=== PATIENT | male | born 1940 | race Caucasian/White ===

== ENCOUNTER → 2018-06-06 07:25 | Outpatient (CLI) | payer MEDICARE, SELFPAY ==
--- NOTE | 2018-06-06 10:00 | PFT_ITS ---
PULMONARY FUNCTION TEST RESULTS SPIROMETRY: Moderate Obstructive Ventilatory Component. No significant measurable clinical response to Beta Agonist. LUNG VOLUMES: Air trapping Hyperinflation DIFFUSION: Severe gas transfer abnormality.
== END ==
PROVIDERS: Family Provider Family Medicine; PCP Family Medicine; Visit Provider Family Medicine
DX: J44.9 Chronic obstructive pulmonary disease, unspecified (principal)
CPT/HCPCS: 94060; 94726; 94729

== ENCOUNTER → 2018-06-10 08:22 | Outpatient (CLI) | payer MEDICARE, SELFPAY ==
[2018-06-10 09:21] VITALS: PULSE 100; PULSE 106; PULSE 112; PULSE 113; PULSE 70; PULSE 71; PULSE 93; PULSE 95; O2SAT 94; O2SAT 95; O2SAT 96; O2SAT 97; O2SAT 98
--- NOTE | 2018-06-10 15:53 | WT_ITS ---
PSN 6 Minute Walk Test - 6 Minute Walk Test 6 Minute Walk Test: 6 Minute Walk Test PSN:6-Minute Walk Test Start: 06/10/18 09: 21 Freq: Status: Active Protocol: [id number].6MINW Document 06/10/18 09:21 SHILO (Rec: 06/10/18 09:24 SHILO [id number]) 6 Minute Walk Test Date Performed 06/10/18 Time Performed 09:00 Height 5 ft 7 in Weight: 111.584 kg Weight in Pounds 246.[address]: Silvino Jaime Assistive device used: Cane Pre-test Oxygen Delivery Method Room Air Pulse Ox (%) 97 Pulse Rate (60-100 beats/min) 71 Dyspnea Tyrell Scale (0-10) 0 Exertion Tyrell Scale (6-20) 6 1st minute Oxygen Delivery Method Room Air Pulse Ox (%) 98 Pulse Rate (60-100 beats/min) 95 2nd minute Oxygen Delivery Method Room Air Pulse Ox (%) 97 Pulse Rate (60-100 beats/min) 100 Reported Symptoms Increased Work of Breathing 3rd minute Oxygen Delivery Method Room Air Pulse Ox (%) 96 Pulse Rate (60-100 beats/min) 93 Number of Rests Taken 1 4th minute Oxygen Delivery Method Room Air Pulse Ox (%) 94 Pulse Rate (60-100 beats/min) 112 H 5th minute Oxygen Delivery Method Room Air Pulse Ox (%) 95 Pulse Rate (60-100 beats/min) 113 H 6th minute Oxygen Delivery Method Room Air Pulse Ox (%) 94 Pulse Rate (60-100 beats/min) 106 H Dyspnea Tyrell Scale (0-10) 4 Exertion Tyrell Scale (6-20) 13 Post-test Oxygen Delivery Method Room Air Pulse Ox (%) 97 Pulse Rate (60-100 beats/min) 70 Full Laps Walked 11 Partial Lap, Number of Tiles Walked 15 Total Distance Walked (ft) 664 - Interpretation Interpretation: The patient was able to ambulate 664 feet over the course of 6 minutes on room air with the assistance of a cane and one break. The patient did not experience significant desaturation, but did have tachycardia as high as 113 bpm. These findings are consistent with a musculoskeletal and cardiovascular limitation exercise tolerance. - Recommendations Recommendations: No supplemental oxygen is indicated at this time.
== END ==
PROVIDERS: Family Provider Family Medicine; PCP Family Medicine; Visit Provider Family Medicine
DX: J44.9 Chronic obstructive pulmonary disease, unspecified (principal)
CPT/HCPCS: 94618

== ENCOUNTER → 2018-09-07 10:12 | Outpatient (CLI) | payer MEDICARE, SELFPAY ==
[2018-09-07 12:23] LABS: Hematocrit 24.1 % (40-54); Hemoglobin 7.2 g/dl (13.0-16.5); Immature Platelet Fraction 3.5 % (1.0-7.9); Mean Corp Hgb Conc 29.9 g/gl (32-36); Mean Corpuscular Hgb 29.3 pg (27.0-32.0); Mean Platelet Vol. 9.5 fl (6.2-12.0); Platelet Count 203 K/mm3 (150-450); RBC Distribution Width CV 18.9 % (11.6-14.6); RBC Distribution Width SD 65.7 fl (35.1-43.9); RET-HE 28.1 pg (30-35); Red Blood Count 2.46 M/mm3 (4.6-6.2); Reticulocyte Count 7.44 % (0.5-1.5); White Blood Count 9.1 K/mm3 (4.4-11.0)
[2018-09-07 12:24] LABS: Scan Indicated on CBC? Y/N YES- FLAGS NOTED
[2018-09-07 12:36] LABS: Differential Comment SCANNED
[2018-09-07 12:51] LABS: Vitamin B12 382 pg/mL (211-911)
[2018-09-07 12:56] LABS: Ferritin 13 ng/mL (26-388)
== END ==
PROVIDERS: Family Provider Family Medicine; PCP Family Medicine; Referring Provider Family Medicine; Visit Provider Family Medicine
DX: D64.9 Anemia, unspecified (principal); K62.5 Hemorrhage of anus and rectum
CPT/HCPCS: 36415; 82607; 82728; 82746; 85027; 85045

== ENCOUNTER → 2018-09-13 11:21 | Outpatient (CLI) | payer MEDICARE, SELFPAY ==
[2018-09-13 12:28] LABS: Absolute Lymphocyte Count 0.56 X10^3/ul (0.83-4.51); Absolute Neutrophil Count 8.6 X10^3/uL (2.0-7.7); Hematocrit 26.2 % (40-54); Hemoglobin 7.8 g/dl (13.0-16.5); Immature Platelet Fraction 4.5 % (1.0-7.9); Lymphocyte # 0.56 X10^3/ul (4.0); Mean Corp Hgb Conc 29.8 g/gl (32-36); Mean Corpuscular Hgb 28.4 pg (27.0-32.0); Mean Corpuscular Volume 95.3 fL (80-94); Mean Platelet Vol. 10.1 fl (6.2-12.0); Monocyte# 0.13 X10^3/uL; Monocyte% 1.4 % (0-10); Neutrophil % 92.5 % (47-70); Platelet Count 201 K/mm3 (150-450); RBC Distribution Width CV 17.8 % (11.6-14.6); RBC Distribution Width SD 61.4 fl (35.1-43.9); RET-HE 17.3 pg (30-35); Red Blood Count 2.75 M/mm3 (4.6-6.2); Reticulocyte Count 3.72 % (0.5-1.5); White Blood Count 9.3 K/mm3 (4.4-11.0)
[2018-09-13 12:32] LABS: Differential Indicated SCAN CRITERIA MET; POSITIVE COUNT NO; POSITIVE DIFFERENTIAL YES; POSITIVE MORPHOLOGY YES
[2018-09-13 12:57] LABS: Polychromasia RARE
[2018-09-13 13:14] LABS: ALB/GLOB Ratio 0.9 RATIO (0.9-2.4); AST(SGOT) 22 U/L (15-37); Alanine Aminotransfer ALT/SGPT 38 U/L (16-61); Alkaline Phosphatase 65 U/L (45-117); Anion Gap 8 (5-15); BUN 24 mg/dL (7-18); BUN/Creat Ratio 14.9 RATIO (10-20); Calcium,Total 8.4 mg/dL (8.5-10.1); Chloride 108 mmol/L (98-107); Creatinine, Serum 1.61 mg/dL (0.70-1.30); EST Glomerular Filtration Rate 44 mL/min (>60); Est Glom Filt Rate - Afr Amer 54 mL/min (>60); Ferritin 16 ng/mL (26-388); Globulin 3.5 g/dL (2.2-4.2); Glucose 210 mg/dL (74-106); Iron 14 ug/dL (65-175); Iron Binding Capacity,Total 342 ug/dL (250-450); Protein, Total 6.5 g/dL (6.4-8.2); Sodium Level 138 mmol/L (136-145)
== END ==
PROVIDERS: Family Provider Family Medicine; PCP Family Medicine; Visit Provider Family Medicine
DX: K92.2 Gastrointestinal hemorrhage, unspecified (principal)
CPT/HCPCS: 36415; 80053; 82728; 83540; 83550; 85025; 85045

== ENCOUNTER → 2019-08-27 10:25 | Outpatient (CLI) | payer MEDICARE, SELFPAY ==
[2019-08-27 10:55] LABS: Hematocrit 47.3 % (40-54); Hemoglobin 15.7 g/dL (13.0-16.5); Mean Corp Hgb Conc 33.2 g/dL (32-36); Mean Corpuscular Hgb 33.1 pg (27.0-32.0); Mean Corpuscular Volume 99.8 fL (80-94); Mean Platelet Vol. 9.5 fl (6.2-12.0); Platelet Count 191 K/mm3 (150-450); RBC Distribution Width CV 13.7 % (11.6-14.6); RBC Distribution Width SD 50.6 fl (35.1-43.9); Red Blood Count 4.74 M/mm3 (4.6-6.2); White Blood Count 7.3 K/mm3 (4.4-11.0)
[2019-08-27 11:21] LABS: ALB/GLOB Ratio 0.9 RATIO (0.9-2.4); AST(SGOT) 29 U/L (15-37); Alanine Aminotransfer ALT/SGPT 40 U/L (16-61); Albumin, Serum 3.5 g/dL (3.2-5.0); Alkaline Phosphatase 77 U/L (45-117); Anion Gap 6 (5-15); BUN 24 mg/dL (7-18); BUN/Creat Ratio 15.2 RATIO (10-20); Calcium,Total 9.2 mg/dL (8.5-10.1); Chloride 107 mmol/L (98-107); Creatinine, Serum 1.58 mg/dL (0.70-1.30); EST Glomerular Filtration Rate 45 mL/min (>60); Est Glom Filt Rate - Afr Amer 55 mL/min (>60); Globulin 3.8 g/dL (2.2-4.2); Glucose 184 mg/dL (74-106); Potassium 4.4 mmol/L (3.5-5.1); Protein, Total 7.3 g/dL (6.4-8.2); Sodium Level 137 mmol/L (136-145)
[2019-08-27 11:53] LABS: Hemoglobin A1c 6.4 % (4.2-6.3)
== END ==
PROVIDERS: Family Provider Family Medicine; PCP Family Medicine; Referring Provider Family Medicine; Visit Provider Family Medicine
DX: E88.81 Metabolic syndrome and other insulin resistance (principal); J44.9 Chronic obstructive pulmonary disease, unspecified
CPT/HCPCS: 36415; 80053; 83036; 85027

== ENCOUNTER → 2020-01-05 05:42 | Outpatient (CLI) | payer MEDICARE, SELFPAY ==
[2020-01-05 06:59] LABS: Protein, Urine (Random) 24.2 mg/dL (<11.9); Protein:Creat Ratio 159 mg/g CRE (0-200)
[2020-01-05 07:02] LABS: Color, Urine Yellow (Yellow); Glucose, Dipstick Normal (Normal); Ketone-Dipstick Negative (Negative); Leukocyte Esterase-Dipstick Negative /ul (Negative); Nitrite-Dipstick Negative (Negative); Occult Blood-Urine 150 /ul (Negative); Protein-Dipstick 15 mg/dl (Negative); Urine Bilirubin Dipstick Negative (Negative); Urine Clarity Sl. Cloudy (Clear); Urine Urobilinogen Normal (Normal)
[2020-01-05 07:32] LABS: Anion Gap 8 (5-15); BUN 32 mg/dL (7-18); BUN/Creat Ratio 20.1 RATIO (10-20); Calcium,Total 9.1 mg/dL (8.5-10.1); Chloride 108 mmol/L (98-107); Creatinine, Serum 1.59 mg/dL (0.70-1.30); EST Glomerular Filtration Rate 45 mL/min (>60); Est Glom Filt Rate - Afr Amer 54 mL/min (>60); Ferritin 137 ng/mL (26-388); Glucose 183 mg/dL (74-106); Phosphorus 2.6 mg/dL (2.5-4.9); Potassium 4.4 mmol/L (3.5-5.1); Sodium Level 139 mmol/L (136-145)
[2020-01-05 08:52] LABS: PTHIN 68.9 pg/mL (18.4-80.1)
[2020-01-05 08:58] LABS: Vitamin D,25 Hydroxy 70.8 ng/mL
== END ==
PROVIDERS: Internal Medicine; PCP Family Medicine; Referring Provider Internal Medicine Pulmonary Disease; Visit Provider Internal Medicine Pulmonary Disease
DX: D64.9 Anemia, unspecified (principal); N18.3 Chronic kidney disease, stage 3 (moderate); E55.9 Vitamin D deficiency, unspecified
CPT/HCPCS: 36415; 80048; 81002; 82306; 82570; 82728; 83970; 84100; 84156

== ENCOUNTER → 2020-04-05 06:48 | Outpatient (CLI) | payer MEDICARE, SELFPAY ==
[2020-04-05 07:18] LABS: Color, Urine Yellow (Yellow); Glucose, Dipstick Normal (Normal); Ketone-Dipstick Negative (Negative); Leukocyte Esterase-Dipstick Negative /ul (Negative); Nitrite-Dipstick Negative (Negative); Occult Blood-Urine 50 /ul (Negative); Protein-Dipstick 30 mg/dl (Negative); Urine Bilirubin Dipstick Negative (Negative); Urine Clarity Sl. Cloudy (Clear); Urine Urobilinogen Normal (Normal)
[2020-04-05 07:45] LABS: Anion Gap 5 (5-15); BUN 22 mg/dL (7-18); BUN/Creat Ratio 15.2 RATIO (10-20); Calcium,Total 9.1 mg/dL (8.5-10.1); Chloride 103 mmol/L (98-107); Creatinine, Serum 1.45 mg/dL (0.70-1.30); EST Glomerular Filtration Rate 50 mL/min (>60); Est Glom Filt Rate - Afr Amer 60 mL/min (>60); Glucose 132 mg/dL (74-106); Phosphorus 2.8 mg/dL (2.5-4.9); Potassium 3.9 mmol/L (3.5-5.1); Sodium Level 137 mmol/L (136-145)
[2020-04-05 07:46] LABS: Protein, Urine (Random) 28.9 mg/dL (<11.9); Protein:Creat Ratio 249 mg/g CRE (0-200)
[2020-04-05 11:08] LABS: PTHIN 77.5 pg/mL (18.4-80.1)
[2020-04-05 11:14] LABS: Vitamin D,25 Hydroxy 61.5 ng/mL
== END ==
PROVIDERS: PCP Family Medicine; Referring Provider Internal Medicine; Visit Provider Internal Medicine
DX: N18.3 Chronic kidney disease, stage 3 (moderate) (principal); E55.9 Vitamin D deficiency, unspecified
CPT/HCPCS: 36415; 80048; 81002; 82306; 82570; 83970; 84100; 84156

== ENCOUNTER → 2020-06-15 05:52 | Outpatient (CLI) | payer MEDICARE, SELFPAY ==
[2020-06-15 07:51] LABS: ALB/GLOB Ratio 0.9 RATIO (0.9-2.4); AST(SGOT) 15 U/L (15-37); Alanine Aminotransfer ALT/SGPT 27 U/L (16-61); Albumin, Serum 3.5 g/dL (3.2-5.0); Alkaline Phosphatase 75 U/L (45-117); Anion Gap 6 (5-15); BUN 21 mg/dL (7-18); BUN/Creat Ratio 14.3 RATIO (10-20); Calcium,Total 8.9 mg/dL (8.5-10.1); Chloride 108 mmol/L (98-107); Cholesterol 102 mg/dL (200); Creatinine, Serum 1.47 mg/dL (0.70-1.30); EST Glomerular Filtration Rate 49 mL/min (>60); Est Glom Filt Rate - Afr Amer 59 mL/min (>60); Ferritin 75 ng/mL (26-388); Globulin 3.8 g/dL (2.2-4.2); Glucose 115 mg/dL (74-106); High Density Lipoprotein 34 mg/dL; Potassium 4.4 mmol/L (3.5-5.1); Protein, Total 7.3 g/dL (6.4-8.2); Sodium Level 138 mmol/L (136-145); Triglycerides 163 mg/dL; Very Low Density Lipoprotein 33 mg/dL (5-40)
[2020-06-15 07:52] LABS: Hemoglobin A1c 6.5 % (3.8-5.6)
== END ==
PROVIDERS: PCP Family Medicine; Referring Provider Family Medicine; Visit Provider Family Medicine
DX: N18.3 Chronic kidney disease, stage 3 (moderate) (principal); G47.62 Sleep related leg cramps
CPT/HCPCS: 36415; 80053; 80061; 82728; 83036

== ENCOUNTER → 2020-09-13 10:46 | Outpatient (CLI) | payer MEDICARE, SELFPAY | PROVIDERS: PCP Family Medicine; Referring Provider Family Medicine; Visit Provider Family Medicine | DX: N18.30 Chronic kidney disease, stage 3 unspecified (principal); E11.29 Type 2 diabetes mellitus with other diabetic kidney complication; C85.80 Other specified types of non-Hodgkin lymphoma, unspecified site | CPT/HCPCS: 36415 ==

== ENCOUNTER → 2020-12-31 07:11 | Outpatient (CLI) | payer MEDICARE, SELFPAY ==
[2020-12-31 07:23] LABS: Bacteria 0 SEEN /hpf (None Seen); Mucous, Urine 0 SEEN /hpf (<or=2+); Red Blood Cells-Urine 0 SEEN /hpf (0-5); Squamous Epithelial Cells - UA 0 SEEN /hpf (0-5); White Blood Cells 0 SEEN /hpf (0-5)
[2020-12-31 10:11] LABS: Color, Urine Yellow (Yellow); Glucose, Dipstick Normal (Normal); Ketone-Dipstick Negative (Negative); Leukocyte Esterase-Dipstick Negative /ul (Negative); Nitrite-Dipstick Negative (Negative); Occult Blood-Urine 25 /ul (Negative); Protein-Dipstick 30 mg/dl (Negative); Specific Gravity, Urine 1.025 (1.002-1.030); Urine Bilirubin Dipstick Negative (Negative); Urine Clarity Clear (Clear); Urine Urobilinogen Normal (Normal)
[2020-12-31 10:21] LABS: Anion Gap 8 (5-15); BUN 27 mg/dL (7-18); BUN/Creat Ratio 18.8 RATIO (10-20); Calcium,Total 9.1 mg/dL (8.5-10.1); Chloride 107 mmol/L (98-107); Creatinine, Serum 1.44 mg/dL (0.70-1.30); EST Glomerular Filtration Rate 50 mL/min (>60); Est Glom Filt Rate - Afr Amer 61 mL/min (>60); Glucose 151 mg/dL (74-106); Phosphorus 3.3 mg/dL (2.5-4.9); Potassium 4.1 mmol/L (3.5-5.1); Sodium Level 138 mmol/L (136-145)
[2020-12-31 10:42] LABS: Vitamin D,25 Hydroxy 81.6 ng/mL
[2020-12-31 11:15] LABS: Creat.Clear Total Volume 1350 mL
[2020-12-31 11:16] LABS: Creatinine Clearance 77 ml/min (100-200); Creatinine Serum Creat 1.4 mg/dL (0.8-1.3); EST Glomerular Filtration Rate 52 mL/min (>60); Est Glom Filt Rate - Afr Amer 52 mL/min (>60)
[2020-12-31 11:26] LABS: 24 Hour Urine Protein 221.4 mg/24HR (<150 MG/24HR); 24HR. UA Prot. Total Volume 1350 mL; Urine Protein (24 Hour) 16.4 mg/dL (<11.9)
[2020-12-31 11:27] LABS: Protein:Creat Ratio 186 mg/g CRE (0-200)
== END ==
LOC: LAB.FUTURE 12-30 07:09 → MTLAB 07:12
PROVIDERS: PCP Family Medicine; Referring Provider Internal Medicine; Visit Provider Internal Medicine
DX: N18.30 Chronic kidney disease, stage 3 unspecified (principal); E55.9 Vitamin D deficiency, unspecified
CPT/HCPCS: 36415; 80048; 81001; 82306; 82570; 82575; 84100; 84156

== ENCOUNTER 2021-01-18 08:05 | Emergency (ER) | payer MEDICARE, SELFPAY ==
[2021-01-18 08:07] VITALS: BP 136/82; PULSE 76; RESP 14; TEMP 36.3; O2SAT 97; BMI 38.5
--- NOTE | 2021-01-18 08:14 | ED.DCSUM_ITS ---
History of Present Illness Chief Complaint: Back Informant: Patient Onset: Weeks Context: Sudden Onset Injury: - Timing: Continuous - She denies injury., Waxes and wanes Quality: Dull, Aching Location: Lumbar - Left side Current Severity: Moderate Maximum Severity: Severe Worsened by: improves with: Movement, Ambulation, Bending, Lifting Relieved by: Nothing Associated Symptoms: - - Denies bowel bladder dysfunction. He denies saddle paresthesia or anesthesia. He denies foot drop. He has buckling of his knees going up or down steps. Movement exacerbates his pain. He denies dysuria, frequency, urgency or hematuria. He denies fever or chills. He has had no recent operative Narrative: Patient is an 80-year-old male with mild medical problems who presents with 1 week history of left lower back pain. Movement exacerbates it. States he gets some improvement with heat. Patient denies abdominal pain. He denies nausea, vomiting diarrhea. He denies hematemesis, melena hematochezia. He denies history of abdominal aortic aneurysm. He does have history of stage III renal disease, hypertension and borderline diabetes. He also has neuropathy. He has not taken anything more than Tylenol for the discomfort. He states the Tylenol has had little effect. Prior similar symptoms: No Recent Illness/Hospitalization: No - Past Medical History (1) Stage 3 chronic kidney disease Status: Chronic (2) Metabolic syndrome Status: Acute (3) Afib Status: Chronic (4) COPD (chronic obstructive pulmonary disease) Status: Chronic (5) H/O heart valve replacement with porcine valve Status: Chronic (6) HTN (hypertension) Status: Chronic (7) TUSHAR (obstructive sleep apnea) Status: Chronic Past Medical History - Allergies and Home Meds Allergies/Adverse Reactions: Allergies acetaminophen [From Percocet] Allergy (Verified 01/18/21 08:07) Other iodine Allergy (Verified 01/18/21 08:07) Anaphylaxis oxycodone HCl [From Percocet] Allergy (Verified 01/18/21 08:07) Other morphine Adverse Reaction (Verified 01/18/21 08:07) Other Primary Care Physician: Silvino Jaime MD [Primary Care Provider] - Prior records reviewed: Yes Surgical History: appendectomy, - - hernia operation Lives: Alone Smoking Status: Former smoker Alcohol: None Drugs: None - Family History Maternal Family History: Reports: Heart Disease Paternal Family History: Reports: Hypertension Sibling Family History: Reports: - - brother with aneurysms,one with alcoholism Review of Systems General: Denies: Chills, Fever, Malaise, Subjective, Sweats Eyes: Denies: Visual changes - bilaterally, Blurred Vision - bilaterally ENT: Denies: Bilateral ear pain, Rhinorrhea, Sore throat Cardiovascular: Denies: Chest pain, Palpitations Respiratory: Denies: Dyspnea, Cough, Sputum, Dyspnea on exertion Gastrointestinal: Denies: Abdominal pain, Nausea, Vomiting, Diarrhea, Melena, Hematochezia Genitourinary: Denies: Dysuria, Hematuria, Frequency Musculoskeletal: Reports: Back pain. Denies: Myalgias, Arthralgias, Neck pain, Swelling, Extremity Pain Skin: Denies: Rash, Wounds Neurological: Reports: Parasthesia. Denies: Headache, Weakness Psych: Denies: Depression Endocrine: Denies: Polyuria, Polydipsia Hematologic: Denies: Easy bruising, Easy bleeding Physical Exam Vital Signs/Narrative: Vital Signs Temp Pulse Resp BP Pulse Ox 01/18/21 08:07 97.4 F L 76 14 136/82 H 97 Inital Vital Signs reviewed: Yes General: Well nourished, Well developed, Obese Head: Normocephalic, Atraumatic. Negative for: Trauma, Tenderness Eyes: Perrl, EOMI. Negative for: Pale conjunctiva, Scleral icterus ENT: Moist mucous membranes, No rhinorrhea Neck: Supple, Nontender, No lymphadenopathy, No JVD Cardiovascular: Regular rhythm, No murmurs, Normal S1, Normal S2, Irregular Respiratory: No distress, CTA bilaterally, Chest nontender Abdomen: Soft, Nontender, Nondistended, Normal bowel sounds, No masses. Negative for: Pulsatile mass Rectal: Deferred Back: Normal Inspection, Paraspinal Tenderness - Left lower back., Negative SLR - Right, Negative SLR - Left. Negative for: Nontender, Surgical Scar, Well- Healed, Spinal tenderness, CVA tenderness Extremeties: Tenderness - Due to diabetic neuropathy., Edema - Minimal pitting, Strong Pulses, Symmetric. Negative for: Nontender, No edema Skin: Normal color, No Trauma, Rash - Anus stasis changes lower extremity. Negative for: Cyanosis, Diaphoresis, Jaundice Neuro: Alert, Oriented, Normal Strength, Normal Sensation, Normal DTR - 1-2+ patella and ankle and symmetric., Normal Reflexes, Normal Cerebellar. Negative for: Normal Gait - Walks with a cane. Left foot is rotated laterally. He does walk with a slight limp. Reflexes: - - There is no clonus or Babinski sign noted. Psychological: - - Disc flat. Diagnostic/Tx/Re-eval - Medical Decision Making Patient appears uncomfortable. He was medicated with IV morphine. Patient's history and exam is consistent with muscular back pain. There is no historical or physical findings to suggest cause due to herniated disc, or infectious process i.e. discitis, osteomyelitis or epidural abscess. There is no dermatologic lesions to suggest herpes varicella-zoster. Graph patient refused the morphine because it makes him mean. Patient was treated with [place]. He was informed this is muscular back pain. Since he does have history of diabetes, end-stage renal disease hypertension other multiple medical problems he was discharged with prescription for opiate analgesia. ED Disposition - Plan for ED Patient: Disposition: Home or Assisted Living Diagnosis: Acute exacerbation of chronic low back pain Instructions: ED Back Pain (Acute or Chronic) Prescriptions: Hydrocodone Bitart/Apap 5-325 [[place] 5MG-325MG] 1 tab PO Q6H PRN PRN 3 Days #10 tab PRN Reason: Pain Prescription Printed Referrals: Silvino Jaime MD [Primary Care Provider] - 3-5 Days Additional Instructions: 1. Apply ice 20 to 30 minutes per application 6-8 times a day for the next 3 to 5 days 2. Take medication as prescribed 3. As discussed contact Dr. Silvino Jaime for follow-up.
[2021-01-18 08:42] VITALS: BP 130/75; PULSE 70; RESP 18; TEMP 36.3; O2SAT 96
== END 2021-01-18 09:50 | disposition home or self-care (01) ==
PROVIDERS: Emergency Provider Emergency Medicine; PCP Family Medicine
DX: M54.5 Low back pain (principal); G89.29 Other chronic pain; G47.33 Obstructive sleep apnea (adult) (pediatric); I12.9 Hypertensive chronic kidney disease with stage 1 through stage 4 chronic kidney disease, or unspecified chronic kidney disease; I48.91 Unspecified atrial fibrillation; J44.9 Chronic obstructive pulmonary disease, unspecified; N18.30 Chronic kidney disease, stage 3 unspecified; Z82.49 Family history of ischemic heart disease and other diseases of the circulatory system; Z87.891 Personal history of nicotine dependence; Z88.5 Allergy status to narcotic agent; Z95.2 Presence of prosthetic heart valve
CPT/HCPCS: 96374; 96375; 99282; J2405

== ENCOUNTER → 2021-02-01 14:00 | Outpatient (CLI) | payer MEDICARE, SELFPAY ==
[2021-01-18 08:07] VITALS: BMI 38.5
--- NOTE | 2021-02-01 14:03 | CT_ITS ---
STUDY: CT ABDOMEN AND PELVIS WITHOUT CONTRAST REASON FOR EXAM: Male, 80 years old. R low back pain radiating to R groin. Possible kidney stone. History of prior non-Hodgkin''s lymphoma. RADIATION DOSAGE (If Supplied By Facility): CTDIvol = ( 19.66 ) mGy, DLP = ( 1044.67 ) mGycm TECHNIQUE: Transaxial images were obtained from the dome of the diaphragm to the symphysis pubis without oral contrast, and without intravenous contrast. Sagittal and coronal images were reconstructed. Individualized dose optimization techniques were used for this CT. COMPARISON: None. FINDINGS: Mild degree of increased interstitial markings at the right lung base suggestive of scarring. Coronary artery calcification. Calcification of the mitral valve annulus. Normal liver. Normal gallbladder and extrahepatic biliary system. Normal spleen. Normal pancreas. Normal bilateral adrenal glands. Normal right kidney. Normal left kidney. Normal visualized stomach. Normal small intestine. Normal colon. The patient is status post appendectomy. There is diffuse atherosclerotic calcification of the abdominal aorta and its major visceral branches, without a demonstrated aneurysm. Normal inferior vena cava. Normal retroperitoneum. Normal urinary bladder. The prostate measures 4.7 cm x 5.2 cm. This causes indentation at the bladder base. There is a small umbilical hernia containing fat. There are diffuse degenerative changes of the visualized lumbar spine. CT/Abdomen/Pelvis without Cont IMPRESSION: Prostatic enlargement. Electronically Signed: Bill Stockton MD at 15:13 EDT , Service support ,
== END ==
PROVIDERS: PCP Family Medicine; Referring Provider Family Medicine; Visit Provider Family Medicine
DX: R10.31 Right lower quadrant pain (principal)
CPT/HCPCS: 74176

== ENCOUNTER 2021-03-11 07:00 | Outpatient (RCR) | payer MEDICARE, SELFPAY ==
--- NOTE | 2021-02-10 11:49 | HP.PTEVAL ---
Patient's Visit Information CHARLES DODSON is a 80 year old M referred to Physical Therapy by Dr. Silvino Jaime MD with a diagnosis of CHRONIC LOW BACK PAIN. Date of Evaluation: 02/10/21 Physical Therapist: Ferny Joy, PT, Cert MDT, OCS - Visit Plan Frequency: 2x /Week Duration: 4 Weeks Plan: PT INTERVENTION LUMBAR FLEXION EX'S,DLS ,POSTURAL EX'S,MODALTIES FOR PAIN - Subjective This 80 y/o male presents to physical therapy with LBP right worse than left . Patient has had LBP for about 1 month. Patient LBP was incidous onset . Patient also has left neck and shoulder pain . DR perez a CATSCAN pelvis showed hernia.Aggraveting factors bending,lifting,walking and standing affects ADL's. Alleviating factors rest. Bowel/bladder -NO abdnormal night pain. Coughing/sneezing -. Sleeping okay. 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 Patient has no h/o trauma. Patient symptoms affects QOL and housework tasks. Patient symptoms affects walking. SOCAIL: - Pain Bilateral Back Pain Intensity (Out of 10): 5 Pain Intensity Range: 10 Left Shoulder Pain Intensity (Out of 10): 10 Pain Intensity Range: 10 - Objective POSTURE: mild foward posture. GAIT: recipocal pattern 2 point gait slow aliyah mild foward posture. NEURO: denies parathesia/tingling,reflexes L3-4,L4-5,L5-S1 1/3. PALAPTION: L-S ,PARASPINALS,multifidas. SYMMTRIES: align. LUMBAR ROM: flexion mod loss ,extension severe loss pain,side glides mod loss,. CERVICAL ROM: severe loss extension,lateral flexion pain right UT SHOULDER. MMT: quads/hams 4-/5,hip flexion 4-/5,ankle 4/5. right shoulder 3+/5,rtc 4-/5 pain. MMT - Special Tests L/S Slump test left side: Negative L/S Slump test right side: Negative L/S Left Straight Leg Raise: Negative L/S Right Straight Leg Raise: Negative - Goals Goal 1:: Patient to be I with HEP Goal Time Frame: 4-6 Weeks Goal 2:: Patient to decrease pain back by 40 % or > to improve function and gait Goal Time Frame: 4-6 Weeks Goal 3:: Patient to improve lumbar ROM for function of recovery Goal Time Frame: 4-6 Weeks Goal 4:: Patient to improve back owestry score by 5 points or > to improve QOL. Goal Time Frame: 4-6 Weeks Goal 5:: Patient be able to stand and walk > than 15 mins with less pain to improve housework taskls Goal Time Frame: 4-6 Weeks - Rehabilitation Potential Physical Therapy Diagnosis: This patient has LBP with possibel stenosis with severe loss of lumbar motion ,decrease strength impairs walking and standing affects function and ADL'S thus benifit from skilled PT Rehabilitation Potential: Good - Anticipated Interventions Patient/Client Instruction: Educate patient on: Condition, Plan of Care For the Purpose of:: To decrease pain, To increase ROM, To improve muscle performance and motor function, To improve ability to perform ADL's, To increase tolerance to activity/condition/position, To improve ability of physical actions for home/community/work/leisure, To improve health of tissue, To decrease soft tissue restriction, To increase flexibility/ROM Therapeutic Exercise to Include: Strength training, Body mechanics, Postural training, Flexibilty training, Active ROM Comment: BLE For the Purpose of:: To decrease pain, To increase ROM, To improve muscle performance and motor function, To increase tolerance to activity/condition/position, To improve ability of physical actions for home/community/work/leisure, To improve health of tissue, To decrease soft tissue restriction, To increase flexibility/ROM, To improve ability to perform tasks related to life management TENS: Yes IF ES: Yes Cryotherapy (ice pack, ice massage): Yes Thermo therapy (hot pack): Yes Ultrasound (thermal/non thermal): Yes For the Purpose of:: To decrease pain, To increase ROM, To improve nutrient delivery to tissue, To increase oxygenation perfusion, To improve health of tissue, To decrease soft tissue restriction Thank you for the opportunity to evaluate your patient. For Medicare and Medicare HMO plans, please review the plan of care and approve it. It will need to be FAXED BACK to us at [phone] for Medicare purposes. For Medicare only, by signing this I certify the plan of care. Please let me know if there are questions or concerns regarding this plan of care. Physician Signature: Date:
--- NOTE | 2021-06-29 14:20 | HP.PT.NRP ---
CHARLES DODSON was seen in my office for initial evaluation on 02/10/21. The following Plan of Care was established for this patient: Initial Frequency: 2x /Week Initial Duration: 4 Weeks Patient/Client Instruction: Educate patient on: Condition, Plan of Care For the Purpose of:: To decrease pain, To increase ROM, To improve muscle performance and motor function, To improve ability to perform ADL's, To increase tolerance to activity/condition/position, To improve ability of physical actions for home/community/work/leisure, To improve health of tissue, To decrease soft tissue restriction, To increase flexibility/ROM Therapeutic Exercise to Include: Strength training, Body mechanics, Postural training, Flexibilty training, Active ROM For the Purpose of:: To decrease pain, To increase ROM, To improve muscle performance and motor function, To increase tolerance to activity/condition/position, To improve ability of physical actions for home/community/work/leisure, To improve health of tissue, To decrease soft tissue restriction, To increase flexibility/ROM, To improve ability to perform tasks related to life management TENS: Yes IF ES: Yes Cryotherapy (ice pack, ice massage): Yes Thermo therapy (hot pack): Yes Ultrasound (thermal/non thermal): Yes For the Purpose of:: To decrease pain, To increase ROM, To improve nutrient delivery to tissue, To increase oxygenation perfusion, To improve health of tissue, To decrease soft tissue restriction This patient was last seen in our office . Pertinent comments regarding their Physical therapy will appear below: Patient seen for PT for back pain focusing on postural ex's, DLS and modalities doing well thus d/c At this point I will be discontinuing this patient from physical therapy. I would be happy to see this patient again in the future if found appropriate by the physician. Thank you! Ferny Joy, PT, Cert MDT, OCS Balance/Gait/Functional tests - Balance/Special Test Scores Oswestry Low Back Score: 3
== END 2021-03-11 19:00 | disposition home or self-care (01) ==
LOC: PT 07:00
PROVIDERS: PCP Family Medicine; Referring Provider Family Medicine; Visit Provider Family Medicine
DX: M54.5 Low back pain (principal); G89.29 Other chronic pain
CPT/HCPCS: 97110; 97162

== ENCOUNTER 2021-03-14 18:43 | Inpatient (IN) | payer MEDICARE, SELFPAY ==
[2021-03-14] VITALS (10 sets, daily range): BP systolic 100–134; BP diastolic 52–88; PULSE 82–102; RESP 18–21; TEMP 36.4–36.6; O2SAT 95–97; BMI 38.3; BMI 36.8
--- NOTE | 2021-03-14 18:54 | EKG12_ITS ---
Test Reason : SOB Blood Pressure : / mmHG Vent. Rate : 093 BPM Atrial Rate : 098 BPM P-R Int : 000 ms QRS Dur : 104 ms QT Int : 350 ms P-R-T Axes : 000 -11 110 degrees QTc Int : 435 ms Atrial fibrillation with premature ventricular or aberrantly conducted complexes T wave abnormality, consider lateral ischemia Abnormal ECG Confirmed by STEFANY GODFREY, TY ([id number]), senior technical editor REID CABRERA ([id number]) on 03/16/2021 9:09:12 AM Referred By: WHIT Confirmed By:TY MCCALL MD
--- NOTE | 2021-03-14 18:56 | ED.VIS.DYS ---
HPI History of Present Illness Chief Complaint: Shortness of Breath Informant: patient Onset/Context/Timing Onset: Days Context: gradual Timing: Intermittent Quality: Positive for Dyspnea on exertion and Wheezing Current Severity: Moderate Maximum Severity: Moderate Worsened by: Exertion Relieved by: Nothing Associated Symptoms cough Chest Pain: Positive for Intermittent Narrative Narrative: The patient is an 80-year-old male with medical history significant for hypertension, COPD on home oxygen, prior heart valve replacement on anticoagulants, who presents to the emergency department shortness of breath. Patient states that for the past 2 days, he has had some gradually worsening shortness of breath. He states he feels like he cannot catch his breath when he is exerting himself. He had a scant cough without sputum. He states he will also feel lightheaded if he exerts himself. He denies fever or chills. He does admit to some constipation but denies any other change in bowel habits. He has been compliant with all his medications. He denies any recent antibiotic use. [facility] Medical History (Updated 03/14/21 @ 19:01 by Jade Steele) COPD (chronic obstructive pulmonary disease) Home Medications Cetirizine Hcl [Zyrtec] 10 mg PO DAILY 01/19/16 [History Last Taken Unknown] Rivaroxaban [Xarelto] 20 mg PO DAILY 01/19/16 [History Last Taken Unknown] albuterol sulfate [ProAir HFA] 1 puff INHALATION DAILY PRN PRN 01/19/16 [History Last Taken 06/29/16 04:00] amlodipine 5 mg PO DAILY 01/19/16 [History Last Taken 06/29/16 04:00] aspirin 81 mg PO DAILY@0800 01/19/16 [History Last Taken Unknown] coenzyme Q10 200 mg PO DAILY 01/19/16 [History Last Taken Unknown] formoterol fumarate [Perforomist] 1 puff INHALATION BID 01/19/16 [History Last Taken 06/29/16 04:00] fosinopril 40 mg PO DAILY 01/19/16 [History Last Taken 06/29/16 04:00] magnesium oxide 400 mg PO QHS 01/19/16 [History Last Taken Unknown] metoprolol succinate 25 mg PO BID 01/19/16 [History Last Taken 06/29/16 04:00] nitroglycerin 0.4 mg SUBLINGUAL Q5M PRN 03/16/16 [History Last Taken Unknown] tiotropium bromide [Spiriva with HandiHaler] 1 cap INHALATION DAILY 01/19/16 [History Last Taken 06/29/16 04:00] B-complex with vitamin C 1 ea PO DAILY 06/22/16 [History Last Taken Unknown] pravastatin 40 mg PO QHS 06/22/16 [History Last Taken Unknown] ropinirole [Requip] 0.5 mg PO QHS 06/22/16 [History Last Taken Unknown] Allergy/AdvReac Type Severity Reaction Status Date / Time acetaminophen [From Percocet] Allergy Other Verified 03/14/21 18:43 iodine Allergy Anaphylaxis Verified 03/14/21 18:43 oxycodone HCl [From Percocet] Allergy Other Verified 03/14/21 18:43 morphine AdvReac Other Verified 03/14/21 18:43 Social History Smoking Status: Former smoker ROS ROS ED Constitutional Constitutional ED: Denies chills or fever(s) Eyes Eyes: Denies blurry vision or change in vision ENT ENT ED: Denies ear pain or sore throat Cardiovascular Cardiovascular: Reports chest pain; Denies palpitations Respiratory/Chest Respiratory/Chest: Reports cough, dyspnea and dyspnea on exertion Gastrointestinal Gastrointestinal: Denies abdominal pain, nausea or vomiting Genitourinary Genitourinary ED: Denies dysuria or urinary frequency Musculoskeletal Musculoskeletal: Denies arthralgias or myalgias Integumentary Denies rash Neurologic Neurologic: Denies headache(s) or paresthesias Psychiatric Psychiatric: Denies anxiety or depression Endocrine Endocrinology: Denies polydipsia or polyuria Allergic/Immunologic Allergic/Immunologic ED: Denies urticaria EXAM Physical Exam Const Vital Signs: 03/14/21 18:44 03/14/21 18:47 03/14/21 19:11 Temperature 97.5 F L 97.5 F L Temperature Source Temporal Temporal Pulse Rate 97 97 82 Respiratory Rate 18 18 20 H Respiratory Pattern Tachypnea Blood Pressure 117/52 L 117/52 L Blood Pressure Mean 73 73 Pulse Ox 97 97 Oxygen Delivery Method Room Air Room Air Positive well nourished and well developed General Appearance ED: well developed HEENT Reports normocephalic, head/scalp atraumatic and moist mucous membranes Eyes PERRL and EOMs intact bilaterally Neck no lymphadenopathy and supple General: Negative for tenderness Chest Wall inspection of chest normal Resp normal respiratory effort Auscultation: wheezes Cardio regular rate, regular rhythm and no murmurs GI normal to inspection, nondistended, normoactive bowel sounds Palpation: Negative for tender, guarding or rebound tenderness present Back/Spine no CVA tenderness Cervical Spine: Negative for cervical spine tenderness Thoracic Spine / Upper Back: Negative for thoracic spinal tenderness Extremity normal to inspection General Extremety ED: Negative for tenderness Neuro oriented x3 and CN's II-XII intact bilaterally Neuro Narrative: No focal deficits appreciated. Sensorium / Orientation: alert Psych mental status grossly normal Skin no rashes or lesions noted, no wounds and skin turgor normal MDM MDM MDM Narrative Medical decision making narrative: Patient presents to the emergency department generalized weakness and exertional dyspnea. IV was established. Patient was given a DuoNeb treatment with some improvement of his aeration. He was also given Solu-Medrol. He has had scant cough. He had no fever. I did hold on antibiotics at this time. Chest x-ray reviewed by both myself and the radiologist shows chronic changes consistent with COPD. There is no focal infiltrative process. Cardiac enzymes are normal. BNP was normal. On evaluation, he states that he is feeling improved. We did attempt to ambulate the patient. With ambulation, he became tachycardic and had oxygen saturations of 83%. Given his exertional hypoxia and constellation of symptoms, I do feel that he would benefit from admission. The patient was discussed with the hospitalist. Impression 1. COPD exacerbation 2. Hypoxia Lab Data Attestation: I reviewed the patient's lab results. Labs: Laboratory Results - last 24 hr 03/14/21 03/14/21 03/14/21 19:00 19:00 19:00 WBC 10.1 RBC 2.46 L Hgb 7.9 L Hct 25.3 L MCV 102.8 H MCH 32.1 H MCHC 31.2 L RDW Std Deviation 61.2 H RDW Coeff of Danial 17.1 H Plt Count 224 MPV 9.4 Immature Gran % (Auto) 0.900 Neut % (Auto) 77.9 H Lymph % (Auto) 12.8 L Bullock % (Auto) 7.4 Eos % (Auto) 0.7 Baso % (Auto) 0.3 Absolute Neuts (auto) 7.8 H Absolute Lymphs (auto) 1.29 Nucleated RBC % 0.5 Sodium 138 Potassium 4.4 Chloride 108 H Carbon Dioxide 23.0 Anion Gap 7 BUN 46 H Creatinine 1.52 H Estim Creat Clear Calc 36.24 Est GFR (MDRD) Af Amer 57 L Est GFR (MDRD) Non-Af 47 L BUN/Creatinine Ratio 30.3 H Glucose 119 H Calcium 8.7 Troponin I < 0.015 B-Natriuretic Peptide 96.9 Radiography Chest X-Ray - ED: 1 View, Read by ED Physician, Heart, Bony Structures, No Acute Disease, Chronic Changes and Cardiomegaly Diagnostic Testing: Radiology Impression Chest X-Ray 03/14/21 18:59 IMPRESSION: COPD without definite acute findings. Electronically Signed: Jaime Ascencio MD at 19:54 EDT Tel , Service support , Discharge Plan Triage Chief Complaint: Shortness of Breath ED Provider: Jose David Nance Dx/Rx/DC Orders Prescriptions: No Action metoprolol succinate 200 MG tablet extended release 24 hr 25 mg PO BID RF: 0 amlodipine 5 MG tablet 5 mg PO DAILY RF: 0 magnesium oxide 400 MG tablet 400 mg PO QHS RF: 0 fosinopril 40 MG tablet 40 mg PO DAILY RF: 0 tiotropium bromide [Spiriva with HandiHaler] 18 MCG Cap.W.Dev 1 cap inhalation DAILY RF: 0 coenzyme Q10 200 MG capsule 200 mg PO DAILY RF: 0 formoterol fumarate [Perforomist] 20 MCG/2 ML Ml 1 puff inhalation BID RF: 0 Rivaroxaban [Xarelto] 20 MG tablet 20 mg PO DAILY RF: 0 nitroglycerin 0.4 MG tablet 0.4 mg sublingual Q5M PRN (Reason: Chest Pain) RF: 0 aspirin 81 MG tablet,chewable 81 mg PO DAILY@0800 RF: 0 albuterol sulfate [ProAir HFA] 1 PUFF inhaler 1 puff inhalation DAILY PRN PRN (Reason: Congestion) RF: 0 Cetirizine Hcl [Zyrtec] 10 MG tablet 10 mg PO DAILY RF: 0 pravastatin 40 MG tablet 40 mg PO QHS RF: 0 ropinirole [Requip] 0.5 MG tablet 0.5 mg PO QHS RF: 0 B-complex with vitamin C 1 EACH tablet 1 ea PO DAILY RF: 0 Primary Care Provider: Silvino Jaime
--- NOTE | 2021-03-14 18:59 | RAD_ITS ---
INDICATION: sob EXAMINATION/TECHNIQUE: X-RAY - XR Chest 1 View COMPARISON: 09/06/2017. FINDINGS: Median sternotomy wires present. Chronic lung changes. Flattening of the hemidiaphragms. Tortuous and calcified thoracic aorta. The heart is not enlarged. No pleural effusion or pneumothorax. Biapical pleural scarring. No acute osseous abnormalities. RAD/Chest 1 View (Portable) IMPRESSION: COPD without definite acute findings. Electronically Signed: Jaime Ascencio MD at 19:54 EDT Tel , Service support ,
[2021-03-14] MEDS: Ipratropium/Albuterol Sulfate 3 ML AMPUL.NEB INHALATION (19:08)
[2021-03-14] MEDS: MethylPREDNISolone 125 MG/2 ML Vial IV (19:08)
[2021-03-14 19:10] LABS: Absolute Lymphocyte Count 1.29 X10^3/uL (0.83-4.51); Absolute Neutrophil Count 7.8 X10^3/uL (2.0-7.7); Basophil# 0.03 X10^3/uL; Basophil% 0.3 % (0-1); Eosinophil# 0.07 X10^3/uL; Eosinophils% 0.7 % (0-5); Hematocrit 25.3 % (40-54); Hemoglobin 7.9 g/dL (13.0-16.5); Lymphocyte # 1.29 X10^3/ul (0.83-4.51); Lymphocyte % 12.8 % (19-41); Mean Corp Hgb Conc 31.2 g/dL (32-36); Mean Corpuscular Hgb 32.1 pg (27.0-32.0); Mean Corpuscular Volume 102.8 fL (80-94); Mean Platelet Vol. 9.4 fl (6.2-12.0); Monocyte# 0.74 X10^3/uL; Monocyte% 7.4 % (0-10); NRBC Flagged by Analyzer 0.5 % (0-5); Neutrophil # 7.84 X10^3/uL (2.7-7.7); Neutrophil % 77.9 % (47-70); Platelet Count 224 K/mm3 (150-450); RBC Distribution Width CV 17.1 % (11.6-14.6); RBC Distribution Width SD 61.2 fl (35.1-43.9); Red Blood Count 2.46 M/mm3 (4.6-6.2); White Blood Count 10.1 K/mm3 (4.4-11.0)
[2021-03-14 19:24] LABS: BNP,B-Type NATRIURETIC PEPTIDE 96.9 pg/mL (0-100)
[2021-03-14 19:30] LABS: Anion Gap 7 (5-15); BUN 46 mg/dL (7-18); BUN/Creat Ratio 30.3 RATIO (10-20); Calcium,Total 8.7 mg/dL (8.5-10.1); Chloride 108 mmol/L (98-107); Creatinine, Serum 1.52 mg/dL (0.70-1.30); EST Glomerular Filtration Rate 47 mL/min (>60); Est Glom Filt Rate - Afr Amer 57 mL/min (>60); Estimated Creatinine Clearance 36.24 ml/min; Glucose 119 mg/dL (74-106); Potassium 4.4 mmol/L (3.5-5.1); Sodium Level 138 mmol/L (136-145)
--- NOTE | 2021-03-14 19:45 | CPS ---
Duoneb given to patient. Albuterol not given at the moment. Patient breathing better after duoneb treatment and Dr. Borjas agreed that albuterol could be withheld unless further needed.
--- NOTE | 2021-03-14 21:42 | HP.PCM_ITS ---
HPI - General HPI Narrative CHARLES DODSON, is a 80 M who presents with increasing shortness of breath over the past 2 to 3 days. Patient states he is short of breath mostly with exertion. Patient is currently sitting in bed does not appear to be in distress and not wearing oxygen. Patient denies cough, chest pain. Patient reports that he has also been tired more than usual. when asked about blood in stool or urine patient states that he has not had a bowel movement in the past couple days but has not noted blood in the stool. Patient reports that he has a history of GI bleed while on Xarelto and is currently taking Xarelto for his A. fib. [facility] Medical History (Updated 03/14/21 @ 21:57 by Hope Ignacio NP-Jaspal) COPD (chronic obstructive pulmonary disease) SBO (small bowel obstruction) Home Medications Cetirizine Hcl [Zyrtec] 10 mg PO DAILY 01/19/16 [History Last Taken Unknown] Rivaroxaban [Xarelto] 20 mg PO DAILY 01/19/16 [History Last Taken Unknown] albuterol sulfate [ProAir HFA] 1 puff INHALATION DAILY PRN PRN 01/19/16 [History Last Taken 06/29/16 04:00] amlodipine 5 mg PO DAILY 01/19/16 [History Last Taken 06/29/16 04:00] aspirin 81 mg PO DAILY@0800 01/19/16 [History Last Taken Unknown] coenzyme Q10 200 mg PO DAILY 01/19/16 [History Last Taken Unknown] formoterol fumarate [Perforomist] 1 puff INHALATION BID 01/19/16 [History Last Taken 06/29/16 04:00] fosinopril 40 mg PO DAILY 01/19/16 [History Last Taken 06/29/16 04:00] magnesium oxide 400 mg PO QHS 01/19/16 [History Last Taken Unknown] metoprolol succinate 25 mg PO BID 01/19/16 [History Last Taken 06/29/16 04:00] nitroglycerin 0.4 mg SUBLINGUAL Q5M PRN 01/19/16 [History Last Taken Unknown] tiotropium bromide [Spiriva with HandiHaler] 1 cap INHALATION DAILY 01/19/16 [History Last Taken 06/29/16 04:00] B-complex with vitamin C 1 ea PO DAILY 06/22/16 [History Last Taken Unknown] pravastatin 40 mg PO QHS 06/22/16 [History Last Taken Unknown] ropinirole [Requip] 0.5 mg PO QHS 06/22/16 [History Last Taken Unknown] Allergy/AdvReac Type Severity Reaction Status Date / Time acetaminophen [From Percocet] Allergy Other Verified 03/14/21 18:43 iodine Allergy Anaphylaxis Verified 03/14/21 18:43 oxycodone HCl [From Percocet] Allergy Other Verified 03/14/21 18:43 morphine AdvReac Other Verified 03/14/21 18:43 Social History Smoking Status: Former smoker ROS Constitutional Constitutional: Reports fatigue; Denies anorexia or fever(s) Cardiovascular Cardiovascular: Denies chest pain, edema, palpitations or syncope Respiratory/Chest Respiratory/Chest: Reports shortness of breath with exertion; Denies cough or hemoptysis Gastrointestinal Gastrointestinal: Reports constipation; Denies abdominal pain, diarrhea, nausea or vomiting Genitourinary Genitourinary: Denies dysuria Musculoskeletal Musculoskeletal: Denies back pain, extremity pain or joint pain Integumentary Integumentary: Denies dry skin, jaundice, rash or wounds Neurologic Neurologic: Denies abnormal gait, abnormal speech, confusion or dizziness Psychiatric Psychiatric: Denies anxiety or depression Endocrine Endocrinology: Denies change in body appearance, cold intolerance or heat intolerance Hematologic/Lymphatic Hematologic/Lymphatic: Reports anemia, easy bleeding and easy bruising Vital Signs Vital Signs Vital Signs: 03/14/21 18:44 03/14/21 18:47 03/14/21 19:11 Temperature 97.5 F L 97.5 F L Temperature Source Temporal Temporal Pulse Rate 97 97 82 Respiratory Rate 18 18 20 H Respiratory Pattern Tachypnea Blood Pressure 117/52 L 117/52 L Blood Pressure Mean 73 73 Pulse Ox 97 97 Oxygen Delivery Method Room Air Room Air 03/14/21 20:54 03/14/21 20:57 03/14/21 21:38 Temperature 97.5 F L 97.5 F L 97.9 F Temperature Source Temporal Temporal Temporal Pulse Rate 102 H 102 H 99 Respiratory Rate 20 H 20 H 18 Respiratory Pattern Blood Pressure 100/88 H 100/88 H 105/60 Blood Pressure Mean 92 92 75 Pulse Ox 95 95 96 Oxygen Delivery Method Room Air Room Air Room Air 03/14/21 21:40 Temperature 97.9 F Temperature Source Temporal Pulse Rate 99 Respiratory Rate 18 Respiratory Pattern Blood Pressure 105/60 Blood Pressure Mean 75 Pulse Ox 96 Oxygen Delivery Method Room Air Physical Exam Const alert, oriented x3 and no apparent distress General Appearance: cooperative HEENT normocephalic and head/scalp atraumatic Eyes PERRL Neck supple, no JVD and thyroid normal General: trachea midline Lymph Lymphatic: no lymphadenopathy noted Resp Effort and Inspection: tachypneic Auscultation: diminished lung sounds diffuse Cardio Rate: tachycardic Rhythm: abnormal rhythm irregularly irregular Peripheral Pulses: pulses 2+ throughout GI normal to inspection, nondistended, normoactive bowel sounds, soft to palpation and non-tender Extremity normal capillary refill and no clubbing, cyanosis or edema General Extremity: no tenderness to palpation of joints or extremities Skin General Skin Exam: no breakdown and turgor normal Lesions: no lesions Rashes: no rashes Neuro CN's II-XII intact bilaterally Psych thought process normal, cooperative and affect normal Appearance: appropriate Lab / Micro Data Result Diagrams: 03/14/21 19:00 03/14/21 19:00 Labs: Laboratory Results - last 24 hr 03/14/21 03/14/21 03/14/21 19:00 19:00 19:00 WBC 10.1 RBC 2.46 L Hgb 7.9 L Hct 25.3 L MCV 102.8 H MCH 32.1 H MCHC 31.2 L RDW Std Deviation 61.2 H RDW Coeff of Danial 17.1 H Plt Count 224 MPV 9.4 Immature Gran % (Auto) 0.900 Neut % (Auto) 77.9 H Lymph % (Auto) 12.[address] [place] % (Auto) 7.4 Eos % (Auto) 0.7 Baso % (Auto) 0.3 Absolute Neuts (auto) 7.8 H Absolute Lymphs (auto) 1.29 Nucleated RBC % 0.5 Sodium 138 Potassium 4.4 Chloride 108 H Carbon Dioxide 23.0 Anion Gap 7 BUN 46 H Creatinine 1.52 H Estim Creat Clear Calc 36.24 Est GFR (MDRD) Af Amer 57 L Est GFR (MDRD) Non-Af 47 L BUN/Creatinine Ratio 30.3 H Glucose 119 H Calcium 8.7 Troponin I < 0.015 B-Natriuretic Peptide 96.9 Micro: Microbiology 03/14/21 19:10 SARS-CoV-2 Antigen (Rapid) - Final Interface Orders Radiology Impression Chest X-Ray 03/14/21 18:59 IMPRESSION: COPD without definite acute findings. Electronically Signed: Jaime Ascencio MD at 19:54 EDT Tel , Service support , Assessment & Plan Assessment/Plan (1) Anemia: QUALIFIERS: Anemia type: unspecified type Qualified Code(s): D64.9 - Anemia, unspecified (2) Afib: QUALIFIERS: Atrial fibrillation type: longstanding persistent Qualified Code(s): I48.11 - Longstanding persistent atrial fibrillation (3) Stage 3 chronic kidney disease: QUALIFIERS: Chronic kidney disease stage 3 subtype: stage 3a (GFR 45-59) Qualified Code(s): N18.31 - Chronic kidney disease, stage 3a (4) HTN (hypertension): QUALIFIERS: Hypertension type: essential hypertension Qualified Code(s): I10 - Essential (primary) hypertension (5) TUSHAR (obstructive sleep apnea): (6) COPD (chronic obstructive pulmonary disease): QUALIFIERS: COPD type: unspecified COPD Qualified Code(s): J44.9 - Chronic obstructive pulmonary disease, unspecified (7) H/O heart valve replacement with porcine valve: PLAN: 1. Anemia -Admit to PCU, likely source of patient shortness of breath due to negative anth[address] st x-ray and no white blood cell count. -Continuous cardiac monitoring -CBC in a.m., trend daily -Iron studies ordered -Type and screen for possible need for transfusion -Cardiac diet -PT and OT to eval and treat -Will hold Xarelto at this time 2. A. fib -Echocardiogram in a.m. -Continuous cardiac monitoring 3. Chronic kidney disease stage IIIa -CMP daily, trend BUN and creatinine 4. Hypertension -Vital signs per protocol, trend BP -Continue home medication regimen including amlodipine, metoprolol, fosinopril. 5. Obstructive sleep apnea -O2 per protocol 6. COPD -Continue home regimen of Spiriva, formoterol, and albuterol. -Encourage incentive spirometer 7. Constipation -MiraLAX twice daily 8. History of heart valve replacement with porcine valve DVT prophylaxis-SCDs due to anemia This patient was seen by ALVARADO York under the supervision of Dr. Florentino. (8) Constipation:
[2021-03-14 22:33] LABS: Ferritin 19 ng/mL (26-388); Iron 34 ug/dL (65-175); Iron Binding Capacity,Total 329 ug/dL (250-450); PERCENT IRON SATURATION 10.3 % (15.0-55.0)
--- NOTE | 2021-03-14 22:40 | ECHOD_ITS ---
Reason For Study: SOB Procedure This was a 2D Doppler, Color Flow transthoracic echocardiogram. The study was technically difficult. Exam performed portable in ICU/CCU. Left Ventricle Normal LV size. Moderate concentric left ventricular hypertrophy. Left ventricular systolic function is normal. The estimated ejection fraction is 65 %. Unable to assess diastolic dysfunction. No regional wall motion abnormalities noted. Right Ventricle Normal RV size. Normal systolic function. Atria The left atrium is severely enlarged. The right atrium is severely enlarged. No doppler evidence for ASD. Mitral Valve There is moderate mitral annular calcification. Extension of the mitral annular calcification onto the base of the posterior mitral valve leaflet. Mild focal mitral valve calcification of the anterior leaflet. Mild (1+) mitral valve insufficiency. Tricuspid Valve Normal tricuspid valve. Moderate (2+) tricuspid valve insufficiency. Right ventricular systolic pressure estimated to be 41 mmHg. Aortic Valve Moderate aortic stenosis. Stable appearing bioprosthetic aortic valve apparatus. Trivial transvalvular insufficiency of the aortic valve. Pulmonic Valve The pulmonic valve is not well visualized. Great Vessels Normal sized aortic root. Pericardium/Pleural No pericardial effusion. MMode/2D Measurements & Calculations LVIDd: 5.2 cm IVSd: 1.6 cm LVOT diam: 2.0 cm LVIDs: 3.5 cm LVPWd: 1.4 cm LVOT area: 3.2 cm2 RVDd: 3.9 cm FS: 32.3 % Ao root diam: 3.8 cm LAV(MOD-bp): 104.2 ml LA A4 area: 28.8 cm2 LAV(MOD-bp) Indexed: 48.1 ml/m2 LAV(MOD-sp2): 110.1 ml LAV(MOD-sp4): 98.2 ml LA dimension(2D): 5.2 cm RA A4 area: 30.6 cm2 Doppler Measurements & Calculations MV E max kiel: 143.2 cm/sec Ao V2 max: 329.9 cm/sec LV V1 max: 116.7 cm/sec Ao max P.7 mmHg LV V1 max P.5 mmHg Ao V2 mean: 231.3 cm/sec LV V1 mean P.0 mmHg Ao mean P.3 mmHg LV V1 mean: 80.7 cm/sec Ao V2 VTI: 64.5 cm LV V1 VTI: 25.1 cm JULIO CESAR(I,D): 1.2 cm2 JULIO CESAR(V,D): 1.1 cm2 SV(LVOT): 79.8 ml PA V2 max: 141.0 cm/sec TR max kiel: 308.4 cm/sec TR max P.1 mmHg ECHO/Echo Complete Interpretation Summary The study was technically difficult. Left ventricular systolic function is normal. The estimated ejection fraction is 65 %. Moderate concentric left ventricular hypertrophy. The left atrium is severely enlarged. The right atrium is severely enlarged. There is moderate mitral annular calcification. Extension of the mitral annular calcification onto the base of the posterior mi tral valve leaflet. Mild focal mitral valve calcification of the anterior leaflet. Mild (1+) mitral valve insufficiency. Moderate (2+) tricuspid valve insufficiency. Stable appearing bioprosthetic aortic valve apparatus. Moderate aortic stenosis. Trivial transvalvular insufficiency of the aortic valve. Right ventricular systolic pressure estimated to be 41 mmHg. Unable to assess diastolic dysfunction. Ordering Physician: Hope Ignacio Referring Physician: Silvino Jaime MD Performed By: Shirin Renee RDCS
[2021-03-15] VITALS (23 sets, daily range): BP systolic 102–152; BP diastolic 43–88; PULSE 25–110; RESP 13–22; TEMP 36.3–37.2; O2SAT 92–100
[2021-03-15] MEDS: Metoprolol(XL)Succ 25 MG Tablet PO ×2 (00:07→10:12)
[2021-03-15] MEDS: Pravastatin 40 MG Tablet PO ×2 (00:07→21:18)
[2021-03-15] MEDS: Polyethylene Glycol 3350 17 GM PACKET PO ×2 (00:08→21:18)
[2021-03-15] MEDS: 0.9% Saline Lock 10 ML Syringe IV (00:09)
[2021-03-15] MEDS: 0.9% Normal Saline 1,000 ML 75 ML IV (00:09)
[2021-03-15] MEDS: Acetaminophen 325 MG Tablet 650 MG PO (00:32)
[2021-03-15] MEDS: Tamsulosin HCl 0.4 MG Capsule PO ×2 (00:32→21:18)
[2021-03-15] MEDS: Pramipexole Di-HCl 1 MG Tablet PO ×2 (00:33→21:18)
[2021-03-15] MEDS: MELATONIN 3 MG TABLET PO (00:46)
[2021-03-15] MEDS: Albuterol 2.5 MG/3 ML VIAL.NEB. INHALATION ×4 (01:00→18:48)
[2021-03-15 04:11] LABS: Absolute Lymphocyte Count 0.54 X10^3/uL (0.83-4.51); Absolute Neutrophil Count 8.8 X10^3/uL (2.0-7.7); Eosinophil# 0.03 X10^3/uL; Eosinophils% 0.3 % (0-5); Hemoglobin 7.4 g/dL (13.0-16.5); Lymphocyte # 0.54 X10^3/ul (0.83-4.51); Lymphocyte % 5.7 % (19-41); Mean Corp Hgb Conc 30.8 g/dL (32-36); Mean Corpuscular Hgb 31.5 pg (27.0-32.0); Mean Corpuscular Volume 102.1 fL (80-94); Mean Platelet Vol. 9.9 fl (6.2-12.0); Monocyte# 0.06 X10^3/uL; Monocyte% 0.6 % (0-10); NRBC Flagged by Analyzer 0.5 % (0-5); Neutrophil # 8.81 X10^3/uL (2.7-7.7); Neutrophil % 92.5 % (47-70); POSITIVE DIFFERENTIAL YES; Platelet Count 215 K/mm3 (150-450); RBC Distribution Width CV 16.9 % (11.6-14.6); RBC Distribution Width SD 59.7 fl (35.1-43.9); Red Blood Count 2.35 M/mm3 (4.6-6.2); White Blood Count 9.5 K/mm3 (4.4-11.0)
[2021-03-15 04:26] LABS: ALB/GLOB Ratio 0.9 RATIO (0.9-2.4); AST(SGOT) 15 U/L (15-37); Alanine Aminotransfer ALT/SGPT 24 U/L (16-61); Albumin, Serum 2.9 g/dL (3.2-5.0); Alkaline Phosphatase 57 U/L (45-117); Anion Gap 9 (5-15); BUN 47 mg/dL (7-18); Calcium,Total 8.5 mg/dL (8.5-10.1); Chloride 106 mmol/L (98-107); Creatinine, Serum 1.62 mg/dL (0.70-1.30); EST Glomerular Filtration Rate 44 mL/min (>60); Est Glom Filt Rate - Afr Amer 53 mL/min (>60); Globulin 3.2 g/dL (2.2-4.2); Glucose 260 mg/dL (74-106); Potassium 4.7 mmol/L (3.5-5.1); Protein, Total 6.1 g/dL (6.4-8.2); Sodium Level 136 mmol/L (136-145)
[2021-03-15 04:28] LABS: Differential Indicated SCAN CRITERIA MET
--- NOTE | 2021-03-15 08:42 | CASEMGMT ---
Healthcare POA with Living will provision initialed, is scanned into summary chart. Augusto Tolbert is listed as pt's medical POA. DORA Hernandez
[2021-03-15] MEDS: Vitamin B Comp W-C Capsule 1 CAP PO ×2 (10:10→21:18)
[2021-03-15] MEDS: Pramipexole Di-HCl 0.5 MG Tablet PO (10:10)
[2021-03-15] MEDS: Calcium Acetate 667 MG Capsule PO ×2 (10:10→16:54)
[2021-03-15] MEDS: Magnesium Chloride 64 MG Delay Rel.Tablet 128 MG PO ×2 (10:10→21:18)
[2021-03-15] MEDS: amLODIPine 5 MG Tablet PO (10:12)
--- NOTE | 2021-03-15 11:25 | CASEMGMT ---
RN CM assessment: Face to Face with patient for initial transition planning/care coordination assessment. RN CM introduced self and role at [facility], pt voices understanding and consents to assessment. Pt is sitting up on BSC and states for this RN CM to enter anyway. Pt states 'I am good to talk, if you are ok with it.' Pt is in no distress on room air. Pt is A/Ox4 and answers all questions appropriately. Care providers, pharmacy, and demographics verified. Presentation: Pt c/o SOB, cough, fatigue for several days. Hx COPD Admitting dx: Anemia, SOB PCP: Silvino Jaime Specialists: Pita, cardio [facility]; adriane Cole Preferred Pharmacy: [facility] Insurance: [facility] Prescription Benefit: [facility] Living Will/HPOA: Pt has HPOA on file at [facility] and son, Augusto Tolbert Jr, is listed as HPOA. Pt states he has a LW and is aware that it's not on file at [facility]. LNOK: Augusto Tolbert Jr, son/HPOA; Elvia Tolbert, zi Living Arrangements: Pt states lives alone in 1 story home with 2 steps in and states no concerns at home. Pt states is independent with ADL's but son has been bringing groceries d/t COVID. Transportation: Pt states drives self and states no transportation concerns. DME/HHC: pt states has a cane, walker, and grab bars with walk in shower. Pt states only uses cane when 'out and about.' Pt states no need for any further DME. Pt states has had HHC in the past and has also been to [facility] s/p heart surgery. Pt states no concerns with going home at time of discharge. Pt states is retired. Pt states does not smoke cigarettes or drink ETOH. Pt states no further concerns/needs. CM to follow for PT/OT evals and any further discharge planning/needs. Advised pt to ask for CM if any further questions/concerns/needs arise, voices understanding. Pt Goal: Home Plan[place]
[2021-03-15] MEDS: Pramipexole Di-HCl 0.25 MG Tablet PO (12:11)
[2021-03-15 13:26] LABS: Magnesium 2.1 mg/dL (1.6-2.6); Phosphorus 2.2 mg/dL (2.5-4.9)
--- NOTE | 2021-03-15 14:30 | CASEMGMT ---
[facility] palliative screening tool completed and pt does not qualify for palliative referral at this time. SStjacquie MILLER CM
[2021-03-15] MEDS: Furosemide 20 MG/2 ML VIAL IV ×2 (14:34→14:35)
[2021-03-15 16:46] LABS: D-Dimer Quantitative (DVT/PE) 0.29 FEU/ug/m (0.27-0.49)
--- NOTE | 2021-03-15 16:46 | NURSING ---
ed re chronic illness deferred till acute illness resolving
--- NOTE | 2021-03-15 16:57 | NURSING ---
report called to SENIOR EXECUTIVE COMPENSATION ANALYST
--- NOTE | 2021-03-15 18:22 | PCM.PN.HOSP ---
Subjective Subjective Patient was seen and examined today, his hemoglobin this morning was 7.4 and I felt it prudent to administer 2 units of packed red blood cells. Patient still has dyspnea on exertion, however he is currently on room air at rest. Objective Data Objective Data Vital Signs: Vital Signs Temp Pulse Resp BP Pulse Ox 97.8 F 74 18 141/52 H 98 03/15/21 17:26 03/15/21 17:26 03/15/21 17:26 03/15/21 17:26 03/15/21 17:26 Oxygen Flow Rate (L/min) 2 Oxygen Delivery Method Room Air Weight: 106.7 kg Body Mass Index (BMI) 36.8 Intake & Output: Intake and Output for Last 24 Hours 03/13/21 03/14/21 03/15/21 23:59 23:59 23:59 Intake Total 1953.75 / 1953.75 Output Total 1050 / 1050 Balance 903.75 / 903.75 Lab / Micro Data Result Diagrams: 03/15/21 04:05 03/15/21 04:05 Labs: Laboratory Results - last 24 hr 03/14/21 03/14/21 03/14/21 19:00 19:00 19:00 WBC 10.1 RBC 2.46 L Hgb 7.9 L Hct 25.3 L MCV 102.8 H MCH 32.1 H MCHC 31.2 L RDW Std Deviation 61.2 H RDW Coeff of Danial 17.1 H Plt Count 224 MPV 9.4 Immature Gran % (Auto) 0.900 Neut % (Auto) 77.9 H Lymph % (Auto) 12.8 L [place] % (Auto) 7.4 Eos % (Auto) 0.7 Baso % (Auto) 0.3 Absolute Neuts (auto) 7.8 H Absolute Lymphs (auto) 1.29 Nucleated RBC % 0.5 D-Dimer Quant (PE/DVT) Sodium 138 Potassium 4.4 Chloride 108 H Carbon Dioxide 23.0 Anion Gap 7 BUN 46 H Creatinine 1.52 H Estim Creat Clear Calc 36.24 Est GFR (MDRD) Af Amer 57 L Est GFR (MDRD) Non-Af 47 L BUN/Creatinine Ratio 30.3 H Glucose 119 H Calcium 8.7 Phosphorus Magnesium Iron TIBC Iron Saturation Ferritin Total Bilirubin AST ALT Alkaline Phosphatase Troponin I < 0.015 B-Natriuretic Peptide 96.9 Total Protein Albumin Globulin Albumin/Globulin Ratio Folate Blood Type Antibody Screen Crossmatch 03/14/21 03/14/21 03/14/21 19:00 22:50 22:50 WBC RBC Hgb Hct MCV MCH MCHC RDW Std Deviation RDW Coeff of Danial Plt Count MPV Immature Gran % (Auto) Neut % (Auto) Lymph % (Auto) [place] % (Auto) Eos % (Auto) Baso % (Auto) Absolute Neuts (auto) Absolute Lymphs (auto) Nucleated RBC % D-Dimer Quant (PE/DVT) Sodium Potassium Chloride Carbon Dioxide Anion Gap BUN Creatinine Estim Creat Clear Calc Est GFR (MDRD) Af Amer Est GFR (MDRD) Non-Af BUN/Creatinine Ratio Glucose Calcium Phosphorus Magnesium Iron 34 L TIBC 329 Iron Saturation 10.3 L Ferritin 19 L Total Bilirubin AST ALT Alkaline Phosphatase Troponin I B-Natriuretic Peptide Total Protein Albumin Globulin Albumin/Globulin Ratio Folate 9.60 Blood Type B POSITIVE Antibody Screen NEGATIVE Crossmatch See Detail 03/15/21 03/15/21 03/15/21 04:05 04:05 04:05 WBC 9.5 RBC 2.35 L Hgb 7.4 L Hct 24.0 L MCV 102.1 H MCH 31.5 MCHC 30.8 L RDW Std Deviation 59.7 H RDW Coeff of Danial 16.9 H Plt Count 215 MPV 9.9 Immature Gran % (Auto) 0.900 Neut % (Auto) 92.5 H Lymph % (Auto) 5.7 L [place] % (Auto) 0.6 Eos % (Auto) 0.3 Baso % (Auto) 0.0 Absolute Neuts (auto) 8.8 H Absolute Lymphs (auto) 0.54 L Nucleated RBC % 0.5 D-Dimer Quant (PE/DVT) Sodium 136 Potassium 4.7 Chloride 106 Carbon Dioxide 21.0 Anion Gap 9 BUN 47 H Creatinine 1.62 H Estim Creat Clear Calc 34.00 Est GFR (MDRD) Af Amer 53 L Est GFR (MDRD) Non-Af 44 L BUN/Creatinine Ratio 29.0 H Glucose 260 H Calcium 8.5 Phosphorus 2.2 L Magnesium 2.1 Iron TIBC Iron Saturation Ferritin Total Bilirubin 0.40 AST 15 ALT 24 Alkaline Phosphatase 57 Troponin I B-Natriuretic Peptide Total Protein 6.1 L Albumin 2.9 L Globulin 3.2 Albumin/Globulin Ratio 0.9 Folate Blood Type Antibody Screen Crossmatch 03/15/21 16:25 WBC RBC Hgb Hct MCV MCH MCHC RDW Std Deviation RDW Coeff of Danial Plt Count MPV Immature Gran % (Auto) Neut % (Auto) Lymph % (Auto) [place] % (Auto) Eos % (Auto) Baso % (Auto) Absolute Neuts (auto) Absolute Lymphs (auto) Nucleated RBC % D-Dimer Quant (PE/DVT) 0.29 Sodium Potassium Chloride Carbon Dioxide Anion Gap BUN Creatinine Estim Creat Clear Calc Est GFR (MDRD) Af Amer Est GFR (MDRD) Non-Af BUN/Creatinine Ratio Glucose Calcium Phosphorus Magnesium Iron TIBC Iron Saturation Ferritin Total Bilirubin AST ALT Alkaline Phosphatase Troponin I B-Natriuretic Peptide Total Protein Albumin Globulin Albumin/Globulin Ratio Folate Blood Type Antibody Screen Crossmatch Micro: Microbiology 03/14/21 19:10 Interface Orders SARS-CoV-2 Antigen (Rapid) - Final Radiography Diagnostic Testing: Radiology Impression Chest X-Ray 03/14/21 18:59 IMPRESSION: COPD without definite acute findings. Electronically Signed: Jaime Ascencio MD at 19:54 EDT Tel , Service support , Echocardiogram 03/14/21 22:40 Interpretation Summary The study was technically difficult. Left ventricular systolic function is normal. The estimated ejection fraction is 65 %. Moderate concentric left ventricular hypertrophy. The left atrium is severely enlarged. The right atrium is severely enlarged. There is moderate mitral annular calcification. Extension of the mitral annular calcification onto the base of the posterior mitral valve leaflet. Mild focal mitral valve calcification of the anterior leaflet. Mild (1+) mitral valve insufficiency. Moderate (2+) tricuspid valve insufficiency. Stable appearing bioprosthetic aortic valve apparatus. Moderate aortic stenosis. Trivial transvalvular insufficiency of the aortic valve. Right ventricular systolic pressure estimated to be 41 mmHg. Unable to assess diastolic dysfunction. Ordering Physician: Hope Igancio Referring Physician: Silvino Jaime MD Performed By: Shirin Renee, LISA Physical Exam Const alert, oriented x3, no apparent distress and healthy appearing General Appearance: cooperative, well kempt and well developed Orientation / Consciousness: awake, oriented to person, oriented to place and oriented to time HEENT normocephalic and moist oral mucous membranes Eyes PERRL, EOMs intact bilaterally and conjunctivae normal Neck nuchal rigidity, supple, no JVD, thyroid normal and no carotid bruits General: trachea midline Resp normal respiratory effort, no use of accessory muscles and clear to auscultation bilaterally Resp Narrative: Decreased breath sounds bilaterally Auscultation: Negative for rales, rhonchi or wheezes Cardio no murmurs, no rub, no gallops and no clicks Cardio Narrative: Irregular rhythm GI normal to inspection, nondistended, normoactive bowel sounds, soft to palpation, non-tender and non-distended Extremity no clubbing, cyanosis or edema Skin no rashes or lesions noted and no wounds General Skin Exam: no breakdown Neuro oriented x3, CN's II-XII intact bilaterally, no focal motor deficits and no sensory deficits noted Sensorium / Orientation: awake and alert Speech: speech normal Psych thought process normal and affect normal Assessment & Plan Assessment/Plan (1) Anemia: QUALIFIERS: Anemia type: unspecified type Qualified Code(s): D64.9 - Anemia, unspecified PLAN: 1. Acute on chronic anemia-patient has a history of anemia in the past, he was taken off iron supplementation sometime last year. Patient's iron level is low, I have decided to give the patient IV Venofer, patient states that he has been worked up in the past with upper and lower endoscopies and capsule endoscopy without finding the etiology of his anemia in the past. Patient is currently taking Xarelto for atrial fib. 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
--- NOTE | 2021-03-15 19:25 | CPS ---
Patient's home CPAP setup at the bedside.
[2021-03-16] VITALS (20 sets, daily range): BP systolic 103–126; BP diastolic 41–84; PULSE 67–98; RESP 16–26; TEMP 36.1–36.8; O2SAT 93–100
--- NOTE | 2021-03-16 06:27 | NURSING ---
Pt voicing concerns about his shortness of breath w/ exertion. This RN walked pt from chair to doorway on room air. Maintained O2 sats 96-97%. HR was in 70s at the beginning and was up to 110s when back to chair. Pt very tachypneic in the 30-40s, breathing labored. Pt voices concern about his heart being the cause of the shortness of breath and that he can't go home like this. This RN assured pt that this information will be passed along to daysdcft RN/. ANGELA Marcos
[2021-03-16] MEDS: Albuterol 2.5 MG/3 ML VIAL.NEB. INHALATION ×3 (07:25→19:35)
[2021-03-16 08:39] LABS: Hemoglobin 8.3 g/dL (13.0-16.5)
[2021-03-16] MEDS: Pramipexole Di-HCl 0.5 MG Tablet PO (08:47)
[2021-03-16] MEDS: Calcium Acetate 667 MG Capsule PO ×2 (08:48→18:14)
[2021-03-16] MEDS: 0.9% Saline Lock 10 ML Syringe IV ×3 (09:06→19:12)
[2021-03-16] MEDS: amLODIPine 5 MG Tablet PO (10:08)
[2021-03-16] MEDS: Acetaminophen 325 MG Tablet 650 MG PO (10:09)
[2021-03-16] MEDS: Vitamin B Comp W-C Capsule 1 CAP PO ×2 (10:09→22:29)
[2021-03-16] MEDS: Magnesium Chloride 64 MG Delay Rel.Tablet 128 MG PO ×2 (10:09→22:29)
[2021-03-16] MEDS: Polyethylene Glycol 3350 17 GM PACKET PO (10:10)
--- NOTE | 2021-03-16 11:50 | CT_ITS ---
STUDY: CT ABDOMEN AND PELVIS WITHOUT CONTRAST REASON FOR EXAM: Male, 80 years old. ANEMIA. History of atrial fibrillation. Stage III chronic renal disease. RADIATION DOSAGE (If Supplied By Facility): CTDIvol = ( 22.53 ) mGy, DLP = ( 1170.99 ) mGycm TECHNIQUE: Transaxial images were obtained from the dome of the diaphragm to the symphysis pubis without oral contrast, and without intravenous contrast. Sagittal and coronal images were reconstructed. Individualized dose optimization techniques were used for this CT. COMPARISON: Comparison is made with prior examination of 02/01/2021. FINDINGS: Stable mild degree of scarring at the right lung base. Calcification of the mitral valve annulus. Coronary artery calcification. Normal liver. Normal gallbladder and extrahepatic biliary system. Normal spleen. Normal pancreas. Normal bilateral adrenal glands. Normal right kidney. Normal left kidney. Normal visualized stomach. Normal small intestine. There are scattered colonic diverticula consistent with diverticulosis. The patient is status post appendectomy. There is diffuse atherosclerotic calcification of the abdominal aorta, without a demonstrated aneurysm. Normal inferior vena cava. Normal retroperitoneum. Normal urinary bladder. There is enlargement of the prostate gland. The prostate measures 4.6 cm x 4.8 cm. There is a small umbilical hernia containing fat. There are diffuse degenerative changes of the visualized lumbar spine. CT/Abdomen/Pelvis without Cont IMPRESSION: Mild prostatic enlargement. Scattered sigmoid diverticula. There has been no change since prior study. Electronically Signed: Bill Stockton MD at 12:56 EDT , Service support ,
[2021-03-16] MEDS: Pramipexole Di-HCl 0.25 MG Tablet PO (12:51)
[2021-03-16] MEDS: Metoprolol Tartrate 25 MG Tablet PO (12:52)
--- NOTE | 2021-03-16 18:27 | PCM.PN.HOSP ---
Subjective Subjective Patient was seen and examined today, he states he is not feeling well today and he is more short of breath, I have noticed that his heart rate is increased, I restarted his beta-john today and will observe. I ordered a CT of his abdomen and pelvis today to look for retroperitoneal bleed, there is no evidence of any hematomas noted. Patient's hemoglobin was only increased by approximately a gram this morning, I transfused 2 more units of packed red blood cells. Objective Data Objective Data Vital Signs: Vital Signs Temp Pulse Resp BP Pulse Ox 97.7 F L 67 16 113/52 L 95 03/16/21 18:10 03/16/21 18:10 03/16/21 18:10 03/16/21 18:10 03/16/21 18:10 Oxygen Flow Rate (L/min) 2 Oxygen Delivery Method Room Air Weight: 106.7 kg Body Mass Index (BMI) 36.8 Intake & Output: Intake and Output for Last 24 Hours 03/14/21 03/15/21 03/16/21 23:59 23:59 23:59 Intake Total 2353.75 / 2833.75 2470 / 2470 Output Total 1050 / 1150 1300 / 1300 Balance 1303.75 / 1683.75 1170 / 1170 Lab / Micro Data Result Diagrams: 03/16/21 08:24 03/15/21 04:05 Labs: Laboratory Results - last 24 hr 03/14/21 03/14/21 03/16/21 22:50 22:50 08:24 Hgb 8.3 L Crossmatch See Detail See Detail Micro: Microbiology 03/14/21 19:10 Interface Orders SARS-CoV-2 Antigen (Rapid) - Final Radiography Diagnostic Testing: Radiology Impression Abdomen/Pelvis CT 03/16/21 11:50 IMPRESSION: Mild prostatic enlargement. Scattered sigmoid diverticula. There has been no change since prior study. Electronically Signed: Bill Stockton MD at 12:56 EDT , Service support , Physical Exam Const alert, oriented x3 and no apparent distress General Appearance: cooperative, well kempt and well developed Orientation / Consciousness: awake, oriented to person, oriented to place and oriented to time HEENT moist oral mucous membranes Head and Scalp: normocephalic Eyes PERRL, EOMs intact bilaterally and conjunctivae normal Neck no lymphadenopathy and supple General: trachea midline Lymph Lymphatic: no lymphadenopathy noted Resp normal respiratory effort, no retractions and no use of accessory muscles Resp Narrative: Decreased breath sounds are noted bilaterally, no rales, rhonchi or wheezes are noted. Effort and Inspection: tachypneic Auscultation: diminished lung sounds diffuse; Negative for rales, rhonchi or wheezes Cardio no rub, no gallops and no clicks Cardio Narrative: Heart rate and rhythm is irregular Rate: tachycardic Rhythm: abnormal rhythm irregularly irregular Peripheral Pulses: pulses 2+ throughout GI normal to inspection, nondistended, normoactive bowel sounds, soft to palpation, non-tender and non-distended Extremity normal to inspection and no clubbing, cyanosis or edema General Extremity: no tenderness to palpation of joints or extremities Skin no rashes or lesions noted, no wounds and skin turgor normal General Skin Exam: no breakdown and turgor normal Lesions: no lesions Rashes: no rashes Neuro CN's II-XII intact bilaterally, no focal motor deficits and no sensory deficits noted Sensorium / Orientation: awake and alert Speech: speech normal Psych affect normal Appearance: appropriate Assessment & Plan Assessment/Plan (1) Anemia: QUALIFIERS: Anemia type: unspecified type Qualified Code(s): D64.9 - Anemia, unspecified PLAN: 1. Acute on chronic anemia-patient has a history of anemia in the past, he was taken off iron supplementation sometime last year. Patient's iron level is low, I have decided to give the patient IV Venofer, patient states that he has been worked up in the past with upper and lower endoscopies and capsule endoscopy without finding the etiology of his anemia in the past. Patient is currently taking Xarelto for atrial fib. I will recheck the patient's CBC in the morning, patient remains off his Xarelto at this time, patient has no sign of any active bleeding anywhere and there is no evidence of any hematoma on his CAT scan today. 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
[2021-03-16] MEDS: Furosemide 40 MG Tablet PO (19:12)
[2021-03-16] MEDS: Pravastatin 40 MG Tablet PO (22:29)
[2021-03-16] MEDS: Tamsulosin HCl 0.4 MG Capsule PO (22:29)
[2021-03-16] MEDS: Pramipexole Di-HCl 1 MG Tablet PO (22:29)
[2021-03-16] MEDS: Metoprolol Tartrate 25 MG Tablet 12.5 MG PO (22:29)
[2021-03-17] VITALS (12 sets, daily range): BP systolic 110–133; BP diastolic 44–89; PULSE 80–96; RESP 16–21; TEMP 36.1–36.5; O2SAT 93–98
[2021-03-17] MEDS: Acetaminophen 325 MG Tablet 650 MG PO ×2 (04:43→13:29)
[2021-03-17 06:20] LABS: Absolute Lymphocyte Count 1.23 X10^3/uL (0.83-4.51); Absolute Neutrophil Count 7.6 X10^3/uL (2.0-7.7); Basophil# 0.02 X10^3/uL; Basophil% 0.2 % (0-1); Eosinophil# 0.12 X10^3/uL; Eosinophils% 1.2 % (0-5); Hematocrit 29.3 % (40-54); Hemoglobin 9.1 g/dL (13.0-16.5); Lymphocyte # 1.23 X10^3/ul (0.83-4.51); Lymphocyte % 12.6 % (19-41); Mean Corp Hgb Conc 31.1 g/dL (32-36); Mean Corpuscular Hgb 29.7 pg (27.0-32.0); Mean Corpuscular Volume 95.8 fL (80-94); Mean Platelet Vol. 9.8 fl (6.2-12.0); Monocyte# 0.71 X10^3/uL; Monocyte% 7.3 % (0-10); NRBC Flagged by Analyzer 1.3 % (0-5); Neutrophil # 7.59 X10^3/uL (2.7-7.7); Neutrophil % 77.8 % (47-70); Platelet Count 203 K/mm3 (150-450); RBC Distribution Width CV 18.6 % (11.6-14.6); RBC Distribution Width SD 63.1 fl (35.1-43.9); Red Blood Count 3.06 M/mm3 (4.6-6.2); White Blood Count 9.8 K/mm3 (4.4-11.0)
[2021-03-17] MEDS: Albuterol 2.5 MG/3 ML VIAL.NEB. INHALATION ×2 (07:40→12:40)
[2021-03-17] MEDS: amLODIPine 5 MG Tablet PO (09:38)
[2021-03-17] MEDS: Metoprolol Tartrate 25 MG Tablet 12.5 MG PO (09:39)
[2021-03-17] MEDS: 0.9% Saline Lock 10 ML Syringe IV ×2 (09:40→12:10)
[2021-03-17] MEDS: Vitamin B Comp W-C Capsule 1 CAP PO (09:40)
[2021-03-17] MEDS: Calcium Acetate 667 MG Capsule PO (09:40)
[2021-03-17] MEDS: Pramipexole Di-HCl 0.5 MG Tablet PO (09:40)
[2021-03-17] MEDS: Polyethylene Glycol 3350 17 GM PACKET PO (09:45)
[2021-03-17] MEDS: Pramipexole Di-HCl 0.25 MG Tablet PO (12:10)
[2021-03-17] MEDS: Magnesium Chloride 64 MG Delay Rel.Tablet 128 MG PO (13:09)
--- NOTE | 2021-03-17 14:49 | PCM.DC ---
Discharge Instructions Diet Discharge Diet: No restrictions Activity Discharge Activity: Return to Normal Activity Weight Bearing Status: Full weight bearing Follow Up Care Test Results: Test results from this visit will be discussed in further detail at your follow-up appointment, if applicable. Discharge Plan Admission Admit Date/Time: 03/14/21 21:40 Primary Reason for Your Visit: anemia, shortness of breath Attending Provider: Mickey Epstein Primary Care Provider: Silvino Jaime Discharge Orders/Prescriptions Prescriptions: New metoprolol tartrate 25 mg Tablet 12.5 mg PO BID Qty: 30 RF: 0 ferrous sulfate 324 mg (65 mg iron) tablet,delayed release (DR/EC) 324 mg PO BID Qty: 60 RF: 0 Continued magnesium oxide 400 MG tablet 400 mg PO BID RF: 0 Perforomist 20 MCG/2 ML solution for nebulization 1 puff inhalation BID RF: 0 Rivaroxaban [Xarelto] 20 MG tablet 20 mg PO QHS RF: 0 nitroglycerin 0.4 MG tablet 0.4 mg sublingual Q5M PRN (Reason: Chest Pain) RF: 0 albuterol sulfate [ProAir HFA] 1 PUFF inhaler 1 puff inhalation Q4H PRN (Reason: Congestion) RF: 0 Cetirizine Hcl [Zyrtec] 10 MG tablet 10 mg PO DAILY PRN (Reason: Congestion) RF: 0 pravastatin 40 MG tablet 40 mg PO QHS RF: 0 ropinirole [Requip] 0.5 MG tablet 0.5 mg PO LUNCH RF: 0 B-complex with vitamin C 1 EACH tablet 1 ea PO BID RF: 0 ropinirole 1 mg Tablet 1 mg PO BREAKFAST RF: 0 ergocalciferol (vitamin D2) 50,000 unit Tablet 1 unit PO QWEEK RF: 0 tamsulosin 0.4 mg Capsule 0.4 mg PO QHS RF: 0 ropinirole 2 mg Tablet 2 mg PO QHS RF: 0 calcium acetate(phosphat bind) 667 mg Capsule 667 mg PO BIDAC RF: 0 Discontinued metoprolol succinate 200 MG tablet extended release 24 hr 25 mg PO BID RF: 0 Referrals / Follow Up: Silvino Jaime MD [Primary Care Provider] - Within 1 Week Disposition Disposition (needs filled in before D/C Order can be placed): Home, self care
--- NOTE | 2021-03-18 15:00 | CASEMGMT ---
ANGELA MOSER Discharge Follow-Up Phone Call. Ramila: 12 Strata: 3 Discharge Date: 03/17/21 Adm Dx: Anemia, SOB Call to pt to inquire about how he has been doing since being discharged from the hospital. Pt stated, I'm just ducky. He stated ,I'm pretty happy with the way everything went. I was impressed with all the staff there--the nurses and aides and everyone. We are paul [facility] a hospital as good as we do. Tell them I was proud of all of them and they did a great job. ANGELA MOSER thanked pt for the compliments and positive feedback. Pt states he has not picked up the new prescriptions from [facility] yet, but his sis-in-law is coming soon today and they will be picking them up shortly. He states she plans on staying with him for a couple of days. He denies having any questions about the discharge instructions and denies having any needs or concerns. He thanked ANGELA MOSER for calling. Mino SANCHEZ RN, CM
--- NOTE | 2021-03-21 17:56 | DS.PCM_ITS ---
Providers Date of Admission: 03/14/21 Date of Discharge: 03/17/21 Primary Care Physician: Dr. Silvino Jaime MD Reason For Visit: anemia Diagnosis Discharge Diagnosis (1) Anemia: Status: Acute Code(s): D64.9 - Anemia, unspecified Qualifiers: Anemia type: unspecified type Qualified Code(s): D64.9 - Anemia, unspecified Plan: 1. 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 #8 dyspnea on exertion-probably secondary to chronic obstructive pulmonary disease and anemia Medications at Discharge Home Medications Cetirizine Hcl [Zyrtec] 10 mg PO DAILY PRN 01/19/16 Perforomist 1 puff INHALATION BID 01/19/16 Rivaroxaban [Xarelto] 20 mg PO QHS 01/19/16 albuterol sulfate [ProAir HFA] 1 puff INHALATION Q4H PRN 01/19/16 magnesium oxide 400 mg PO BID 01/19/16 nitroglycerin 0.4 mg SUBLINGUAL Q5M PRN 01/19/16 B-complex with vitamin C 1 ea PO BID 06/22/16 pravastatin 40 mg PO QHS 06/22/16 ropinirole [Requip] 0.5 mg PO LUNCH 06/22/16 calcium acetate(phosphat bind) 667 mg PO BIDAC 03/14/21 ergocalciferol (vitamin D2) 1 unit PO QWEEK 03/14/21 ropinirole 1 mg PO BREAKFAST 03/14/21 ropinirole 2 mg PO QHS 03/14/21 tamsulosin 0.4 mg PO QHS 03/14/21 ferrous sulfate 324 mg PO BID #60 tab 03/17/21 metoprolol tartrate 12.5 mg PO BID #30 tab 03/17/21 Hospital Course Operations None Procedures 2-D Echocardiogram Summary of Care Provided Minutes Spent on Discharge: 33 Hospital Course: 70-year-old white male was seen in the emergency room at [facility] with a chief complaint of shortness of breath that has been worsening over the last 3 days prior to being seen in the emergency room. Patient also complained of cough without sputum production. Work-up in the emergency room included a chest x-ray which showed chronic changes consistent with COPD, cardiac enzymes were normal, beta natruretic peptide was normal, and CBC was remarkable for hemoglobin of 7.9. Patient was given DuoNeb aerosol treatment in the emergency room given IV Solu-Medrol, he felt somewhat improved but on ambulation the patient became tachycardic and his oxygen saturation dropped to 83%. Patient was admitted to PCU for hypoxia and COPD exacerbation, he was given IV Solu-Medrol and aerosol treatments while hospitalized, he had an echocardiogram performed which showed a normal ejection fraction of 65% with evidence of mild pulmonary hypertension. Patient received blood transfusion, he was noted to be iron deficient and received Venofer infusions also. Patient status improved slowly, he was able to be weaned off oxygen prior to discharge. Const alert, oriented x3 and no apparent distress General Appearance: cooperative, well kempt and well developed Orientation / Consciousness: awake, oriented to person, oriented to place and oriented to time HEENT moist oral mucous membranes Head and Scalp: normocephalic Eyes PERRL, EOMs intact bilaterally and conjunctivae normal Neck no lymphadenopathy and supple General: trachea midline Lymph Lymphatic: no lymphadenopathy noted Resp normal respiratory effort, no retractions and no use of accessory muscles Resp Narrative: Decreased breath sounds are noted bilaterally, no rales, rhonchi or wheezes are noted. Effort and Inspection: tachypneic Auscultation: diminished lung sounds diffuse; Negative for rales, rhonchi or wheezes Cardio no rub, no gallops and no clicks Cardio Narrative: Heart rate and rhythm is irregular Rate: tachycardic Rhythm: abnormal rhythm irregularly irregular Peripheral Pulses: pulses 2+ throughout GI normal to inspection, nondistended, normoactive bowel sounds, soft to palpation, non-tender and non-distended Extremity normal to inspection and no clubbing, cyanosis or edema General Extremity: no tenderness to palpation of joints or extremities Skin no rashes or lesions noted, no wounds and skin turgor normal General Skin Exam: no breakdown and turgor normal Lesions: no lesions Rashes: no rashes Neuro CN's II-XII intact bilaterally, no focal motor deficits and no sensory deficits noted Sensorium / Orientation: awake and alert Speech: speech normal Psych affect normal Appearance: appropriate On 03/17/2021, patient was seen and examined and felt to be in stable condition for discharge home ABG / Lab / Microbiology Data Result Diagrams: 03/17/21 05:42 03/15/21 04:05 Microbiology: Microbiology 03/14/21 19:10 Interface Orders SARS-CoV-2 Antigen (Rapid) - Final D/C Instructions Discharge Diet: No restrictions Discharge Activity: Return to Normal Activity Weight Bearing Status: Full weight bearing Meaningful Use Info Meaningful Use Diagnoses (Choose all that apply): None applicable Discharge Plan Admission Admit Date/Time: 03/14/21 21:40 Primary Reason for Your Visit: anemia, shortness of breath Attending Provider: Mickey Epstein Primary Care Provider: Silvino Jaime Discharge Orders/Prescriptions Prescriptions: New metoprolol tartrate 25 mg Tablet 12.5 mg PO BID Qty: 30 RF: 0 ferrous sulfate 324 mg (65 mg iron) tablet,delayed release (DR/EC) 324 mg PO BID Qty: 60 RF: 0 Continued magnesium oxide 400 MG tablet 400 mg PO BID RF: 0 Perforomist 20 MCG/2 ML solution for nebulization 1 puff inhalation BID RF: 0 Rivaroxaban [Xarelto] 20 MG tablet 20 mg PO QHS RF: 0 nitroglycerin 0.4 MG tablet 0.4 mg sublingual Q5M PRN (Reason: Chest Pain) RF: 0 albuterol sulfate [ProAir HFA] 1 PUFF inhaler 1 puff inhalation Q4H PRN (Reason: Congestion) RF: 0 Cetirizine Hcl [Zyrtec] 10 MG tablet 10 mg PO DAILY PRN (Reason: Congestion) RF: 0 pravastatin 40 MG tablet 40 mg PO QHS RF: 0 ropinirole [Requip] 0.5 MG tablet 0.5 mg PO LUNCH RF: 0 B-complex with vitamin C 1 EACH tablet 1 ea PO BID RF: 0 ropinirole 1 mg Tablet 1 mg PO BREAKFAST RF: 0 ergocalciferol (vitamin D2) 50,000 unit Tablet 1 unit PO QWEEK RF: 0 tamsulosin 0.4 mg Capsule 0.4 mg PO QHS RF: 0 ropinirole 2 mg Tablet 2 mg PO QHS RF: 0 calcium acetate(phosphat bind) 667 mg Capsule 667 mg PO BIDAC RF: 0 Discontinued metoprolol succinate 200 MG tablet extended release 24 hr 25 mg PO BID RF: 0 Referrals / Follow Up: Silvino Jaime MD [Primary Care Provider] - 04/01/21 11:00 am Disposition Disposition (needs filled in before D/C Order can be placed): Home, self care Visit Charges Inpatient E&M: 41472 Disch Hosp
== END 2021-03-17 16:20 | disposition home or self-care (01) | DRG 191 ==
LOC: ED 19:53 → ICU 22:38 → PCU 03-15 17:12
PROVIDERS: Nurse Practitioner Family; Admitting Provider Family Medicine; Emergency Provider Emergency Medicine; PCP Family Medicine; Visit Provider Internal Medicine
DX: J44.1 Chronic obstructive pulmonary disease with (acute) exacerbation (principal); I48.21 Permanent atrial fibrillation; D50.9 Iron deficiency anemia, unspecified; N18.31 Chronic kidney disease, stage 3a; I12.9 Hypertensive chronic kidney disease with stage 1 through stage 4 chronic kidney disease, or unspecified chronic kidney disease; G47.33 Obstructive sleep apnea (adult) (pediatric); K59.00 Constipation, unspecified; Z95.2 Presence of prosthetic heart valve; I27.20 Pulmonary hypertension, unspecified; Z79.01 Long term (current) use of anticoagulants; Z99.81 Dependence on supplemental oxygen; R09.02 Hypoxemia
CPT/HCPCS: 36415; 71045; 74176; 80048; 80053; 82728; 82746; 83540; 83550; 83735; 83880; 84100; 84484; 85018; 85025; 85379; 86850; 86900; 86901; 86920; 87426; 93005; 93306; 94640; 97110; 97162; 97166; 97530; 97535; 97802; 99251; 99284; J7030; J7040; J7050; P9016; Q9957; A4216; G0463; J1940; J2916

== ENCOUNTER 2021-03-23 11:44 | Inpatient (IN) | payer MEDICARE, SELFPAY ==
[2021-03-14 22:41] VITALS: BMI 36.8
[2021-03-23] VITALS (17 sets, daily range): BP systolic 106–140; BP diastolic 40–55; PULSE 84–113; RESP 15–26; TEMP 36.2–36.8; O2SAT 98–100; BMI 37.5
--- NOTE | 2021-03-23 12:07 | RAD_ITS ---
STUDY: X-RAY CHEST REASON FOR EXAM: Male, 80 years old. Worsening shortness of breath TECHNIQUE: Single AP portable view of the chest. COMPARISON: 03/14/2021 FINDINGS: EKG leads overlie the chest There are interstitial changes of the lungs. There is no demonstrated pleural abnormality. Sternal cerclage wires and vascular clips are present from a prior sternotomy and coronary artery bypass graft procedure (CABG). Normal mediastinum and tee. Normal visualized pulmonary arteries. Normal visualized aortic arch and descending thoracic aorta. Normal visualized thoracic spine. Normal visualized ribs, clavicles, and shoulders. There is no demonstrated abnormality of the visualized soft tissue structures of the upper abdomen. RAD/Chest 1 View (Portable) IMPRESSION: Chronic interstitial changes, no superimposed acute pulmonary process Electronically Signed: Sandeep Huddleston MD at 12:46 EDT , Service support ,
--- NOTE | 2021-03-23 12:07 | EKG12_ITS ---
Test Reason : SOB Blood Pressure : / mmHG Vent. Rate : 077 BPM Atrial Rate : 077 BPM P-R Int : 000 ms QRS Dur : 098 ms QT Int : 380 ms P-R-T Axes : 000 -13 132 degrees QTc Int : 430 ms Atrial fibrillation Nonspecific T wave abnormality Abnormal ECG Confirmed by FRANCESCA GODFREY, TONJA ([id number]), avid editor REID CABRERA ([id number]) on 03/25/2021 12:38:02 P M Referred By: АННА Confirmed By:LEANN MA MD
--- NOTE | 2021-03-23 12:09 | ED.VIS.DYS ---
HPI History of Present Illness Chief Complaint: Shortness of Breath Informant: patient Onset/Context/Timing Onset: Today Context: gradual Quality: Positive for Dyspnea on exertion Associated Symptoms Negative for cough, rhinorrhea, ear pain, fever, sore throat or chills Chest Pain: Positive for Intermittent and Burning Narrative Narrative: Patient presents with shortness of breath that has been gradually getting worse since last night. Patient states that last night he was able to ambulate without difficulty. Patient states today he is only able to ambulate a few steps before he becomes short of breath. Patient was recently admitted to the hospital for anemia and was given a blood transfusion. Patient was feeling better after this. Patient admits to some burning pain in his chest. Patient states this also occurs with any exertion and activity. Patient denies any nausea or vomiting. Patient denies any cough. Patient denies any fevers or chills. [facility] Medical History (Updated 03/23/21 @ 14:[address] Silvino Torrez, DO) Atrial fibrillation COPD (chronic obstructive pulmonary disease) CPAP (continuous positive airway pressure) dependence Former smoker Hearing loss, right Hypertension Kidney disease SBO (small bowel obstruction) Home Medications albuterol sulfate [ProAir HFA] 1 puff INHALATION Q4H PRN 01/19/16 [History Last Taken 03/22/21] magnesium oxide 400 mg PO BID 01/19/16 [History Last Taken 03/23/21] nitroglycerin 0.4 mg SUBLINGUAL Q5M PRN 01/19/16 [History Last Taken Unknown] B-complex with vitamin C 1 ea PO BID 06/22/16 [History Last Taken 03/23/21] pravastatin 40 mg PO QHS 06/22/16 [History Last Taken 03/22/21] calcium acetate(phosphat bind) 667 mg PO BIDAC 03/14/21 [History Last Taken 03/23/21] ropinirole 1 mg PO BREAKFAST 03/14/21 [History Last Taken 03/23/21] ropinirole 2 mg PO QHS 03/14/21 [History Last Taken 03/22/21] tamsulosin 0.4 mg PO QHS 03/14/21 [History Last Taken 03/22/21] ferrous sulfate 324 mg PO BID #60 tab 03/17/21 [Rx Last Taken 03/23/21] metoprolol tartrate 12.5 mg PO BID #30 tab 03/17/21 [Rx Last Taken 03/23/21] budesonide 0.25 mg INHALATION BID 03/23/21 [History Last Taken 03/23/21] ergocalciferol (vitamin D2) 1,250 mcg PO MO 03/23/21 [History Last Taken 03/21/21] ipratropium-albuterol 3 ml INHALATION 4X/DAY 03/23/21 [History Last Taken 03/22/21] rivaroxaban [Xarelto] 20 mg PO QHS 03/23/21 [History Last Taken 03/22/21] ropinirole 0.5 mg PO LUNCH 03/23/21 [History Last Taken 03/22/21] Allergy/AdvReac Type Severity Reaction Status Date / Time acetaminophen [From Percocet] Allergy Other Verified 03/23/21 11:47 iodine Allergy Anaphylaxis Verified 03/23/21 11:47 oxycodone HCl [From Percocet] Allergy Other Verified 03/23/21 11:47 morphine AdvReac Other Verified 03/23/21 11:47 Surgical History H/O aortic valve replacement with porcine valve History of appendectomy Social History Smoking Status: Former smoker ROS ROS ED Constitutional Constitutional ED: Denies chills or fever(s) Eyes Eyes: Reports blurry vision right; Denies change in vision ENT ENT ED: Denies rhinorrhea or sore throat Cardiovascular Cardiovascular: Reports chest pain; Denies palpitations Respiratory/Chest Respiratory/Chest: Reports dyspnea; Denies cough Gastrointestinal Gastrointestinal: Denies nausea or vomiting Genitourinary Genitourinary ED: Denies dysuria or hematuria Musculoskeletal Musculoskeletal: Reports back pain; Denies neck pain Integumentary Denies abscess or rash Neurologic Neurologic: Denies headache(s) or weakness Allergic/Immunologic Allergic/Immunologic ED: Denies mouth swelling or urticaria EXAM Physical Exam Const Vital Signs: 03/23/21 11:44 03/23/21 12:19 Temperature 97.2 F L 97.2 F L Temperature Source Temporal Temporal Pulse Rate 105 H 84 Respiratory Rate 22 H 15 Respiratory Effort Short of Breath Labored Respiratory Depth Normal Respiratory Pattern Normal Blood Pressure 113/43 L 113/43 L Blood Pressure Mean 66 66 Pulse Ox 99 99 Oxygen Delivery Method Room Air Room Air Positive well nourished and well developed General Appearance ED: well developed HEENT Reports moist mucous membranes atraumatic Neck supple and no JVD Resp normal respiratory effort and clear to auscultation bilaterally Cardio regular rate Rhythm: abnormal rhythm irregularly irregular GI non-tender and non-distended Auscultation: normoactive bowel sounds Palpation: soft Extremity Extremity Narrative: There is trace edema of the lower extremities bilaterally General Extremety ED: Yes edema; Negative for tenderness General Extremity: edema Neuro oriented x3, CN's II-XII intact bilaterally and no sensory deficits noted Sensorium / Orientation: alert Motor Exam: strength 5/5 throughout Psych mental status grossly normal MDM MDM MDM Narrative Medical decision making narrative: EKG was obtained. On my interpretation, there is atrial fibrillation with a rate of 77. There are nonspecific ST-T wave changes in leads I, and aVL. These are unchanged compared to previous EKG dated 03/14/2021. CBC shows anemia with a hemoglobin of 5.8 and hematocrit of 19.7. Platelets are 193. PT with INR and PTT were therapeutic. INR was 2.4. D-dimer was normal. Comprehensive metabolic profile showed an elevated BUN of 53 and creatinine 1.49. These are consistent with prior results. Troponin was normal. Portable 1 view chest x-ray was obtained. On my interpretation, lung beth show chronic changes. There is normal cardiac silhouette. Bony thorax is normal. There is no acute process noted. Radiologist also interpreted the x-ray and agrees. Patient was typed and crossed for unit of blood. Patient is agreeable for the transfusion. Case was discussed with the hospitalist. She will admit the patient to her service. Patient understood and was agreeable with the plan. All questions were answered. Lab Data Attestation: I reviewed the patient's lab results. Labs: Laboratory Results - last 24 hr 03/23/21 03/23/21 03/23/21 12:25 12:25 12:25 WBC 9.1 RBC 1.84 L Hgb 5.8 L* Hct 19.7 L MCV 107.1 H MCH 31.5 MCHC 29.4 L RDW Std Deviation 84.5 H RDW Coeff of Danial 23.2 H Plt Count 193 MPV 9.8 Immature Gran % (Auto) 1.300 H Neut % (Auto) 79.3 H Lymph % (Auto) 11.5 L [place] % (Auto) 7.0 Eos % (Auto) 0.7 Baso % (Auto) 0.2 Absolute Neuts (auto) 7.2 Absolute Lymphs (auto) 1.05 Nucleated RBC % 0.8 Diff Path Review May foll Platelet Estimate ADEQUATE Polychromasia 1+ Anisocytosis 2+ PT 25.2 H INR 2.4 APTT 32.4 D-Dimer Quant (PE/DVT) <= 0.27 Sodium 140 Potassium 4.5 Chloride 112 H Carbon Dioxide 23.0 Anion Gap 5 BUN 53 H Creatinine 1.49 H Estim Creat Clear Calc 36.97 Est GFR (MDRD) Af Amer 58 L Est GFR (MDRD) Non-Af 48 L BUN/Creatinine Ratio 35.6 H Glucose 156 H Calcium 8.2 L Total Bilirubin 0.30 AST 9 L ALT 19 Alkaline Phosphatase 43 L Troponin I < 0.015 Total Protein 4.9 L Albumin 2.3 L Globulin 2.6 Albumin/Globulin Ratio 0.9 Radiography Chest X-Ray - ED: 1 View, Read by ED Physician, Read by Radiologist and Chronic Changes Diagnostic Testing: Radiology Impression Chest X-Ray 03/23/21 12:07 IMPRESSION: Chronic interstitial changes, no superimposed acute pulmonary process Electronically Signed: Sandeep Huddleston MD at 12:46 EDT , Service support , EKG Initial EKG: Attestation: I personally reviewed and interpreted this EKG as follows: Interpretation: Atrial Fibrillation (77) and Non-Specific ST Changes Prior EKG tracings: available for review Prior: Unchanged (03/14/2021) Treatment and Re-Evaluation Vital Sign Attestation:: Vital signs are reviewed prior to patient being admitted. They are stable. Patient is resting comfortably. Discharge Plan Triage Chief Complaint: Shortness of Breath ED Provider: Silvino Torrez Dx/Rx/DC Orders Clinical Impression: Anemia Primary Care Provider: Silvino Jaime Disposition Disposition: Acute Care [facility]
[2021-03-23 12:56] LABS: International Normalized Ratio 2.4; Prothrombin Time (Protime)PT. 25.2 SECONDS (11.7-14.9)
[2021-03-23 12:57] LABS: Partial Thromboplast Time 32.4 Seconds (24.1-36.2)
[2021-03-23 13:01] LABS: D-Dimer Quantitative (DVT/PE) <= 0.27 FEU/ug/m (0.27-0.49)
[2021-03-23 13:05] LABS: ALB/GLOB Ratio 0.9 RATIO (0.9-2.4); AST(SGOT) 9 U/L (15-37); Alanine Aminotransfer ALT/SGPT 19 U/L (16-61); Albumin, Serum 2.3 g/dL (3.2-5.0); Alkaline Phosphatase 43 U/L (45-117); Anion Gap 5 (5-15); BUN 53 mg/dL (7-18); BUN/Creat Ratio 35.6 RATIO (10-20); Calcium,Total 8.2 mg/dL (8.5-10.1); Chloride 112 mmol/L (98-107); Creatinine, Serum 1.49 mg/dL (0.70-1.30); EST Glomerular Filtration Rate 48 mL/min (>60); Est Glom Filt Rate - Afr Amer 58 mL/min (>60); Estimated Creatinine Clearance 36.97 ml/min; Globulin 2.6 g/dL (2.2-4.2); Glucose 156 mg/dL (74-106); Potassium 4.5 mmol/L (3.5-5.1); Protein, Total 4.9 g/dL (6.4-8.2); Sodium Level 140 mmol/L (136-145)
[2021-03-23 13:35] LABS: Absolute Lymphocyte Count 1.05 X10^3/uL (0.83-4.51); Absolute Neutrophil Count 7.2 X10^3/uL (2.0-7.7); Basophil# 0.02 X10^3/uL; Basophil% 0.2 % (0-1); Differential Indicated SCAN CRITERIA MET; Eosinophil# 0.06 X10^3/uL; Eosinophils% 0.7 % (0-5); Hematocrit 19.7 % (40-54); Lymphocyte # 1.05 X10^3/ul (0.83-4.51); Lymphocyte % 11.5 % (19-41); Mean Corp Hgb Conc 29.4 g/dL (32-36); Mean Corpuscular Hgb 31.5 pg (27.0-32.0); Mean Corpuscular Volume 107.1 fL (80-94); Mean Platelet Vol. 9.8 fl (6.2-12.0); Monocyte# 0.64 X10^3/uL; NRBC Flagged by Analyzer 0.8 % (0-5); Neutrophil # 7.21 X10^3/uL (2.7-7.7); Neutrophil % 79.3 % (47-70); POSITIVE COUNT YES; POSITIVE MORPHOLOGY YES; Platelet Count 193 K/mm3 (150-450); Platelet Estimate ADEQUATE (ADEQ); RBC Distribution Width CV 23.2 % (11.6-14.6); RBC Distribution Width SD 84.5 fl (35.1-43.9); Red Blood Count 1.84 M/mm3 (4.6-6.2); White Blood Count 9.1 K/mm3 (4.4-11.0)
[2021-03-23 13:36] LABS: Anisocytosis 2+; Polychromasia 1+
[2021-03-23 13:37] LABS: Hemoglobin 5.8 g/dL (13.0-16.5)
--- NOTE | 2021-03-23 14:16 | NURSING ---
112 KORAM OBS ANEMIA, DYSPNEA
[2021-03-23] MEDS: Pramipexole Di-HCl 0.25 MG Tablet PO (14:35)
[2021-03-23] MEDS: Acetaminophen 500 MG Tablet 1000 MG PO (14:35)
--- NOTE | 2021-03-23 14:44 | PCM.HP.STD ---
HPI - General General Date of Admission: 03/23/21 HPI Narrative CHARLES DODSON, is a 80 M with an extensive past medical history as outlined was admitted through the ED on 03/23/2021 with a complaint of shortness of breath. Patient was recently admitted on 03/14/2021 and discharged on 03/17/2021 and during this admission, he was managed for shortness of breath which was thought to be due to COPD exacerbation. W Was also noted to be iron deficient and anemic during the admission He was discharged home. Patient has been on Xarelto wand received 3 units of packed red blood cells as well as Venofer infusions. , for history of valvular replacement and was discharged on his Xarelto. Patient states he was fine after he got home but became acutely short of breath today. W He denied any chest pain or palpitations, dizziness, nausea vomiting or diarrhea. Review of symptoms otherwise negative. He denied any w vomiting of blood or coffee-ground emesis and said his stool has been dark but he thought was due to his iron. Vitals in the ED showed blood pressure 109/47, pulse rate of 104 and respiratory rate of 24 w and symptoms nine 7.7. He was saturating at 100% on room air. W CBC showed hemoglobin of 5.8 w and most recent hemoglobin was 9.1 on 03/17/2021. WBC was 9.1 and platelets were 193. BMP was essentially unremarkable. He has been admitted to be managed for acute on chronic anemia of unknown etiology. COUNTS INCLUDE 234 BEDS AT THE [facility] Medical History (Updated 03/24/21 @ 14:[address] Humza Carver MD) Acute blood loss anemia Atrial fibrillation COPD (chronic obstructive pulmonary disease) CPAP (continuous positive airway pressure) dependence DLBCL (diffuse large B cell lymphoma) Former smoker Hearing loss, right Hypertension Iron deficiency anemia due to chronic blood loss Kidney disease SBO (small bowel obstruction) Home Medications albuterol sulfate [ProAir HFA] 1 puff INHALATION Q4H PRN 01/19/16 [History Last Taken 03/22/21] magnesium oxide 400 mg PO BID 01/19/16 [History Last Taken 03/23/21] nitroglycerin 0.4 mg SUBLINGUAL Q5M PRN 01/19/16 [History Last Taken Unknown] B-complex with vitamin C 1 ea PO BID 06/22/16 [History Last Taken 03/23/21] pravastatin 40 mg PO QHS 06/22/16 [History Last Taken 03/22/21] calcium acetate(phosphat bind) 667 mg PO BIDAC 03/14/21 [History Last Taken 03/23/21] ropinirole 1 mg PO BREAKFAST 03/14/21 [History Last Taken 03/23/21] ropinirole 2 mg PO QHS 03/14/21 [History Last Taken 03/22/21] tamsulosin 0.4 mg PO QHS 03/14/21 [History Last Taken 03/22/21] ferrous sulfate 324 mg PO BID #60 tab 03/17/21 [Rx Last Taken 03/23/21] metoprolol tartrate 12.5 mg PO BID #30 tab 03/17/21 [Rx Last Taken 03/23/21] budesonide 0.25 mg INHALATION BID 03/23/21 [History Last Taken 03/23/21] ergocalciferol (vitamin D2) 1,250 mcg PO MO 03/23/21 [History Last Taken 03/21/21] ipratropium-albuterol 3 ml INHALATION 4X/DAY 03/23/21 [History Last Taken 03/22/21] rivaroxaban [Xarelto] 20 mg PO QHS 03/23/21 [History Last Taken 03/22/21] ropinirole 0.5 mg PO LUNCH 03/23/21 [History Last Taken 03/22/21] Allergy/AdvReac Type Severity Reaction Status Date / Time acetaminophen [From Percocet] Allergy Other Verified 03/23/21 11:47 iodine Allergy Anaphylaxis Verified 03/23/21 11:47 oxycodone HCl [From Percocet] Allergy Other Verified 03/23/21 11:47 morphine AdvReac Other Verified 03/23/21 11:47 Surgical History H/O aortic valve replacement with porcine valve History of appendectomy Social History Smoking Status: Former smoker ROS Constitutional Constitutional: Denies anorexia, change in weight, chills, fatigue, fever(s), malaise or weakness Eyes Eyes: Denies blurry vision ENT HEENT: Denies dysphagia, headache(s) or sore throat Cardiovascular Cardiovascular: Reports dyspnea on exertion; Denies chest pain Respiratory/Chest Respiratory/Chest: Reports dyspnea, shortness of breath at rest and shortness of breath with exertion; Denies cough, hemoptysis, productive cough or wheezing Gastrointestinal Gastrointestinal: Reports melena; Denies abdominal pain, coffee ground emesis, constipation, diarrhea, dyspepsia, hematemesis or hematochezia Genitourinary Genitourinary: Denies burning urination Musculoskeletal Musculoskeletal: Denies arthralgias, back pain or joint swelling Neurologic Neurologic: Reports dizziness; Denies confusion, focal weakness, headache(s), seizure-like activity or seizures Psychiatric Psychiatric: Denies anxiety Endocrine Endocrinology: Denies change in body appearance Hematologic/Lymphatic Hematologic/Lymphatic: Reports anemia; Denies easy bleeding or easy bruising Vital Signs Vital Signs Vital Signs: 03/23/21 11:44 03/23/21 12:19 03/23/21 14:20 Temperature 97.2 F L 97.2 F L 97.7 F L Temperature Source Temporal Temporal Oral Pulse Rate 105 H 84 104 H Respiratory Rate 22 H 15 24 H Respiratory Effort Short of Breath Labored Respiratory Depth Normal Respiratory Pattern Normal Blood Pressure 113/43 L 113/43 L 109/47 L Blood Pressure Mean 66 66 67 Pulse Ox 99 99 100 Oxygen Delivery Method Room Air Room Air Room Air Physical Exam Const alert, oriented x3 and no apparent distress HEENT normocephalic, head/scalp atraumatic, hearing grossly normal bilaterally and moist oral mucous membranes Eyes PERRL, EOMs intact bilaterally and conjunctivae normal Neck no lymphadenopathy Resp normal respiratory effort, no retractions, no use of accessory muscles and clear to auscultation bilaterally Cardio regular rate, regular rhythm, S1 normal heart sound, S2 normal heart sound and no murmurs GI normal to inspection, nondistended, normoactive bowel sounds, soft to palpation, non-tender and non-distended Extremity normal to inspection, full ROM and no clubbing, cyanosis or edema Peripheral Pulses: Yes pulses 2+ throughout Skin no rashes or lesions noted Neuro oriented x3 Neuro Narrative: has restless leg syndrome Sensorium / Orientation: awake Psych affect normal Lab / Micro Data Result Diagrams: 03/24/21 18:25 03/24/21 06:20 Labs: Laboratory Results - last 24 hr 03/23/21 03/23/21 03/23/21 12:25 12:25 12:25 WBC 9.1 RBC 1.84 L Hgb 5.8 L* Hct 19.7 L MCV 107.1 H MCH 31.5 MCHC 29.4 L RDW Std Deviation 84.5 H RDW Coeff of Danial 23.2 H Plt Count 193 MPV 9.8 Immature Gran % (Auto) 1.300 H Neut % (Auto) 79.3 H Lymph % (Auto) 11.5 L [place] % (Auto) 7.0 Eos % (Auto) 0.7 Baso % (Auto) 0.2 Absolute Neuts (auto) 7.2 Absolute Lymphs (auto) 1.05 Nucleated RBC % 0.8 Diff Path Review May foll Platelet Estimate ADEQUATE Polychromasia 1+ Anisocytosis 2+ PT 25.2 H INR 2.4 APTT 32.4 D-Dimer Quant (PE/DVT) <= 0.27 Sodium 140 Potassium 4.5 Chloride 112 H Carbon Dioxide 23.0 Anion Gap 5 BUN 53 H Creatinine 1.49 H Estim Creat Clear Calc 36.97 Est GFR (MDRD) Af Amer 58 L Est GFR (MDRD) Non-Af 48 L BUN/Creatinine Ratio 35.6 H Glucose 156 H Calcium 8.2 L Total Bilirubin 0.30 AST 9 L ALT 19 Alkaline Phosphatase 43 L Troponin I < 0.015 Total Protein 4.9 L Albumin 2.3 L Globulin 2.6 Albumin/Globulin Ratio 0.9 Crossmatch 03/23/21 14:15 WBC RBC Hgb Hct MCV MCH MCHC RDW Std Deviation RDW Coeff of Danial Plt Count MPV Immature Gran % (Auto) Neut % (Auto) Lymph % (Auto) [place] % (Auto) Eos % (Auto) Baso % (Auto) Absolute Neuts (auto) Absolute Lymphs (auto) Nucleated RBC % Diff Path Review Platelet Estimate Polychromasia Anisocytosis PT INR APTT D-Dimer Quant (PE/DVT) Sodium Potassium Chloride Carbon Dioxide Anion Gap BUN Creatinine Estim Creat Clear Calc Est GFR (MDRD) Af Amer Est GFR (MDRD) Non-Af BUN/Creatinine Ratio Glucose Calcium Total Bilirubin AST ALT Alkaline Phosphatase Troponin I Total Protein Albumin Globulin Albumin/Globulin Ratio Crossmatch See Detail Radiology Impression Chest X-Ray 03/23/21 12:07 IMPRESSION: Chronic interstitial changes, no superimposed acute pulmonary process Electronically Signed: Sandeep Huddleston MD at 12:46 EDT , Service support , Assessment & Plan Assessment/Plan (1) Anemia: QUALIFIERS: Anemia type: unspecified type Qualified Code(s): D64.9 - Anemia, unspecified PLAN: #Acute on chronic anemia Etiology is unclear. Patient does tell me that he has had colonoscopies in the past and only a few polyps were found and he was told to come back in 8 years if needed. He does not however recall having an EGD. He does not recall any other work-up for his anemia Hemoglobin is 5.8. Hemoglobin is at time of discharge on 03/17/2021 was 9.1. Hold Xarelto. Transfuse with 2 units of packed red blood cells Iron panel done during last admission on 03/14/2021 showed iron level of 34 with iron saturation of 10.3 and ferritin of 19 with TIBC of 329. Patient is therefore severely iron deficient. Since he is recently had a colonoscopy which was negative, I think it is prudent to consult hematology to get further recommendations about his anemia. #History of valve replacement: Hold Coumadin. #History of BPH: On Flomax #Restless leg syndrome: Ropinirole #COPD: Not in exacerbation. Breathing treatments with bronchodilators. #Hypertension: On metoprolol #CKD stage IIIb: Creatinine is 1.49 which is around his baseline. Will monitor. DVT prophylaxis: SCDs. No anticoagulation on account of acute on chronic anemia CODE STATUS: Full code Patient and his son were counseled extensively about differences between full code, DNR CCA and DNR CCA. Patient elects to be full code. He however does not want to be kept on machines forever and states his son will be his healthcare power of state attorney but wanted everything tried initially needing intubation and CPR if needed. Total [id number] time 16 minutes. Visit Charges Inpatient E&M: 44182 Init Hosp L3 Procedures Hospitalists Procedures: [id number] Advncd Care Plan 30 Min
[2021-03-23] MEDS: 0.9% Saline Lock 10 ML Syringe IV (16:45)
[2021-03-24] VITALS (28 sets, daily range): BP systolic 88–140; BP diastolic 39–109; PULSE 66–106; RESP 17–20; TEMP 36.2–36.8; O2SAT 89–100
[2021-03-24 02:16] LABS: Hematocrit 24.2 % (40-54); Hemoglobin 7.4 g/dL (13.0-16.5)
[2021-03-24 06:41] LABS: Absolute Lymphocyte Count 1.67 X10^3/uL (0.83-4.51); Absolute Neutrophil Count 9.6 X10^3/uL (2.0-7.7); Basophil# 0.03 X10^3/uL; Basophil% 0.2 % (0-1); Eosinophil# 0.12 X10^3/uL; Hematocrit 24.5 % (40-54); Hemoglobin 7.5 g/dL (13.0-16.5); Lymphocyte # 1.67 X10^3/ul (0.83-4.51); Lymphocyte % 13.5 % (19-41); Mean Corp Hgb Conc 30.6 g/dL (32-36); Mean Corpuscular Hgb 31.1 pg (27.0-32.0); Mean Corpuscular Volume 101.7 fL (80-94); Mean Platelet Vol. 9.6 fl (6.2-12.0); Monocyte# 0.81 X10^3/uL; Monocyte% 6.6 % (0-10); NRBC Flagged by Analyzer 0.4 % (0-5); Neutrophil % 77.6 % (47-70); POSITIVE MORPHOLOGY YES; Platelet Count 183 K/mm3 (150-450); RBC Distribution Width CV 22.2 % (11.6-14.6); RBC Distribution Width SD 73.5 fl (35.1-43.9); Red Blood Count 2.41 M/mm3 (4.6-6.2); White Blood Count 12.4 K/mm3 (4.4-11.0)
[2021-03-24 06:55] LABS: Differential Indicated SCAN CRITERIA MET
[2021-03-24 07:03] LABS: Anion Gap 5 (5-15); BUN 43 mg/dL (7-18); BUN/Creat Ratio 31.4 RATIO (10-20); Calcium,Total 8.2 mg/dL (8.5-10.1); Chloride 112 mmol/L (98-107); Creatinine, Serum 1.37 mg/dL (0.70-1.30); EST Glomerular Filtration Rate 53 mL/min (>60); Est Glom Filt Rate - Afr Amer 64 mL/min (>60); Estimated Creatinine Clearance 40.21 ml/min; Glucose 130 mg/dL (74-106); Potassium 4.6 mmol/L (3.5-5.1); Sodium Level 139 mmol/L (136-145)
[2021-03-24 07:57] LABS: Anisocytosis 2+; Differential Comment SCANNED; Polychromasia 2+
[2021-03-24 07:58] LABS: Macrocytosis 2+
[2021-03-24] MEDS: Metoprolol Tartrate 25 MG Tablet 12.5 MG PO ×2 (08:26→22:30)
[2021-03-24] MEDS: Pramipexole Di-HCl 0.5 MG Tablet PO (08:26)
[2021-03-24] MEDS: Calcium Acetate 667 MG Capsule PO ×2 (08:26→18:08)
[2021-03-24] MEDS: Ferrous Sulfate 325 MG Tablet PO (08:26)
[2021-03-24] MEDS: Magnesium Chloride 64 MG Delay Rel.Tablet 128 MG PO ×2 (08:29→22:29)
--- NOTE | 2021-03-24 09:20 | CON.PCM.ON_ITS ---
Assessment & Plan Assessment/Plan (1) Acute blood loss anemia: Status: Acute Code(s): D62 - Acute posthemorrhagic anemia Plan: The patient was admitted with acute on chronic iron deficiency anemia consistent with acute on chronic external blood loss most likely GI. He is on chronic anticoagulation for cardiac disease which aggravates any GI pathology responsible for the blood loss. He reports black melanotic stools but has been on oral iron. For the acute anemia recommend: 1- Transfusions with packed red blood cells to hemoglobin of 8 due to comorbid cardiac and lung disease. 2- Consult surgery (called and discussed with ) to reevaluate the GI tract. He has not had recent EGD. 3-Review colonoscopy and pathology from outside ([place]) colonoscopy of 2020. (2) Iron deficiency anemia due to chronic blood loss: Status: Chronic Code(s): D50.0 - Iron deficiency anemia secondary to blood loss (chronic) Plan: Recommend IV iron rather than oral iron to avoid masking of recurrent GI bleed for at least the upcoming month. Orders placed to stop oral iron and give daily IV iron while inpatient. We will follow-up following discharge as outpatient to complete IV iron loading (target about 1 g of elemental iron). Impression and plan discussed with patient and Dr Sun. Patient is tentatively scheduled for EGD March 25, 2021, he is keen on going home before this weekend to spend his birthday with his family at home. He will be followed up in hematology clinic the first week of April 2021. HPI Consult Data Date of Service:: 03/24/21 PCP / Referring Provider: Dr. Silvino Jaime MD Attending: Dr. Mickey Epstein DO Chief Complaint Chief Complaint: Dyspnea History of Present Illness History of Present Illness: 80-year-old gentleman admitted with dyspnea and acute on chronic anemia with with a hemoglobin of 5.8 g per DL. (see lab section). 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 Patient reports history of GI bleeds some 5 years ago, was also on Xarelto at the time when he had a colonoscopy and no source of bleeding was found to his knowledge. He was diagnosed with iron deficiency anemia in early 2020 and underwent another colonoscopy (approximately 3 months ago with a billboard erector helper in [facility]) and to his knowledge a benign polyp was removed. He does not recall EGD. His stools has been black but he has been on oral iron, denied bright red blood MO bleed. Advanced Directives Power of Assistant Customer Service Manager: Yes Living Will: Yes [facility] Medical History (Updated 03/24/21 @ 14:[address] Humza Carver MD) Acute blood loss anemia Atrial fibrillation COPD (chronic obstructive pulmonary disease) CPAP (continuous positive airway pressure) dependence DLBCL (diffuse large B cell lymphoma) Former smoker Hearing loss, right Hypertension Iron deficiency anemia due to chronic blood loss Kidney disease SBO (small bowel obstruction) Home Medications albuterol sulfate [ProAir HFA] 1 puff INHALATION Q4H PRN 01/19/16 [History Last Taken 03/22/21] magnesium oxide 400 mg PO BID 01/19/16 [History Last Taken 03/23/21] nitroglycerin 0.4 mg SUBLINGUAL Q5M PRN 01/19/16 [History Last Taken Unknown] B-complex with vitamin C 1 ea PO BID 06/22/16 [History Last Taken 03/23/21] pravastatin 40 mg PO QHS 06/22/16 [History Last Taken 03/22/21] calcium acetate(phosphat bind) 667 mg PO BIDAC 03/14/21 [History Last Taken 03/23/21] ropinirole 1 mg PO BREAKFAST 03/14/21 [History Last Taken 03/23/21] ropinirole 2 mg PO QHS 03/14/21 [History Last Taken 03/22/21] tamsulosin 0.4 mg PO QHS 03/14/21 [History Last Taken 03/22/21] ferrous sulfate 324 mg PO BID #60 tab 03/17/21 [Rx Last Taken 03/23/21] metoprolol tartrate 12.5 mg PO BID #30 tab 03/17/21 [Rx Last Taken 03/23/21] budesonide 0.25 mg INHALATION BID 03/23/21 [History Last Taken 03/23/21] ergocalciferol (vitamin D2) 1,250 mcg PO MO 03/23/21 [History Last Taken 03/21/21] ipratropium-albuterol 3 ml INHALATION 4X/DAY 03/23/21 [History Last Taken 03/22/21] rivaroxaban [Xarelto] 20 mg PO QHS 03/23/21 [History Last Taken 03/22/21] ropinirole 0.5 mg PO LUNCH 03/23/21 [History Last Taken 03/22/21] Allergy/AdvReac Type Severity Reaction Status Date / Time acetaminophen [From Percocet] Allergy Other Verified 03/23/21 11:47 iodine Allergy Anaphylaxis Verified 03/23/21 11:47 oxycodone HCl [From Percocet] Allergy Other Verified 03/23/21 11:47 morphine AdvReac Other Verified 03/23/21 11:47 Surgical History H/O aortic valve replacement with porcine valve History of appendectomy Social History Smoking Status: Former smoker ROS Constitutional Constitutional: Reports fatigue; Denies fever(s) or night sweats ENT HEENT: Denies dysphagia or neck mass Cardiovascular Cardiovascular: Reports dyspnea, dyspnea at rest, dyspnea on exertion and edema; Denies palpitations Respiratory/Chest Respiratory/Chest: Reports dyspnea and dyspnea on exertion; Denies cough or hemoptysis Gastrointestinal Gastrointestinal: Reports melena and other Details: Reports black stools but has been on oral iron ; Denies abdominal pain, anorexia, change in bowel habits, coffee ground emesis, hematochezia, nausea or vomiting Genitourinary Genitourinary: Denies change in urinary stream, flank pain or hematuria Musculoskeletal Musculoskeletal: Denies back pain Integumentary Integumentary: Denies rash Neurologic Neurologic: Denies focal weakness, headache(s) or tingling Psychiatric Psychiatric: Reports systems reviewed and no addt'l complaints, except as documented Endocrine Endocrinology: Reports systems reviewed and no addt'l complaints, except as documented and fatigue; Denies excessive sweating Hematologic/Lymphatic Hematologic/Lymphatic: Reports easy bruising; Denies easy bleeding or lymphadenopathy Physical Exam Narrative ECOG 2 Const alert and oriented x3 Constitutional Narrative: Pale Nutritional Appearance: obese HEENT normocephalic and moist oral mucous membranes Eyes no scleral icterus Neck no lymphadenopathy and no JVD Lymph Lymphatic: no lymphadenopathy noted Chest inspection of chest normal Resp normal respiratory effort Effort and Inspection: symmetric chest movement Auscultation: diminished lung sounds bilateral and diffuse Cardio no JVD Rhythm: abnormal rhythm irregularly irregular GI soft to palpation, non-tender and no masses Palpation: Negative for hepatomegaly or splenomegaly Bladder / Kidney Exam: no CVA tenderness Extremity General Extremity: edema bilateral lower extremity Details: mild Skin no rashes or lesions noted General Skin Exam: ecchymosis Neuro CN's II-XII intact bilaterally, moves all extremities and no focal motor deficits Coordination / Balance: [id number] test normal Speech: speech normal Psych mental status grossly normal, cooperative and affect normal Vital Signs: Vital Signs Temperature 97.2 F L 03/24/21 08:21 Temperature Source Temporal 03/24/21 08:21 Pulse Rate 82 03/24/21 08:26 Respiratory Rate 18 03/24/21 08:21 Respiratory Effort 03/24/21 03:16 Respiratory Depth Shallow 03/24/21 03:16 Respiratory Pattern Tachypnea 03/24/21 03:16 Blood Pressure 140/92 H 03/24/21 08:26 Blood Pressure Mean 108 03/24/21 08:21 Blood Pressure Source Monitor 03/24/21 08:21 Blood Pressure Position Sitting 03/24/21 06:22 Blood Pressure Location Left Arm 03/24/21 06:22 Pulse Ox 98 03/24/21 08:21 Oxygen Delivery Method Room Air 03/24/21 08:21 Oxygen Flow Rate (L/min) 2 03/24/21 06:22 Laboratory Data: Microbiology 03/24/21 02:00 Stool Occult Blood (MAGALIS) - Final Stool Laboratory Tests 03/24/21 03/24/21 03/24/21 Range/Units 06:20 06:20 02:10 WBC 12.4 H (4.4-11.0) K/mm3 RBC 2.41 L (4.6-6.2) M/mm3 Hgb 7.5 L 7.4 L (13.0-16.5) g/dL Hct 24.5 L 24.2 L (40-54) % MCV 101.7 H D (80-94) fL MCH 31.1 (27.0-32.0) pg MCHC 30.6 L (32-36) g/dL RDW Std Deviation 73.5 H (35.1-43.9) fl RDW Coeff of Danial 22.2 H (11.6-14.6) % Plt Count 183 (150-450) K/mm3 MPV 9.6 (6.2-12.0) fl Immature Gran % (Auto) 1.100 H (0.0-0.9) % Neut % (Auto) 77.6 H (47-70) % Lymph % (Auto) 13.5 L (19-41) % [place] % (Auto) 6.6 (0-10) % Eos % (Auto) 1.0 (0-5) % Baso % (Auto) 0.2 (0-1) % Absolute Neuts (auto) 9.6 H (2.0-7.7) X10^3/uL Absolute Lymphs (auto) 1.67 (0.83-4.51) X10^3/uL Nucleated RBC % 0.4 (0-5) % Differential Comment SCANNED Diff Path Review Platelet Estimate (ADEQ) Polychromasia 2+ Anisocytosis 2+ Macrocytosis 2+ PT (11.7-14.9) SECONDS INR APTT (24.1-36.2) Seconds D-Dimer Quant (PE/DVT) (0.27-0.49) FEU/ug/m Sodium 139 (136-145) mmol/L Potassium 4.6 (3.5-5.1) mmol/L Chloride 112 H (98-107) mmol/L Carbon Dioxide 22.0 (21.0-32.0) mmol/L Anion Gap 5 (5-15) BUN 43 H (7-18) mg/dL Creatinine 1.37 H (0.70-1.30) mg/dL Estim Creat Clear Calc 40.21 ml/min Est GFR (MDRD) Af Amer 64 (>60) mL/min Est GFR (MDRD) Non-Af 53 L (>60) mL/min BUN/Creatinine Ratio 31.4 H (10-20) RATIO Glucose 130 H (74-106) mg/dL Calcium 8.2 L (8.5-10.1) mg/dL Total Bilirubin (0.20-1.00) mg/dL AST (15-37) U/L ALT (16-61) U/L Alkaline Phosphatase (45-117) U/L Troponin I (<0.045) ng/mL Total Protein (6.4-8.2) g/dL Albumin (3.2-5.0) g/dL Globulin (2.2-4.2) g/dL Albumin/Globulin Ratio (0.9-2.4) RATIO Blood Type Antibody Screen Crossmatch 03/23/21 03/23/21 03/23/21 Range/Units 14:15 14:15 14:15 WBC (4.4-11.0) K/mm3 RBC (4.6-6.2) M/mm3 Hgb (13.0-16.5) g/dL Hct (40-54) % MCV (80-94) fL MCH (27.0-32.0) pg MCHC (32-36) g/dL RDW Std Deviation (35.1-43.9) fl RDW Coeff of Danial (11.6-14.6) % Plt Count (150-450) K/mm3 MPV (6.2-12.0) fl Immature Gran % (Auto) (0.0-0.9) % Neut % (Auto) (47-70) % Lymph % (Auto) (19-41) % [place] % (Auto) (0-10) % Eos % (Auto) (0-5) % Baso % (Auto) (0-1) % Absolute Neuts (auto) (2.0-7.7) X10^3/uL Absolute Lymphs (auto) (0.83-4.51) X10^3/uL Nucleated RBC % (0-5) % Differential Comment Diff Path Review Platelet Estimate (ADEQ) Polychromasia Anisocytosis Macrocytosis PT (11.7-14.9) SECONDS INR APTT (24.1-36.2) Seconds D-Dimer Quant (PE/DVT) (0.27-0.49) FEU/ug/m Sodium (136-145) mmol/L Potassium (3.5-5.1) mmol/L Chloride (98-107) mmol/L Carbon Dioxide (21.0-32.0) mmol/L Anion Gap (5-15) BUN (7-18) mg/dL Creatinine (0.70-1.30) mg/dL Estim Creat Clear Calc ml/min Est GFR (MDRD) Af Amer (>60) mL/min Est GFR (MDRD) Non-Af (>60) mL/min BUN/Creatinine Ratio (10-20) RATIO Glucose (74-106) mg/dL Calcium (8.5-10.1) mg/dL Total Bilirubin (0.20-1.00) mg/dL AST (15-37) U/L ALT (16-61) U/L Alkaline Phosphatase (45-117) U/L Troponin I (<0.045) ng/mL Total Protein (6.4-8.2) g/dL Albumin (3.2-5.0) g/dL Globulin (2.2-4.2) g/dL Albumin/Globulin Ratio (0.9-2.4) RATIO Blood Type B POSITIVE Antibody Screen NEGATIVE Crossmatch See Detail See Detail See Detail 03/23/21 03/23/21 03/23/21 Range/Units 12:25 12:25 12:25 WBC 9.1 (4.4-11.0) K/mm3 RBC 1.84 L (4.6-6.2) M/mm3 Hgb 5.8 L* (13.0-16.5) g/dL Hct 19.7 L (40-54) % MCV 107.1 H (80-94) fL MCH 31.5 (27.0-32.0) pg MCHC 29.4 L (32-36) g/dL RDW Std Deviation 84.5 H (35.1-43.9) fl RDW Coeff of Danial 23.2 H (11.6-14.6) % Plt Count 193 (150-450) K/mm3 MPV 9.8 (6.2-12.0) fl Immature Gran % (Auto) 1.300 H (0.0-0.9) % Neut % (Auto) 79.3 H (47-70) % Lymph % (Auto) 11.5 L (19-41) % [place] % (Auto) 7.0 (0-10) % Eos % (Auto) 0.7 (0-5) % Baso % (Auto) 0.2 (0-1) % Absolute Neuts (auto) 7.2 (2.0-7.7) X10^3/uL Absolute Lymphs (auto) 1.05 (0.83-4.51) X10^3/uL Nucleated RBC % 0.8 (0-5) % Differential Comment Diff Path Review May foll Platelet Estimate ADEQUATE (ADEQ) Polychromasia 1+ Anisocytosis 2+ Macrocytosis PT 25.2 H (11.7-14.9) SECONDS INR 2.4 APTT 32.4 (24.1-36.2) Seconds D-Dimer Quant (PE/DVT) <= 0.27 (0.27-0.49) FEU/ug/m Sodium 140 (136-145) mmol/L Potassium 4.5 (3.5-5.1) mmol/L Chloride 112 H (98-107) mmol/L Carbon Dioxide 23.0 (21.0-32.0) mmol/L Anion Gap 5 (5-15) BUN 53 H (7-18) mg/dL Creatinine 1.49 H (0.70-1.30) mg/dL Estim Creat Clear Calc 36.97 ml/min Est GFR (MDRD) Af Amer 58 L (>60) mL/min Est GFR (MDRD) Non-Af 48 L (>60) mL/min BUN/Creatinine Ratio 35.6 H (10-20) RATIO Glucose 156 H (74-106) mg/dL Calcium 8.2 L (8.5-10.1) mg/dL Total Bilirubin 0.30 (0.20-1.00) mg/dL AST 9 L (15-37) U/L ALT 19 (16-61) U/L Alkaline Phosphatase 43 L (45-117) U/L Troponin I < 0.015 (<0.045) ng/mL Total Protein 4.9 L (6.4-8.2) g/dL Albumin 2.3 L (3.2-5.0) g/dL Globulin 2.6 (2.2-4.2) g/dL Albumin/Globulin Ratio 0.9 (0.9-2.4) RATIO Blood Type Antibody Screen Crossmatch Laboratory Tests 08/27/19 06/15/20 03/14/21 10:39 05:58 19:00 WBC Hgb 15.7 7.9 L Plt Count Creatinine Ferritin 75 03/14/21 03/17/21 03/23/21 19:00 05:42 12:25 WBC Hgb 9.1 L 5.8 L* Plt Count Creatinine Ferritin 19 L 03/24/21 03/24/21 06:20 06:20 WBC 12.4 H Hgb 7.5 L Plt Count 183 Creatinine 1.37 H Ferritin Diagnostic Data: Diagnostic Data Chest X-Ray 03/23/21 12:07 IMPRESSION: Chronic interstitial changes, no superimposed acute pulmonary process Electronically Signed: Sandeep Huddleston MD at 12:46 EDT , Service support ,
[2021-03-24] MEDS: Mag Hydrox/Al Hydrox/Simeth 30 ML UDC PO (11:09)
[2021-03-24] MEDS: Pantoprazole Sodium 40 MG Tablet PO (11:09)
[2021-03-24] MEDS: Pramipexole Di-HCl 0.25 MG Tablet PO (12:23)
[2021-03-24 12:30] LABS: Pathologist Review Reviewed
--- NOTE | 2021-03-24 12:50 | CON.PCM_ITS ---
Assessment & Plan Assessment/Plan (1) Iron deficiency anemia due to chronic blood loss: PLAN: Patient was discussed with Dr. Sun. Plan to obtain last colonoscopy record from Dr. vIy. Dr. Sun will plan to perform an EGD with biopsy tomorrow morning at 0700 AM. Patient had already had crackers to eat today along with breakfast. Procedure details, risks and benefits have been explained to the patient. Patient will have COVID test and be switched from oral PPI to IV. Continue to hold Xarelto. Patient has had the opportunity to ask and have questions answered. Patient verbally understands and agrees with the plan. HPI Consult Data Date of Consult: 03/24/21 HPI Narrative HPI Narrative: CHARLES DODSON, is a 80 M who presents to the ED with increased shortness of breath and fatigue. Patient was found to be anemic at 5.8. He received 3 units of PRBC. His Hgb has increased to 7.4 and 7.5. He is currently receiving iron infusions. He was recently admitted for shortness of breath and found to be anemic and was discharged on 03/17, 1 week ago. He noted feeling well at discharge and throughout the weekend. He stated Sunday night he was noted to be very short of breath and having difficulty walking. His son brought him to the ED. He noted having dark stools once he he was admitted. He states this is from the iron infusion. He denies having dark/melanotic stools at home, bright red blood, reflux or abdominal pain at home. He continues to deny having any of those symptoms currently. 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 Dr. Valdivia is his scientific glass blower. He notes a previous GI bleed approximately 3-4 years ago. He had a bleeding scan at that time however no active bleeding was found. He stated he was off of his xarelto for a short period of time until his symptoms cleared and has since been placed back on. Patient states he had an upper scope in with Dr. Ivy. Per patient, this was unremarkable at the time and he was not placed on any PPI medication. He notes his most recent colonoscopy was [address] Ivy. Per patient his scope was unremarkable. [facility] Medical History (Updated 03/24/21 @ 09:[address] Humza Carver MD) Atrial fibrillation COPD (chronic obstructive pulmonary disease) CPAP (continuous positive airway pressure) dependence DLBCL (diffuse large B cell lymphoma) Former smoker Hearing loss, right Hypertension Iron deficiency anemia due to chronic blood loss Kidney disease SBO (small bowel obstruction) Home Medications albuterol sulfate [ProAir HFA] 1 puff INHALATION Q4H PRN 01/19/16 [History Last Taken 03/22/21] magnesium oxide 400 mg PO BID 01/19/16 [History Last Taken 03/23/21] nitroglycerin 0.4 mg SUBLINGUAL Q5M PRN 01/19/16 [History Last Taken Unknown] B-complex with vitamin C 1 ea PO BID 06/22/16 [History Last Taken 03/23/21] pravastatin 40 mg PO QHS 06/22/16 [History Last Taken 03/22/21] calcium acetate(phosphat bind) 667 mg PO BIDAC 03/14/21 [History Last Taken 03/23/21] ropinirole 1 mg PO BREAKFAST 03/14/21 [History Last Taken 03/23/21] ropinirole 2 mg PO QHS 03/14/21 [History Last Taken 03/22/21] tamsulosin 0.4 mg PO QHS 03/14/21 [History Last Taken 03/22/21] ferrous sulfate 324 mg PO BID #60 tab 03/17/21 [Rx Last Taken 03/23/21] metoprolol tartrate 12.5 mg PO BID #30 tab 03/17/21 [Rx Last Taken 03/23/21] budesonide 0.25 mg INHALATION BID 03/23/21 [History Last Taken 03/23/21] ergocalciferol (vitamin D2) 1,250 mcg PO MO 03/23/21 [History Last Taken 03/21/21] ipratropium-albuterol 3 ml INHALATION 4X/DAY 03/23/21 [History Last Taken 03/22/21] rivaroxaban [Xarelto] 20 mg PO QHS 03/23/21 [History Last Taken 03/22/21] ropinirole 0.5 mg PO LUNCH 03/23/21 [History Last Taken 03/22/21] Allergy/AdvReac Type Severity Reaction Status Date / Time acetaminophen [From Percocet] Allergy Other Verified 03/23/21 11:47 iodine Allergy Anaphylaxis Verified 03/23/21 11:47 oxycodone HCl [From Percocet] Allergy Other Verified 03/23/21 11:47 morphine AdvReac Other Verified 03/23/21 11:47 Surgical History H/O aortic valve replacement with porcine valve History of appendectomy Social History Smoking Status: Former smoker ROS Constitutional Constitutional: Reports systems reviewed and no addt'l complaints, except as documented Eyes Eyes: Reports systems reviewed and no addt'l complaints, except as documented ENT HEENT: Reports systems reviewed and no addt'l complaints, except as documented Cardiovascular Cardiovascular: Reports systems reviewed and no addt'l complaints, except as documented Respiratory/Chest Respiratory/Chest: Reports systems reviewed and no addt'l complaints, except as documented Gastrointestinal Gastrointestinal: Reports systems reviewed and no addt'l complaints, except as documented Genitourinary Genitourinary: Reports systems reviewed and no addt'l complaints, except as documented Musculoskeletal Musculoskeletal: Reports systems reviewed and no addt'l complaints, except as documented Integumentary Integumentary: Reports systems reviewed and no addt'l complaints, except as documented Neurologic Neurologic: Reports systems reviewed and no addt'l complaints, except as documented Psychiatric Psychiatric: Reports systems reviewed and no addt'l complaints, except as documented Endocrine Endocrinology: Reports systems reviewed and no addt'l complaints, except as documented Hematologic/Lymphatic Hematologic/Lymphatic: Reports systems reviewed and no addt'l complaints, except as documented Allergic/Immunologic Allergic/Immunologic: Reports systems reviewed and no addt'l complaints, except as documented Physical Exam Const alert and oriented x3 Constitutional Narrative: Appears pale. Oxygen via nasal canula. Not on oxygen at home. HEENT normocephalic Eyes PERRL Neck full ROM Thyroid: Negative for mass Lymph Lymphatic: no lymphadenopathy noted Chest inspection of chest normal Resp normal respiratory effort Auscultation: wheezes expiratory wheezes and throughout Cardio regular rate and regular rhythm GI Inspection: central obesity Auscultation: normoactive bowel sounds Palpation: Negative for tender no CVA tenderness Back/Spine no CVA tenderness Extremity normal to inspection Skin no rashes or lesions noted Neuro CN's II-XII intact bilaterally Psych mental status grossly normal Lab / Micro Data Result Diagrams: 03/24/21 06:20 03/24/21 06:20 Labs: Laboratory Results - last 24 hr 03/23/21 03/23/21 03/23/21 12:25 12:25 12:25 WBC 9.1 RBC 1.84 L Hgb 5.8 L* Hct 19.7 L MCV 107.1 H MCH 31.5 MCHC 29.4 L RDW Std Deviation 84.5 H RDW Coeff of Danial 23.2 H Plt Count 193 MPV 9.8 Immature Gran % (Auto) 1.300 H Neut % (Auto) 79.3 H Lymph % (Auto) 11.5 L [place] % (Auto) 7.0 Eos % (Auto) 0.7 Baso % (Auto) 0.2 Absolute Neuts (auto) 7.2 Absolute Lymphs (auto) 1.05 Nucleated RBC % 0.8 Differential Comment Diff Path Review Reviewed Platelet Estimate ADEQUATE Polychromasia 1+ Anisocytosis 2+ Macrocytosis PT 25.2 H INR 2.4 APTT 32.4 D-Dimer Quant (PE/DVT) <= 0.27 Sodium 140 Potassium 4.5 Chloride 112 H Carbon Dioxide 23.0 Anion Gap 5 BUN 53 H Creatinine 1.49 H Estim Creat Clear Calc 36.97 Est GFR (MDRD) Af Amer 58 L Est GFR (MDRD) Non-Af 48 L BUN/Creatinine Ratio 35.6 H Glucose 156 H Calcium 8.2 L Total Bilirubin 0.30 AST 9 L ALT 19 Alkaline Phosphatase 43 L Troponin I < 0.015 Total Protein 4.9 L Albumin 2.3 L Globulin 2.6 Albumin/Globulin Ratio 0.9 Blood Type Antibody Screen Crossmatch 03/23/21 03/23/21 03/23/21 14:15 14:15 14:15 WBC RBC Hgb Hct MCV MCH MCHC RDW Std Deviation RDW Coeff of Danial Plt Count MPV Immature Gran % (Auto) Neut % (Auto) Lymph % (Auto) [place] % (Auto) Eos % (Auto) Baso % (Auto) Absolute Neuts (auto) Absolute Lymphs (auto) Nucleated RBC % Differential Comment Diff Path Review Platelet Estimate Polychromasia Anisocytosis Macrocytosis PT INR APTT D-Dimer Quant (PE/DVT) Sodium Potassium Chloride Carbon Dioxide Anion Gap BUN Creatinine Estim Creat Clear Calc Est GFR (MDRD) Af Amer Est GFR (MDRD) Non-Af BUN/Creatinine Ratio Glucose Calcium Total Bilirubin AST ALT Alkaline Phosphatase Troponin I Total Protein Albumin Globulin Albumin/Globulin Ratio Blood Type B POSITIVE Antibody Screen NEGATIVE Crossmatch See Detail See Detail See Detail 03/24/21 03/24/21 03/24/21 02:10 06:20 06:20 WBC 12.4 H RBC 2.41 L Hgb 7.4 L 7.5 L Hct 24.2 L 24.5 L MCV 101.7 H D MCH 31.1 MCHC 30.6 L RDW Std Deviation 73.5 H RDW Coeff of Danial 22.2 H Plt Count 183 MPV 9.6 Immature Gran % (Auto) 1.100 H Neut % (Auto) 77.6 H Lymph % (Auto) 13.5 L [place] % (Auto) 6.6 Eos % (Auto) 1.0 Baso % (Auto) 0.2 Absolute Neuts (auto) 9.6 H Absolute Lymphs (auto) 1.67 Nucleated RBC % 0.4 Differential Comment SCANNED Diff Path Review Platelet Estimate Polychromasia 2+ Anisocytosis 2+ Macrocytosis 2+ PT INR APTT D-Dimer Quant (PE/DVT) Sodium 139 Potassium 4.6 Chloride 112 H Carbon Dioxide 22.0 Anion Gap 5 BUN 43 H Creatinine 1.37 H Estim Creat Clear Calc 40.21 Est GFR (MDRD) Af Amer 64 Est GFR (MDRD) Non-Af 53 L BUN/Creatinine Ratio 31.4 H Glucose 130 H Calcium 8.2 L Total Bilirubin AST ALT Alkaline Phosphatase Troponin I Total Protein Albumin Globulin Albumin/Globulin Ratio Blood Type Antibody Screen Crossmatch Micro: Microbiology 03/24/21 02:00 Stool Occult Blood (MAGALIS) - Final Stool Charges/Coding Visit Charges Office Visits / Consults: 16225 IP Consult L3
--- NOTE | 2021-03-24 14:44 | PCM.PN.HOSP ---
Documented by User: Es Munoz CLINICAL RESOURCE DIRECTOR, CLINICAL RESOURCE DIRECTOR-C 03/24/21 14:53 Subjective Subjective Patient seen and examined. Complains of lower abdominal discomfort which she describes as gas pains. Denies nausea, vomiting. Denies blood in stool or black stools. General surgery consulted, plan for scope in a.m. Objective Data Objective Data Vital Signs: Vital Signs Temp Pulse Resp BP Pulse Ox 97.6 F L 88 18 138/84 H 89 03/24/21 13:00 03/24/21 13:00 03/24/21 13:00 03/24/21 13:00 03/24/21 13:10 Oxygen Flow Rate (L/min) 2 Oxygen Delivery Method Nasal Cannula Weight: 239 lb 6.752 oz Body Mass Index (BMI) 37.5 Intake & Output: Intake and Output for Last 24 Hours 03/22/21 03/23/21 03/24/21 23:59 23:59 23:59 Intake Total 760 / 760 1400 / 1400 Output Total 420 / 420 595 / 595 Balance 340 / 340 805 / 805 Lab / Micro Data Result Diagrams: 03/24/21 06:20 03/24/21 06:20 Labs: Laboratory Results - last 24 hr 03/23/21 03/23/21 03/23/21 12:25 14:15 14:15 WBC RBC Hgb Hct MCV MCH MCHC RDW Std Deviation RDW Coeff of Danial Plt Count MPV Immature Gran % (Auto) Neut % (Auto) Lymph % (Auto) [place] % (Auto) Eos % (Auto) Baso % (Auto) Absolute Neuts (auto) Absolute Lymphs (auto) Nucleated RBC % Differential Comment Diff Path Review Reviewed Polychromasia Anisocytosis Macrocytosis Sodium Potassium Chloride Carbon Dioxide Anion Gap BUN Creatinine Estim Creat Clear Calc Est GFR (MDRD) Af Amer Est GFR (MDRD) Non-Af BUN/Creatinine Ratio Glucose Calcium Blood Type B POSITIVE Antibody Screen NEGATIVE Crossmatch See Detail See Detail 03/23/21 03/24/21 03/24/21 14:15 02:10 06:20 WBC 12.4 H RBC 2.41 L Hgb 7.4 L 7.5 L Hct 24.2 L 24.5 L MCV 101.7 H D MCH 31.1 MCHC 30.6 L RDW Std Deviation 73.5 H RDW Coeff of Danial 22.2 H Plt Count 183 MPV 9.6 Immature Gran % (Auto) 1.100 H Neut % (Auto) 77.6 H Lymph % (Auto) 13.5 L [place] % (Auto) 6.6 Eos % (Auto) 1.0 Baso % (Auto) 0.2 Absolute Neuts (auto) 9.6 H Absolute Lymphs (auto) 1.67 Nucleated RBC % 0.4 Differential Comment SCANNED Diff Path Review Polychromasia 2+ Anisocytosis 2+ Macrocytosis 2+ Sodium Potassium Chloride Carbon Dioxide Anion Gap BUN Creatinine Estim Creat Clear Calc Est GFR (MDRD) Af Amer Est GFR (MDRD) Non-Af BUN/Creatinine Ratio Glucose Calcium Blood Type Antibody Screen Crossmatch See Detail 03/24/21 06:20 WBC RBC Hgb Hct MCV MCH MCHC RDW Std Deviation RDW Coeff of Danial Plt Count MPV Immature Gran % (Auto) Neut % (Auto) Lymph % (Auto) [place] % (Auto) Eos % (Auto) Baso % (Auto) Absolute Neuts (auto) Absolute Lymphs (auto) Nucleated RBC % Differential Comment Diff Path Review Polychromasia Anisocytosis Macrocytosis Sodium 139 Potassium 4.6 Chloride 112 H Carbon Dioxide 22.0 Anion Gap 5 BUN 43 H Creatinine 1.37 H Estim Creat Clear Calc 40.21 Est GFR (MDRD) Af Amer 64 Est GFR (MDRD) Non-Af 53 L BUN/Creatinine Ratio 31.4 H Glucose 130 H Calcium 8.2 L Blood Type Antibody Screen Crossmatch Micro: Microbiology 03/24/21 02:00 Stool Stool Occult Blood (MAGALIS) - Final Physical Exam Const alert, oriented x3 and no apparent distress Orientation / Consciousness: awake, oriented to person, oriented to place and oriented to time HEENT normocephalic and moist oral mucous membranes Eyes PERRL, EOMs intact bilaterally and conjunctivae normal Neck no lymphadenopathy Resp normal respiratory effort and clear to auscultation bilaterally Cardio regular rate, regular rhythm and no murmurs Peripheral Pulses: pulses 2+ throughout GI normal to inspection, nondistended, normoactive bowel sounds, non-tender and non-distended Extremity normal to inspection Skin no rashes or lesions noted Lesions: no lesions Rashes: no rashes Trauma: no lacerations or abrasions Neuro oriented x3 Sensorium / Orientation: awake and alert Psych affect normal Assessment & Plan Assessment/Plan (1) Acute blood loss anemia: (2) Iron deficiency anemia due to chronic blood loss: PLAN: 1. Acute blood loss anemia on chronic anemia, iron deficiency anemia-General surgery and hematology on consult. Obtain prior records from [facility] and [place] regarding previous GI work-up. Additional 2 units PRBC ordered. Every 6 hours H&H. IV PPI. Hold Xarelto. IV iron per hematology recommendations. Upper endoscopy in a.m. 2. History of aortic valve replacement 3. Paroxysmal atrial fibrillation-continue metoprolol, Xarelto on hold. 4. Chronic COPD-as needed albuterol aerosol. 5. Chronic kidney disease stage IIIb-at baseline, trend BMP 6. Hypertension-stable, continue metoprolol. 7. BPH-continue Flomax 8. Restless leg syndrome-on Requip. 9. TUSHAR-continue PAP regimen. DVT prophylaxis- SCDs This patient was seen by ALVARADO Theodore under the supervision of Dr. Epstein. Documented by User: Dr. Mickey Epstein DO 03/24/21 16:45 Objective Data Lab / Micro Data Result Diagrams: 03/24/21 06:20 03/24/21 06:20 Addendum Addendum: Patient was seen and examined today independently of Es Munoz, he was admitted with complaints of shortness of breath through the emergency room yesterday, he was found to be anemic. Hemoglobin this morning was 7.5, I made the decision to transfuse the patient 2 more units of packed red blood cells. On examination he appeared in good health and spirits. Vital signs as documented. Skin warm and dry and without overt rashes. Neck without JVD, neck was supple, trachea midline, thyroid was normal. Lungs clear bilaterally, normal air movement was noted. Heart exam notable for irregular rhythm, normal sounds and absence of murmurs, rubs or gallops. Abdomen unremarkable and without evidence of organomegaly, masses, or abdominal aortic enlargement. Bowel sounds are present, abdomen is not distended. Extremities nonedematous, no cyanosis was noted, no clubbing was noted. Neuro: Cranial nerves II through XII are grossly intact, no focal motor deficits were noted, sensation to light touch and pinprick intact, motor exam 5/5 throughout. Psych: Patient is alert and oriented x3, he does not appear anxious or depressed, he does not appear agitated. I talked with general surgery today, they will perform an EGD on the patient tomorrow, every 6 hour hemoglobins will be obtained. I have reviewed Estoni Munoz's progress note including her medical assessment and plan of care and endorse it. Visit Charges Inpatient E&M: 72746 Subs Hosp L2
--- NOTE | 2021-03-24 15:10 | CASEMGMT ---
Addendum entered by Melba Brian 03/24/21 15:15: Error- Hgb was 5.8. Original Note: RN CM Readmission Note Previous Admission: 03/14/21-03/17/21 Diagnosis: Anemia DC Disposition: Home Current Admission Presentation: Pt admitted on 03/23/21 with anemia, dyspnea. Pt with Hgb of 5.6. RN CM in to pt room. Pt states he was doing well at home. States his sister in law stayed with him for a few days, they went shopping and out to eat. States before admission pt with SOB and unable to ambulate any distance. Pt receiving blood transfusion and states he is feeling better. He was scheduled for a follow up appt with Dr. Jaime on 03/30/2021. He states he was taking his medications as ordered. Pt denies any further concerns. DC PLAN: Home with sister in law staying for a few days. CM to follow.
[2021-03-24] MEDS: Sodium Ferric Gluconat 250 MG in 0.9% Normal Saline 250 ML 135 MG IV (16:53)
[2021-03-24 18:32] LABS: Hematocrit 28.5 % (40-54); Hemoglobin 8.9 g/dL (13.0-16.5)
[2021-03-24] MEDS: Ipratropium/Albuterol Sulfate 3 ML AMPUL.NEB INHALATION (19:07)
[2021-03-24] MEDS: Budesonide Respules 0.5 MG/2 ML AMPUL.NEB. 0.25 MG INHALATION (19:08)
[2021-03-24] MEDS: 0.9% Saline Lock 10 ML Syringe IV (21:37)
[2021-03-24] MEDS: Pramipexole Di-HCl 1 MG Tablet PO (22:30)
[2021-03-24] MEDS: Pravastatin 40 MG Tablet PO (22:30)
[2021-03-24] MEDS: Tamsulosin HCl 0.4 MG Capsule PO (22:36)
[2021-03-25] VITALS (19 sets, daily range): BP systolic 84–135; BP diastolic 43–115; PULSE 72–98; RESP 16–20; TEMP 36.3–36.8; O2SAT 92–100; BMI 37.5
[2021-03-25 03:07] LABS: Hematocrit 27.5 % (40-54); Hemoglobin 8.4 g/dL (13.0-16.5)
--- NOTE | 2021-03-25 05:00 | EKG12_ITS ---
Test Reason : PRE-OP Blood Pressure : / mmHG Vent. Rate : 071 BPM Atrial Rate : 277 BPM P-R Int : 000 ms QRS Dur : 104 ms QT Int : 390 ms P-R-T Axes : 000 -16 119 degrees QTc Int : 423 ms Atrial fibrillation Abnormal ECG Confirmed by FRANCESCA GODFREY, TONJA ([id number]), news videotape editor REID CABRERA ([id number]) on 03/29/2021 10:18:50 A M Referred By: RAMONITA Confirmed By:LEANN MA MD
[2021-03-25 06:01] LABS: Absolute Lymphocyte Count 1.17 X10^3/uL (0.83-4.51); Basophil# 0.02 X10^3/uL; Basophil% 0.2 % (0-1); Hematocrit 27.9 % (40-54); Hemoglobin 8.8 g/dL (13.0-16.5); Lymphocyte # 1.17 X10^3/ul (0.83-4.51); Lymphocyte % 11.7 % (19-41); Mean Corp Hgb Conc 31.5 g/dL (32-36); Mean Corpuscular Hgb 31.4 pg (27.0-32.0); Mean Corpuscular Volume 99.6 fL (80-94); Monocyte# 0.68 X10^3/uL; Monocyte% 6.8 % (0-10); NRBC Flagged by Analyzer 0.6 % (0-5); Neutrophil # 7.99 X10^3/uL (2.7-7.7); Neutrophil % 79.5 % (47-70); POSITIVE MORPHOLOGY YES; Platelet Count 168 K/mm3 (150-450); RBC Distribution Width CV 20.5 % (11.6-14.6); RBC Distribution Width SD 65.1 fl (35.1-43.9)
[2021-03-25 06:03] LABS: Differential Indicated SCAN CRITERIA MET
[2021-03-25 06:18] LABS: Partial Thromboplast Time 28.9 Seconds (24.1-36.2)
[2021-03-25 06:22] LABS: Anion Gap 4 (5-15); BUN 30 mg/dL (7-18); BUN/Creat Ratio 22.2 RATIO (10-20); Calcium,Total 8.1 mg/dL (8.5-10.1); Chloride 113 mmol/L (98-107); Creatinine, Serum 1.35 mg/dL (0.70-1.30); EST Glomerular Filtration Rate 54 mL/min (>60); Est Glom Filt Rate - Afr Amer 65 mL/min (>60); Glucose 109 mg/dL (74-106); Potassium 4.6 mmol/L (3.5-5.1); Sodium Level 139 mmol/L (136-145)
[2021-03-25 06:23] LABS: International Normalized Ratio 1.2; Prothrombin Time (Protime)PT. 14.7 SECONDS (11.7-14.9)
[2021-03-25] MEDS: Lactated Ringers 1,000 ML 100 ML IV (06:30)
[2021-03-25 06:49] LABS: Anisocytosis 1+; Polychromasia 1+
[2021-03-25] MEDS: Ipratropium/Albuterol Sulfate 3 ML AMPUL.NEB INHALATION ×2 (06:53→13:24)
--- NOTE | 2021-03-25 07:30 | OP.EGD_ITS ---
Patient Name: Augusto Tolbert Procedure Date: 03/25/2021 6:38 AM Date of : 1940 Age: 80 Procedure: Upper GI endoscopy Indications: Iron deficiency anemia Providers: Natalia Sun MD Medicines: Monitored Anesthesia Care Patient Profile: This is an 80 year old male. Complications: No immediate complications. Procedure: Pre-Anesthesia Assessment: - Prior to the procedure, a History and Physical was performed, and patient medications and allergies were reviewed. The patient's tolerance of previous anesthesia was also reviewed. The risks and benefits of the procedure and the sedation options and risks were discussed with the patient. All questions were answered, and informed consent was obtained. Prior Anticoagulants: The patient has taken Xarelto (rivaroxaban), last dose was 2 days prior to procedure. ASA Grade Assessment: Per anesthesia. After reviewing the risks and benefits, the patient was deemed in satisfactory condition to undergo the procedure. After obtaining informed consent, the endoscope was passed under direct vision. Throughout the procedure, the patient's blood pressure, pulse, and oxygen saturations were monitored continuously. The gastroscope was introduced through the mouth, and advanced to the second part of duodenum. The upper GI endoscopy was accomplished without difficulty. The patient tolerated the procedure well. Scope In: 7:08:02 AM Scope Out: 7:11:44 AM Total Procedure Duration Time 0 hours 3 minutes 42 seconds Findings: The Z-line was variable and was found 45 cm from the incisors. No gross lesions were noted in the stomach. The examined duodenum was normal. Impression: - Z-line variable, 45 cm from the incisors. - No gross lesions in the stomach. - Normal examined duodenum. - No specimens collected. Recommendation: - [facility]. - Resume previous diet. - Continue present medications. - Use Protonix (pantoprazole) 40 mg PO daily. Procedure Code(s): --- Professional --- 58216, Esophagogastroduodenoscopy, flexible, transoral; diagnostic, including collection of specimen(s) by brushing or washing, when performed (separate procedure) Diagnosis Code(s): --- Professional --- K22.8, Other specified diseases of esophagus D50.9, Iron deficiency anemia, unspecified CPT copyright 2017 [employer]. All rights reserved. The codes documented in this report are preliminary and upon medical biller/coder review may be revised to meet current compliance requirements. MD Natalia Brown MD 03/25/2021 7:29:48 AM This report has been signed electronically. Number of Addenda: 0 Note Initiated On: 03/25/2021 6:38 AM
--- NOTE | 2021-03-25 07:30 | OP.CCLET_ITS ---
03/25/2021 Silvino Jaime [address] [place] [address] Re : Upper GI endoscopy procedure for Augusto Tolbert Dear Dr. Jaime This procedure was performed on Thursday, March 25, 2021. My impressions and recommendations are as follows: Impressions : - Z-line variable, 45 cm from the incisors. - No gross lesions in the stomach. - Normal examined duodenum. - No specimens collected. Recommendations : - [facility]. - Resume previous diet. - Continue present medications. - Use Protonix (pantoprazole) 40 mg PO daily. My findings are described in the full procedure note, which is enclosed. If I can be of further assistance, please feel free to contact me at Doctor phone number(s): , Work: . Sincerely, MD Natalia Brown MD 03/25/2021 7:29:48 AM This report has been signed electronically.
[2021-03-25] MEDS: Magnesium Chloride 64 MG Delay Rel.Tablet 128 MG PO (08:17)
[2021-03-25] MEDS: Calcium Acetate 667 MG Capsule PO ×2 (08:17→17:09)
[2021-03-25] MEDS: Metoprolol Tartrate 25 MG Tablet 12.5 MG PO (08:18)
[2021-03-25] MEDS: Pramipexole Di-HCl 0.5 MG Tablet PO (08:18)
[2021-03-25] MEDS: Sodium Ferric Gluconat 250 MG in 0.9% Normal Saline 250 ML 135 MG IV (08:54)
[2021-03-25 09:19] LABS: Hemoglobin 8.8 g/dL (13.0-16.5)
--- NOTE | 2021-03-25 11:47 | PCM.DC ---
Discharge Instructions Diet Discharge Diet: Low fat / Low cholesterol Activity Discharge Activity: Return to Normal Activity Dressing / Incision Call your doctor if you observe: Shortness of breath, Dizziness, Fainting spells and - (Blood in stool) Follow Up Care Test Results: Test results from this visit will be discussed in further detail at your follow-up appointment, if applicable. Discharge Plan Admission Admit Date/Time: 03/23/21 15:50 Primary Reason for Your Visit: Anemia Attending Provider: Mickey Epstein Primary Care Provider: Silvino Jaime Consulting Providers: Humza Carver ; Natalia Sun Discharge Orders/Prescriptions Prescriptions: New pantoprazole [Protonix] 40 mg tablet,delayed release (DR/EC) 40 mg PO DAILY Qty: 30 RF: 0 Continued magnesium oxide 400 MG tablet 400 mg PO BID RF: 0 nitroglycerin 0.4 MG tablet 0.4 mg sublingual Q5M PRN (Reason: Chest Pain) RF: 0 albuterol sulfate [ProAir HFA] 1 PUFF inhaler 1 puff inhalation Q4H PRN (Reason: Congestion) RF: 0 pravastatin 40 MG tablet 40 mg PO QHS RF: 0 B-complex with vitamin C 1 EACH tablet 1 ea PO BID RF: 0 ropinirole 1 mg Tablet 1 mg PO BREAKFAST RF: 0 tamsulosin 0.4 mg Capsule 0.4 mg PO QHS RF: 0 ropinirole 2 mg Tablet 2 mg PO QHS RF: 0 calcium acetate(phosphat bind) 667 mg Capsule 667 mg PO BIDAC RF: 0 metoprolol tartrate 25 mg Tablet 12.5 mg PO BID Qty: 30 RF: 0 ferrous sulfate 324 mg (65 mg iron) tablet,delayed release (DR/EC) 324 mg PO BID Qty: 60 RF: 0 ipratropium-albuterol 0.5 mg-3 mg(2.5 mg base)/3 mL solution for nebulization 3 ml inhalation 4X/DAY RF: 0 ropinirole 0.5 mg tablet 0.5 mg PO LUNCH RF: 0 budesonide 0.25 mg/2 mL suspension for nebulization 0.25 mg inhalation BID RF: 0 ergocalciferol (vitamin D2) 1,250 mcg (50,000 unit) Capsule 1,250 mcg PO MO RF: 0 Discontinued Xarelto 20 mg tablet 20 mg PO QHS RF: 0 Referrals / Follow Up: Dr. Valdez, GI [Other] - In 1 Week Cardiology, Primary [Other] - In 1 Week Silvino Jaime MD [Primary Care Provider] - In 1 Week Humza Carver MD [STAFF PHYSICIAN] - 04/07/21 12:30 pm Disposition Disposition (needs filled in before D/C Order can be placed): Home, self care
--- NOTE | 2021-03-25 11:56 | PCM.DC.SUM ---
Documented by User: Es Munoz NP, SAW TAILER-C 03/25/21 12:12 Providers Date of Admission: 03/23/21 Date of Discharge: 03/25/21 Primary Care Physician: Dr. Silvino Jaime MD Consultations 03/23/21 19:44 Consult: Oncology/Hematology Routine Consulting Provider: Humza Carver Reason for Consult: ACUTE ON CHRONIC IRON DEFICIENCY ANEMIA EMERGENT Consult: No Notified: Yes Date Notified:: 03/23/21 Time Notified: 19:44 Method of Notification: Text 03/24/21 12:49 Consult: General Surgery Routine Consulting Provider: Natalia Sun Reason for Consult: Acute blood loss anemia EMERGENT Consult: No MD Notified: Yes Date Notified:: 03/24/21 Time Notified: 12:49 Method of Notification: Text Reason For Visit: ANEMIA, DYSPNEA Diagnosis Discharge Diagnosis (1) Anemia: Status: Acute Code(s): D64.9 - Anemia, unspecified Qualifiers: Anemia type: unspecified type Qualified Code(s): D64.9 - Anemia, unspecified Medications at Discharge Home Medications albuterol sulfate [ProAir HFA] 1 puff INHALATION Q4H PRN 01/19/16 magnesium oxide 400 mg PO BID 01/19/16 nitroglycerin 0.4 mg SUBLINGUAL Q5M PRN 01/19/16 B-complex with vitamin C 1 ea PO BID 06/22/16 pravastatin 40 mg PO QHS 06/22/16 calcium acetate(phosphat bind) 667 mg PO BIDAC 03/14/21 ropinirole 1 mg PO BREAKFAST 03/14/21 ropinirole 2 mg PO QHS 03/14/21 tamsulosin 0.4 mg PO QHS 03/14/21 ferrous sulfate 324 mg PO BID #60 tab 03/17/21 metoprolol tartrate 12.5 mg PO BID #30 tab 03/17/21 budesonide 0.25 mg INHALATION BID 03/23/21 ergocalciferol (vitamin D2) 1,250 mcg PO MO 03/23/21 ipratropium-albuterol 3 ml INHALATION 4X/DAY 03/23/21 ropinirole 0.5 mg PO LUNCH 03/23/21 pantoprazole [Protonix] 40 mg PO DAILY #30 tab 03/25/21 Hospital Course Operations None Procedures EGD Summary of Care Provided Minutes Spent on Discharge: 35 Hospital Course: Patient is a 80-year-old male admitted 03/23/2021 due to shortness of breath. 1. Acute blood loss anemia on chronic anemia, iron deficiency anemia-General surgery and hematology consulted during admission. Patient has a history of chronic GI loss which has yet to be identified. Stool for occult blood negative. Patient underwent EGD which was unremarkable. Continue to hold Xarelto at discharge. Protonix 40 mg daily. Received 5 units PRBC during admission. Hemoglobin stable. Repeat CBC within 1 week by PCP or GI. Patient follows with [facility] in [place]. Follow-up in 1 week. 2. History of aortic valve replacement 3. Paroxysmal atrial fibrillation-continue metoprolol. Xarelto held at discharge pending further follow-up.Will need follow-up with cardiology to discuss resuming Xarelto or continuing to hold. 4. Chronic COPD-as needed albuterol aerosol. 5. Chronic kidney disease stage IIIb-at baseline. 6. Hypertension-stable, continue metoprolol. 7. BPH-continue Flomax. 8. Restless leg syndrome-on Requip. 9. TUSHAR-continue PAP regimen. Physical Exam Const alert, oriented x3 and no apparent distress Orientation / Consciousness: awake, oriented to person, oriented to place and oriented to time HEENT normocephalic and moist oral mucous membranes Eyes PERRL, EOMs intact bilaterally and conjunctivae normal Neck no lymphadenopathy Resp normal respiratory effort and clear to auscultation bilaterally Cardio regular rate, regular rhythm and no murmurs Peripheral Pulses: pulses 2+ throughout GI normal to inspection, nondistended, normoactive bowel sounds, non-tender and non-distended Extremity normal to inspection Skin no rashes or lesions noted Lesions: no lesions Rashes: no rashes Trauma: no lacerations or abrasions Neuro oriented x3 Sensorium / Orientation: awake and alert Psych affect normal Patient seen and examined prior to discharge. Physical assessment as noted above. Patient is stable for discharge with follow up recommendations as noted above. This patient was seen by ALVARADO Theodore under the supervision of Dr. Epstein. ABG / Lab / Microbiology Data Result Diagrams: 03/25/21 08:55 03/25/21 05:45 Laboratory: Laboratory Results - last 24 hr 03/23/21 03/23/2103/23/21 12:25 14:15 14:15 WBC RBC Hgb Hct MCV MCH MCHC RDW Std Deviation RDW Coeff of Danial Plt Count MPV Immature Gran % (Auto) Neut % (Auto) Lymph % (Auto) [place] % (Auto) Eos % (Auto) Baso % (Auto) Absolute Neuts (auto) Absolute Lymphs (auto) Nucleated RBC % Diff Path Review Reviewed Polychromasia Anisocytosis PT INR APTT Sodium Potassium Chloride Carbon Dioxide Anion Gap BUN Creatinine Estim Creat Clear Calc Est GFR (MDRD) Af Amer Est GFR (MDRD) Non-Af BUN/Creatinine Ratio Glucose Calcium Crossmatch See Detail See Detail 03/24/21 03/25/21 03/25/21 18:25 02:53 05:45 WBC 10.0 RBC 2.80 L Hgb 8.9 L 8.4 L 8.8 L Hct 28.5 L 27.5 L 27.9 L MCV 99.6 H MCH 31.4 MCHC 31.5 L RDW Std Deviation 65.1 H RDW Coeff of Danial 20.5 H Plt Count 168 MPV 10.0 Immature Gran % (Auto) 0.800 Neut % (Auto) 79.5 H Lymph % (Auto) 11.7 L [place] % (Auto) 6.8 Eos % (Auto) 1.0 Baso % (Auto) 0.2 Absolute Neuts (auto) 8.0 H Absolute Lymphs (auto) 1.17 Nucleated RBC % 0.6 [address] Review Polychromasia 1+ Anisocytosis 1+ PT INR APTT Sodium Potassium Chloride Carbon Dioxide Anion Gap BUN Creatinine Estim Creat Clear Calc Est GFR (MDRD) Af Amer Est GFR (MDRD) Non-Af BUN/Creatinine Ratio Glucose Calcium Crossmatch 03/25/21 03/25/21 03/25/21 05:45 05:45 08:55 WBC RBC Hgb 8.8 L Hct 29.0 L MCV MCH MCHC RDW Std Deviation RDW Coeff of Danial Plt Count MPV Immature Gran % (Auto) Neut % (Auto) Lymph % (Auto) [place] % (Auto) Eos % (Auto) Baso % (Auto) Absolute Neuts (auto) Absolute Lymphs (auto) Nucleated RBC % Diff Path Review Polychromasia Anisocytosis PT 14.7 INR 1.2 APTT 28.9 Sodium 139 Potassium 4.6 Chloride 113 H Carbon Dioxide 22.0 Anion Gap 4 L BUN 30 H Creatinine 1.35 H Estim Creat Clear Calc 40.80 Est GFR (MDRD) Af Amer 65 Est GFR (MDRD) Non-Af 54 L BUN/Creatinine Ratio 22.2 H Glucose 109 H Calcium 8.1 L Crossmatch Microbiology: Microbiology 03/24/21 15:50 SARS-CoV-2 Antigen (Rapid) - Final Interface Orders Microbiology 03/24/21 15:50 Interface Orders SARS-CoV-2 Antigen (Rapid) - Final 03/24/21 02:00 Stool Stool Occult Blood (MAGALIS) - Final D/C Instructions Discharge Diet: Low fat / Low cholesterol Discharge Activity: Return to Normal Activity Call your doctor if you observe: Shortness of breath, Dizziness, Fainting spells and - (Blood in stool) Meaningful Use Info Meaningful Use Diagnoses (Choose all that apply): None applicable Discharge Plan Admission Admit Date/Time: 03/23/21 15:50 Primary Reason for Your Visit: Anemia Attending Provider: Mickey Epstein Primary Care Provider: Silvino Jaime Consulting Providers: Humza Carver ; Natalia Sun Instructions Additional Instructions / Restrictions: Patient Problems: Altered Health Status related to Hospitalization Patient Goals: *Optimal Level of Health *Keep Appointments *Medication Compliance *Remain Safe Discharge Orders/Prescriptions Prescriptions: New pantoprazole [Protonix] 40 mg tablet,delayed release (DR/EC) 40 mg PO DAILY Qty: 30 RF: 0 Continued magnesium oxide 400 MG tablet 400 mg PO BID RF: 0 nitroglycerin 0.4 MG tablet 0.4 mg sublingual Q5M PRN (Reason: Chest Pain) RF: 0 albuterol sulfate [ProAir HFA] 1 PUFF inhaler 1 puff inhalation Q4H PRN (Reason: Congestion) RF: 0 pravastatin 40 MG tablet 40 mg PO QHS RF: 0 B-complex with vitamin C 1 EACH tablet 1 ea PO BID RF: 0 ropinirole 1 mg Tablet 1 mg PO BREAKFAST RF: 0 tamsulosin 0.4 mg Capsule 0.4 mg PO QHS RF: 0 ropinirole 2 mg Tablet 2 mg PO QHS RF: 0 calcium acetate(phosphat bind) 667 mg Capsule 667 mg PO BIDAC RF: 0 metoprolol tartrate 25 mg Tablet 12.5 mg PO BID Qty: 30 RF: 0 ferrous sulfate 324 mg (65 mg iron) tablet,delayed release (DR/EC) 324 mg PO BID Qty: 60 RF: 0 ipratropium-albuterol 0.5 mg-3 mg(2.5 mg base)/3 mL solution for nebulization 3 ml inhalation 4X/DAY RF: 0 ropinirole 0.5 mg tablet 0.5 mg PO LUNCH RF: 0 budesonide 0.25 mg/2 mL suspension for nebulization 0.25 mg inhalation BID RF: 0 ergocalciferol (vitamin D2) 1,250 mcg (50,000 unit) Capsule 1,250 mcg PO MO RF: 0 Discontinued Xarelto 20 mg tablet 20 mg PO QHS RF: 0 Referrals / Follow Up: [facility] [Other] - In 1 Week Cardiology, Primary [Other] - In 1 Week Silvino Jaime MD [Primary Care Provider] - In 1 Week Humza Carver MD [STAFF PHYSICIAN] - 04/07/21 12:30 pm Disposition Disposition (needs filled in before D/C Order can be placed): Home, self care Documented by User: Dr. Mickey Epstein DO 03/25/21 19:08 Providers Date of Admission: 03/23/21 Reason For Visit: ANEMIA, DYSPNEA Medications at Discharge Home Medications albuterol sulfate [ProAir HFA] 1 puff INHALATION Q4H PRN 01/19/16 magnesium oxide 400 mg PO BID 01/19/16 nitroglycerin 0.4 mg SUBLINGUAL Q5M PRN 01/19/16 B-complex with vitamin C 1 ea PO BID 06/22/16 pravastatin 40 mg PO QHS 06/22/16 calcium acetate(phosphat bind) 667 mg PO BIDAC 03/14/21 ropinirole 1 mg PO BREAKFAST 03/14/21 ropinirole 2 mg PO QHS 03/14/21 tamsulosin 0.4 mg PO QHS 03/14/21 ferrous sulfate 324 mg PO BID #60 tab 03/17/21 metoprolol tartrate 12.5 mg PO BID #30 tab 03/17/21 budesonide 0.25 mg INHALATION BID 03/23/21 ergocalciferol (vitamin D2) 1,250 mcg PO MO 03/23/21 ipratropium-albuterol 3 ml INHALATION 4X/DAY 03/23/21 ropinirole 0.5 mg PO LUNCH 03/23/21 pantoprazole [Protonix] 40 mg PO DAILY #30 tab 03/25/21 ABG / Lab / Microbiology Data Result Diagrams: 03/25/21 08:55 03/25/21 05:45 Discharge Plan Admission Admit Date/Time: 03/23/21 15:50 Primary Reason for Your Visit: Anemia Attending Provider: Mickey Epstein Primary Care Provider: Silvino Jaime Consulting Providers: Humza Carver ; Natalia Sun Instructions Additional Instructions / Restrictions: Patient Problems: Altered Health Status related to Hospitalization Patient Goals: *Optimal Level of Health *Keep Appointments *Medication Compliance *Remain Safe Discharge Orders/Prescriptions Prescriptions: New pantoprazole [Protonix] 40 mg tablet,delayed release (DR/EC) 40 mg PO DAILY Qty: 30 RF: 0 Continued magnesium oxide 400 MG tablet 400 mg PO BID RF: 0 nitroglycerin 0.4 MG tablet 0.4 mg sublingual Q5M PRN (Reason: Chest Pain) RF: 0 albuterol sulfate [ProAir HFA] 1 PUFF inhaler 1 puff inhalation Q4H PRN (Reason: Congestion) RF: 0 pravastatin 40 MG tablet 40 mg PO QHS RF: 0 B-complex with vitamin C 1 EACH tablet 1 ea PO BID RF: 0 ropinirole 1 mg Tablet 1 mg PO BREAKFAST RF: 0 tamsulosin 0.4 mg Capsule 0.4 mg PO QHS RF: 0 ropinirole 2 mg Tablet 2 mg PO QHS RF: 0 calcium acetate(phosphat bind) 667 mg Capsule 667 mg PO BIDAC RF: 0 metoprolol tartrate 25 mg Tablet 12.5 mg PO BID Qty: 30 RF: 0 ferrous sulfate 324 mg (65 mg iron) tablet,delayed release (DR/EC) 324 mg PO BID Qty: 60 RF: 0 ipratropium-albuterol 0.5 mg-3 mg(2.5 mg base)/3 mL solution for nebulization 3 ml inhalation 4X/DAY RF: 0 ropinirole 0.5 mg tablet 0.5 mg PO LUNCH RF: 0 budesonide 0.25 mg/2 mL suspension for nebulization 0.25 mg inhalation BID RF: 0 ergocalciferol (vitamin D2) 1,250 mcg (50,000 unit) Capsule 1,250 mcg PO MO RF: 0 Discontinued Xarelto 20 mg tablet 20 mg PO QHS RF: 0 Referrals / Follow Up: Dr. Valdez, GI [Other] - In 1 Week Cardiology, Primary [Other] - In 1 Week Silvino Jaime MD [Primary Care Provider] - In 1 Week Humza Carver MD [STAFF PHYSICIAN] - 04/07/21 12:30 pm Disposition Disposition (needs filled in before D/C Order can be placed): Home, self care Addendum Addendum: Patient was seen and examined independently of Es Munoz today, he appears stable for discharge at this time, I have ordered additional units of blood today for the patient. Patient's EGD which was performed today was unremarkable. Const alert, oriented x3 and no apparent distress Orientation / Consciousness: awake, oriented to person, oriented to place and oriented to time HEENT normocephalic and moist oral mucous membranes Eyes PERRL, EOMs intact bilaterally and conjunctivae normal Neck no lymphadenopathy Resp normal respiratory effort and clear to auscultation bilaterally Cardio regular rate, regular rhythm, and no murmurs Peripheral Pulses: pulses 2+ throughout GI normal to inspection, nondistended, normoactive bowel sounds, non-tender and non-distended Extremity normal to inspection Skin no rashes or lesions noted Lesions: no lesions Rashes: no rashes Trauma: no lacerations or abrasions Neuro oriented x3 Sensorium / Orientation: awake and alert Psych affect normal Patient appears stable for discharge at this time, he does not require any home O2. I have recommended that he not take any anticoagulants as an outpatient for at least 2 weeks and follow-up with his physician regarding reinstituting them. I have reviewed Es Munoz's discharge summary including her medical assessment and plan of care and endorse Visit Charges Inpatient E&M: 42715 Disch Hosp
[2021-03-25] MEDS: Pramipexole Di-HCl 0.25 MG Tablet PO (12:07)
--- NOTE | 2021-03-25 12:09 | CASEMGMT ---
ANGELA CM in to pt room. Pt states he was going outpt to therapy at [facility]. He was in the middle of the sessions and would like to resume. He states his son will call and set up the appt. Pt denies further homegoing needs.
--- NOTE | 2021-03-25 13:47 | PHA.DC.MC ---
Pharmacy Service has performed discharge medication reconciliation and counseling for this patient. 1. PANTOPRAZOLE 40MG PO DAILY The patient's discharge medication list was reviewed for discrepancies and discrepancies were resolved. Home Medications albuterol sulfate [ProAir HFA] 1 puff INHALATION Q4H PRN 01/19/16 magnesium oxide 400 mg PO BID 01/19/16 nitroglycerin 0.4 mg SUBLINGUAL Q5M PRN 01/19/16 B-complex with vitamin C 1 ea PO BID 06/22/16 pravastatin 40 mg PO QHS 06/22/16 calcium acetate(phosphat bind) 667 mg PO BIDAC 03/14/21 ropinirole 1 mg PO BREAKFAST 03/14/21 ropinirole 2 mg PO QHS 03/14/21 tamsulosin 0.4 mg PO QHS 03/14/21 ferrous sulfate 324 mg PO BID #60 tab 03/17/21 metoprolol tartrate 12.5 mg PO BID #30 tab 03/17/21 budesonide 0.25 mg INHALATION BID 03/23/21 ergocalciferol (vitamin D2) 1,250 mcg PO MO 03/23/21 ipratropium-albuterol 3 ml INHALATION 4X/DAY 03/23/21 ropinirole 0.5 mg PO LUNCH 03/23/21 pantoprazole [Protonix] 40 mg PO DAILY #30 tab 03/25/21 The patient was counseled on the following discharge medications and changes in medications for homegoing were reviewed. The Reason for Use, instructions for use, and potential side effects were reviewed for all new medications. The patient's questions regarding all of their medications were answered. The patient was able to verbally demonstrate an understanding of their discharge medications.
--- NOTE | 2021-03-28 14:18 | CASEMGMT ---
ANGELA MOSER Discharge Follow Up Phone Call: KALE: Daria Strata: 3 Call Date: 03.28.21 Discharge Date: 03.25.21 Time of Call:1414 Duration: 3 min Admitting Dx: Anemia ANGELA MOSER completed follow up phone call after recent hospitalization. Pt answered phone and asked sister in law to vegetable picker other phone and listen in. Pt states he is not real good, not real bad. He states he does feel sob, a little more than when he left the hospital on Sunday. States his sister in law Sheila is staying with him until tomorrow night then he needs to find someone to stay with him. Pt has an appt tomorrow with Dr. Jaime. He states if his blood work is low again, he may need to go to [place] to see if they can find out where the bleeding is coming from. Pt states he is aware of appt with Dr. Carver on 04.07.21 at 1230. Pt has picked up his rx without difficulty and he is not taking his xarelto. Pt denied any questions regarding dc instructions or medications.
== END 2021-03-25 17:54 | disposition home or self-care (01) | DRG 812 ==
LOC: ED 12:47 → PCU 14:10
PROVIDERS: Family Medicine; Nurse Practitioner Family; Surgery; Admitting Provider Student in an Organized Health Care Education/Training Program; Emergency Provider Emergency Medicine; PCP Family Medicine; Visit Provider Internal Medicine
PROC: 0DJ08ZZ Inspection of Upper Intestinal Tract, Via Natural or Artificial Opening Endoscopic (ICD-10-PCS; CPT 43235; principal; 2021-03-25 06:55)
DX: D62 Acute posthemorrhagic anemia (principal); J44.9 Chronic obstructive pulmonary disease, unspecified; N40.0 Benign prostatic hyperplasia without lower urinary tract symptoms; G47.33 Obstructive sleep apnea (adult) (pediatric); I48.0 Paroxysmal atrial fibrillation; N18.32 Chronic kidney disease, stage 3b; G25.81 Restless legs syndrome; I12.9 Hypertensive chronic kidney disease with stage 1 through stage 4 chronic kidney disease, or unspecified chronic kidney disease; Z95.3 Presence of xenogenic heart valve; D50.9 Iron deficiency anemia, unspecified; Z87.891 Personal history of nicotine dependence; Z66 Do not resuscitate; K22.8 Other specified diseases of esophagus; Z79.01 Long term (current) use of anticoagulants; Z92.21 Personal history of antineoplastic chemotherapy; H91.91 Unspecified hearing loss, right ear; Z90.49 Acquired absence of other specified parts of digestive tract; Z91.041 Radiographic dye allergy status
CPT/HCPCS: 36415; 71045; 80048; 80053; 82274; 84484; 85014; 85018; 85025; 85379; 85610; 85730; 86850; 86900; 86901; 86920; 86922; 87426; 93005; 94640; 97110; 97162; 97166; 97535; 99285; J7040; J7050; J7120; P9016; A4216; J2405; J2916

== ENCOUNTER → 2021-03-29 16:39 | Outpatient (CLI) | payer MEDICARE, SELFPAY ==
[2021-03-25 05:21] VITALS: BMI 37.5
[2021-03-29 17:37] LABS: Absolute Neutrophil Count 4.6 X10^3/uL (2.0-7.7); Basophil# 0.02 X10^3/uL; Basophil% 0.4 % (0-1); Eosinophil# 0.07 X10^3/uL; Eosinophils% 1.2 % (0-5); Hematocrit 36.7 % (40-54); Hemoglobin 11.2 g/dL (13.0-16.5); Lymphocyte % 10.5 % (19-41); Mean Corp Hgb Conc 30.5 g/dL (32-36); Mean Corpuscular Hgb 30.9 pg (27.0-32.0); Mean Corpuscular Volume 101.1 fL (80-94); Monocyte# 0.38 X10^3/uL; Monocyte% 6.7 % (0-10); NRBC Flagged by Analyzer 0 % (0-5); Neutrophil # 4.62 X10^3/uL (2.7-7.7); Neutrophil % 80.8 % (47-70); POSITIVE DIFFERENTIAL YES; POSITIVE MORPHOLOGY YES; Platelet Count 170 K/mm3 (150-450); RBC Distribution Width CV 20.7 % (11.6-14.6); RBC Distribution Width SD 74.2 fl (35.1-43.9); Red Blood Count 3.63 M/mm3 (4.6-6.2); White Blood Count 5.7 K/mm3 (4.4-11.0)
[2021-03-29 17:39] LABS: Differential Indicated SCAN CRITERIA MET
[2021-03-29 18:00] LABS: BNP,B-Type NATRIURETIC PEPTIDE 204.6 pg/mL (0-100)
[2021-03-29 18:02] LABS: ALB/GLOB Ratio 0.8 RATIO (0.9-2.4); AST(SGOT) 16 U/L (15-37); Alanine Aminotransfer ALT/SGPT 28 U/L (16-61); Albumin, Serum 2.8 g/dL (3.2-5.0); Alkaline Phosphatase 64 U/L (45-117); Anion Gap 6 (5-15); BUN 17 mg/dL (7-18); BUN/Creat Ratio 12.7 RATIO (10-20); Calcium,Total 8.5 mg/dL (8.5-10.1); Chloride 109 mmol/L (98-107); Creatinine, Serum 1.34 mg/dL (0.70-1.30); EST Glomerular Filtration Rate 54 mL/min (>60); Est Glom Filt Rate - Afr Amer 66 mL/min (>60); Globulin 3.3 g/dL (2.2-4.2); Glucose 125 mg/dL (74-106); Potassium 4.8 mmol/L (3.5-5.1); Protein, Total 6.1 g/dL (6.4-8.2); Sodium Level 140 mmol/L (136-145)
[2021-03-29 18:06] LABS: Differential Comment SCANNED
== END ==
PROVIDERS: PCP Family Medicine; Referring Provider Family Medicine; Visit Provider Family Medicine
DX: N18.30 Chronic kidney disease, stage 3 unspecified (principal); D64.9 Anemia, unspecified; I27.20 Pulmonary hypertension, unspecified; R06.00 Dyspnea, unspecified
CPT/HCPCS: 36415; 80053; 83880; 85025

== ENCOUNTER → 2021-04-19 09:41 | Outpatient (CLI) | payer MEDICARE, SELFPAY ==
[2021-04-14 14:01] VITALS: BMI 37.6
[2021-04-19 12:34] LABS: Basophil# 0.02 X10^3/uL; Basophil% 0.3 % (0-1); Eosinophil# 0.08 X10^3/uL; Eosinophils% 1.1 % (0-5); Hematocrit 41.4 % (40-54); Hemoglobin 12.8 g/dL (13.0-16.5); Mean Corp Hgb Conc 30.9 g/dL (32-36); Mean Corpuscular Hgb 30.5 pg (27.0-32.0); Mean Corpuscular Volume 98.8 fL (80-94); Mean Platelet Vol. 9.3 fl (6.2-12.0); Monocyte# 0.49 X10^3/uL; Monocyte% 6.5 % (0-10); NRBC Flagged by Analyzer 0 % (0-5); Neutrophil # 5.99 X10^3/uL (2.7-7.7); Neutrophil % 79.4 % (47-70); Platelet Count 240 K/mm3 (150-450); RBC Distribution Width CV 17.4 % (11.6-14.6); RBC Distribution Width SD 63.7 fl (35.1-43.9); Red Blood Count 4.19 M/mm3 (4.6-6.2); White Blood Count 7.5 K/mm3 (4.4-11.0)
[2021-04-19 12:45] LABS: BNP,B-Type NATRIURETIC PEPTIDE 115.8 pg/mL (0-100)
[2021-04-19 12:48] LABS: ALB/GLOB Ratio 0.9 RATIO (0.9-2.4); AST(SGOT) 16 U/L (15-37); Alanine Aminotransfer ALT/SGPT 20 U/L (16-61); Albumin, Serum 3.4 g/dL (3.2-5.0); Alkaline Phosphatase 68 U/L (45-117); Anion Gap 8 (5-15); BUN 32 mg/dL (7-18); BUN/Creat Ratio 16.5 RATIO (10-20); Calcium,Total 9.3 mg/dL (8.5-10.1); Chloride 107 mmol/L (98-107); Creatinine, Serum 1.94 mg/dL (0.70-1.30); EST Glomerular Filtration Rate 36 mL/min (>60); Est Glom Filt Rate - Afr Amer 43 mL/min (>60); Globulin 3.9 g/dL (2.2-4.2); Glucose 174 mg/dL (74-106); Potassium 3.9 mmol/L (3.5-5.1); Protein, Total 7.3 g/dL (6.4-8.2); Sodium Level 137 mmol/L (136-145)
[2021-04-20 13:18] LABS: Fructosamine 238 umol/L (0-285)
== END ==
PROVIDERS: PCP Family Medicine; Referring Provider Family Medicine; Visit Provider Family Medicine
DX: I50.82 Biventricular heart failure (principal); D64.9 Anemia, unspecified; E11.29 Type 2 diabetes mellitus with other diabetic kidney complication; J44.9 Chronic obstructive pulmonary disease, unspecified
CPT/HCPCS: 36415; 80053; 82985; 83880; 85025

== ENCOUNTER 2021-04-27 05:51 | Day surgery (SDC) | payer MEDICARE, SELFPAY ==
[2021-04-14 14:01] VITALS: BMI 37.6
[2021-04-27] VITALS (10 sets, daily range): BP systolic 92–143; BP diastolic 30–72; PULSE 64–77; RESP 16; TEMP 36.1–36.6; O2SAT 90–97; BMI 37.4
[2021-04-27] MEDS: Lactated Ringers 1,000 ML 100 ML IV (06:34)
--- NOTE | 2021-04-27 07:18 | HP.PCM_ITS ---
History and Physical Date of Admission: 04/27/21 Date of Service: 04/14/21 MR#:[id number] Acct:[id number] Name: CHARLES DODSON :1940 Age/Sex: 81/M Rep #:[id number] Provider:Dr. Natalia Sun MD Location:[facility] Status:Signed Intake Vital Signs 04/14/21 14:01 Height 5 ft 7 in Weight: 240 lb 4 oz BMI 37.6 BP 136/61 H Blood Pressure Location Rt brachial Position Sitting Respiration 20 H Pulse 70 Pulse Source NIBP Temp 98.2 F Temp Source Temporal Pulse Oximetry (%) 96 Oxygen Delivery Method room air Intake Visit Reasons: ANEMIA, CSCOPE Chief Complaint: Anemia, discuss colonoscopy Event Sales Assistant Required: No Is patient in pain?: No Allergies iodine Allergy (Severe, Verified 04/14/21 14:06) Anaphylaxis morphine Allergy (Severe, Verified 04/14/21 14:06) Other acetaminophen [From Percocet] Adverse Reaction (Intermediate, Verified 04/14/21 14:06) RASH oxycodone HCl [From Percocet] Adverse Reaction (Verified 04/14/21 14:06) rash Medications albuterol sulfate [ProAir HFA] 1 puff INHALATION Q4H PRN 01/19/16 [History Confirmed 04/14/21] magnesium oxide 400 mg PO BID 01/19/16 [History Confirmed 04/14/21] nitroglycerin 0.4 mg SUBLINGUAL Q5M PRN 01/19/16 [History Confirmed 04/14/21] B-complex with vitamin C 1 ea PO BID 06/22/16 [History Confirmed 04/14/21] pravastatin 40 mg PO QHS 06/22/16 [History Confirmed 04/14/21] calcium acetate(phosphat bind) 667 mg PO BIDAC 03/14/21 [History Confirmed 04/14/21] ropinirole 1 mg PO BREAKFAST 03/14/21 [History Confirmed 04/14/21] ropinirole 2 mg PO QHS 03/14/21 [History Confirmed 04/14/21] tamsulosin 0.4 mg PO QHS 03/14/21 [History Confirmed 04/14/21] ferrous sulfate 324 mg PO BID #60 tab 03/17/21 [Rx Confirmed 04/14/21] metoprolol tartrate 12.5 mg PO BID #30 tab 03/17/21 [Rx Confirmed 04/14/21] budesonide 0.25 mg INHALATION BID 03/23/21 [History Confirmed 04/14/21] ergocalciferol (vitamin D2) 1,250 mcg PO MO 03/23/21 [History Confirmed 0 04/14/21] ipratropium-albuterol 3 ml INHALATION 4X/DAY 03/23/21 [History Confirmed 04/14/21] ropinirole 0.5 mg PO LUNCH 03/23/21 [History Confirmed 04/14/21] pantoprazole [Protonix] 40 mg PO DAILY #30 tab 03/25/21 [Rx Confirmed 04/14/21] peg 3350-electrolytes 236 gram-22.74 gram-6.74 gram-5.86 gram solution 4,000 ml PO ONCE #4000 ml 04/14/21 [Rx Confirmed 04/14/21] PFSH Medical History Acute blood loss anemia Atrial fibrillation COPD (chronic obstructive pulmonary disease) CPAP (continuous positive airway pressure) dependence DLBCL (diffuse large B cell lymphoma) Former smoker Hearing loss, right Hypertension Iron deficiency anemia due to chronic blood loss Kidney disease SBO (small bowel obstruction) Surgical History (Updated 04/14/21 @ 14:05 by Saloni Isaacs) H/O aortic valve replacement with porcine valve History of appendectomy History of colonoscopy (~04/2020) History of colonoscopy (~07/2020) History of colonoscopy (~03/2021) Social History Smoking Status: Former smoker Tobacco: How many years used: 25 second hand exposure: No alcohol intake: never substance use type: does not use seatbelt use: always do you feel safe at home: Yes HPI HPI HPI: CHARLES DODSON, is a 81 M who presents to the office today for follow-up from hospitalization for anemia/GI bleed. Patient's hemoglobin was 5.8 in March. Did do an EGD at that time but none not show any obvious source of blood. Patient previously thought his last colonoscopy was 3 months prior however after obtaining records patient did have colonoscopy in April 2020 where he had 3 tubular adenomas & 1 in the descending colon was tattooed and was about 2 cm in size and did have a focal high-grade dysplasia. Patient had a repeat colonoscopy in July 2020 and 2 tubular adenomas were found in descending and sigmoid colon and the previous area that was tattooed was not specifically noted in the operative report. Patient also has history of having AVMs clipped and a gastric ulcer in 2018. Patient has been off his Xarelto since his hospitalizations. Patient is on due to aortic valve replacement porcelain valve, A. fib. Patient denies any abdominal pain. Patient's hemoglobin is up to 12.3 most recently. Patient states he has brown bowel movements daily. Denies any blood. Patient still on some iron denies any abdominal pain. ROS General General: No weight change, appetite, fatigue, colon cancer, breast cancer or weakness HEENT HEENT: No difficulty swallowing, eye injury, eye surgery, swollen glands or hoarseness Endo Endocrine: No thyroid disease, diabetes mellitus, thyroid cancer, Hair loss, heat intolerance or cold intolerance Musc Musculoskeletal: Yes arthritis and gout; No back problems, rheumatoid arthritis or joint pain Cardio Cardiovascular: Yes atrial fibrillation and high blood pressure; No murmur, pacemaker, heart disease, heart attack, heart stent, palpitations, shortness of breat with exertion or chest pain Psych Psychiatric: No depression, anxiety or hearing voices Resp Respiratory: Yes shortness of breath, Yes sleep apnea, No cough, Yes COPD, No asthma, Yes emphysema and No wheezing Gastro Gastrointestinal: No abdominal pain, No nausea or vomiting, No diarrhea, Yes constipation, No blood in stool, No acid reflux, No hemorrhoids, No ulcers, No gallbladder problem and No black,tarry stools Iron Hematologic: No blood thinners, No blood disorders, No bleeding, Yes anemia and No blood clots Neuro Neurologic: No weakness Exam Const General: cooperative, healthy appearing, comfortable and no acute distress Neck Neck: normal visual inspection Resp Effort & Inspection: normal respiratory effort Cardio Rate: regular rate GI Inspection: non-distended Palpation: soft, no guarding and nontender Skin General: no rashes or lesions noted Neuro General: patient oriented x3 Psych Affect: normal affect COVID (Procedure Consent) Procedure Criteria Procedure Criteria: Yes Elective The surgeon/proceduralist and patient have discussed in detail the risk of exposure to and/or potential harm posed by the COVID-19 virus with having a surgery/procedure at this time versus the risk of delaying the surgery/procedure. It is not possible to know either the risk of delaying the surgery or procedure or chance of getting an infection with perfect accuracy, but a joint decision was made between the patient and the surgeon/proceduralist to proceed at this time with the scheduled surgery/procedure as indicated on the consent form. Assessment and Plan Assessment and Plan (1) Acute blood loss anemia: Status: Acute (2) Hx of adenomatous polyp of colon: (3) High grade dysplasia in colonic adenoma: Plan - Dr. Natalia Sun MD: Discussed with patient that if this does not show anything it has any further bleeding patient may need capsule endoscopy at that time. Patient is currently still off his Xarelto. Patient's previous area of high-grade dysplasia and tubular adenoma was in the descending colon in April 2020 this was tattooed and patient had a repeat colonoscopy July 2020 by the same GI doctor did not comment about this area specifically but only found 2 tubular adenomas one in the descending colon one in sigmoid. I have discussed the above with the patient. I have offered the patient colonoscopy for evaluation. I have explained the risks/benefits of the procedure and described the procedure. I have discussed the risks with the patient, including but not limited to: infection, bleeding, perforation of the GI tract requiring em ergency surgery, inability to complete the procedure, injury to any internal organs, complications of anesthesia, etc. - the patient understands and agrees to proceed. I have answered all the patient's questions to the patient's satisfaction and the patient has no further questions. The patient has been given instructions for the colon cleansing preparation. GoLYTELY prep Natalia Sun M.D. Pager: [phone] [facility] [address] [place] [address], [facility], [address] [place] [address] Office: [phone] Plan Details Other Medications: New: peg 3350-electrolytes 236-22.74-6.74 -5.86 gram until fecal effluent is clear; do not exceed a total volume of 4000 mL 4,000 mL PO ONCE 4,000 mL 0RF GILL NicoleC Other Orders: Orders: Colonoscopy Today Dr. Natalia Sun MD Coding Level of Care Code Off vis,est,level 3 Diagnoses Acute blood loss anemia D62 Hx of adenomatous polyp of colon Z86.010 High grade dysplasia in colonic adenoma D12.6 04/14/21 1437<Electronically signed by Natalia Sun MD>Date Natalia Sun MD
--- NOTE | 2021-04-27 07:30 | COLBX_PTH ---
PATIENT: CHARLES DODSON LOC: EN U#:[id number] AGE/SX: 81/M ROOM: RE04/27/[address]: Dr. Natalia Sun MD : 1940 BED: DIS: 04/27/2021 SPEC #: [id number] RECD: 04/27/21 10:14 STATUS: KELLY REFortino #: [id number] DANY: 04/27/21 07:[address]: Natalia Sun DEPT: SURGICAL PATHOLOGY RECD BY: Marah Langston ENTERED: 04/27/21 12:27 SP TYPE: COLON BX OTHR DR: Dr. Silvino Jaime MD Tissues: A - Ascending colon B - Ascending colon C - Ascending colon D - Transverse colon E - Descending colon F - Descending colon G - Descending colon H - Descending colon Procedures: Surgery Specimen Level IV HEADER OPERATION: Colonoscopy (MAC) PRE-OP DIAGNOSIS: Acute blood loss anemia; history adenomatous colon polyp; high grade dysplasia in colonic adenoma TISSUE SUBMITTED: A - Ascending colon polyp x2, B - Proximal ascending colon polyp, C - Distal ascending colon polyp, D - Multiple transverse colon polyps, E - Descending colon polyps x2, F??Descending colon polyp, G - Descending colon polyps x2, H - Distal descending colon polyps x3 MICROSCOPIC DIAGNOSIS A. Ascending colon polyp x2, biopsy: Fragments of tubular adenoma. B. Proximal ascending colon polyp, biopsy: Fragments of colonic mucosa with focal mucosal congestion. See comment. C. Distal ascending colon polyp, biopsy: Fragments of tubular adenoma. Fragments of fecal material. D. Multiple transverse colon polyps, biopsy: Fragments of tubular adenoma. E. Descending colon polyps x2, biopsy: Fragments of tubular adenoma. F. Descending colon polyp, biopsy: Tubular adenoma. G. Descending colon polyps x2, biopsy: Fragments of tubular adenoma. Fragments of fecal material. H. Descending colon polyps x2, biopsy: Fragments of tubular adenoma. SJ:oracio 04/28/2021 COMMENT B. Adenomatous or hyperplastic changes are not seen. MICROSCOPIC DESCRIPTION Slides are reviewed. GROSS DESCRIPTION A - Received in fixative is one container labeled with the patient's name and designated ascending colon polyp x2. The specimen consists of multiple irregular fragments of light morfin soft tissue that in aggregate measure 1 x 0.3 x 0.1 cm. The specimen is totally submitted in one cassette. B - Received in fixative is one container labeled with the patient's name and designated proximal ascending polyp. The specimen consists of multiple irregular fragments of light morfin soft tissue that in aggregate measure 0.5 x 0.4 x 0.1 cm. The specimen is totally submitted in one cassette. C - Received in fixative is one container labeled with the patient's name and designated distal ascending colon polyp. The specimen consists of multiple irregular fragments of morfin soft tissue mixed with fecal material that in aggregate measure 2.5 x 0.5 x 0.1 cm. The specimen is totally submitted in one cassette. D - Received in fixative is one container labeled with the patient's name and designated multiple transverse colon polyps. The specimen consists of multiple irregular fragments of light morfin soft tissue that in aggregate measure 2 x 0.5 x 0.2 cm. The specimen is totally submitted in one cassette. E - Received in fixative is one container labeled with the patient's name and designated descending colon polyps. The specimen consists of multiple irregular fragments of light morfin soft tissue that in aggregate measure 1.2 x 0.3 x 0.1 cm. The specimen is totally submitted in one cassette. F - Received in fixative is one container labeled with the patient's name and designated descending colon polyp. The specimen consists of one irregular fragment of light morfin soft tissue that measures 0.3 x 0.3 x 0.1 cm. The specimen is totally submitted in one cassette. G - Received in fixative is one container labeled with the patient's name and designated descending colon polyps x2. The specimen consists of multiple irregular fragments of light morfin soft tissue that in aggregate measure 0.8 x 0.5 x 0.2 cm. The specimen is totally submitted in one cassette. H - Received in fixative is one container labeled with the patient's name and designated distal descending colon polyps. The specimen consists of multiple irregular fragments of light morfin soft tissue that in aggregate measure 0.5 x 0.5 x 0.1 cm. The specimen is totally submitted in one cassette. / SJ:rg 04/27/21 TC:3 CPT: 81294 x8
--- NOTE | 2021-04-28 10:34 | OP.CCLET_ITS ---
04/27/2021 Silvino Jaime [address] [place] [address] Re : Colonoscopy procedure for Augusto Tolbert Dear Dr. Jaime This procedure was performed on Tuesday, April 27, 2021. My impressions and recommendations are as follows: Impressions : - Two less than 5 mm polyps in the descending colon and in the distal ascending colon, removed with a hot snare. Resected and retrieved. - Ten less than 5 mm polyps in the descending colon, in the distal descending colon, in the transverse colon, in the ascending colon and in the proximal ascending colon, removed with a cold biopsy forceps. Resected and retrieved. - The examination was otherwise normal on direct and retroflexion views. Recommendations : - Discharge patient to home. - Resume previous diet. - Continue present medications. - Await pathology results. - Repeat colonoscopy 3 years depending on overall health at that time. My findings are described in the full procedure note, which is enclosed. If I can be of further assistance, please feel free to contact me at Doctor phone number(s): , Work: . Sincerely, MD Natalia Brown MD 04/27/2021 8:57:33 AM This report has been signed electronically.
--- NOTE | 2021-04-28 10:34 | OP.COLON_ITS ---
Patient Name: Augusto Tolbert Procedure Date: 04/27/2021 7:19 AM Date of : 1940 Age: 81 Procedure: Colonoscopy Indications: Acute post hemorrhagic anemia Providers: Natalia Sun MD Referring MD: Silvino Jaime Medicines: Monitored Anesthesia Care Patient Profile: Last Colonoscopy: 1 year ago July 2020. This is an 81 year old male. Complications: No immediate complications. Procedure: Pre-Anesthesia Assessment: - Prior to the procedure, a History and Physical was performed, and patient medications and allergies were reviewed. The patient's tolerance of previous anesthesia was also reviewed. The risks and benefits of the procedure and the sedation options and risks were discussed with the patient. All questions were answered, and informed consent was obtained. Prior Anticoagulants: The patient has taken no previous anticoagulant or antiplatelet agents. ASA Grade Assessment: Per anesthesia. After reviewing the risks and benefits, the patient was deemed in satisfactory condition to undergo the procedure. After I obtained informed consent, the scope was passed under direct vision. Throughout the procedure, the patient's blood pressure, pulse, and oxygen saturations were monitored continuously. The Colonoscope was introduced through the anus and advanced to the cecum, identified by the appendiceal orifice, IC valve and transillumination. The colonoscopy was technically difficult and complex due to significant looping. The patient tolerated the procedure well. The quality of the bowel preparation was good. Scope In: 7:34:38 AM Scope Withdrawal Time 0 hours 57 minutes 41 seconds Scope Out: 8:42:41 AM Total Procedure Duration Time 1 hour 8 minutes 3 seconds Findings: The perianal and digital rectal examinations were normal. Two semi-pedunculated polyps were found in the descending colon and distal ascending colon. The polyps were less than 5 mm in size. These polyps were removed with a hot snare. Resection and retrieval were complete. Ten sessile polyps were found in the descending colon, distal descending colon, transverse colon, ascending colon and proximal ascending colon. The polyps were less than 5 mm in size. These polyps were removed with a cold biopsy forceps. Resection and retrieval were complete. The exam was otherwise without abnormality on direct and retroflexion views. Impression: - Two less than 5 mm polyps in the descending colon and in the distal ascending colon, removed with a hot snare. Resected and retrieved. - Ten less than 5 mm polyps in the descending colon, in the distal descending colon, in the transverse colon, in the ascending colon and in the proximal ascending colon, removed with a cold biopsy forceps. Resected and retrieved. - The examination was otherwise normal on direct and retroflexion views. Recommendation: - Discharge patient to home. - Resume previous diet. - Continue present medications. - Await pathology results. - Repeat colonoscopy 3 years depending on overall health at that time. Procedure Code(s): --- Professional --- 15866, Colonoscopy, flexible; with removal of tumor(s), polyp(s), or other lesion(s) by snare technique 36676, 59, Colonoscopy, flexible; with biopsy, single or multiple Diagnosis Code(s): --- Professional --- D12.4, Benign neoplasm of descending colon D12.3, Benign neoplasm of transverse colon (hepatic flexure or splenic flexure) D12.2, Benign neoplasm of ascending colon D62, Acute posthemorrhagic anemia CPT copyright 2017 [employer]. All rights reserved. The codes documented in this report are preliminary and upon remote inpatient coder review may be revised to meet current compliance requirements. MD Natalia Brown MD 04/27/2021 8:57:33 AM This report has been signed electronically. Number of Addenda: 0 Note Initiated On: 04/27/2021 7:19 AM
== END 2021-04-27 10:18 ==
LOC: EN 05:53 → AC 05:54
PROVIDERS: PCP Family Medicine; Referring Provider Family Medicine; Visit Provider Surgery
PROC: 0DJD8ZZ Inspection of Lower Intestinal Tract, Via Natural or Artificial Opening Endoscopic (ICD-10-PCS; CPT 45378; principal; 2021-04-27 07:25)
DX: D12.4 Benign neoplasm of descending colon (principal); D12.3 Benign neoplasm of transverse colon; D12.2 Benign neoplasm of ascending colon; D62 Acute posthemorrhagic anemia; I10 Essential (primary) hypertension; J44.9 Chronic obstructive pulmonary disease, unspecified; I48.91 Unspecified atrial fibrillation; Z87.891 Personal history of nicotine dependence; Z86.010 Personal history of colon polyps; Z87.11 Personal history of peptic ulcer disease; Z88.5 Allergy status to narcotic agent; Z95.2 Presence of prosthetic heart valve
CPT/HCPCS: 45380; 45385; 88305; J2405

== ENCOUNTER → 2021-05-05 08:49 | Outpatient (CLI) | payer MEDICARE, SELFPAY ==
[2021-04-27 06:22] VITALS: BMI 37.4
[2021-05-05 10:22] LABS: Anion Gap 9 (5-15); BUN 22 mg/dL (7-18); BUN/Creat Ratio 11.8 RATIO (10-20); Calcium,Total 8.8 mg/dL (8.5-10.1); Chloride 105 mmol/L (98-107); Creatinine, Serum 1.87 mg/dL (0.70-1.30); EST Glomerular Filtration Rate 37 mL/min (>60); Est Glom Filt Rate - Afr Amer 45 mL/min (>60); Glucose 122 mg/dL (74-106); Potassium 3.9 mmol/L (3.5-5.1); Sodium Level 138 mmol/L (136-145)
== END ==
PROVIDERS: Internal Medicine Hematology & Oncology; PCP Family Medicine; Visit Provider Family Medicine
DX: C85.80 Other specified types of non-Hodgkin lymphoma, unspecified site (principal)
CPT/HCPCS: 36415; 80048

== ENCOUNTER → 2021-05-13 08:16 | Outpatient (CLI) | payer MEDICARE, SELFPAY ==
[2021-04-27 06:22] VITALS: BMI 37.4
[2021-05-13 12:46] LABS: ALB/GLOB Ratio 0.9 RATIO (0.9-2.4); AST(SGOT) 19 U/L (15-37); Alanine Aminotransfer ALT/SGPT 25 U/L (16-61); Albumin, Serum 3.6 g/dL (3.2-5.0); Alkaline Phosphatase 76 U/L (45-117); Anion Gap 6 (5-15); BUN 24 mg/dL (7-18); BUN/Creat Ratio 14.1 RATIO (10-20); Calcium,Total 8.9 mg/dL (8.5-10.1); Chloride 108 mmol/L (98-107); EST Glomerular Filtration Rate 41 mL/min (>60); Est Glom Filt Rate - Afr Amer 50 mL/min (>60); Globulin 4.1 g/dL (2.2-4.2); Glucose 139 mg/dL (74-106); Protein, Total 7.7 g/dL (6.4-8.2); Sodium Level 137 mmol/L (136-145)
[2021-05-13 12:56] LABS: BNP,B-Type NATRIURETIC PEPTIDE 123.7 pg/mL (0-100)
== END ==
PROVIDERS: Family Medicine; PCP Family Medicine; Visit Provider Family Medicine
DX: I50.82 Biventricular heart failure (principal)
CPT/HCPCS: 36415; 80053; 83880

== ENCOUNTER → 2021-05-13 10:20 | Outpatient (CLI) | payer MEDICARE, SELFPAY ==
[2021-04-27 06:22] VITALS: BMI 37.4
--- NOTE | 2021-05-13 10:24 | VDLE_ITS ---
Reason For Study: swelling RIGHT LEFT GSV is normal. GSV is normal. CFV is compressible, spontaneous, phasic, CFV is compressible, spontaneous, phasic, competent and demonstrates normal competent, and demonstrates normal augmentation. augmentation. FV is compressible, spontaneous, phasic, FV is compressible, spontaneous, phasic, competent and demonstrates normal competent and demonstrates normal augmentation. augmentation. POP V is compressible, spontaneous, phasic, POP V is compressible, spontaneous, phasic, competent and demonstrates normal competent and demonstrates normal augmentation. augmentation. T/P Trunk is compressible. T/P Trunk is compressible. PTV is compressible. PTV is compressible. RT PerV is compressible. LT PerV is compressible. Procedure Gastrocnemius V is DILATED w/partial This is a venous duplex using B-mode, color compression and no flow noted. flow and spectral Doppler. Soleus V is DILATED, NONCOMPRESSIBLE w/no Exam performed in department. flow noted. The exam was diagnostic. A preliminary report was called and/or faxed to DR. Chavez's office @ 11:[address] Chavez's office will call PT with instructions. VL/Venous Duplex US - Sal Extrem Interpretation Summary Acute deep vein thrombosis is noted in the left gastrocnemius vein. Acute deep vein thrombosis is noted in the left soleus vein. The remainder of the left lower extremity deep v enous system is patent and compressible. Deep veins of the right lower extremity are patent and compressible segmentally. There is no evidence of right lower extremity deep vein thrombosis . Valvular competence appears intact within the proximal deep venous systems bilaterally. The great s aphenous veins appear bilaterally patent and compressible segmentally. Ordering Physician: Alex Chavez Referring Physician: Alex Chavez Performed By: Indigo Santana RVT, RDCS and Student
== END ==
PROVIDERS: PCP Family Medicine; Referring Provider Family Medicine; Visit Provider Family Medicine
DX: M79.89 Other specified soft tissue disorders (principal)
CPT/HCPCS: 36415; 80053; 83880; 93970

== ENCOUNTER 2021-05-13 11:36 | Emergency (ER) | payer MEDICARE, SELFPAY ==
[2021-04-27 06:22] VITALS: BMI 37.4
[2021-05-13 11:37] VITALS: BP 149/69; PULSE 85; RESP 14; TEMP 36.2; O2SAT 97; BMI 36.9
--- NOTE | 2021-05-13 12:10 | EDS_ITS ---
HPI History of Present Illness Chief Complaint: Lower Extremity Injury Narrative Narrative: 81-year-old male presenting for evaluation because he has developed the left lower extremity DVT while being anticoagulated on Xarelto. Patient was recently hospitalized for GI bleeding and was transfused multiple units of blood. He did have a colonoscopy while inpatient. His hemoglobin stabilized. He was started back on his Xarelto that he takes for atrial fibrillation and has had no new black or bloody stools. His primary care physician sent him over for an ultrasound of his left leg and upon learning that he had a DVT sent him to the emergency room. Patient states that the pain was there before he was recently hospitalized is just worse now. He describes the pain as aching in the left ankle and distal calf. [facility] Medical History Acute blood loss anemia Ambulates with cane Atrial fibrillation Cardiology follow-up encounter Carotid arterial disease Chronic kidney disease COPD (chronic obstructive pulmonary disease) CPAP (continuous positive airway pressure) dependence DLBCL (diffuse large B cell lymphoma) Excessive bleeding Eye disease Former smoker Gastric reflux Hearing loss, right History of GI bleed Hypertension Iron deficiency anemia due to chronic blood loss Kidney disease Non-Hodgkin lymphoma SBO (small bowel obstruction) Shortness of breath on exertion Wears dentures Wears glasses Home Medications albuterol sulfate [ProAir HFA] 1 puff INHALATION Q4H PRN 01/19/16 [History Last Taken 03/22/21] magnesium oxide 400 mg PO BID 01/19/16 [History Last Taken 03/23/21] nitroglycerin 0.4 mg SUBLINGUAL Q5M PRN 01/19/16 [History Last Taken Unknown] B-complex with vitamin C 1 ea PO BID 06/22/16 [History Last Taken 03/23/21] pravastatin 40 mg PO QHS 06/22/16 [History Last Taken 03/22/21] calcium acetate(phosphat bind) 667 mg PO BIDAC 03/14/21 [History Last Taken 03/23/21] ropinirole 1 mg PO BREAKFAST 03/14/21 [History Last Taken 03/23/21] ropinirole 2 mg PO QHS 03/14/21 [History Last Taken 03/22/21] tamsulosin 0.4 mg PO QHS 03/14/21 [History Last Taken 03/22/21] budesonide 0.25 mg INHALATION BID 03/23/21 [History Last Taken 03/23/21] ergocalciferol (vitamin D2) 1,250 mcg PO MO 03/23/21 [History Last Taken 03/21/21] ipratropium-albuterol 3 ml INHALATION 4X/DAY 03/23/21 [History Last Taken 03/22/21] ropinirole 0.5 mg PO LUNCH 03/23/21 [History Last Taken 03/22/21] pantoprazole [Protonix] 40 mg PO DAILY #30 tab 03/25/21 [Rx Last Taken 04/27/21 06:00] peg 3350-electrolytes 236 gram-22.74 gram-6.74 gram-5.86 gram solution 4,000 ml PO ONCE #4000 ml 04/14/21 [Rx Last Taken Unknown] coenzyme Q10 [CoQ-10] 100 mg PO TID 04/22/21 [History Last Taken Unknown] ferrous sulfate 324 mg PO DAILY 04/22/21 [History Last Taken Unknown] metoprolol tartrate 12.5 mg PO BID 04/22/21 [History Last Taken 04/27/21 06:00] acetaminophen 500 mg PO BID 05/13/21 [History Last Taken Unknown] amlodipine 5 mg PO DAILY 05/13/21 [History Last Taken Unknown] enoxaparin [Lovenox] 100 mg SUBCUT Q12H 15 Days #30 ml 05/13/21 [Rx Last Taken Unknown] rivaroxaban [Xarelto] 20 mg PO DAILY 05/13/21 [History Last Taken Unknown] Allergy/AdvReac Type Severity Reaction Status Date / Time iodine Allergy Severe Anaphylaxis Verified 05/13/21 11:37 morphine Allergy Severe Other Verified 05/13/21 11:37 oxycodone HCl [From Percocet] AdvReac rash Verified 05/13/21 11:37 Surgical History H/O aortic valve replacement with porcine valve History of aortic valve repair History of appendectomy History of cataract surgery History of colonoscopy (~04/2020) History of colonoscopy (~07/2020) History of colonoscopy (~03/2021) Social History Smoking Status: Former smoker Tobacco: How many years used: 25 second hand exposure: No alcohol intake: never substance use type: does not use seatbelt use: always do you feel safe at home: Yes ROS ROS ED Constitutional Constitutional ED: Denies chills, fever(s) or subjective Eyes Eyes: Denies blurry vision or diplopia ENT ENT ED: Denies rhinorrhea or sore throat Cardiovascular Cardiovascular: Denies chest pain, palpitations or racing heartbeat Respiratory/Chest Respiratory/Chest: Denies cough or dyspnea Gastrointestinal Gastrointestinal: Denies abdominal pain, melena, nausea or vomiting Genitourinary Genitourinary ED: Denies dysuria or hematuria Musculoskeletal Musculoskeletal: Denies arthralgias or myalgias Neurologic Neurologic: Denies headache(s), paresthesias or weakness EXAM Physical Exam Const Vital Signs: 05/13/21 11:37 Temperature 97.1 F L Temperature Source Temporal Pulse Rate 85 Respiratory Rate 14 Blood Pressure 149/69 H Blood Pressure Mean 95 Pulse Ox 97 Oxygen Delivery Method Room Air Positive obese General Appearance ED: Negative for pallor Nutritional Appearance: obese HEENT Reports moist mucous membranes Negative for trauma Eyes PERRL and EOMs intact bilaterally General Eye ED: Negative for pale conjunctiva Resp normal respiratory effort and clear to auscultation bilaterally Cardio regular rate and regular rhythm Extremity Extremity Narrative: Tenderness and edema left calf and ankle. General Extremety ED: Yes edema and tenderness General Extremity: edema Neuro oriented x3 and CN's II-XII intact bilaterally Sensorium / Orientation: alert Psych mental status grossly normal Skin no rashes or lesions noted and no wounds General Skin Exam: Negative for pallor MDM MDM Lab Data Lab results narrative: Patient presenting with acute DVT however I cannot initially see the read. It is unclear whether the patient developed a DVT while he was off his anticoagulation or if he developed it while he was on anticoagulation. He is unsure when he started taking the Xarelto however I spok e with Dr. Sun who stated that he was not on anticoagulation the when he had his colonoscopy which would make this less than 15 days. I discussed with her that I spoke with Dr. Cohen about the same problem and he recommended putting the patient on Lovenox weight-based twice daily for 2 weeks and then having him follow-up with his primary care physician and possibly starting on Coumadin. She felt like this was a good idea because if he had any problems with GI bleeds the Lovenox will be reversible. I then spoke with Dr. Silvino Jaime who was amenable to seeing the patient in follow-up and did agree. He asked me to use social work to determine whether the patient would be a candidate to use Lovenox covered under his insurance. It did partially cover the expense however the patient would have to pay over $400. Patient was amenable to paying this as opposed to being hospitalized over the weekend to get Lovenox and/or heparin drip. Patient is counseled to monitor his stools to make sure they are not black or bloody. If he starts to get pale or lightheaded he should return to the ED for repeat evaluation. Impression: 1. DVT Critical Care Time Critical care time (excluding procedures): 30-74 minutes, Discussing w/Patient &/or Family/Community Marketing Coordinator and Discussing w/Consultants Discharge Plan Triage Chief Complaint: Lower Extremity Injury ED Provider: Edwin Terry Dx/Rx/DC Orders Instructions: ED Deep Vein Thrombosis (DVT) Prescriptions: New enoxaparin [Lovenox] 100 mg/mL syringe 100 mg subcut Q12H 15 Days Qty: 30 RF: 0 No Action peg 3350-electrolytes 236-22.74-6.74 -5.86 gram recon soln 4,000 ml PO ONCE Qty: 4000 RF: 0 magnesium oxide 400 MG tablet 400 mg PO BID RF: 0 nitroglycerin 0.4 MG tablet 0.4 mg sublingual Q5M PRN (Reason: Chest Pain) RF: 0 albuterol sulfate [ProAir HFA] 1 PUFF inhaler 1 puff inhalation Q4H PRN (Reason: Congestion) RF: 0 pravastatin 40 MG tablet 40 mg PO QHS RF: 0 B-complex with vitamin C 1 EACH tablet 1 ea PO BID RF: 0 ropinirole 1 mg Tablet 1 mg PO BREAKFAST RF: 0 tamsulosin 0.4 mg Capsule 0.4 mg PO QHS RF: 0 ropinirole 2 mg Tablet 2 mg PO QHS RF: 0 calcium acetate(phosphat bind) 667 mg Capsule 667 mg PO BIDAC RF: 0 ipratropium-albuterol 0.5 mg-3 mg(2.5 mg base)/3 mL solution for nebulization 3 ml inhalation 4X/DAY RF: 0 ropinirole 0.5 mg tablet 0.5 mg PO LUNCH RF: 0 budesonide 0.25 mg/2 mL suspension for nebulization 0.25 mg inhalation BID RF: 0 ergocalciferol (vitamin D2) 1,250 mcg (50,000 unit) Capsule 1,250 mcg PO MO RF: 0 pantoprazole [Protonix] 40 mg tablet,delayed release (DR/EC) 40 mg PO DAILY Qty: 30 RF: 0 coenzyme Q10 [CoQ-10] 100 mg Capsule 100 mg PO TID RF: 0 metoprolol tartrate 25 mg tablet 12.5 mg PO BID RF: 0 ferrous sulfate 324 mg (65 mg iron) tablet,delayed release (DR/EC) 324 mg PO DAILY RF: 0 Xarelto 20 mg Tablet 20 mg PO DAILY RF: 0 amlodipine 5 mg Tablet 5 mg PO DAILY RF: 0 acetaminophen 500 mg Tablet 500 mg PO BID RF: 0 Primary Care Provider: Sivlino Jaime Referrals: Silvino Jaime MD [Primary Care Provider] - Humza Carver MD [STAFF PHYSICIAN] - As soon as possible Disposition Disposition: Home, Self Care
[2021-05-13] MEDS: Enoxaparin 100 MG/ML Syringe SC (13:59)
--- NOTE | 2021-05-13 14:51 | CASEMGMT ---
ANGELA MOSER called [facility] to complete prior auth for Lovenox. ANGELA MOSER received fax from [facility] that Prior Auth was approved. ANGELA MOSER called and updated ED SW of approval.
[2021-05-13 15:27] VITALS: BP 141/89; RESP 78; TEMP -8.8; TEMP 16; O2SAT 99
--- NOTE | 2021-05-13 15:47 | CM.ED ---
GERI Note Referral Source: MD Referral Reason: Lovenox MD inquired if patient's Lovenox would be covered after he left the hospital. GERI spoke to family who reports they use [facility]. GERI called Dr. Jaime's office for prescription. Addison's office was at lunch. GERI updated MD who then sent prescription to [facility]. GERI spoke to [facility] and they said that insurance needs preauthorization as patient's prescription is 200mg but insurance won't pay 130mg. Prior Authorization phone was [phone]. Out of pocket is $486.00 for 15 days per [facility] staff without preauthorization. GERI spoke to family. They indicated they would prefer paying $486 vs the hospital. GERI called [employer] and started the prior authorization. GERI called [facility] to assist with clinical. GERI updated family. GERI received phone call from [facility] and insurance approved prior authorization for Lovenox. GERI called [facility] and the prescription was approved with copay of $100. Family was updated. RN and mosquito sprayer updated. Plan: Patient discharge home with Lovenox per MD order Miri EARL
== END 2021-05-13 15:28 | disposition home or self-care (01) ==
PROVIDERS: Emergency Provider Student in an Organized Health Care Education/Training Program; PCP Family Medicine
DX: I82.402 Acute embolism and thrombosis of unspecified deep veins of left lower extremity (principal); I48.91 Unspecified atrial fibrillation; I12.9 Hypertensive chronic kidney disease with stage 1 through stage 4 chronic kidney disease, or unspecified chronic kidney disease; N18.9 Chronic kidney disease, unspecified; J44.9 Chronic obstructive pulmonary disease, unspecified; E66.9 Obesity, unspecified; R60.0 Localized edema; K21.9 Gastro-esophageal reflux disease without esophagitis; Z87.891 Personal history of nicotine dependence; Z79.01 Long term (current) use of anticoagulants; Z79.899 Other long term (current) drug therapy
CPT/HCPCS: 36415; 80053; 83880; 93970; 96374; 99282

== ENCOUNTER → 2021-05-26 12:13 | Outpatient (CLI) | payer MEDICARE, SELFPAY ==
[2021-05-19 11:59] VITALS: BMI 37.4
[2021-05-26 15:14] LABS: Hematocrit 41.8 % (40-54); Hemoglobin 13.4 g/dL (13.0-16.5); Mean Corp Hgb Conc 32.1 g/dL (32-36); Mean Corpuscular Hgb 31.8 pg (27.0-32.0); Mean Corpuscular Volume 99.3 fL (80-94); Mean Platelet Vol. 9.7 fl (6.2-12.0); Platelet Count 264 K/mm3 (150-450); RBC Distribution Width CV 16.9 % (11.6-14.6); RBC Distribution Width SD 61.2 fl (35.1-43.9); Red Blood Count 4.21 M/mm3 (4.6-6.2); White Blood Count 7.5 K/mm3 (4.4-11.0)
[2021-05-26 15:39] LABS: Anion Gap 5 (5-15); BUN 17 mg/dL (7-18); BUN/Creat Ratio 11.7 RATIO (10-20); Chloride 106 mmol/L (98-107); Creatinine, Serum 1.45 mg/dL (0.70-1.30); EST Glomerular Filtration Rate 50 mL/min (>60); Est Glom Filt Rate - Afr Amer 60 mL/min (>60); Glucose 104 mg/dL (74-106); Potassium 4.4 mmol/L (3.5-5.1); Sodium Level 137 mmol/L (136-145)
[2021-05-26 21:15] LABS: BNP,B-Type NATRIURETIC PEPTIDE 167.4 pg/mL (0-100)
== END ==
PROVIDERS: PCP Family Medicine; Referring Provider Family Medicine; Visit Provider Nurse Practitioner Family
DX: R06.00 Dyspnea, unspecified (principal)
CPT/HCPCS: 36415; 80048; 83880; 85027

== ENCOUNTER → 2021-06-02 14:00 | Outpatient (CLI) | payer MEDICARE, SELFPAY ==
[2021-05-19 11:59] VITALS: BMI 37.4
[2021-06-02 15:38] LABS: Protein, Urine (Random) 21.2 mg/dL (<11.9); Protein:Creat Ratio 259 mg/g CRE (0-200)
== END ==
PROVIDERS: PCP Family Medicine; Visit Provider Internal Medicine Nephrology
DX: E11.22 Type 2 diabetes mellitus with diabetic chronic kidney disease (principal)
CPT/HCPCS: 82570; 84156

== ENCOUNTER → 2021-07-04 08:02 | Outpatient (CLI) | payer MEDICARE, SELFPAY ==
[2021-07-04 10:15] LABS: Hematocrit 41.3 % (40-54); Hemoglobin 13.5 g/dL (13.0-16.5); Mean Corp Hgb Conc 32.7 g/dL (32-36); Mean Corpuscular Volume 97.9 fL (80-94); Mean Platelet Vol. 9.5 fl (6.2-12.0); Platelet Count 223 K/mm3 (150-450); RBC Distribution Width CV 15.7 % (11.6-14.6); RBC Distribution Width SD 56.4 fl (35.1-43.9); Red Blood Count 4.22 M/mm3 (4.6-6.2); White Blood Count 6.4 K/mm3 (4.4-11.0)
== END ==
PROVIDERS: PCP Family Medicine; Visit Provider Internal Medicine Pulmonary Disease
DX: I10 Essential (primary) hypertension (principal); J44.9 Chronic obstructive pulmonary disease, unspecified
CPT/HCPCS: 36415; 85027

== ENCOUNTER → 2021-07-29 09:42 | Outpatient (CLI) | payer MEDICARE, SELFPAY ==
[2021-07-29 12:12] LABS: Absolute Neutrophil Count 5.9 X10^3/uL (2.0-7.7); Basophil# 0.03 X10^3/uL; Basophil% 0.4 % (0-1); Eosinophil# 0.11 X10^3/uL; Eosinophils% 1.5 % (0-5); Hematocrit 42.5 % (40-54); Hemoglobin 14.1 g/dL (13.0-16.5); Lymphocyte % 13.2 % (19-41); Mean Corp Hgb Conc 33.2 g/dL (32-36); Mean Corpuscular Hgb 32.8 pg (27.0-32.0); Mean Corpuscular Volume 98.8 fL (80-94); Mean Platelet Vol. 9.8 fl (6.2-12.0); Monocyte# 0.46 X10^3/uL; Monocyte% 6.1 % (0-10); NRBC Flagged by Analyzer 0 % (0-5); Neutrophil # 5.94 X10^3/uL (2.7-7.7); Neutrophil % 78.4 % (47-70); Platelet Count 186 K/mm3 (150-450); RBC Distribution Width CV 15.4 % (11.6-14.6); RBC Distribution Width SD 55.1 fl (35.1-43.9); White Blood Count 7.6 K/mm3 (4.4-11.0)
[2021-07-29 12:28] LABS: ALB/GLOB Ratio 0.8 RATIO (0.9-2.4); AST(SGOT) 18 U/L (15-37); Alanine Aminotransfer ALT/SGPT 26 U/L (16-61); Albumin, Serum 3.5 g/dL (3.2-5.0); Alkaline Phosphatase 86 U/L (45-117); Anion Gap 4 (5-15); BUN 22 mg/dL (7-18); BUN/Creat Ratio 14.5 RATIO (10-20); Calcium,Total 8.8 mg/dL (8.5-10.1); Chloride 108 mmol/L (98-107); Creatinine, Serum 1.52 mg/dL (0.70-1.30); EST Glomerular Filtration Rate 47 mL/min (>60); Est Glom Filt Rate - Afr Amer 57 mL/min (>60); Globulin 4.3 g/dL (2.2-4.2); Glucose 147 mg/dL (74-106); Magnesium 2.2 mg/dL (1.6-2.6); Potassium 4.3 mmol/L (3.5-5.1); Protein, Total 7.8 g/dL (6.4-8.2); Sodium Level 136 mmol/L (136-145)
[2021-07-29 12:37] LABS: Hemoglobin A1c 6.4 % (3.8-5.6)
[2021-07-29 12:39] LABS: BNP,B-Type NATRIURETIC PEPTIDE 144.3 pg/mL (0-100)
== END ==
PROVIDERS: PCP Family Medicine; Referring Provider Family Medicine; Visit Provider Family Medicine
DX: J44.9 Chronic obstructive pulmonary disease, unspecified (principal); I50.82 Biventricular heart failure; E11.29 Type 2 diabetes mellitus with other diabetic kidney complication; R06.00 Dyspnea, unspecified
CPT/HCPCS: 36415; 80053; 83036; 83735; 83880; 85025

== ENCOUNTER → 2021-08-23 07:31 | Outpatient (CLI) | payer MEDICARE, SELFPAY ==
--- NOTE | 2021-08-23 07:35 | CT_ITS ---
INDICATION: Fam Hx Thorac Ao Aneurysm; SOB, COPD, Iodine allergy EXAMINATION: CT Chest W/O Contrast Injection TECHNIQUE: Helically acquired images were obtained of the chest without IV contrast. A radiation dose optimization technique was used for this scan. COMPARISON: None. FINDINGS: Lungs: Paraseptal emphysematous changes. Scattered nodular opacities in the right lung apex. 1.9 cm calcified granuloma in the right upper lobe (image 56, series 4). 5 mm solid pulmonary nodule in the right lower lobe (image 85, series 4). Mediastinum: The cardiomediastinal silhouette is not enlarged. No mediastinal, hilar or axillary adenopathy. Moderate aortic arch and coronary artery calcifications. No evidence of thoracic aortic aneurysm. Pleura: Unremarkable Bones/Soft tissues: There are diffuse degenerative changes of the spine. Upper abdomen: Cirrhotic liver. CT/Chest without Contrast IMPRESSION: No evidence of thoracic aortic aneurysm. Scattered nodular opacities in the right lung apex could be infectious or inflammatory in etiology. 5 mm solid pulmonary nodule in the right lower lobe. Per FLEISCHNER criteria, recommend follow-up chest CT in 6-12 months. Cirrhotic liver. Electronically Signed: Jaime Ascencio MD at 18:46 EDT Tel , Service support ,
== END ==
PROVIDERS: PCP Family Medicine; Referring Provider Family Medicine; Visit Provider Family Medicine
DX: R91.1 Solitary pulmonary nodule (principal); J44.9 Chronic obstructive pulmonary disease, unspecified; K74.60 Unspecified cirrhosis of liver; Z82.49 Family history of ischemic heart disease and other diseases of the circulatory system
CPT/HCPCS: 71250

== ENCOUNTER → 2021-09-01 08:36 | Outpatient (CLI) | payer MEDICARE, SELFPAY ==
--- NOTE | 2021-09-01 08:44 | US_ITS ---
STUDY: ABDOMINAL ULTRASOUND - ELASTOGRAPHY REASON FOR VISIT: Male, 81 years old. History of cirrhosis. TECHNIQUE: Liver stiffness measurements were obtained on a [employer] RS 85 ultrasound machine using a CA 1-7 probe following the SRU guidelines. 3 measurements were obtained using a 2-D-SWE method. The IQR/M was 19% suggesting a quality data set. TECHNICAL QUALITY: Adequate. COMPARISON: None. FINDINGS: Liver: There is no demonstrated mass lesion. Median liver stiffness measured 7.6 kPa. IMPRESSION: Liver stiffness measures 7.6 kPa compatible with F2 Metavir score. Electronically Signed: Bill Stockton MD at 13:22 EDT , Service support , STUDY: ABDOMINAL ULTRASOUND - RIGHT UPPER QUADRANT REASON FOR VISIT: Male, 81 years old . History of cirrhosis. TECHNIQUE: Ultrasound evaluation of the right upper quadrant was performed with real-time and static moses-scale imaging. TECHNICAL QUALITY: Adequate. COMPARISON: None. FINDINGS: Liver: The liver measures 16.4 cm. There is normal echogenicity of the liver. The bile ducts are within normal limits. There is hepatic color flow. The direction of portal flow is hepatopetal. There is no demonstrated mass lesion. Gallbladder: Normal distended gallbladder. The gallbladder wall measures 2.1 mm. There is a negative sonographic Hill''s sign. There is no pericholecystic fluid. There are no gallstones. Common Bile Duct (C.B.D.): The common bile duct measures 3.7 mm. Pancreas: Normal size of the head, body and tail of the pancreas. There is normal echogenicity of the pancreas. There is no demonstrated pancreatic mass or cyst. Right Kidney: Normal size of the right kidney. The right kidney measures 11.1 cm x 4.5 cm x 5.1 cm. Normal renal cortex. The right cortex measures 1.9 cm. There is no demonstrated renal mass or cyst. There is no right hydronephrosis. US/Elastography Parenchyma/Organ IMPRESSION: Normal right upper quadrant ultrasound examination. Electronically Signed: Bill Stockton MD at 13:22 EDT , Service support ,
== END ==
PROVIDERS: PCP Family Medicine; Referring Provider Family Medicine; Visit Provider Family Medicine
DX: R93.89 Abnormal findings on diagnostic imaging of other specified body structures (principal)
CPT/HCPCS: 76705; 76981

== ENCOUNTER → 2021-10-07 13:19 | Outpatient (CLI) | payer MEDICARE, SELFPAY | PROVIDERS: PCP Family Medicine; Referring Provider Family Medicine; Visit Provider Family Medicine | DX: Z20.822 Contact with and (suspected) exposure to COVID-19 (principal) | CPT/HCPCS: 87635; C9803; U0005; U0003 ==

== ENCOUNTER 2021-11-11 08:04 | Outpatient (CLI) | payer MEDICARE, SELFPAY ==
[2021-11-11 10:33] LABS: Ferritin 116 ng/mL (26-388)
== END 2021-11-11 23:59 | disposition short-term general hospital (02) ==
LOC: MFPLAB 08:05
PROVIDERS: PCP Family Medicine; Referring Provider Family Medicine; Visit Provider Internal Medicine Pulmonary Disease
DX: D64.9 Anemia, unspecified (principal)
CPT/HCPCS: 36415; 82728

== ENCOUNTER 2021-12-20 07:38 | Outpatient (CLI) | payer MEDICARE, SELFPAY ==
[2021-12-20 10:45] LABS: Absolute Lymphocyte Count 1.37 X10^3/uL (0.83-4.51); Absolute Neutrophil Count 4.6 X10^3/uL (2.0-7.7); Basophil# 0.04 X10^3/uL; Basophil% 0.6 % (0-1); Eosinophil# 0.16 X10^3/uL; Eosinophils% 2.4 % (0-5); Hematocrit 44.9 % (40-54); Hemoglobin 14.9 g/dL (13.0-16.5); Lymphocyte # 1.37 X10^3/ul (0.83-4.51); Lymphocyte % 20.3 % (19-41); Mean Corp Hgb Conc 33.2 g/dL (32-36); Mean Corpuscular Hgb 33.8 pg (27.0-32.0); Mean Corpuscular Volume 101.8 fL (80-94); Mean Platelet Vol. 9.7 fl (6.2-12.0); Monocyte# 0.55 X10^3/uL; Monocyte% 8.1 % (0-10); NRBC Flagged by Analyzer 0 % (0-5); Neutrophil # 4.62 X10^3/uL (2.7-7.7); Neutrophil % 68.3 % (47-70); Platelet Count 200 K/mm3 (150-450); RBC Distribution Width CV 14.1 % (11.6-14.6); RBC Distribution Width SD 53.7 fl (35.1-43.9); Red Blood Count 4.41 M/mm3 (4.6-6.2); White Blood Count 6.8 K/mm3 (4.4-11.0)
[2021-12-20 10:59] LABS: Anion Gap 5 (5-15); BUN 25 mg/dL (7-18); BUN/Creat Ratio 15.4 RATIO (10-20); Calcium,Total 8.9 mg/dL (8.5-10.1); Chloride 107 mmol/L (98-107); Creatinine, Serum 1.62 mg/dL (0.70-1.30); EST Glomerular Filtration Rate 44 mL/min (>60); Est Glom Filt Rate - Afr Amer 53 mL/min (>60); Glucose 123 mg/dL (74-106); Phosphorus 2.9 mg/dL (2.5-4.9); Potassium 4.4 mmol/L (3.5-5.1); Sodium Level 138 mmol/L (136-145)
[2021-12-20 11:14] LABS: Protein, Urine (Random) 27.5 mg/dL (<11.9); Protein:Creat Ratio 213 mg/g CRE (0-200)
[2021-12-22 12:37] LABS: Albumin, Serum 3.8 g/dL (3.2-5.0)
== END 2021-12-20 23:59 | disposition home or self-care (01) ==
PROVIDERS: PCP Family Medicine; Referring Provider Internal Medicine Nephrology; Visit Provider Internal Medicine Nephrology
DX: I65.23 Occlusion and stenosis of bilateral carotid arteries (principal); Z95.2 Presence of prosthetic heart valve
CPT/HCPCS: 36415; 80048; 82040; 82570; 84100; 84156; 85025

== ENCOUNTER → 2022-02-21 | Outpatient (CLI) | payer MEDICARE, SELFPAY ==
--- NOTE | 2022-02-21 07:33 | CT_ITS ---
EXAM: CT CHEST WITHOUT INTRAVENOUS CONTRAST : 1940 CLINICAL INDICATION: prior R lung nodule, 6m f/u needed, also mild hemoptysis in AM TECHNIQUE: Helically acquired images were obtained of the chest without intravenous contrast. This CT exam was performed using one or more of the following dose reduction techniques: automated exposure control, adjustment of the mA and/or kV according to patient size, and/or use of iterative reconstruction technique. This report was created using [employer] report generation technology. COMPARISON: 08/23/2021 FINDINGS: LUNGS AND PLEURAL SPACES: There is a linear calcification and scarring in the right upper lobe. Small noncalcified nodule in the right lower lobe is stable. Emphysematous changes are again seen in the lung apices with scarring. There is no focal consolidation. There is a new nodular opacity in the left lower lobe that measures 6 mm seen on series 2 image 58. No pleural effusion or thickening. No pneumothorax. HEART: There are coronary artery calcifications present. Heart size is normal. No pericardial effusion. MEDIASTINUM: Multiple hilar lymph nodes are again present and are unchanged. Esophagus is unremarkable. No hiatal hernia. THYROID: Unremarkable. No thyroid lesions. BONES/JOINTS: Unremarkable. No suspicious lytic or blastic abnormality. VASCULATURE: Unremarkable. Thoracic aorta is non-dilated. OTHER FINDINGS: CT/Chest without Contrast IMPRESSION: 1. Stable nodule in the right lower lobe. There is also stable adenopathy in the mediastinum. 2. Stable scarring and emphysematous change in the right apex. 3. New 6 mm nodule within the superior segment of the left lower lobe. 4. Lung RADS Category 4A. Individualized dose optimization techniques were used for this CT. at 1632 Reported and signed by: Kaleb Harkins MD Electronically Signed: Kaleb Harkins MD at 16:30 EDT ,
== END | disposition home or self-care (01) ==
LOC: CT 07:31
PROVIDERS: PCP Family Medicine; Referring Provider Family Medicine; Visit Provider Family Medicine
DX: J44.9 Chronic obstructive pulmonary disease, unspecified (principal)
CPT/HCPCS: 71250

== ENCOUNTER → 2022-02-24 | Outpatient (CLI) | payer MEDICARE, SELFPAY ==
[2022-02-24 10:32] LABS: ALB/GLOB Ratio 0.9 RATIO (0.9-2.4); AST(SGOT) 15 U/L (15-37); Alanine Aminotransfer ALT/SGPT 23 U/L (16-61); Albumin, Serum 3.5 g/dL (3.2-5.0); Alkaline Phosphatase 79 U/L (45-117); Anion Gap 5 (5-15); BUN 28 mg/dL (7-18); BUN/Creat Ratio 18.1 RATIO (10-20); Chloride 108 mmol/L (98-107); Cholesterol 93 mg/dL (200); Creatinine, Serum 1.55 mg/dL (0.70-1.30); EST Glomerular Filtration Rate 46 mL/min (>60); Est Glom Filt Rate - Afr Amer 56 mL/min (>60); Globulin 3.9 g/dL (2.2-4.2); Glucose 111 mg/dL (74-106); High Density Lipoprotein 39 mg/dL; Potassium 3.8 mmol/L (3.5-5.1); Protein, Total 7.4 g/dL (6.4-8.2); Sodium Level 138 mmol/L (136-145); Triglycerides 80 mg/dL; Very Low Density Lipoprotein 16 mg/dL (5-40)
[2022-02-24 10:48] LABS: Microalbumin,Random Urine 50.5 mg/L (NO RANGE EST.); Microalbumin:Creatinine Ratio 39.8 mg/g CRE (<30 mg/g CRE)
== END | disposition home or self-care (01) ==
LOC: MFPLAB 08:04
PROVIDERS: PCP Family Medicine; Referring Provider Family Medicine; Visit Provider Family Medicine
DX: E11.29 Type 2 diabetes mellitus with other diabetic kidney complication (principal); I50.82 Biventricular heart failure
CPT/HCPCS: 36415; 80053; 80061; 82043; 82570

== ENCOUNTER 2022-03-02 10:30 | Emergency (ER) | payer MEDICARE, SELFPAY ==
[2022-03-02 10:32] VITALS: BP 143/83; PULSE 58; RESP 18; TEMP 36.5; O2SAT 93; BMI 35.4
--- NOTE | 2022-03-02 10:48 | EX.ED.DYSGE1 ---
HPI History of Present Illness Chief Complaint: Diarrhea Informant: patient Onset/Context/Timing Onset: Weeks (3 to 4 weeks) Current Severity: Mild Maximum Severity: Moderate Narrative Narrative: Patient presents with a 3-week history of diarrhea. It has been waxing and waning but has been having multiple episodes daily. When he called his PCP today for follow-up he was advised to come to the emergency room. No blood in the stool. Mild abdominal cramping just before he has a bowel movement. No fever or chills. No recent antibiotic use. He drinks bottled water. [facility] Medical History Acute blood loss anemia Ambulates with cane Atrial fibrillation Cardiology follow-up encounter Carotid arterial disease Chronic kidney disease COPD (chronic obstructive pulmonary disease) CPAP (continuous positive airway pressure) dependence Deep vein thrombosis, lower left extremity DLBCL (diffuse large B cell lymphoma) Excessive bleeding Eye disease Former smoker Gastric reflux Hearing loss, right History of GI bleed Hypertension Iron deficiency anemia due to chronic blood loss Kidney disease Non-Hodgkin lymphoma SBO (small bowel obstruction) Shortness of breath on exertion Wears dentures Wears glasses Home Medications albuterol sulfate [ProAir HFA] 1 puff INHALATION Q4H PRN 01/19/16 [History Last Taken 03/22/21] magnesium oxide 400 mg PO BID 01/19/16 [History Last Taken 03/23/21] nitroglycerin 0.4 mg SUBLINGUAL Q5M PRN 01/19/16 [History Last Taken Unknown] B-complex with vitamin C 1 ea PO BID 06/22/16 [History Last Taken 03/23/21] pravastatin 40 mg PO QHS 06/22/16 [History Last Taken 03/22/21] calcium acetate(phosphat bind) 667 mg PO BIDAC 03/14/21 [History Last Taken 03/23/21] ropinirole 1 mg PO BREAKFAST 03/14/21 [History Last Taken 03/23/21] tamsulosin 0.4 mg PO QHS 03/14/21 [History Last Taken 03/22/21] budesonide 0.25 mg INHALATION BID 03/23/21 [History Last Taken 03/23/21] ergocalciferol (vitamin D2) 1,250 mcg PO MO 03/23/21 [History Last Taken 03/21/21] ipratropium-albuterol 3 ml INHALATION 4X/DAY 03/23/21 [History Last Taken 03/22/21] pantoprazole [Protonix] 40 mg PO DAILY #30 tab 03/25/21 [Rx Last Taken 04/27/21 06:00] peg 3350-electrolytes 236 gram-22.74 gram-6.74 gram-5.86 gram solution 4,000 ml PO ONCE #4000 ml 04/14/21 [Rx Last Taken Unknown] ferrous sulfate 324 mg PO DAILY 04/22/21 [History Last Taken Unknown] metoprolol tartrate 12.5 mg PO BID 04/22/21 [History Last Taken 04/27/21 06:00] acetaminophen 500 mg PO BID 05/13/21 [History Last Taken Unknown] enoxaparin [Lovenox] 100 mg SUBCUT Q12H 15 Days #30 ml 05/13/21 [Rx Last Taken Unknown] apixaban 5 mg tablet 5 mg PO BID 08/18/21 [History Last Taken Unknown] gabapentin 300 mg capsule 300 mg PO DAILY 08/18/21 [History Last Taken Unknown] ammonium lactate 12 % topical cream 1 applic TOPICAL TID g 11/16/21 [History Last Taken Unknown] ascorbic acid (vitamin C) 500 mg tablet 500 mg PO BID 11/16/21 [History Last Taken Unknown] coenzyme Q10 50 mg capsule 50 mg PO TID cap 11/16/21 [History Last Taken Unknown] furosemide 40 mg tablet 40 mg PO DAILY PRN 11/16/21 [History Last Taken Unknown] levocetirizine 5 mg tablet 5 mg PO DAILY PRN 11/16/21 [History Last Taken Unknown] sodium bicarbonate 650 mg tablet 650 mg PO BID 11/16/21 [History Last Taken Unknown] Allergy/AdvReac Type Severity Reaction Status Date / Time iodine Allergy Severe Anaphylaxis Verified 03/02/22 10:31 morphine Allergy Severe Other Verified 03/02/22 10:31 oxycodone HCl [From Percocet] AdvReac rash Verified 03/02/22 10:31 Surgical History H/O aortic valve replacement with porcine valve History of aortic valve repair History of appendectomy History of cataract surgery History of colonoscopy (~04/2020) History of colonoscopy (~07/2020) History of colonoscopy (~03/2021) Social History Smoking Status: Former smoker Tobacco: How many years used: 25 second hand exposure: No alcohol intake: never substance use type: does not use seatbelt use: always do you feel safe at home: Yes ROS ROS ED Constitutional Constitutional ED: Denies chills or fever(s) Eyes Eyes: Denies change in vision ENT ENT ED: Denies sore throat Cardiovascular Cardiovascular: Denies chest pain Respiratory/Chest Respiratory/Chest: Denies cough or dyspnea Gastrointestinal Gastrointestinal: Reports diarrhea; Denies abdominal pain, nausea or vomiting Genitourinary Genitourinary ED: Denies dysuria Musculoskeletal Musculoskeletal: Denies back pain Integumentary Denies rash Neurologic Neurologic: Denies headache(s) or weakness Allergic/Immunologic Allergic/Immunologic ED: Denies urticaria EXAM Physical Exam Const Vital Signs: 03/02/22 10:32 Temperature 97.7 F L Temperature Source Oral Pulse Rate 58 L Respiratory Rate 18 Blood Pressure 143/83 H Blood Pressure Mean 103 Pulse Ox 93 Oxygen Delivery Method Room Air Positive well nourished and well developed General Appearance ED: well developed HEENT Reports moist mucous membranes Eyes PERRL and EOMs intact bilaterally Neck supple Chest Wall inspection of chest normal and palpation of chest normal Resp normal respiratory effort and clear to auscultation bilaterally Cardio regular rate and regular rhythm GI non-tender Auscultation: hypoactive bowel sounds Palpation: soft Extremity normal to inspection Neuro oriented x3 Sensorium / Orientation: alert Psych mental status grossly normal Skin no rashes or lesions noted MDM MDM MDM Narrative Medical decision making narrative: Patient given IV fluids. Lab work and urinalysis obtained. Lab Data Attestation: I reviewed the patient's lab results. Labs: Laboratory Results - last 24 hr 03/02/22 03/02/22 03/02/22 11:03 11:04 11:04 WBC 9.2 RBC 4.98 Hgb 16.6 H Hct 49.8 MCV 100.0 H MCH 33.3 H MCHC 33.3 RDW Std Deviation 51.7 H RDW Coeff of Danial 14.1 Plt Count 209 MPV 9.9 Immature Gran % (Auto) 0.200 Neut % (Auto) 69.4 Lymph % (Auto) 14.8 L [place] % (Auto) 6.8 Eos % (Auto) 8.4 H Baso % (Auto) 0.4 Absolute Neuts (auto) 6.4 Absolute Lymphs (auto) 1.36 Nucleated RBC % 0 Sodium 139 Potassium 4.0 Chloride 109 H Carbon Dioxide 26.0 Anion Gap 4 L BUN 23 H Creatinine 1.61 H Estim Creat Clear Calc 33.64 Est GFR (MDRD) Af Amer 53 L Est GFR (MDRD) Non-Af 44 L BUN/Creatinine Ratio 14.3 Glucose 112 H Calcium 9.6 Urine Color Yellow Urine Clarity Clear Urine pH 6.0 Ur Specific [place] 1.015 Urine Protein 15 H Urine Glucose (UA) Normal Urine Ketones Negative Urine Occult Blood 50 H Urine Nitrite Negative Urine Bilirubin Negative Urine Urobilinogen Normal Ur Leukocyte Esterase Negative Urine RBC 0-5 SEEN Urine WBC 0 SEEN Ur Squamous Epith Cells 0-5 SEEN Urine Bacteria 0 SEEN Urine Mucus 0 SEEN Treatment and Re-Evaluation Narrative: White count normal with no left shift. Hemoglobin concentrated at 16.6. Chemistry studies reveal slightly elevated creatinine at 1.61. Urinalysis shows no sign of infection. Patient has not had diarrhea here. He will be sent home with a an order sheet to bring in a sample. We discussed continuing some Imodium. He will go back to a clear liquid diet today and then slowly introduce foods. With no white count, fever, abdominal pain I do not believe CT imaging is indicated at this time. Return instructions are provided. Discharge Plan Triage Chief Complaint: Diarrhea ED Provider: Blossom Mcghee Dx/Rx/DC Orders Clinical Impression: Diarrhea Instructions: ED Diarrhea, Unknown Cause Prescriptions: No Action gabapentin [Neurontin] 300 mg capsule 300 mg PO DAILY RF: 0 Eliquis 5 mg tablet 5 mg PO BID RF: 0 peg 3350-electrolytes 236-22.74-6.74 -5.86 gram recon soln 4,000 ml PO ONCE Qty: 4000 RF: 0 coenzyme Q10 50 mg capsule 50 mg PO TID RF: 0 sodium bicarbonate 650 mg tablet 650 mg PO BID RF: 0 ammonium lactate 12 % cream 1 applic topical TID RF: 0 ascorbic acid (vitamin C) 500 mg tablet 500 mg PO BID RF: 0 levocetirizine 5 mg tablet 5 mg PO DAILY PRN (Reason: allergy symptoms) RF: 0 furosemide 40 mg tablet 40 mg PO DAILY PRN (Reason: edema) RF: 0 magnesium oxide 400 MG tablet 400 mg PO BID RF: 0 nitroglycerin 0.4 MG tablet 0.4 mg sublingual Q5M PRN (Reason: Chest Pain) RF: 0 albuterol sulfate [ProAir HFA] 1 PUFF inhaler 1 puff inhalation Q4H PRN (Reason: Congestion) RF: 0 pravastatin 40 MG tablet 40 mg PO QHS RF: 0 B-complex with vitamin C 1 EACH tablet 1 ea PO BID RF: 0 ropinirole 1 mg Tablet 1 mg PO BREAKFAST RF: 0 tamsulosin 0.4 mg Capsule 0.4 mg PO QHS RF: 0 calcium acetate(phosphat bind) 667 mg Capsule 667 mg PO BIDAC RF: 0 ipratropium-albuterol 0.5 mg-3 mg(2.5 mg base)/3 mL solution for nebulization 3 ml inhalation 4X/DAY RF: 0 budesonide 0.25 mg/2 mL suspension for nebulization 0.25 mg inhalation BID RF: 0 ergocalciferol (vitamin D2) 1,250 mcg (50,000 unit) Capsule 1,250 mcg PO MO RF: 0 pantoprazole [Protonix] 40 mg tablet,delayed release (DR/EC) 40 mg PO DAILY Qty: 30 RF: 0 metoprolol tartrate 25 mg tablet 12.5 mg PO BID RF: 0 ferrous sulfate 324 mg (65 mg iron) tablet,delayed release (DR/EC) 324 mg PO DAILY RF: 0 acetaminophen 500 mg Tablet 500 mg PO BID RF: 0 enoxaparin [Lovenox] 100 mg/mL syringe 100 mg subcut Q12H 15 Days Qty: 30 RF: 0 Primary Care Provider: Silvino Jaime Referrals: Silvino Jaime MD [Primary Care Provider] - 1 Week if not improving Disposition Disposition: Home, Self Care
[2022-03-02 11:08] LABS: Bacteria 0 SEEN /hpf (None Seen); Mucous, Urine 0 SEEN /hpf (<or=2+); White Blood Cells 0 SEEN /hpf (0-5)
[2022-03-02 11:18] LABS: Absolute Lymphocyte Count 1.36 X10^3/uL (0.83-4.51); Absolute Neutrophil Count 6.4 X10^3/uL (2.0-7.7); Basophil# 0.04 X10^3/uL; Basophil% 0.4 % (0-1); Eosinophil# 0.77 X10^3/uL; Eosinophils% 8.4 % (0-5); Hematocrit 49.8 % (40-54); Hemoglobin 16.6 g/dL (13.0-16.5); Lymphocyte # 1.36 X10^3/ul (0.83-4.51); Lymphocyte % 14.8 % (19-41); Mean Corp Hgb Conc 33.3 g/dL (32-36); Mean Corpuscular Hgb 33.3 pg (27.0-32.0); Mean Platelet Vol. 9.9 fl (6.2-12.0); Monocyte# 0.63 X10^3/uL; Monocyte% 6.8 % (0-10); NRBC Flagged by Analyzer 0 % (0-5); Neutrophil # 6.38 X10^3/uL (2.7-7.7); Neutrophil % 69.4 % (47-70); Platelet Count 209 K/mm3 (150-450); RBC Distribution Width CV 14.1 % (11.6-14.6); RBC Distribution Width SD 51.7 fl (35.1-43.9); Red Blood Count 4.98 M/mm3 (4.6-6.2); White Blood Count 9.2 K/mm3 (4.4-11.0)
[2022-03-02 11:19] LABS: Color, Urine Yellow (Yellow); Glucose, Dipstick Normal (Normal); Ketone-Dipstick Negative (Negative); Leukocyte Esterase-Dipstick Negative /ul (Negative); Nitrite-Dipstick Negative (Negative); Occult Blood-Urine 50 /ul (Negative); Protein-Dipstick 15 mg/dl (Negative); Specific Gravity, Urine 1.015 (1.002-1.030); Urine Bilirubin Dipstick Negative (Negative); Urine Clarity Clear (Clear); Urine Urobilinogen Normal (Normal)
[2022-03-02 11:22] LABS: Anion Gap 4 (5-15); BUN 23 mg/dL (7-18); BUN/Creat Ratio 14.3 RATIO (10-20); Calcium,Total 9.6 mg/dL (8.5-10.1); Chloride 109 mmol/L (98-107); Creatinine, Serum 1.61 mg/dL (0.70-1.30); EST Glomerular Filtration Rate 44 mL/min (>60); Est Glom Filt Rate - Afr Amer 53 mL/min (>60); Estimated Creatinine Clearance 33.64 ml/min; Glucose 112 mg/dL (74-106); Sodium Level 139 mmol/L (136-145)
[2022-03-02 11:28] LABS: Red Blood Cells-Urine 0-5 SEEN /hpf (0-5); Squamous Epithelial Cells - UA 0-5 SEEN /hpf (0-5)
== END 2022-03-02 12:36 | disposition home or self-care (01) ==
PROVIDERS: Emergency Provider Emergency Medicine; PCP Family Medicine; Visit Provider Emergency Medicine
DX: R19.7 Diarrhea, unspecified (principal); J44.9 Chronic obstructive pulmonary disease, unspecified; I48.91 Unspecified atrial fibrillation; N18.9 Chronic kidney disease, unspecified; Z87.891 Personal history of nicotine dependence; I12.9 Hypertensive chronic kidney disease with stage 1 through stage 4 chronic kidney disease, or unspecified chronic kidney disease; Z86.718 Personal history of other venous thrombosis and embolism
CPT/HCPCS: 80048; 81001; 85025; 96360; 99283; A4216

== ENCOUNTER → 2022-03-06 | Outpatient (CLI) | payer MEDICARE, SELFPAY | END | disposition home or self-care (01) | PROVIDERS: PCP Family Medicine; Visit Provider Emergency Medicine | DX: R19.7 Diarrhea, unspecified (principal) | CPT/HCPCS: 87493; 87506 ==

== ENCOUNTER → 2022-03-10 | Outpatient (CLI) | payer MEDICARE, SELFPAY ==
[2022-03-10 17:50] LABS: ALB/GLOB Ratio 0.8 RATIO (0.9-2.4); AST(SGOT) 18 U/L (15-37); Alanine Aminotransfer ALT/SGPT 24 U/L (16-61); Albumin, Serum 3.5 g/dL (3.2-5.0); Alkaline Phosphatase 89 U/L (45-117); Anion Gap 6 (5-15); BUN 17 mg/dL (7-18); BUN/Creat Ratio 12.3 RATIO (10-20); Calcium,Total 8.6 mg/dL (8.5-10.1); Chloride 107 mmol/L (98-107); Creatinine, Serum 1.38 mg/dL (0.70-1.30); EST Glomerular Filtration Rate 52 mL/min (>60); Est Glom Filt Rate - Afr Amer 63 mL/min (>60); Globulin 4.2 g/dL (2.2-4.2); Glucose 117 mg/dL (74-106); Magnesium 1.7 mg/dL (1.6-2.6); Potassium 3.6 mmol/L (3.5-5.1); Protein, Total 7.7 g/dL (6.4-8.2); Sodium Level 139 mmol/L (136-145)
== END | disposition home or self-care (01) ==
LOC: MFPLAB 15:21
PROVIDERS: PCP Family Medicine; Referring Provider Family Medicine; Visit Provider Family Medicine
DX: R19.7 Diarrhea, unspecified (principal)
CPT/HCPCS: 36415; 80053; 83735

== ENCOUNTER 2022-04-30 18:49 | Emergency (ER) | payer MEDICARE, SELFPAY ==
[2022-04-30 18:50] VITALS: BP 150/86; PULSE 98; RESP 14; TEMP 36.6; O2SAT 96; BMI 34.1
--- NOTE | 2022-04-30 21:03 | ED.VIS.LOWEX ---
HPI History of Present Illness Chief Complaint: Lower Extremity Injury Informant: patient and family Narrative Narrative: Here with son after being sent from urgent care for increasing left lower extremity swelling. He did go 2-hour drive to [place] 2 days ago however swelling started the hands. The swelling is been worse since then. No history of DVT. Denies chest pains or shortness of breath. There is some increasing redness distally however denies fever he is a borderline diabetic. He is on Eliquis for history of atrial fibrillation. He has stage III chronic kidney disease. [facility] Medical History Acute blood loss anemia Ambulates with cane Atrial fibrillation Cardiology follow-up encounter Carotid arterial disease Chronic kidney disease COPD (chronic obstructive pulmonary disease) CPAP (continuous positive airway pressure) dependence Deep vein thrombosis, lower left extremity DLBCL (diffuse large B cell lymphoma) Excessive bleeding Eye disease Former smoker Gastric reflux Hearing loss, right History of GI bleed Hypertension Iron deficiency anemia due to chronic blood loss Kidney disease Non-Hodgkin lymphoma SBO (small bowel obstruction) Shortness of breath on exertion Wears dentures Wears glasses Home Medications albuterol sulfate 90 mcg/actuation aerosol inhaler (ProAir HFA) 1 puff inhalation Q4H PRN Congestion 01/19/16 [History Last Taken 03/22/21] magnesium oxide 400 mg (241.3 mg magnesium) tablet 400 mg PO BID supplement 01/19/16 [History Last Taken 03/23/21] nitroglycerin 0.4 mg sublingual tablet 0.4 mg sublingual Q5M PRN Chest Pain 01/19/16 [History Last Taken Unknown] B-complex with vitamin C 1 ea PO BID supplement 06/22/16 [History Last Taken 03/23/21] pravastatin 40 mg tablet 40 mg PO QHS cholesterol 06/22/16 [History Last Taken 03/22/21] ropinirole 1 mg tablet 1 mg PO BID restless leg 03/14/21 [History Last Taken 03/23/21] tamsulosin 0.4 mg capsule 0.4 mg PO QHS prostate 03/14/21 [History Last Taken 03/22/21] budesonide 0.25 mg/2 mL suspension for nebulization 0.25 mg inhalation BID 03/23/21 [History Last Taken 03/23/21] ergocalciferol (vitamin D2) 1,250 mcg (50,000 unit) capsule 1,250 mcg PO MO supplement 03/23/21 [History Last Taken 03/21/21] ipratropium 0.5 mg-albuterol 3 mg (2.5 mg base)/3 mL nebulization soln 3 ml inhalation 4X/DAY 03/23/21 [History Last Taken 03/22/21] pantoprazole 40 mg tablet,delayed release (Protonix) 40 mg PO DAILY #30 tabs 03/25/21 [Rx Last Taken 04/27/21 06:00] ferrous sulfate 324 mg (65 mg iron) tablet,delayed release 324 mg PO DAILY supplement 04/22/21 [History Last Taken Unknown] metoprolol tartrate 25 mg tablet 12.5 mg PO BID blood pressure 04/22/21 [History Last Taken 04/27/21 06:00] acetaminophen 500 mg tablet 500 mg PO BID 05/13/21 [History Last Taken Unknown] apixaban 5 mg tablet (Eliquis) 5 mg PO BID 08/18/21 [History Last Taken Unknown] gabapentin 300 mg capsule (Neurontin) 300 mg PO DAILY 08/18/21 [History Last Taken Unknown] ascorbic acid (vitamin C) 500 mg tablet 500 mg PO BID 11/16/21 [History Last Taken Unknown] coenzyme Q10 50 mg capsule 50 mg PO TID 11/16/21 [History Last Taken Unknown] furosemide 40 mg tablet 40 mg PO DAILY PRN edema 11/16/21 [History Last Taken Unknown] albuterol sulfate 90 mcg/actuation aerosol inhaler (Ventolin HFA) 2 puff inhalation Q6H PRN SOB 03/22/22 [History Last Taken Unknown] amlodipine 5 mg tablet 5 mg PO DAILY 03/22/22 [History Last Taken Unknown] cetirizine 10 mg tablet (Zyrtec) 10 mg PO DAILY PRN Allergy Symptoms 03/22/22 [History Last Taken Unknown] cephalexin 500 mg capsule 500 mg PO Q6 #40 caps 04/30/22 [Rx Last Taken Unknown] Allergy/AdvReac Type Severity Reaction Status Date / Time iodine Allergy Severe Anaphylaxis Verified 04/30/22 18:52 morphine Allergy Severe Other Verified 04/30/22 18:52 oxycodone HCl [From Percocet] AdvReac rash Verified 04/30/22 18:52 Family History Father CVA (cerebral vascular accident) Hypertension Heart disease Surgical History H/O aortic valve replacement with porcine valve History of aortic valve repair History of appendectomy History of cataract surgery History of colonoscopy (~04/2020) History of colonoscopy (~07/2020) History of colonoscopy (~03/2021) Social History Smoking Status: Former smoker Tobacco: How many years used: 25 second hand exposure: No alcohol intake: never substance use type: does not use seatbelt use: always do you feel safe at home: Yes ROS ROS ED Constitutional Constitutional ED: Denies chills, fever(s) or sweats Eyes Eyes: Denies change in vision ENT ENT ED: Denies dysphagia or sore throat Cardiovascular Cardiovascular: Denies chest pain, leg edema, palpitations or racing heartbeat Respiratory/Chest Respiratory/Chest: Denies cough, dyspnea or dyspnea on exertion Gastrointestinal Gastrointestinal: Denies abdominal pain, diarrhea, nausea or vomiting Genitourinary Genitourinary ED: Denies dysuria, hematuria or urinary frequency Musculoskeletal Musculoskeletal: Reports other Details: Left lower leg swelling ; Denies back pain, extremity pain or neck pain Integumentary Denies rash or wounds Neurologic Neurologic: Denies headache(s), paresthesias or weakness EXAM Physical Exam Const Vital Signs: 04/30/22 18:50 04/30/22 22:18 Temperature 97.9 F Temperature Source Temporal Pulse Rate 98 69 Respiratory Rate 14 18 Blood Pressure 150/86 H 138/63 H Blood Pressure Mean 107 Pulse Ox 96 100 Oxygen Delivery Method Room Air Positive well nourished and well developed General Appearance ED: well developed and NAD HEENT Reports moist mucous membranes normocephalic and atraumatic Eyes PERRL, EOMs intact bilaterally and conjunctivae normal General Eye ED: Yes normal appearance of both eyes Neck no lymphadenopathy and supple General: Negative for tenderness Chest Wall Chest: Negative for tenderness Resp normal respiratory effort and normal air movement Effort and Inspection: symmetric chest movement; Negative for respiratory distress Cardio regular rate, regular rhythm and no murmurs Peripheral Pulses: pulses 2+ throughout GI normal to inspection, nondistended, normoactive bowel sounds and non-tender Palpation: Negative for guarding or rebound tenderness present Back/Spine no CVA tenderness and no thoracic nor lumbar tenderness Extremity normal to inspection Extremity Narrative: Asymmetric swelling left lower extremity greater than right. No calf or medial thigh tenderness. There is erythema noted on the distal leg circumferential, nontender no warmth no drainage. Neurovascular intact distally. General Extremety ED: Yes edema; Negative for tenderness General Extremity: edema Neuro oriented x3 and no sensory deficits noted Sensorium / Orientation: awake and alert Skin Skin Narrative: See above. MDM MDM MDM Narrative Medical decision making narrative: Patient asymmetric left leg swelling there are some erythema distally with no blanching. Prediabetic. Labs obtained normal white count. Creatinine 1.6 stable with ranges creatinine 1.3-1.6 in the system. Nonblanching erythema. Started on Keflex. There is no current ultrasound available for DVT studies, he is currently however on Eliquis twice a day. He is ordered for an outpatient ultrasound to be obtained tomorrow. All questions were answered. Lab Data Attestation: I reviewed the patient's lab results. Labs: Laboratory Results - last 24 hr 04/30/22 04/30/22 20:35 20:35 WBC 7.2 RBC 4.39 L Hgb 14.6 Hct 45.1 MCV 102.7 H MCH 33.3 H MCHC 32.4 RDW Std Deviation 57.2 H RDW Coeff of Danial 15.1 H Plt Count 205 MPV 9.5 Immature Gran % (Auto) 0.400 Neut % (Auto) 72.8 H Lymph % (Auto) 15.6 L Mora % (Auto) 8.2 Eos % (Auto) 2.4 Baso % (Auto) 0.6 Absolute Neuts (auto) 5.3 Absolute Lymphs (auto) 1.12 Nucleated RBC % 0 Sodium 137 Potassium 4.1 Chloride 105 Carbon Dioxide 26.0 Anion Gap 6 BUN 18 Creatinine 1.64 H Estim Creat Clear Calc 32.47 Est GFR (MDRD) Af Amer 52 L Est GFR (MDRD) Non-Af 43 L BUN/Creatinine Ratio 11.0 Glucose 105 Calcium 9.7 Discharge Plan Triage Chief Complaint: Lower Extremity Injury ED Provider: Vishal Padilla Dx/Rx/DC Orders Clinical Impression: Left leg swelling, Cellulitis of left leg, Stage 3 chronic kidney disease Instructions: ED Cellulitis, ED Peripheral Edema, Unilateral Prescriptions: New cephalexin [cephalexin] 500 mg capsule 500 mg PO Q6 Qty: 40 0RF No Action gabapentin [Neurontin] 300 mg capsule 300 mg PO DAILY Eliquis 5 mg tablet 5 mg PO BID coenzyme Q10 50 mg capsule 50 mg PO TID ascorbic acid (vitamin C) 500 mg tablet 500 mg PO BID furosemide 40 mg tablet 40 mg PO DAILY PRN (Reason: edema) amlodipine 5 mg tablet 5 mg PO DAILY cetirizine [Zyrtec] 10 mg tablet 10 mg PO DAILY PRN (Reason: Allergy Symptoms) albuterol sulfate [Ventolin HFA] 90 mcg/actuation HFA aerosol inhaler 2 puff inhalation Q6H PRN (Reason: SOB) magnesium oxide 400 MG tablet 400 mg PO BID Label Comments: SUPPLEMENT nitroglycerin 0.4 MG tablet 0.4 mg sublingual Q5M PRN (Reason: Chest Pain) Label Comments: chest pain albuterol sulfate [ProAir HFA] 1 PUFF inhaler 1 puff inhalation Q4H PRN (Reason: Congestion) Label Comments: breathing pravastatin 40 MG tablet 40 mg PO QHS B-complex with vitamin C 1 EACH tablet 1 ea PO BID ropinirole 1 mg Tablet 1 mg PO BID tamsulosin 0.4 mg Capsule 0.4 mg PO QHS ipratropium-albuterol 0.5 mg-3 mg(2.5 mg base)/3 mL solution for nebulization 3 ml inhalation 4X/DAY Label Comments: inhale contents of 1 vial ( 3 milliliters ) in nebulizer by mouth... (REFER TO PRESCRIPTION NOTES). budesonide 0.25 mg/2 mL suspension for nebulization 0.25 mg inhalation BID Label Comments: inhale contents of 1 vial in nebulizer twice a day WITH PERFOROMIST ergocalciferol (vitamin D2) 1,250 mcg (50,000 unit) Capsule 1,250 mcg PO MO pantoprazole [Protonix] 40 mg tablet,delayed release (DR/EC) 40 mg PO DAILY Qty: 30 0RF metoprolol tartrate 25 mg tablet 12.5 mg PO BID ferrous sulfate 324 mg (65 mg iron) tablet,delayed release (DR/EC) 324 mg PO DAILY acetaminophen 500 mg Tablet 500 mg PO BID Other Ambulatory Orders: Venous Duplex US, Unilateral (Routine) Facility: [facility] - Location: [facility] Ordered By: Dr. Vishal Padilla Primary Care Provider: Silvino Jaime Referrals: Silvino Jaime MD [Primary Care Provider] - 3-5 Days Activity Restrictions/Additional Instructions: Labs are stable. Take antibiotic as prescribed. Continue your Eliquis twice a day. Return for ultrasound tomorrow of the left lower extremity. Disposition Disposition: Home, Self Care Discharge Date/Time: 04/30/22 22:18
[2022-04-30 21:05] LABS: Absolute Lymphocyte Count 1.12 X10^3/uL (0.83-4.51); Absolute Neutrophil Count 5.3 X10^3/uL (2.0-7.7); Basophil# 0.04 X10^3/uL; Basophil% 0.6 % (0-1); Eosinophil# 0.17 X10^3/uL; Eosinophils% 2.4 % (0-5); Hematocrit 45.1 % (40-54); Hemoglobin 14.6 g/dL (13.0-16.5); Lymphocyte # 1.12 X10^3/ul (0.83-4.51); Lymphocyte % 15.6 % (19-41); Mean Corp Hgb Conc 32.4 g/dL (32-36); Mean Corpuscular Hgb 33.3 pg (27.0-32.0); Mean Corpuscular Volume 102.7 fL (80-94); Mean Platelet Vol. 9.5 fl (6.2-12.0); Monocyte# 0.59 X10^3/uL; Monocyte% 8.2 % (0-10); NRBC Flagged by Analyzer 0 % (0-5); Neutrophil # 5.25 X10^3/uL (2.7-7.7); Neutrophil % 72.8 % (47-70); Platelet Count 205 K/mm3 (150-450); RBC Distribution Width CV 15.1 % (11.6-14.6); RBC Distribution Width SD 57.2 fl (35.1-43.9); Red Blood Count 4.39 M/mm3 (4.6-6.2); White Blood Count 7.2 K/mm3 (4.4-11.0)
[2022-04-30 21:19] LABS: Anion Gap 6 (5-15); BUN 18 mg/dL (7-18); Calcium,Total 9.7 mg/dL (8.5-10.1); Chloride 105 mmol/L (98-107); Creatinine, Serum 1.64 mg/dL (0.70-1.30); EST Glomerular Filtration Rate 43 mL/min (>60); Est Glom Filt Rate - Afr Amer 52 mL/min (>60); Estimated Creatinine Clearance 32.47 ml/min; Glucose 105 mg/dL (74-106); Potassium 4.1 mmol/L (3.5-5.1); Sodium Level 137 mmol/L (136-145)
[2022-04-30] MEDS: Cephalexin 250 MG Capsule 500 MG PO (21:59)
[2022-04-30 22:18] VITALS: BP 138/63; PULSE 69; RESP 18; O2SAT 100
== END 2022-04-30 22:18 | disposition home or self-care (01) ==
PROVIDERS: Emergency Provider Emergency Medicine; PCP Family Medicine; Visit Provider Emergency Medicine
DX: L03.116 Cellulitis of left lower limb (principal); J44.9 Chronic obstructive pulmonary disease, unspecified; N18.30 Chronic kidney disease, stage 3 unspecified; M79.89 Other specified soft tissue disorders; I12.9 Hypertensive chronic kidney disease with stage 1 through stage 4 chronic kidney disease, or unspecified chronic kidney disease; Z87.891 Personal history of nicotine dependence; R73.03 Prediabetes
CPT/HCPCS: 80048; 85025; 99284; A4216

== ENCOUNTER → 2022-05-01 | Outpatient (CLI) | payer MEDICARE, SELFPAY ==
--- NOTE | 2022-05-01 09:41 | VDLE_ITS ---
Reason For Study: swelling Procedure LEFT This is a venous duplex using B-mode, color GSV is normal. flow and spectral Doppler. CFV is compressible, spontaneous, phasic, Exam performed in department. competent, and demonstrates normal The exam was abbreviated due to the COVID 19 augmentation. protocol. FV is compressible, spontaneous, phasic, The exam was diagnostic. competent and demonstrates normal augmentation. POP V is compressible, spontaneous, phasic, competent and demonstrates normal augmentation. T/P Trunk is compressible. PTV is compressible. LT PerV is compressible. VL/Venous Duplex US, Unilateral Interpretation Summary There is no evidence of left lower extremity deep vein thrombosis. Left great s aphenous vein appears patent and compressible segmentally. Abbreviated COVID-19 protocol utilized Ordering Physician: Vishal Padilla Performed By: Luis Manuel Santo RVT
== END | disposition home or self-care (01) ==
LOC: CVS 09:40
PROVIDERS: PCP Family Medicine; Referring Provider Emergency Medicine; Visit Provider Emergency Medicine
DX: M79.89 Other specified soft tissue disorders (principal)
CPT/HCPCS: 93971

== ENCOUNTER → 2022-05-11 | Outpatient (CLI) | payer MEDICARE, SELFPAY ==
--- NOTE | 2022-05-11 12:37 | VDLE_ITS ---
Reason For Study: Swelling Procedure LEFT This is a venous duplex using B-mode, color GSV is normal. flow and spectral Doppler. CFV is compressible, spontaneous, phasic, Exam performed in department. competent, and demonstrates normal A preliminary report was called and/or faxed augmentation. to [facility]. FV is compressible, spontaneous, phasic, competent and demonstrates normal augmentation. POP V is compressible, spontaneous, phasic, competent and demonstrates normal augmentation. T/P Trunk is compressible. PTV is compressible. LT PerV is compressible. VL/Venous Duplex US, Unilateral Interpretation Summary There is no evidence of left lower extremity deep vein thrombosis. Left great s aphenous vein appears patent and compressible segmentally. Ordering Physician: Silvino Jaiem Referring Physician: Silvino Jaime Performed By: Paola Dooley RVT
== END | disposition home or self-care (01) ==
LOC: CVS 12:36
PROVIDERS: PCP Family Medicine; Referring Provider Family Medicine; Visit Provider Family Medicine
DX: M79.89 Other specified soft tissue disorders (principal)
CPT/HCPCS: 93971

== ENCOUNTER 2022-05-16 15:47 | Emergency (ER) | payer MEDICARE, SELFPAY ==
[2022-05-16 15:48] VITALS: BP 97/77; PULSE 94; RESP 20; TEMP 36.6; O2SAT 90; BMI 37.4
--- NOTE | 2022-05-16 16:09 | EDS_ITS ---
HPI History of Present Illness Chief Complaint: Cellulitis Informant: patient Onset/Context/Timing Onset: Weeks (2) Context: Gradual Onset Timing: Continuous Quality: Burning Location: Left lower leg Worsened by: Palpation Relieved by: Nothing Narrative Narrative: Patient presents with cellulitis to his left lower leg that began 2 weeks ago. Patient has been on antibiotics for this. Patient followed up with his primary care physician today who referred him to the emergency department for further evaluation. Patient denies any fevers but admits to some subjective chills. Patient admits to some increased swelling in his left leg. Patient has had 2 outpatient ultrasounds of his left lower leg in the past 2 weeks which were both negative for DVT. Patient does admit to some shortness of breath and cough. Patient also admits to some rhinorrhea. Patient states his pain is burning and is worse whenever he touches the area. Patient denies any paresthesias or weakness. Patient denies any discharge or drainage. [facility] Medical History Acute blood loss anemia Ambulates with cane Atrial fibrillation Cardiology follow-up encounter Carotid arterial disease Chronic kidney disease COPD (chronic obstructive pulmonary disease) CPAP (continuous positive airway pressure) dependence Deep vein thrombosis, lower left extremity DLBCL (diffuse large B cell lymphoma) Excessive bleeding Eye disease Former smoker Gastric reflux Hearing loss, right History of GI bleed Hypertension Iron deficiency anemia due to chronic blood loss Kidney disease Non-Hodgkin lymphoma SBO (small bowel obstruction) Shortness of breath on exertion Wears dentures Wears glasses Home Medications albuterol sulfate 90 mcg/actuation aerosol inhaler (ProAir HFA) 1 puff inhalation Q4H PRN Congestion 01/19/16 [History Last Taken 03/22/21] magnesium oxide 400 mg (241.3 mg magnesium) tablet 400 mg PO BID supplement 01/19/16 [History Last Taken 03/23/21] nitroglycerin 0.4 mg sublingual tablet 0.4 mg sublingual Q5M PRN Chest Pain 01/19/16 [History Last Taken Unknown] B-complex with vitamin C 1 ea PO BID supplement 06/22/16 [History Last Taken 03/23/21] pravastatin 40 mg tablet 40 mg PO QHS cholesterol 06/22/16 [History Last Taken 03/22/21] ropinirole 1 mg tablet 1 mg PO BID restless leg 03/14/21 [History Last Taken 03/23/21] tamsulosin 0.4 mg capsule 0.4 mg PO QHS prostate 03/14/21 [History Last Taken 03/22/21] budesonide 0.25 mg/2 mL suspension for nebulization 0.25 mg inhalation BID 03/23/21 [History Last Taken 03/23/21] ergocalciferol (vitamin D2) 1,250 mcg (50,000 unit) capsule 1,250 mcg PO MO supplement 03/23/21 [History Last Taken 03/21/21] ipratropium 0.5 mg-albuterol 3 mg (2.5 mg base)/3 mL nebulization soln 3 ml inhalation 4X/DAY 03/23/21 [History Last Taken 03/22/21] pantoprazole 40 mg tablet,delayed release (Protonix) 40 mg PO DAILY #30 tabs 03/25/21 [Rx Last Taken 04/27/21 06:00] ferrous sulfate 324 mg (65 mg iron) tablet,delayed release 324 mg PO DAILY supplement 04/22/21 [History Last Taken Unknown] metoprolol tartrate 25 mg tablet 12.5 mg PO BID blood pressure 04/22/21 [History Last Taken 04/27/21 06:00] acetaminophen 500 mg tablet 500 mg PO BID 05/13/21 [History Last Taken Unknown] apixaban 5 mg tablet (Eliquis) 5 mg PO BID 08/18/21 [History Last Taken Unknown] gabapentin 300 mg capsule (Neurontin) 300 mg PO DAILY 08/18/21 [History Last Taken Unknown] ascorbic acid (vitamin C) 500 mg tablet 500 mg PO BID 11/16/21 [History Last Taken Unknown] coenzyme Q10 50 mg capsule 50 mg PO TID 11/16/21 [History Last Taken Unknown] furosemide 40 mg tablet 40 mg PO DAILY PRN edema 11/16/21 [History Last Taken Unknown] albuterol sulfate 90 mcg/actuation aerosol inhaler (Ventolin HFA) 2 puff inhalation Q6H PRN SOB 03/22/22 [History Last Taken Unknown] amlodipine 5 mg tablet 5 mg PO DAILY 03/22/22 [History Last Taken Unknown] cetirizine 10 mg tablet (Zyrtec) 10 mg PO DAILY PRN Allergy Symptoms 03/22/22 [History Last Taken Unknown] cephalexin 500 mg capsule 500 mg PO Q6 #40 caps 04/30/22 [Rx Last Taken Unknown] clindamycin HCl 300 mg capsule (Cleocin HCl) 300 mg PO Q6H #40 CAPSULES 05/16/22 [Rx Last Taken Unknown] Allergy/AdvReac Type Severity Reaction Status Date / Time iodine Allergy Severe Anaphylaxis Verified 05/16/22 15:51 morphine Allergy Severe Other Verified 05/16/22 15:51 oxycodone HCl [From Percocet] AdvReac rash Verified 05/16/22 15:51 Family History Father CVA (cerebral vascular accident) Hypertension Heart disease Surgical History H/O aortic valve replacement with porcine valve History of aortic valve repair History of appendectomy History of cataract surgery History of colonoscopy (~04/2020) History of colonoscopy (~07/2020) History of colonoscopy (~03/2021) Social History Smoking Status: Former smoker Tobacco: How many years used: 25 second hand exposure: No alcohol intake: never substance use type: does not use seatbelt use: always do you feel safe at home: Yes ROS ROS ED Constitutional Constitutional ED: Reports chills and subjective; Denies fever(s) Eyes Eyes: Denies blurry vision or change in vision ENT ENT ED: Reports rhinorrhea; Denies sore throat Cardiovascular Cardiovascular: Denies chest pain or palpitations Respiratory/Chest Respiratory/Chest: Reports cough and dyspnea Gastrointestinal Gastrointestinal: Denies nausea or vomiting Genitourinary Genitourinary ED: Denies dysuria or hematuria Musculoskeletal Musculoskeletal: Reports neck pain; Denies back pain Integumentary Denies abscess or rash Neurologic Neurologic: Denies headache(s) or weakness Allergic/Immunologic Allergic/Immunologic ED: Denies mouth swelling or urticaria EXAM Physical Exam Const Vital Signs: 05/16/22 15:48 05/16/22 15:59 05/16/22 17:04 Temperature 97.8 F Temperature Source Temporal Pulse Rate 94 78 Respiratory Rate 20 H 15 Respiratory Effort Normal Respiratory Pattern Normal Blood Pressure 97/77 156/111 H Blood Pressure Mean 83 126 Pulse Ox 90 98 Oxygen Delivery Method Room Air Room Air 05/16/22 17:44 05/16/22 19:02 Temperature Temperature Source Pulse Rate 65 Respiratory Rate 18 Respiratory Effort Respiratory Pattern Blood Pressure 130/79 H Blood Pressure Mean 96 Pulse Ox 94 Oxygen Delivery Method Positive well nourished and well developed General Appearance ED: well developed and NAD HEENT Reports moist mucous membranes Neck supple and no JVD Resp normal respiratory effort and clear to auscultation bilaterally Cardio regular rate, regular rhythm and no murmurs GI normal to inspection, nondistended, normoactive bowel sounds and non-tender Palpation: soft Extremity General Extremety ED: Yes edema and tenderness General Extremity: edema left Neuro oriented x3, CN's II-XII intact bilaterally and no sensory deficits noted Sensorium / Orientation: alert Motor Exam: strength 5/5 throughout Psych mental status grossly normal Skin Skin Narrative: There is erythema and warmth over the anterior lateral aspect of the left lower leg. There is no fluctuance. There is no discharge or drainage. There is 1+ pitting edema of the left lower leg. Posterior tibial pulses are equal bilaterally. Sensation was intact to light touch bilaterally in the lower extremities. Strength is 5/5 bilaterally in the lower extremities. MDM MDM MDM Narrative Medical decision making narrative: Patient was given a dose of Unasyn and clindamycin here. CBC showed mild anemia with a hemoglobin of 12.6 and hematocrit 38.4. Comprehensive metabolic profile shows a BUN of 29 and creatinine 1.67. These are consistent with prior results. Lactate was normal at 2.0. BNP was 312.9. On reevaluation, patient states he got up to go to the bathroom and started having some shortness of breath with this. Patient was given a DuoNeb aerosol here. Portable 1 view chest x-ray was obtained. On my interpretation, lung beth are clear. There is normal cardiac silhouette. Bony thorax is normal. There is no acute process noted. Radiologist also interpreted the x-ray and agrees. Patient is feeling better on reevaluation. Patient states he has rescue inhalers at home. Patient was instructed to use these as needed. Case was discussed with Dr. Florentino who is covering for Dr. Jaime. He agrees with increasing the coverage to cover for MRSA with clindamycin. Patient was instructed to follow-up with Dr. Jaime in 2 days. Patient and family understand and are agreeable with the plan. All questions were answered. Lab Data Attestation: I reviewed the patient's lab results. Labs: Laboratory Results - last 24 hr 05/16/22 05/16/22 05/16/22 16:31 16:31 16:31 WBC 7.8 RBC 3.73 L Hgb 12.6 L Hct 38.4 L MCV 102.9 H MCH 33.8 H MCHC 32.8 RDW Std Deviation 59.7 H RDW Coeff of Danial 15.7 H Plt Count 180 MPV 9.5 Immature Gran % (Auto) 0.400 Neut % (Auto) 80.6 H Lymph % (Auto) 10.6 L [place] % (Auto) 6.7 Eos % (Auto) 1.2 Baso % (Auto) 0.5 Absolute Neuts (auto) 6.3 Absolute Lymphs (auto) 0.82 L Nucleated RBC % 0 Sodium 139 Potassium 4.1 Chloride 110 H Carbon Dioxide 24.0 Anion Gap 5 BUN 29 H Creatinine 1.67 H Estim Creat Clear Calc 31.88 Est GFR (MDRD) Af Amer 51 L Est GFR (MDRD) Non-Af 42 L BUN/Creatinine Ratio 17.4 Glucose 162 H Lactic Acid 2.0 Calcium 8.7 Total Bilirubin 1.10 H AST 23 ALT 34 Alkaline Phosphatase 78 B-Natriuretic Peptide Total Protein 7.0 Albumin 3.0 L Globulin 4.0 Albumin/Globulin Ratio 0.8 L 05/16/22 16:31 WBC RBC Hgb Hct MCV MCH MCHC RDW Std Deviation RDW Coeff of Danial Plt Count MPV Immature Gran % (Auto) Neut % (Auto) Lymph % (Auto) [place] % (Auto) Eos % (Auto) Baso % (Auto) Absolute Neuts (auto) Absolute Lymphs (auto) Nucleated RBC % Sodium Potassium Chloride Carbon Dioxide Anion Gap BUN Creatinine Estim Creat Clear Calc Est GFR (MDRD) Af Amer Est GFR (MDRD) Non-Af BUN/Creatinine Ratio Glucose Lactic Acid Calcium Total Bilirubin AST ALT Alkaline Phosphatase B-Natriuretic Peptide 312.9 H Total Protein Albumin Globulin Albumin/Globulin Ratio Radiography Chest X-Ray - ED: 1 View, Read by ED Physician, Read by Radiologist and No Acute Disease Diagnostic Testing: Clinical Impression(s) from Imaging Studies Chest X-Ray 05/16/22 18:00 IMPRESSION: No radiographic evidence of acute cardiopulmonary disease. Findings compatible with chronic obstructive pulmonary disease. Sternotomy changes. Electronically Signed: Yusuf Ponce MD at 18:32 EDT , Discharge Plan Triage Chief Complaint: Cellulitis Other Complaint: Edema ED Provider: Silvino Torrez Dx/Rx/DC Orders Clinical Impression: Cellulitis of left lower leg Instructions: ED Cellulitis Prescriptions: New clindamycin HCl [Cleocin HCl] 300 mg capsule 300 mg PO Q6H Qty: 40 0RF No Action gabapentin [Neurontin] 300 mg capsule 300 mg PO DAILY Eliquis 5 mg tablet 5 mg PO BID coenzyme Q10 50 mg capsule 50 mg PO TID ascorbic acid (vitamin C) 500 mg tablet 500 mg PO BID furosemide 40 mg tablet 40 mg PO DAILY PRN (Reason: edema) amlodipine 5 mg tablet 5 mg PO DAILY cetirizine [Zyrtec] 10 mg tablet 10 mg PO DAILY PRN (Reason: Allergy Symptoms) albuterol sulfate [Ventolin HFA] 90 mcg/actuation HFA aerosol inhaler 2 puff inhalation Q6H PRN (Reason: SOB) magnesium oxide 400 MG tablet 400 mg PO BID Label Comments: SUPPLEMENT nitroglycerin 0.4 MG tablet 0.4 mg sublingual Q5M PRN (Reason: Chest Pain) Label Comments: chest pain albuterol sulfate [ProAir HFA] 1 PUFF inhaler 1 puff inhalation Q4H PRN (Reason: Congestion) Label Comments: breathing pravastatin 40 MG tablet 40 mg PO QHS B-complex with vitamin C 1 EACH tablet 1 ea PO BID ropinirole 1 mg Tablet 1 mg PO BID tamsulosin 0.4 mg Capsule 0.4 mg PO QHS ipratropium-albuterol 0.5 mg-3 mg(2.5 mg base)/3 mL solution for nebulization 3 ml inhalation 4X/DAY Label Comments: inhale contents of 1 vial ( 3 milliliters ) in nebulizer by mouth... (REFER TO PRESCRIPTION NOTES). budesonide 0.25 mg/2 mL suspension for nebulization 0.25 mg inhalation BID Label Comments: inhale contents of 1 vial in nebulizer twice a day WITH PERFOROMIST ergocalciferol (vitamin D2) 1,250 mcg (50,000 unit) Capsule 1,250 mcg PO MO pantoprazole [Protonix] 40 mg tablet,delayed release (DR/EC) 40 mg PO DAILY Qty: 30 0RF metoprolol tartrate 25 mg tablet 12.5 mg PO BID ferrous sulfate 324 mg (65 mg iron) tablet,delayed release (DR/EC) 324 mg PO DAILY acetaminophen 500 mg Tablet 500 mg PO BID cephalexin [cephalexin] 500 mg capsule 500 mg PO Q6 Qty: 40 0RF Primary Care Provider: Silvino Jaime Referrals: Silvino Jaime MD [Primary Care Provider] - 2 Days Disposition Disposition: Home, Self Care
[2022-05-16 16:45] LABS: Absolute Lymphocyte Count 0.82 X10^3/uL (0.83-4.51); Absolute Neutrophil Count 6.3 X10^3/uL (2.0-7.7); Basophil# 0.04 X10^3/uL; Basophil% 0.5 % (0-1); Eosinophil# 0.09 X10^3/uL; Eosinophils% 1.2 % (0-5); Hematocrit 38.4 % (40-54); Hemoglobin 12.6 g/dL (13.0-16.5); Lymphocyte # 0.82 X10^3/ul (0.83-4.51); Lymphocyte % 10.6 % (19-41); Mean Corp Hgb Conc 32.8 g/dL (32-36); Mean Corpuscular Hgb 33.8 pg (27.0-32.0); Mean Corpuscular Volume 102.9 fL (80-94); Mean Platelet Vol. 9.5 fl (6.2-12.0); Monocyte# 0.52 X10^3/uL; Monocyte% 6.7 % (0-10); NRBC Flagged by Analyzer 0 % (0-5); Neutrophil # 6.25 X10^3/uL (2.7-7.7); Neutrophil % 80.6 % (47-70); Platelet Count 180 K/mm3 (150-450); RBC Distribution Width CV 15.7 % (11.6-14.6); RBC Distribution Width SD 59.7 fl (35.1-43.9); Red Blood Count 3.73 M/mm3 (4.6-6.2); White Blood Count 7.8 K/mm3 (4.4-11.0)
[2022-05-16 17:00] LABS: ALB/GLOB Ratio 0.8 RATIO (0.9-2.4); AST(SGOT) 23 U/L (15-37); Alanine Aminotransfer ALT/SGPT 34 U/L (16-61); Alkaline Phosphatase 78 U/L (45-117); Anion Gap 5 (5-15); BUN 29 mg/dL (7-18); BUN/Creat Ratio 17.4 RATIO (10-20); Calcium,Total 8.7 mg/dL (8.5-10.1); Chloride 110 mmol/L (98-107); Creatinine, Serum 1.67 mg/dL (0.70-1.30); EST Glomerular Filtration Rate 42 mL/min (>60); Est Glom Filt Rate - Afr Amer 51 mL/min (>60); Estimated Creatinine Clearance 31.88 ml/min; Glucose 162 mg/dL (74-106); Potassium 4.1 mmol/L (3.5-5.1); Sodium Level 139 mmol/L (136-145)
[2022-05-16 17:04] VITALS: BP 156/111; PULSE 78; RESP 15; O2SAT 98
[2022-05-16 17:44] VITALS: PULSE 65; RESP 18
[2022-05-16] MEDS: Ipratropium/Albuterol Sulfate 3 ML AMPUL.NEB INHALATION (17:44)
--- NOTE | 2022-05-16 18:00 | RAD_ITS ---
INDICATION: Dyspnea EXAMINATION/TECHNIQUE: X-RAY - XR Chest 1 View COMPARISON: March 23, 2021. FINDINGS: LINES/DEVICES: None. LUNGS: Lungs mildly hyperexpanded. Chronic diffuse interstitial coarsening. No consolidation, edema or effusion. No pneumothorax. MEDIASTINUM AND CARDIOVASCULAR STRUCTURES: Cardiac silhouette not enlarged. Aortic atherosclerosis. BONES AND SOFT TISSUES: Unremarkable. Sternotomy wires are midline and intact. RAD/Chest 1 View (Portable) IMPRESSION: No radiographic evidence of acute cardiopulmonary disease. Findings compatible with chronic obstructive pulmonary disease. Sternotomy changes. Electronically Signed: Yusuf Ponce MD at 18:32 EDT ,
[2022-05-16] MEDS: Clindamycin 600 MG/50 ML BAG 100 MG IV (18:57)
[2022-05-16 19:02] VITALS: BP 130/79; O2SAT 94
[2022-05-16 19:20] LABS: BNP,B-Type NATRIURETIC PEPTIDE 312.9 pg/mL (0-100)
[2022-05-16 20:07] VITALS: PULSE 72; RESP 15; O2SAT 96
[2022-05-16 20:36] LABS: Reflex Lactate? Y
== END 2022-05-16 20:07 | disposition home or self-care (01) ==
PROVIDERS: Emergency Provider Emergency Medicine; PCP Family Medicine; Visit Provider Emergency Medicine
DX: L03.116 Cellulitis of left lower limb (principal); J44.9 Chronic obstructive pulmonary disease, unspecified; I12.9 Hypertensive chronic kidney disease with stage 1 through stage 4 chronic kidney disease, or unspecified chronic kidney disease; Z87.891 Personal history of nicotine dependence; N18.9 Chronic kidney disease, unspecified; D64.9 Anemia, unspecified; R06.02 Shortness of breath; R05.9 Cough, unspecified
CPT/HCPCS: 36415; 71045; 80053; 83605; 83880; 85025; 86140; 87040; 99283; J7030; A4216; J0295

== ENCOUNTER → 2022-05-25 | Outpatient (CLI) | payer MEDICARE, SELFPAY ==
[2022-05-25 17:52] LABS: Absolute Lymphocyte Count 1.03 X10^3/uL (0.83-4.51); Absolute Neutrophil Count 4.9 X10^3/uL (2.0-7.7); Basophil# 0.02 X10^3/uL; Basophil% 0.3 % (0-1); Eosinophil# 0.11 X10^3/uL; Eosinophils% 1.7 % (0-5); Hematocrit 40.2 % (40-54); Hemoglobin 13.1 g/dL (13.0-16.5); Lymphocyte # 1.03 X10^3/ul (0.83-4.51); Lymphocyte % 15.9 % (19-41); Mean Corp Hgb Conc 32.6 g/dL (32-36); Mean Corpuscular Hgb 33.5 pg (27.0-32.0); Mean Corpuscular Volume 102.8 fL (80-94); Mean Platelet Vol. 9.3 fl (6.2-12.0); Monocyte# 0.44 X10^3/uL; Monocyte% 6.8 % (0-10); NRBC Flagged by Analyzer 0 % (0-5); Neutrophil # 4.87 X10^3/uL (2.7-7.7); Neutrophil % 75.1 % (47-70); Platelet Count 245 K/mm3 (150-450); RBC Distribution Width CV 15.7 % (11.6-14.6); RBC Distribution Width SD 60.3 fl (35.1-43.9); Red Blood Count 3.91 M/mm3 (4.6-6.2); White Blood Count 6.5 K/mm3 (4.4-11.0)
[2022-05-25 18:19] LABS: ALB/GLOB Ratio 0.8 RATIO (0.9-2.4); AST(SGOT) 28 U/L (15-37); Alanine Aminotransfer ALT/SGPT 37 U/L (16-61); Albumin, Serum 3.6 g/dL (3.2-5.0); Alkaline Phosphatase 86 U/L (45-117); Anion Gap 7 (5-15); BUN 29 mg/dL (7-18); BUN/Creat Ratio 13.4 RATIO (10-20); Calcium,Total 9.5 mg/dL (8.5-10.1); Chloride 106 mmol/L (98-107); Creatinine, Serum 2.17 mg/dL (0.70-1.30); EST Glomerular Filtration Rate 31 mL/min (>60); Est Glom Filt Rate - Afr Amer 38 mL/min (>60); Ferritin 205 ng/mL (26-388); Globulin 4.6 g/dL (2.2-4.2); Glucose 102 mg/dL (74-106); Potassium 5.4 mmol/L (3.5-5.1); Protein, Total 8.2 g/dL (6.4-8.2); Sodium Level 134 mmol/L (136-145)
== END | disposition home or self-care (01) ==
LOC: MFPLAB 14:43
PROVIDERS: PCP Family Medicine; Referring Provider Family Medicine; Visit Provider Family Medicine
DX: R19.5 Other fecal abnormalities (principal)
CPT/HCPCS: 36415; 80053; 82728; 85025

== ENCOUNTER → 2022-06-29 | Outpatient (CLI) | payer MEDICARE, SELFPAY ==
[2022-06-29 18:31] LABS: Anion Gap 9 (5-15); BUN 24 mg/dL (7-18); BUN/Creat Ratio 14.1 RATIO (10-20); Calcium,Total 9.3 mg/dL (8.5-10.1); Chloride 102 mmol/L (98-107); EST Glomerular Filtration Rate 41 mL/min (>60); Est Glom Filt Rate - Afr Amer 50 mL/min (>60); Glucose 108 mg/dL (74-106); Potassium 4.3 mmol/L (3.5-5.1); Sodium Level 136 mmol/L (136-145)
== END | disposition home or self-care (01) ==
PROVIDERS: PCP Family Medicine; Referring Provider Family Medicine; Visit Provider Family Medicine
DX: M79.89 Other specified soft tissue disorders (principal)
CPT/HCPCS: 36415; 80048

== ENCOUNTER → 2022-07-17 | Outpatient (CLI) | payer MEDICARE, SELFPAY ==
[2022-07-17 10:27] LABS: PTHIN 55.9 pg/mL (18.4-80.1)
[2022-07-17 10:30] LABS: Vitamin D,25 Hydroxy 54.7 ng/mL
[2022-07-17 10:35] LABS: Albumin, Serum 3.3 g/dL (3.2-5.0); BUN 37 mg/dL (7-18); BUN/Creat Ratio 23.1 RATIO (10-20); Calcium,Total 9.4 mg/dL (8.5-10.1); Chloride 104 mmol/L (98-107); EST Glomerular Filtration Rate 44 mL/min (>60); Est Glom Filt Rate - Afr Amer 53 mL/min (>60); Glucose 211 mg/dL (74-106); Phosphorus 2.7 mg/dL (2.5-4.9); Potassium 3.9 mmol/L (3.5-5.1); Sodium Level 136 mmol/L (136-145)
== END | disposition home or self-care (01) ==
LOC: MTLAB 07:01
PROVIDERS: PCP Family Medicine; Referring Provider Internal Medicine Nephrology; Visit Provider Internal Medicine Nephrology
DX: N18.31 Chronic kidney disease, stage 3a (principal); E56.9 Vitamin deficiency, unspecified
CPT/HCPCS: 36415; 80069; 82306; 83970

== ENCOUNTER → 2022-08-26 | Outpatient (CLI) | payer MEDICARE, SELFPAY ==
--- NOTE | 2022-08-26 08:17 | CT_ITS ---
STUDY: CT ABDOMEN AND PELVIS WITHOUT CONTRAST REASON FOR EXAM: Male, 82 years old. Persistent left greater than right LE swelling in patient on anticoagulation and neg RADIATION DOSAGE (If Supplied By Facility): CTDIvol = ( 17.70 ) mGy, DLP = ( 853.53 ) mGycm TECHNIQUE: Transaxial images were obtained from the dome of the diaphragm to the symphysis pubis without oral contrast, and without intravenous contrast. Sagittal and coronal images were reconstructed. Individualized dose optimization techniques were used for this CT. COMPARISON: 03/16/2021 FINDINGS: The visualized lung bases are unremarkable. There are coronary artery calcifications. The lack of intravenous contrast limits evaluation of solid visceral organs. The liver has a cirrhotic morphology. Normal gallbladder and extrahepatic biliary system. Normal spleen. Normal pancreas. Normal bilateral adrenal glands. Normal right kidney. Normal left kidney. Normal visualized stomach. Normal small intestine. There are multiple colonic diverticula consistent with diverticulosis. There is non-visualization of the appendix. There is diffuse atherosclerotic calcification of the abdominal aorta, without a demonstrated aneurysm. Normal inferior vena cava. Normal retroperitoneum. There is a bladder diverticulum right of midline.. There is enlargement of the prostate gland. Normal abdominal wall. There are diffuse degenerative changes of the visualized lumbar spine. CT/Abdomen/Pelvis without Cont IMPRESSION: Cirrhotic appearing liver. Atherosclerosis. Enlarged prostate gland. Bladder diverticulum. Electronically Signed: Mirella Ellis MD at 8:55 EDT ,
== END | disposition home or self-care (01) ==
LOC: CT 08:14
PROVIDERS: PCP Family Medicine; Referring Provider Family Medicine; Visit Provider Family Medicine
DX: M79.89 Other specified soft tissue disorders (principal)
CPT/HCPCS: 74176

== ENCOUNTER 2022-09-04 06:07 | Day surgery (SDC) | payer MEDICARE, SELFPAY ==
[2022-09-04] VITALS (10 sets, daily range): BP systolic 95–134; BP diastolic 51–65; PULSE 65–76; RESP 16–18; TEMP 36.2–36.7; O2SAT 84–95; BMI 36.0
--- NOTE | 2022-09-04 | COLBX_PTH ---
PATIENT: CHARLES DODSON LOC: EN U#:[id number] AGE/SX: 82/M ROOM: RE09/04/[address]: Dr. Natalia Sun MD : [id number] BED: DIS: 09/04/2022 SPEC #: [id number] RECD: 09/04/22 13:00 STATUS: KELLY THEODORE #: [id number] DANY: 09/04/22 00:[address]: Natalia Sun DEPT: SURGICAL PATHOLOGY RECD BY: Jose Arndt ENTERED: 09/04/22 13:01 SP TYPE: COLON BX OTHR DR: Dr. Silvino Jaime MD Tissues: A - Cecum, NOS B - Ascending colon C - Transverse colon D - Descending colon E - Sigmoid colon biopsy Procedures: Surgery Specimen Level IV HEADER OPERATION: Colonoscopy with polypectomy and gold probe cautery (MAC) PRE-OP DIAGNOSIS: History of colonic polyps, deep vein thrombosis lower left extremity TISSUE SUBMITTED: A ? Cecum polyp biopsy, B ? Ascending polyp, C ? Transverse polyp biopsy x3 D ? Descending colon polyp x4, E ? Sigmoid polyp MICROSCOPIC DIAGNOSIS A. Cecal polyp, biopsy: Tubular adenoma. B. Ascending colon polyp, biopsy: Tubular adenoma. C. Transverse colon polyp, biopsy: Fragments of tubular adenoma. D. Descending colon polyps, biopsy: Fragments of tubular adenoma. E. Sigmoid colon polyp, biopsy: Tubular adenoma. AM:oracio 09/05/2022 MICROSCOPIC DESCRIPTION Slides are reviewed. GROSS DESCRIPTION A - Received in fixative is one container labeled with the patient's name and designated cecal polyp. The specimen consists of one irregular fragment of light morfin soft tissue that measures 0.2 x 0.2 x 0.1 cm. The specimen is totally submitted in one cassette. B - Received in fixative is one container labeled with the patient's name and designated ascending polyp. The specimen consists of multiple chalky white-yellow material that in aggregate measure 3 x 0.6 x 0.1 cm. The specimen is totally submitted in one cassette. C - Received in fixative is one container labeled with the patient's name and designated transverse colon polyp. The specimen consists of multiple irregular fragments of light morfin soft tissue that in aggregate measure 1 x 0.5 x 0.1 cm. The specimen is totally submitted in one cassette. D - Received in fixative is one container labeled with the patient's name and designated descending colon polyp. The specimen consists of multiple irregular fragments of light morfin soft tissue that in aggregate measure 1 x 0.5 x 0.1 cm. The specimen is totally submitted in one cassette. E - Received in fixative is one container labeled with the patient's name and designated sigmoid polyp. The specimen consists of one irregular fragment of light morfin soft tissue that measures 0.5 x 0.3 x 0.1 cm. The specimen is totally submitted in one cassette. / AM:oracio 09/04/2022 TC:5 CPT: 97941 x5
[2022-09-04] MEDS: Lactated Ringers 1,000 ML 15 ML IV (06:48)
--- NOTE | 2022-09-04 07:25 | HP.PCM_ITS ---
HPI - General HPI Narrative CHARLES DODSON, is a 82 M who presents for screening colonoscopy due to history of colon polyps. Patient's last colonoscopy in 2020 he did have 11 tubular adenomas. Patient denies any chronic abdominal pain/nausea/vomiting/reflux. Patient was able to come off his Eliquis for her that 3 days. Patient denies any recent bleeding. However patient did have increased left leg edema and pain was found to have a distal left lower extremity DVT in May 2021 patient was on Xarelto at that time currently now on Eliquis from 03/22/22 office visit HPI HPI: CHARLES DODSON, is a 81 M who presents to the office today for colonoscopy.? Patient states he was having diarrhea for about 4 weeks and was taking Imodium at that time.? However patient states the diarrhea stopped about a week ago and he is no longer taking the Imodium.? Patient did have stool studies by his PCP which are negative for enteric pathogens or C. difficile.? Patient's last colonoscopy was in April 2021 patient had about 11 tubular adenomas at that time his previous colonoscopy prior to that was in 2019 where he had a high-grade dysplasia and an adenoma however that area was cleaned with no polyps during the last colonoscopy.? Patient currently denies any abdominal pain/nausea/vomiting/reflux.? Patient is on Eliquis. [facility] Medical History (Updated 08/30/22 @ 14:01 by Marielena Alexandra) Acute blood loss anemia Ambulates with cane Atrial fibrillation Cardiology follow-up encounter Carotid arterial disease Chronic kidney disease COPD (chronic obstructive pulmonary disease) CPAP (continuous positive airway pressure) dependence Deep vein thrombosis, lower left extremity DLBCL (diffuse large B cell lymphoma) DVT (deep venous thrombosis) Excessive bleeding Eye disease Former smoker Gastric reflux Gout Hearing loss, right History of echocardiogram History of GI bleed History of stress test Hypertension Iron deficiency anemia due to chronic blood loss Kidney disease Leg cramps Non-Hodgkin lymphoma Restless legs SBO (small bowel obstruction) Shortness of breath on exertion Sleep apnea Wears dentures Wears glasses Home Medications nitroglycerin 0.4 mg sublingual tablet 0.4 mg sublingual Q5M PRN Chest Pain 01/19/16 [History Last Taken Unknown] B-complex with vitamin C 1 ea PO BID supplement 06/22/16 [History Last Taken 03/23/21] pravastatin 40 mg tablet 40 mg PO QHS cholesterol 06/22/16 [History Last Taken 03/22/21] ropinirole 1 mg tablet 1 mg PO TID restless leg 03/14/21 [History Last Taken 03/23/21] tamsulosin 0.4 mg capsule 0.4 mg PO QHS prostate 03/14/21 [History Last Taken 03/22/21] budesonide 0.25 mg/2 mL suspension for nebulization 0.25 mg inhalation BID 03/23/21 [History Last Taken 03/23/21] ergocalciferol (vitamin D2) 1,250 mcg (50,000 unit) capsule 1,250 mcg PO MO supplement 03/23/21 [History Last Taken 03/21/21] ipratropium 0.5 mg-albuterol 3 mg (2.5 mg base)/3 mL nebulization soln 3 ml inhalation 4X/DAY 03/23/21 [History Last Taken 03/22/21] ferrous sulfate 324 mg (65 mg iron) tablet,delayed release 324 mg PO DAILY supplement 04/22/21 [History Last Taken Unknown] metoprolol tartrate 25 mg tablet 12.5 mg PO BID blood pressure 04/22/21 [History Last Taken 09/04/22 05:45] acetaminophen 500 mg tablet 500 mg PO BID 05/13/21 [History Last Taken Unknown] apixaban 5 mg tablet (Eliquis) 5 mg PO BID 08/18/21 [History Last Taken Unknown] gabapentin 300 mg capsule (Neurontin) 300 mg PO DAILY 08/18/21 [History Last Taken Unknown] ascorbic acid (vitamin C) 500 mg tablet 500 mg PO BID 11/16/21 [History Last Taken Unknown] coenzyme Q10 50 mg capsule 50 mg PO TID 11/16/21 [History Last Taken Unknown] furosemide 40 mg tablet 40 mg PO DAILY 11/16/21 [History Last Taken Unknown] albuterol sulfate 90 mcg/actuation aerosol inhaler (Ventolin HFA) 2 puff inhalation Q6H PRN SOB 03/22/22 [History Last Taken Unknown] amlodipine 5 mg tablet 5 mg PO DAILY 03/22/22 [History Last Taken 09/04/22 05:45] cetirizine 10 mg tablet (Zyrtec) 10 mg PO DAILY PRN Allergy Symptoms 03/22/22 [History Last Taken Unknown] Allergy/AdvReac Type Severity Reaction Status Date / Time iodine Allergy Severe Anaphylaxis Verified 09/04/22 06:37 morphine Allergy Severe Other Verified 09/04/22 06:37 oxycodone HCl [From Percocet] AdvReac rash Verified 09/04/22 06:37 Family History Father CVA (cerebral vascular accident) Hypertension Heart disease Surgical History (Updated 08/30/22 @ 14:01 by Marielena Alexandra) H/O aortic valve replacement with porcine valve History of aortic valve repair History of appendectomy History of cataract surgery History of colonoscopy (~04/2020) History of colonoscopy (~07/2020) History of colonoscopy (~03/2021) History of hernia repair Social History Smoking Status: Former smoker Tobacco: How many years used: 25 second hand exposure: No alcohol intake: never substance use type: does not use seatbelt use: always do you feel safe at home: Yes Past Medical/Surgical History Planned Operation Planned Operative Procedure/s: CSCOPE S.O.S: No Previous Hospitalizations/Surgeries HX Hospitalizations: Yes (02/2022-BLOOD CLOTS) HX of Surgeries: BILAT CATARACT HERNIA REPAIR APPENDECTOMY PIG VALVE HEART 2011 COLONOSCOPY Any Problems With Anesthesia: No You/Your Family Experience Fever (Hyperthermia) With Anes: No Cholinesterase deficiency: No Cardiovascular Hx Chest Pain within Last 2 months: No Hx of Irregular Heartbeat and/or Afib: Yes (A FIB. FOLLOWS WITH DR GREENBERG) Hx Heart Attack: No Hx Congestive Heart Failure: No Hx Rheumatic Fever: No Hx Hypertension: Yes (CONTROLLED WITH MED) Hx Internal Defibrillator: No Hx Pacemaker: No Hx Cardiac Catheterization: Yes What facility was last heart cath performed: - Date of last Heart Cath: - Hx Cardiac Surgery/Stents/Etc.: Yes (PIG VALVE 2010.) Hx Stress Test: Yes (NICHELLE OVER 12 YRS AGO) Hx Pain in Legs when Walking/Leg Cramps: No Respiratory Chronic Cough: No HX of Shortness of Breath: Yes (WITH CLIMBING 2 FLIGHTS OF STAIRS) Hoarseness: No Hx Chronic Obstructive Pulmonary Disease (COPD): Yes Hx Asthma: No Hx Emphysema: No Hx Sleep Apnea: Yes CPAP: Yes BIPAP: No Hx Respiratory Tract Infection/Cold (presently): No Result (for STOP score): Positive Hx Smoking: Yes (QUIT IN THE 'S) Smoking Status: Former smoker Gastrointestinal Hx Gastroesophageal Reflux: No Hx Gastrointestinal Disorders: No (BOWEL OBSTRUCTION 01/2016) Hx Gastrointestinal Bleed: No Hx Ulcer: Yes (IN THE PAST) Hx Hiatal Hernia: No Difficulty Chewing/Swallowing: No Special diet followed at home: No Hx Unplanned Weight Loss of 20#: No HX Unplanned Weight Gain of 20#: No Neurological Hx Seizures: No HX Syncope/Blackout Spells/Unconsciousness: No Hx Transient Ischemic Attacks (TIA): No Hx Multiple Sclerosis: No Hx Parkinson's Disease: No Hx Head/Neck Injury: No Hx Headaches: No Hx Back Injury/Pain: Yes (LOW BACK AT TIMES) Recent Onset of Speech Difficulty: No Restless Legs: Yes (ON REQUIP) Does patient have nerve stimulator: No Blood Disorder Hx Leukemia: No Bleeding Tendencies: No Hx Deep Vein Thrombosis: No Hx High Cholesterol: Yes (ON MEDS) Blood Transmitted Disease: No Hx Hepatitis: No Hx Cirrhosis: No Hx Anemia: No Hx Blood Disorders: No Reproduction : No Genitourinary Hx Renal Disease: No Musculoskeletal Hx Arthritis: No Hx Rheumatoid Arthritis: No Hx Gout: No Recent Onset of an Orthopedic Problem: No Endocrine Hx Diabetes: No Thyroid Disease: No Hx Steroid Therapy: Yes (PREDNISONE EYE DROPS FOR CATARACT SURGERY 1 MONTH AGO) Psycho/Social Hx Substance Use: No Hx Alcohol Use: No Hx Anxiety: No Hx Depression: No Mental Illness: No Hx Dementia: No Miscellaneous Hx Cancer: No Recent Exposure to Contagious Disease: No Hx of C-Diff: No Any Loose Teeth: No (FULL SET OF DENTURES) Allergies iodine Allergy (Severe, Verified 09/04/22 06:37) Anaphylaxis morphine Allergy (Severe, Verified 09/04/22 06:37) Other VIOLENT oxycodone HCl [From Percocet] Adverse Reaction (Verified 09/04/22 06:37) rash Maternal: Family History Father CVA (cerebral vascular accident) Hypertension Heart disease Heart Disease Paternal: Family History Father CVA (cerebral vascular accident) Hypertension Heart disease Hypertension Sibling: Family History Father CVA (cerebral vascular accident) Hypertension Heart disease - (brother with aneurysms,one with alcoholism) Discharge Is Pt Admitted From a Half-Way, or a [facility]ci: No After D/C, Where Do you Plan to Go: Return Home From the PAT History Number of Risk Factors: 2 Vital Signs Vital Signs Vital Signs: 09/04/22 06:39 09/04/22 06:40 Temperature 98.0 F Temperature Source Temporal Pulse Rate 75 Respiratory Rate 18 Respiratory Pattern Normal Blood Pressure 134/64 H Blood Pressure Mean 87 Blood Pressure Source Monitor Blood Pressure Position Semi-Fowlers Blood Pressure Location Right Arm Pulse Ox 95 Oxygen Delivery Method Room Air Weight Weight: 230 lb Body Mass Index (BMI) 36.0 Physical Exam Const alert, oriented x3 and no apparent distress HEENT normocephalic and head/scalp atraumatic Resp normal respiratory effort Cardio regular rate GI soft to palpation and non-tender; Negative for non-distended Palpation: Negative for guarding Extremity no clubbing, cyanosis or edema Neuro CN's II-XII intact bilaterally Psych mental status grossly normal Assessment & Plan Assessment/Plan (1) Hx of colonic polyps: (2) Deep vein thrombosis, lower left extremity: QUALIFIERS: Affected thrombotic vein of extremity: unspecified lower extremity distal vein Chronicity: acute Qualified Code(s): I82.4Z2 - Acute embolism and thrombosis of unspecified deep veins of left distal lower extremity Surgery Risks - Colonoscopy Risks Include but are not Limited To: Risks include but are not limited to: Bleeding, perforation requiring further surgery, inability to complete colonoscopy requiring barium enema. Patient no further question this time.
--- NOTE | 2022-09-04 08:47 | OP.CCLET_ITS ---
09/04/2022 Silvino Jaime [address] [place] [address] Re : Colonoscopy procedure for Augusto Tolbert Dear Dr. Jaime This procedure was performed on Sunday, September 04, 2022. My impressions and recommendations are as follows: Impressions : - Diverticulosis in the sigmoid colon. - Nine 3 to 4 mm polyps in the sigmoid colon, in the descending colon, in the transverse colon and in the cecum, removed with a cold biopsy forceps. Resected and retrieved. - One less than 5 mm polyp in the ascending colon, removed with a cold snare. Resected and retrieved. - Increased mucosa vascular pattern in the ascending colon. Treated with bipolar cautery. Recommendations : - Discharge patient to home. - Resume previous diet. - Continue present medications. - Await pathology results. - Repeat colonoscopy 1-2 years for surveillance based on pathology results. - Resume Eliquis (apixaban) at prior dose tomorrow. My findings are described in the full procedure note, which is enclosed. If I can be of further assistance, please feel free to contact me at Doctor phone number(s): , Work: . Sincerely, MD Natalia Brown MD 09/04/2022 8:46:28 AM This report has been signed electronically.
--- NOTE | 2022-09-04 08:47 | OP.COLON_ITS ---
Patient Name: Augusto Tolbert Procedure Date: 09/04/2022 7:18 AM Date of : 1940 Age: 82 Procedure: Colonoscopy Indications: High risk colon cancer surveillance: Personal history of multiple (3 or more) adenomas Providers: Natalia Sun MD Referring MD: Silvino Jaime Medicines: Monitored Anesthesia Care Patient Profile: This is an 82 year old male. Last Colonoscopy: 1 year ago. Complications: No immediate complications. Procedure: Pre-Anesthesia Assessment: - Prior to the procedure, a History and Physical was performed, and patient medications and allergies were reviewed. The patient's tolerance of previous anesthesia was also reviewed. The risks and benefits of the procedure and the sedation options and risks were discussed with the patient. All questions were answered, and informed consent was obtained. Prior Anticoagulants: The patient has taken Eliquis (apixaban), last dose was 3 days prior to procedure. ASA Grade Assessment: Per anesthesia. After reviewing the risks and benefits, the patient was deemed in satisfactory condition to undergo the procedure. After I obtained informed consent, the scope was passed under direct vision. Throughout the procedure, the patient's blood pressure, pulse, and oxygen saturations were monitored continuously. The colonoscope was introduced through the anus and advanced to the cecum, identified by the appendiceal orifice, ileocecal valve and palpation. The colonoscopy was somewhat difficult. Successful completion of the procedure was aided by applying abdominal pressure. The patient tolerated the procedure well. The quality of the bowel preparation was good. Scope In: 7:35:33 AM Scope Withdrawal Time 0 hours 50 minutes 24 seconds Scope Out: 8:33:56 AM Total Procedure Duration Time 0 hours 58 minutes 23 seconds Findings: The perianal and digital rectal examinations were normal. Multiple small-mouthed diverticula were found in the sigmoid colon. Nine sessile polyps were found in the sigmoid colon, descending colon, transverse colon and cecum. The polyps were 3 to 4 mm in size. These polyps were removed with a cold biopsy forceps. Resection and retrieval were complete. A less than 5 mm polyp was found in the ascending colon. The polyp was sessile. The polyp was removed with a cold snare. Resection and retrieval were complete. The mucosa vascular pattern in the ascending colon was increased. Coagulation for tissue destruction using bipolar probe was successful. Impression: - Diverticulosis in the sigmoid colon. - Nine 3 to 4 mm polyps in the sigmoid colon, in the descending colon, in the transverse colon and in the cecum, removed with a cold biopsy forceps. Resected and retrieved. - One less than 5 mm polyp in the ascending colon, removed with a cold snare. Resected and retrieved. - Increased mucosa vascular pattern in the ascending colon. Treated with bipolar cautery. Recommendation: - Discharge patient to home. - Resume previous diet. - Continue present medications. - Await pathology results. - Repeat colonoscopy 1-2 years for surveillance based on pathology results. - Resume Eliquis (apixaban) at prior dose tomorrow. Procedure Code(s): --- Professional --- 95041, PT, Colonoscopy, flexible; with ablation of tumor(s), polyp(s), or other lesion(s) (includes pre- and post-dilation and guide wire passage, when performed) 90671, 59, Colonoscopy, flexible; with removal of tumor(s), polyp(s), or other lesion(s) by snare technique 02928, 59, Colonoscopy, flexible; with biopsy, single or multiple Diagnosis Code(s): --- Professional --- Z86.010, Personal history of colonic polyps D12.5, Benign neoplasm of sigmoid colon D12.4, Benign neoplasm of descending colon D12.3, Benign neoplasm of transverse colon (hepatic flexure or splenic flexure) D12.0, Benign neoplasm of cecum D12.2, Benign neoplasm of ascending colon K57.30, Diverticulosis of large intestine without perforation or abscess without bleeding CPT copyright 2017 [employer]. All rights reserved. The codes documented in this report are preliminary and upon green chain puller review may be revised to meet current compliance requirements. MD Natalia Brown MD 09/04/2022 8:46:28 AM This report has been signed electronically. Number of Addenda: 0 Note Initiated On: 09/04/2022 7:18 AM
== END 2022-09-04 09:35 | disposition home or self-care (01) ==
LOC: EN 06:09 → AC 06:11
PROVIDERS: PCP Family Medicine; Referring Provider Family Medicine; Visit Provider Surgery
PROC: 0DJD8ZZ Inspection of Lower Intestinal Tract, Via Natural or Artificial Opening Endoscopic (ICD-10-PCS; CPT 45378; principal; 2022-09-04 07:25)
DX: K57.30 Diverticulosis of large intestine without perforation or abscess without bleeding (principal); J44.9 Chronic obstructive pulmonary disease, unspecified; I82.4Z2 Acute embolism and thrombosis of unspecified deep veins of left distal lower extremity; I12.9 Hypertensive chronic kidney disease with stage 1 through stage 4 chronic kidney disease, or unspecified chronic kidney disease; Z86.010 Personal history of colon polyps; N18.9 Chronic kidney disease, unspecified; D63.1 Anemia in chronic kidney disease; Z79.51 Long term (current) use of inhaled steroids; Z87.891 Personal history of nicotine dependence; D50.9 Iron deficiency anemia, unspecified; Z82.3 Family history of stroke; Z90.49 Acquired absence of other specified parts of digestive tract; D12.2 Benign neoplasm of ascending colon; D12.0 Benign neoplasm of cecum; D12.3 Benign neoplasm of transverse colon; D12.4 Benign neoplasm of descending colon; D12.5 Benign neoplasm of sigmoid colon
CPT/HCPCS: 45385; 45380; 88305; J7120; J2405

== ENCOUNTER → 2023-01-15 | Outpatient (CLI) | payer MEDICARE, SELFPAY ==
[2023-01-15 10:18] LABS: Albumin, Serum 3.4 g/dL (3.2-5.0); BUN 27 mg/dL (7-18); BUN/Creat Ratio 16.5 RATIO (10-20); Calcium,Total 9.5 mg/dL (8.5-10.1); Chloride 105 mmol/L (98-107); Creatinine, Serum 1.64 mg/dL (0.70-1.30); EST Glomerular Filtration Rate 43 mL/min (>60); Est Glom Filt Rate - Afr Amer 52 mL/min (>60); Glucose 119 mg/dL (74-106); Phosphorus 2.6 mg/dL (2.5-4.9); Potassium 4.2 mmol/L (3.5-5.1); Sodium Level 136 mmol/L (136-145)
== END | disposition home or self-care (01) ==
PROVIDERS: PCP Family Medicine; Referring Provider Internal Medicine Nephrology; Visit Provider Internal Medicine Nephrology
DX: N18.31 Chronic kidney disease, stage 3a (principal)
CPT/HCPCS: 36415; 80069; 83970

== ENCOUNTER 2023-06-24 10:17 | Emergency (ER) | payer MEDICARE, SELFPAY ==
[2023-06-24 10:18] VITALS: BP 166/92; PULSE 73; RESP 16; TEMP 36.3; O2SAT 96; BMI 37.3
--- NOTE | 2023-06-24 10:34 | CT_ITS ---
STUDY: CT BRAIN WITHOUT CONTRAST REASON FOR EXAM: Male, 83 years old. Severe headache RADIATION DOSAGE (If Supplied By Facility): CTDIvol = ( 44.99 ) mGy, DLP = ( 796.11 ) mGycm TECHNIQUE: Transaxial CT imaging of the brain was performed without administration of intravenous contrast material. Individualized dose optimization techniques were used for this CT. COMPARISON: No relevant priors. FINDINGS: Normal soft tissue structures. Normal calvarium. Normal size ventricles and extra-axial spaces for the patient''s age. There are areas of decreased attenuation within the white matter tracts of the supratentorial brain, consistent with microvascular disease changes. Normal basal ganglia and thalami. Normal brainstem. Normal cerebellum. There is no intracranial hemorrhage. There are no findings of an acute ischemic infarction. Normal visualized paranasal sinuses. CT/Brain/Head without Contrast IMPRESSION: Chronic involutional changes of the brain. No acute hemorrhage Electronically Signed: Sandeep Huddleston MD at 11:10 EDT ,
--- NOTE | 2023-06-24 10:34 | RAD_ITS ---
STUDY: X-RAY - LEFT SHOULDER REASON FOR EXAM: Male, 83 years old. Pain, decreased range of motion TECHNIQUE: 4 view(s) of the shoulder. COMPARISON: None. FINDINGS: There is mild degenerative arthrosis of the glenohumeral articulation. There is degenerative arthrosis of the acromioclavicular joint without inferior osseous spur formation. Normal acromion. Normal humeral head and visualized proximal humerus. The soft tissue structures are unremarkable. Normal visualized pulmonary apex. RAD/Shoulder min 2 Views IMPRESSION: Glenohumeral and acromioclavicular joint arthrosis Electronically Signed: Sandeep Huddleston MD at 11:11 EDT ,
--- NOTE | 2023-06-24 10:39 | EX.ED.DYSGE1 ---
HPI <Dr. Doreen Ford DO - Last Filed: 06/24/23 11:15> History of Present Illness Chief Complaint: Fall <DERRELL Weber - Last Filed: 06/24/23 11:28> Narrative Narrative: Patient presenting due to a fall that occurred this morning. He reports that he was sitting at his kitchen table drinking coffee and fell onto his left side hitting his shoulder on the ground and the left side of his head on the ground. He reports that sometimes he does fall asleep at the table and is not sure if that is what happened today. He denies loss of consciousness. Patient does take Eliquis due to a history of A-fib and heart valve replacement. He denies any recent illness, fever, chills, abdominal pain, nausea, vomiting, chest pain, shortness of breath. He denies any other injury. REPLACED BY [facility] <Dr. Doreen Ford DO - Last Filed: 06/24/23 11:15> REPLACED BY [facility] Medical History Acute blood loss anemia Ambulates with cane Atrial fibrillation Cardiology follow-up encounter Carotid arterial disease Chronic kidney disease COPD (chronic obstructive pulmonary disease) CPAP (continuous positive airway pressure) dependence Deep vein thrombosis, lower left extremity DLBCL (diffuse large B cell lymphoma) DVT (deep venous thrombosis) Excessive bleeding Eye disease Former smoker Gastric reflux Gout Hearing loss, right History of echocardiogram History of GI bleed History of stress test Hypertension Iron deficiency anemia due to chronic blood loss Kidney disease Leg cramps Macrocytosis Non-Hodgkin lymphoma Restless legs SBO (small bowel obstruction) Shortness of breath on exertion Sleep apnea Wears dentures Wears glasses Home Medications nitroglycerin 0.4 mg sublingual tablet 0.4 mg sublingual Q5M PRN Chest Pain 01/19/16 [History Last Taken Unknown] B-complex with vitamin C 1 ea PO BID supplement 06/22/16 [History Last Taken 03/23/21] pravastatin 40 mg tablet 40 mg PO QHS cholesterol 06/22/16 [History Last Taken 03/22/21] tamsulosin 0.4 mg capsule 0.4 mg PO QHS prostate 03/14/21 [History Last Taken 03/22/21] budesonide 0.25 mg/2 mL suspension for nebulization 0.25 mg inhalation BID 03/23/21 [History Last Taken 03/23/21] ergocalciferol (vitamin D2) 1,250 mcg (50,000 unit) capsule 1,250 mcg PO MO supplement 03/23/21 [History Last Taken 03/21/21] ipratropium 0.5 mg-albuterol 3 mg (2.5 mg base)/3 mL nebulization soln 3 ml inhalation 4X/DAY 03/23/21 [History Last Taken 03/22/21] ferrous sulfate 324 mg (65 mg iron) tablet,delayed release 324 mg PO DAILY supplement 04/22/21 [History Last Taken Unknown] metoprolol tartrate 25 mg tablet 12.5 mg PO BID blood pressure 04/22/21 [History Last Taken 09/04/22 05:45] acetaminophen 500 mg tablet 500 mg PO BID 05/13/21 [History Last Taken Unknown] apixaban 5 mg tablet (Eliquis) 5 mg PO BID 08/18/21 [History Last Taken Unknown] gabapentin 300 mg capsule (Neurontin) 300 mg PO DAILY 08/18/21 [History Last Taken Unknown] ascorbic acid (vitamin C) 500 mg tablet 500 mg PO BID 11/16/21 [History Last Taken Unknown] coenzyme Q10 50 mg capsule 50 mg PO TID 11/16/21 [History Last Taken Unknown] furosemide 40 mg tablet 40 mg PO DAILY 11/16/21 [History Last Taken Unknown] albuterol sulfate 90 mcg/actuation aerosol inhaler (Ventolin HFA) 2 puff inhalation Q6H PRN SOB 03/22/22 [History Last Taken Unknown] cetirizine 10 mg tablet (Zyrtec) 10 mg PO DAILY PRN Allergy Symptoms 03/22/22 [History Last Taken Unknown] guaifenesin 600 mg tablet, extended release 12 hr (Mucinex) 600 mg PO Q12H PRN 11/16/22 [History Last Taken Unknown] latanoprost 0.005 % eye drops 1 drp ophthalmic (eye) DAILY 11/16/22 [History Last Taken Unknown] amlodipine 5 mg tablet 2.5 mg PO DAILY 05/17/23 [History Last Taken Unknown] ropinirole 1 mg tablet 2 mg PO TID restless leg 05/17/23 [History Last Taken Unknown] Allergy/AdvReac Type Severity Reaction Status Date / Time iodine Allergy Severe Anaphylaxis Verified 06/24/23 10:18 morphine Allergy Severe Other Verified 06/24/23 10:18 oxycodone HCl [From Percocet] AdvReac rash Verified 06/24/23 10:18 Family History Father CVA (cerebral vascular accident) Hypertension Heart disease Surgical History H/O aortic valve replacement with porcine valve History of aortic valve repair History of appendectomy History of cataract surgery History of colonoscopy (~04/2020) History of colonoscopy (~07/2020) History of colonoscopy (~03/2021) History of hernia repair Social History Smoking Status: Former smoker Tobacco: How many years used: 25 second hand exposure: No alcohol intake: never substance use type: does not use seatbelt use: always do you feel safe at home: Yes ROS <DERRELL Weber - Last Filed: 06/24/23 11:28> ROS ED Constitutional Constitutional ED: Denies chills or fever(s) Eyes Eyes: Denies change in vision Cardiovascular Cardiovascular: Denies chest pain or palpitations Respiratory/Chest Respiratory/Chest: Denies cough or dyspnea Gastrointestinal Gastrointestinal: Denies abdominal pain, nausea or vomiting Genitourinary Genitourinary ED: Denies dysuria, hematuria or urinary frequency Musculoskeletal Musculoskeletal: Reports arthralgias; Denies back pain or neck pain Integumentary Denies abscess or Abrasions Neurologic Neurologic: Denies dizziness, headache(s), paresthesias or weakness EXAM <Dr. Doreen Ford DO - Last Filed: 06/24/23 11:15> Physical Exam Const Vital Signs: 06/24/23 10:18 06/24/23 10:38 Temperature 97.4 F L Temperature Source Temporal Pulse Rate 73 Respiratory Rate 16 Respiratory Effort Non-Labored Respiratory Depth Normal Respiratory Pattern Normal Blood Pressure 166/92 H Blood Pressure Mean 116 Pulse Ox 96 Oxygen Delivery Method Room Air <DERRELL Weber - Last Filed: 06/24/23 11:28> Physical Exam Const Vital Signs: 06/24/23 10:18 06/24/23 10:38 Temperature 97.4 F L Temperature Source Temporal Pulse Rate 73 Respiratory Rate 16 Respiratory Effort Non-Labored Respiratory Depth Normal Respiratory Pattern Normal Blood Pressure 166/92 H Blood Pressure Mean 116 Pulse Ox 96 Oxygen Delivery Method Room Air Positive well nourished, well developed and no apparent distress General Appearance ED: well developed HEENT Reports normocephalic and head/scalp atraumatic Mouth ED: Yes moist mucous membranes normal Eyes PERRL and EOMs intact bilaterally Neck full ROM and supple Chest Wall inspection of chest normal Resp normal respiratory effort and clear to auscultation bilaterally Cardio regular rate and regular rhythm GI soft to palpation, non-tender, non-distended and no masses Back/Spine normal ROM and normal to inspection Extremity normal to inspection Extremity Narrative: Limited range of motion in the left shoulder due to pain, generalized tenderness to palpation to the left shoulder. Radial pulse 2+ and equal bilaterally, good capillary refill, sensation intact. Neuro oriented x3, CN's II-XII intact bilaterally, moves all extremities, no focal motor deficits and no sensory deficits noted Sensorium / Orientation: awake and alert Psych mental status grossly normal and thought process normal Skin no rashes or lesions noted and no wounds [facility] <Dr. Doreen Ford, DO - Last Filed: 06/24/23 11:15> [facility] Narrative Medical decision making narrative: Patient presenting today due to a fall that occurred this morning. Patient fell out of his chair at the kitchen table onto his left shoulder and did hit the left side of his head on the ground. He originally went to urgent care but due to his head injury and being on Eliquis they encouraged him to come to the ED. They also did an EKG and noticed that patient was in A-fib, patient does have a known history of A-fib. Patient is well-appearing and in no acute distress, vitals are unremarkable. He is ambulating without difficulty. Patient reports pain to the left shoulder, this will be x-rayed to rule out fracture. Head CT will be obtained to rule out intracranial bleed. Patient is not complaining of any neck pain and does not have any cervical tenderness to indicate the need for a cervical spine CT. I have personally performed a face to face assessment of the patient and have reviewed the DAVID Note. I performed a substantive portion of the visit including all aspects of the following. My russell findings include: History is [patient presents to the emergency department with complaint of a fall and injury to his head and left shoulder. Patient states that he was sitting in his kitchen chair around 6 AM and he is not sure what happened but he fell out of his chair. Patient not sure if he fell asleep. He denies loss of consciousness. He denied feeling lightheaded or dizzy initially. He denies any chest pain or shortness of breath. Patient is on Xarelto for history of DVT and history of A-fib. Because he hit his head he went to urgent care where he had told them that afterwards he was a little bit lightheaded but that has since resolved. They did an EKG and they noted A-fib and they referred him to the ER. Patient has known history of intermittent A-fib. Patient denies headache currently. He denies neck pain. He denies recent illness. He has been ambulatory since his fall at 6 AM.] Exam is [HEENT-PERRLA, EOMI. Cranial nerves II through XII grossly intact. TMs clear. Mucous membranes moist. No adenopathy. Cardiovascular-regular rate and rhythm without murmur or ectopy Lungs-clear to auscultation, chest wall stable without crepitus or subcu emphysema Abdomen-normoactive bowel sounds, soft, nontender, no rebound or rigidity, no peritoneal signs. Extremities-intact ?4, normal range of motion, normal pulses, atraumatic] Medical Decison Making [patient with a fall from a chair. He is anticoagulated. CT scan of the brain without contrast obtained was negative for intracranial hemorrhage or traumatic process. Patient also had x-rays of the left shoulder on my rotation I do not appreciate any fractures or dislocations. Radiology was in agreement and noted arthrosis. This point patient clinically looks well and is not complaining of chest pain or shortness of breath or palpitations and has known history of A-fib. He will be discharged to home and advised to follow-up with primary care physician within next 3 to 5 days.] Other additions or changes: [None] Radiography Diagnostic Testing: Clinical Impression(s) from Imaging Studies Brain CT 06/24/23 10:34 IMPRESSION: Chronic involutional changes of the brain. No acute hemorrhage Electronically Signed: Sandeep Huddleston MD at 11:10 EDT , Shoulder X-Ray 06/24/23 10:34 IMPRESSION: Glenohumeral and acromioclavicular joint arthrosis Electronically Signed: Sandeep Huddleston MD at 11:11 EDT , <DERRELL Weber - Last Filed: 06/24/23 11:28> MDM MDM Narrative Medical decision making narrative: Patient presenting today due to a fall that occurred this morning. Patient fell out of his chair at the kitchen table onto his left shoulder and did hit the left side of his head on the ground. He originally went to urgent care but due to his head injury and being on Eliquis they encouraged him to come to the ED. They also did an EKG and noticed that patient was in A-fib, patient does have a known history of A-fib. Patient is well-appearing and in no acute distress, vitals are unremarkable. He is ambulating without difficulty. Patient reports pain to the left shoulder, this will be x-rayed to rule out fracture. Head CT will be obtained to rule out intracranial bleed. Patient is not complaining of any neck pain and does not have any cervical tenderness to indicate the need for a cervical spine CT. head CT is negative for any acute findings and shoulder x-rays negative for fracture. Patient has been given RICE instructions and is to take Tylenol for pain. He will be discharged home in stable condition and is comfortable with plan. He is to follow-up with his PCP. I have personally performed a face to face assessment of the patient and have reviewed the DAVID Note. I performed a substantive portion of the visit including all aspects of the following. My russell findings include: History is [patient presents to the emergency department with complaint of a fall and injury to his head and left shoulder. Patient states that he was sitting in his kitchen chair around 6 AM and he is not sure what happened but he fell out of his chair. Patient not sure if he fell asleep. He denies loss of consciousness. He denied feeling lightheaded or dizzy initially. He denies any chest pain or shortness of breath. Patient is on Xarelto for history of DVT and history of A-fib. Because he hit his head he went to urgent care where he had told them that afterwards he was a little bit lightheaded but that has since resolved. They did an EKG and they noted A-fib and they referred him to the ER. Patient has known history of intermittent A-fib. Patient denies headache currently. He denies neck pain. He denies recent illness. He has been ambulatory since his fall at 6 AM.] Exam is [HEALETA-PERRBERNARD, EOMI. Cranial nerves II through XII grossly intact. TMs clear. Mucous membranes moist. No adenopathy. Cardiovascular-regular rate and rhythm without murmur or ectopy Lungs-clear to auscultation, chest wall stable without crepitus or subcu emphysema Abdomen-normoactive bowel sounds, soft, nontender, no rebound or rigidity, no peritoneal signs. Extremities-intact ?4, normal range of motion, normal pulses, atraumatic] Medical Decison Making [patient with a fall from a chair. He is anticoagulated. CT scan of the brain without contrast obtained was negative for intracranial hemorrhage or traumatic process. Patient also had x-rays of the left shoulder on my rotation I do not appreciate any fractures or dislocations. Radiology was in agreement and noted arthrosis. This point patient clinically looks well and is not complaining of chest pain or shortness of breath or palpitations and has known history of A-fib. He will be discharged to home and advised to follow-up with primary care physician within next 3 to 5 days.] Other additions or changes: [None] Radiography X-Ray: Read by ED Physician and Read by Radiologist Diagnostic Testing: Clinical Impression(s) from Imaging Studies Brain CT 06/24/23 10:34 IMPRESSION: Chronic involutional changes of the brain. No acute hemorrhage Electronically Signed: Sandeep Huddleston MD at 11:10 EDT , Shoulder X-Ray 06/24/23 10:34 IMPRESSION: Glenohumeral and acromioclavicular joint arthrosis Electronically Signed: Sandeep Huddleston MD at 11:11 EDT , Discharge Plan Triage Chief Complaint: Fall ED Midlevel Provider: Therese Seth ED Provider: Doreen Ford Dx/Rx/DC Orders Clinical Impression: Closed head injury, Fall, Contusion of left shoulder Instructions: ED Head Injury (Adult), ED Shoulder Contusion Prescriptions: No Action gabapentin [Neurontin] 300 mg capsule 300 mg PO DAILY Eliquis 5 mg tablet 5 mg PO BID coenzyme Q10 50 mg capsule 50 mg PO TID ascorbic acid (vitamin C) 500 mg tablet 500 mg PO BID furosemide 40 mg tablet 40 mg PO DAILY cetirizine [Zyrtec] 10 mg tablet 10 mg PO DAILY PRN (Reason: Allergy Symptoms) albuterol sulfate [Ventolin HFA] 90 mcg/actuation HFA aerosol inhaler 2 puff inhalation Q6H PRN (Reason: SOB) amlodipine 5 mg tablet 2.5 mg PO DAILY latanoprost 0.005 % drops 1 drp ophthalmic (eye) DAILY guaifenesin [Mucinex] 600 mg tablet extended release 12hr 600 mg PO Q12H PRN nitroglycerin 0.4 MG tablet 0.4 mg sublingual Q5M PRN (Reason: Chest Pain) Patient Comments: chest pain pravastatin 40 MG tablet 40 mg PO QHS B-complex with vitamin C 1 EACH tablet 1 ea PO BID tamsulosin 0.4 mg Capsule 0.4 mg PO QHS ropinirole 1 mg tablet 2 mg PO TID ipratropium-albuterol 0.5 mg-3 mg(2.5 mg base)/3 mL solution for nebulization 3 ml inhalation 4X/DAY Patient Comments: inhale contents of 1 vial ( 3 milliliters ) in nebulizer by mouth... (REFER TO PRESCRIPTION NOTES). budesonide 0.25 mg/2 mL suspension for nebulization 0.25 mg inhalation BID Patient Comments: inhale contents of 1 vial in nebulizer twice a day WITH PERFOROMIST ergocalciferol (vitamin D2) 1,250 mcg (50,000 unit) Capsule 1,250 mcg PO MO metoprolol tartrate 25 mg tablet 12.5 mg PO BID ferrous sulfate 324 mg (65 mg iron) tablet,delayed release (DR/EC) 324 mg PO DAILY acetaminophen 500 mg Tablet 500 mg PO BID Primary Care Provider: Silvino Jaime Referrals: Silvino Jaime MD [Primary Care Provider] - 3-5 Days Activity Restrictions/Additional Instructions: Please follow-up with your PCP and return for any worsening of your symptoms. Ice your shoulder several times a day for the next few days. You can take Tylenol for pain. Disposition Disposition: Home, Self Care
== END 2023-06-24 11:45 | disposition home or self-care (01) ==
PROVIDERS: Emergency Provider Emergency Medicine; PCP Family Medicine; Visit Provider Emergency Medicine
DX: S40.012A Contusion of left shoulder, initial encounter (principal); J44.9 Chronic obstructive pulmonary disease, unspecified; I48.91 Unspecified atrial fibrillation; Z87.891 Personal history of nicotine dependence; N18.9 Chronic kidney disease, unspecified; I12.9 Hypertensive chronic kidney disease with stage 1 through stage 4 chronic kidney disease, or unspecified chronic kidney disease; S09.8XXA Other specified injuries of head, initial encounter; W07.XXXA Fall from chair, initial encounter; Y92.89 Other specified places as the place of occurrence of the external cause; Z79.899 Other long term (current) drug therapy; Z79.01 Long term (current) use of anticoagulants; Z99.89 Dependence on other enabling machines and devices; Z86.718 Personal history of other venous thrombosis and embolism; Z95.2 Presence of prosthetic heart valve; Z90.49 Acquired absence of other specified parts of digestive tract
CPT/HCPCS: 70450; 73030; 99282

== ENCOUNTER → 2023-08-16 | Outpatient (CLI) | payer MEDICARE, SELFPAY ==
--- NOTE | 2023-08-16 12:55 | VDLE_ITS ---
Reason For Study: Left leg pain RIGHT LEFT CFV is compressible, spontaneous, phasic, GSV is normal. competent and demonstrates normal CFV is compressible, spontaneous, phasic, augmentation. competent, and demonstrates normal Procedure augmentation. This is a venous duplex using B-mode, color FV is compressible, spontaneous, phasic, flow and spectral Doppler. competent and demonstrates normal Exam performed in department. augmentation. A preliminary report was called and/or faxed POP V is compressible, spontaneous, phasic, to Dr. Perez. competent and demonstrates normal augmentation. T/P Trunk is compressible. PTV is compressible. LT PerV is compressible. VL/Venous Duplex US, Unilateral Interpretation Summary Deep veins of the left lower extremity are patent and compressible segmentally. There is no evidence of left lower extremity deep vein thrombosis. The left great saphenous vein salbador ears patent and compressible segmentally. Ordering Physician: Alexia Perez Referring Physician: Silvino Jaime MD Performed By: Paola Dooley RVT
== END | disposition home or self-care (01) ==
LOC: CVS 12:43
PROVIDERS: PCP Family Medicine; Referring Provider Family Medicine; Visit Provider Family Medicine
DX: M79.662 Pain in left lower leg (principal)
CPT/HCPCS: 93971

== ENCOUNTER → 2023-09-10 | Outpatient (CLI) | payer MEDICARE, SELFPAY ==
[2023-09-10 12:48] LABS: Albumin, Serum 3.2 g/dL (3.2-5.0); BUN 27 mg/dL (7-18); BUN/Creat Ratio 15.8 RATIO (10-20); Calcium,Total 8.5 mg/dL (8.5-10.1); Chloride 106 mmol/L (98-107); Creatinine, Serum 1.71 mg/dL (0.70-1.30); EST Glomerular Filtration Rate 41 mL/min (>60); Est Glom Filt Rate - Afr Amer 49 mL/min (>60); Glucose 172 mg/dL (74-106); Phosphorus 2.9 mg/dL (2.5-4.9); Potassium 4.1 mmol/L (3.5-5.1); Sodium Level 137 mmol/L (136-145)
[2023-09-10 13:04] LABS: Protein, Urine (Random) 64.9 mg/dL (<11.9); Protein:Creat Ratio 302 mg/g CRE (0-200)
== END | disposition home or self-care (01) ==
PROVIDERS: PCP Family Medicine; Referring Provider Internal Medicine Nephrology; Visit Provider Internal Medicine Nephrology
DX: N18.32 Chronic kidney disease, stage 3b (principal); E11.22 Type 2 diabetes mellitus with diabetic chronic kidney disease
CPT/HCPCS: 36415; 80069; 82570; 84156

== ENCOUNTER → 2023-09-19 | Outpatient (CLI) | payer MEDICARE, SELFPAY ==
[2023-09-19 10:20] LABS: Anion Gap 6 (5-15); BUN 27 mg/dL (7-18); BUN/Creat Ratio 16.5 RATIO (10-20); Calcium,Total 9.2 mg/dL (8.5-10.1); Chloride 108 mmol/L (98-107); Creatinine, Serum 1.64 mg/dL (0.70-1.30); EST Glomerular Filtration Rate 43 mL/min (>60); Est Glom Filt Rate - Afr Amer 52 mL/min (>60); Glucose 136 mg/dL (74-106); Potassium 4.1 mmol/L (3.5-5.1); Sodium Level 140 mmol/L (136-145)
== END | disposition home or self-care (01) ==
LOC: LAB 09:36
PROVIDERS: PCP Family Medicine; Referring Provider Internal Medicine; Visit Provider Internal Medicine
DX: I50.33 Acute on chronic diastolic (congestive) heart failure (principal)
CPT/HCPCS: 36415; 80048

== ENCOUNTER → 2024-02-19 | Outpatient (CLI) | payer MEDICARE, SELFPAY ==
[2024-02-19 15:20] LABS: Platelet Count 239 K/mm3 (150-450); RET-HE 36.6 pg (30-35); Reticulocyte Count 5.88 % (0.5-1.5)
[2024-02-19 15:37] LABS: Vitamin B12 1733 pg/mL (211-911)
[2024-02-19 15:40] LABS: ALB/GLOB Ratio 0.7 RATIO (0.9-2.4); AST(SGOT) 18 U/L (15-37); Alanine Aminotransfer ALT/SGPT 24 U/L (16-61); Albumin, Serum 3.3 g/dL (3.2-5.0); Alkaline Phosphatase 62 U/L (45-117); Anion Gap 7 (5-15); BUN 42 mg/dL (7-18); BUN/Creat Ratio 24.1 RATIO (10-20); Calcium,Total 8.7 mg/dL (8.5-10.1); Chloride 111 mmol/L (98-107); Creatinine, Serum 1.74 mg/dL (0.70-1.30); EST Glomerular Filtration Rate 40 mL/min (>60); Est Glom Filt Rate - Afr Amer 48 mL/min (>60); Globulin 4.5 g/dL (2.2-4.2); Glucose 128 mg/dL (74-106); Iron 54 ug/dL (65-175); Iron Binding Capacity,Total 315 ug/dL (250-450); Protein, Total 7.8 g/dL (6.4-8.2); Sodium Level 140 mmol/L (136-145)
== END | disposition home or self-care (01) ==
LOC: MFPLAB 11:38
PROVIDERS: PCP Family Medicine; Visit Provider Family Medicine
DX: D64.9 Anemia, unspecified (principal)
CPT/HCPCS: 36415; 80053; 82607; 82746; 83540; 83550; 85045

== ENCOUNTER 2024-02-21 17:14 | Emergency (ER) | payer MEDICARE, SELFPAY ==
[2024-02-21 17:15] VITALS: BP 141/75; PULSE 77; RESP 20; TEMP 36.6; O2SAT 91; BMI 36.8
--- NOTE | 2024-02-21 17:40 | EKG12_ITS ---
Test Reason : CP Blood Pressure : / mmHG Vent. Rate : 093 BPM Atrial Rate : 000 BPM P-R Int : 000 ms QRS Dur : 108 ms QT Int : 376 ms P-R-T Axes : 000 -27 111 degrees QTc Int : 467 ms Atrial fibrillation Cannot rule out Anterior infarct , age undetermined T wave abnormality, consider lateral ischemia Abnormal ECG Confirmed by SHIRIN GODFREY, KATIA ([id number]), film or videotape editor NEPTALI JAEGER ([id number]) on 02/22/2024 8:20:11 AM Referred By: VIRGEN/SHARIFA Confirmed By:KATIA CARPIO MD
--- NOTE | 2024-02-21 17:47 | RAD_ITS ---
INDICATION: Dyspnea EXAMINATION/TECHNIQUE: X-RAY - XR Chest 2 Views COMPARISON: 05/16/2022. FINDINGS: Slight increase in interstitial markings. 1 cm calcified granuloma in the right midlung. Sternal cerclage wires and vascular clips are present from a prior sternotomy and coronary artery bypass graft procedure (CABG). The heart is mildly enlarged. Tortuous and calcified thoracic aorta. No pleural effusion or pneumothorax. Degenerative changes of the thoracic spine. RAD/Chest PA and Lateral IMPRESSION: Slight increase in interstitial markings may represent edema and/or infection. Electronically Signed: Jaime Ascencio MD at 19:09 EDT ,
[2024-02-21 17:51] LABS: Absolute Lymphocyte Count 1.35 X10^3/uL (0.83-4.51); Absolute Neutrophil Count 5.3 X10^3/uL (2.0-7.7); Basophil# 0.02 X10^3/uL; Basophil% 0.3 % (0-1); Eosinophils% 1.4 % (0-5); Hematocrit 34.7 % (40-54); Hemoglobin 10.8 g/dL (13.0-16.5); Lymphocyte # 1.35 X10^3/ul (0.83-4.51); Lymphocyte % 18.3 % (19-41); Mean Corp Hgb Conc 31.1 g/dL (32-36); Mean Corpuscular Hgb 32.9 pg (27.0-32.0); Mean Corpuscular Volume 105.8 fL (80-94); Mean Platelet Vol. 9.4 fl (6.2-12.0); Monocyte# 0.57 X10^3/uL; Monocyte% 7.7 % (0-10); NRBC Flagged by Analyzer 0 % (0-5); Neutrophil # 5.33 X10^3/uL (2.7-7.7); Platelet Count 239 K/mm3 (150-450); RBC Distribution Width CV 16.3 % (11.6-14.6); RBC Distribution Width SD 61.8 fl (35.1-43.9); Red Blood Count 3.28 M/mm3 (4.6-6.2); White Blood Count 7.4 K/mm3 (4.4-11.0)
--- NOTE | 2024-02-21 17:59 | EDS_ITS ---
HPI History of Present Illness Chief Complaint: Chest Pain Detail of Chief Complaint: Patient denies chest pain. He reports intermittent dyspnea Informant: patient and friend Onset/Context/Timing Onset: Weeks Context: Sudden Onset Timing: Intermittent Quality: Shortness of breath with no other symptoms Location: Respiratory Current Severity: Gone Maximum Severity: Severe Worsened by: Reports dyspnea on exertion. Relieved by: Rest Associated Symptoms Associated Symptoms: Patient denies chest pain. Documented in detail HPI narrative Narrative Narrative: Patient is a 83-year-old male. Who presents with chief complaint of shortness of breath. Shortness of breath this morning. He states he sleeps in a lazy boy. He states his feet are elevated. He states he is unable to sleep flat in bed for more than 1 hour. He does have history of congestive heart failure, obstructive sleep apnea, COPD, heart valve replacement, stage III chronic kidney disease, metabolic syndrome, chronic anemia, prior DVT. Patient denies chest pain. Patient denies chest pain at rest activity change in position breathing etc. Patient reports chronic swelling of his legs with discoloration. He has a history of restless leg syndrome as well as venous stasis dermatitis. He denies fever, chills or night sweats. He denies weight gain or weight loss. He denies headache, visual, ocular auditory symptoms. He denies change in voice. Denies sore throat. He denies abdominal pain, nausea, vomiting or diarrhea. He denies black or maroon-colored stool. He denies dysuria, frequency, urgency or hematuria. Prior similar symptoms: Yes Recent Illness/Hospitalization: Yes (Recent pacemaker placement) [facility] Medical History Acute blood loss anemia Ambulates with cane Atrial fibrillation Cardiology follow-up encounter Carotid arterial disease Chronic kidney disease COPD (chronic obstructive pulmonary disease) CPAP (continuous positive airway pressure) dependence Deep vein thrombosis, lower left extremity DLBCL (diffuse large B cell lymphoma) DVT (deep venous thrombosis) Excessive bleeding Eye disease Former smoker Gastric reflux Gout Hearing loss, right History of echocardiogram History of GI bleed History of stress test Hypertension Iron deficiency anemia due to chronic blood loss Kidney disease Leg cramps Macrocytosis Non-Hodgkin lymphoma Pacemaker Restless legs SBO (small bowel obstruction) Shortness of breath on exertion Sleep apnea Wears dentures Wears glasses Home Medications nitroglycerin 0.4 mg sublingual tablet 0.4 mg sublingual Q5M PRN Chest Pain 01/19/16 [History Last Taken Unknown] B-complex with vitamin C 1 ea PO BID supplement 06/22/16 [History Last Taken 03/23/21] pravastatin 40 mg tablet 40 mg PO QHS cholesterol 06/22/16 [History Last Taken 03/22/21] tamsulosin 0.4 mg capsule 0.4 mg PO QHS prostate 03/14/21 [History Last Taken 03/22/21] budesonide 0.25 mg/2 mL suspension for nebulization 0.25 mg inhalation BID 03/23/21 [History Last Taken 03/23/21] ergocalciferol (vitamin D2) 1,250 mcg (50,000 unit) capsule 1,250 mcg PO MO supplement 03/23/21 [History Last Taken 03/21/21] ipratropium 0.5 mg-albuterol 3 mg (2.5 mg base)/3 mL nebulization soln 3 ml inhalation 4X/DAY 03/23/21 [History Last Taken 03/22/21] ferrous sulfate 324 mg (65 mg iron) tablet,delayed release 324 mg PO DAILY supplement 04/22/21 [History Last Taken Unknown] metoprolol tartrate 25 mg tablet 12.5 mg PO BID blood pressure 04/22/21 [History Last Taken 09/04/22 05:45] acetaminophen 500 mg tablet 500 mg PO BID 05/13/21 [History Last Taken Unknown] apixaban 5 mg tablet (Eliquis) 5 mg PO BID 08/18/21 [History Last Taken Unknown] gabapentin 300 mg capsule (Neurontin) 300 mg PO DAILY 08/18/21 [History Last Taken Unknown] ascorbic acid (vitamin C) 500 mg tablet 500 mg PO BID 11/16/21 [History Last Taken Unknown] coenzyme Q10 50 mg capsule 50 mg PO TID 11/16/21 [History Last Taken Unknown] furosemide 40 mg tablet 40 mg PO DAILY 11/16/21 [History Last Taken Unknown] albuterol sulfate 90 mcg/actuation aerosol inhaler (Ventolin HFA) 2 puff inhalation Q6H PRN SOB 03/22/22 [History Last Taken Unknown] cetirizine 10 mg tablet (Zyrtec) 10 mg PO DAILY PRN Allergy Symptoms 03/22/22 [History Last Taken Unknown] guaifenesin 600 mg tablet, extended release 12 hr (Mucinex) 600 mg PO Q12H PRN 11/16/22 [History Last Taken Unknown] latanoprost 0.005 % eye drops 1 drp ophthalmic (eye) DAILY 11/16/22 [History Last Taken Unknown] amlodipine 5 mg tablet 2.5 mg PO DAILY 05/17/23 [History Last Taken Unknown] ropinirole 1 mg tablet 2 mg PO TID restless leg 05/17/23 [History Last Taken Unknown] Allergy/AdvReac Type Severity Reaction Status Date / Time iodine Allergy Severe Anaphylaxis Verified 02/21/24 17:18 morphine Allergy Severe Other Verified 02/21/24 17:18 oxycodone HCl [From Percocet] AdvReac rash Verified 02/21/24 17:18 pantoprazole AdvReac Upset Verified 02/21/24 17:18 Stomach Family History Father CVA (cerebral vascular accident) Hypertension Heart disease Surgical History H/O aortic valve replacement with porcine valve History of aortic valve repair History of appendectomy History of cataract surgery History of colonoscopy (~04/2020) History of colonoscopy (~07/2020) History of colonoscopy (~03/2021) History of hernia repair Social History Smoking Status: Former smoker Tobacco: How many years used: 25 second hand exposure: No alcohol intake: never substance use type: does not use seatbelt use: always do you feel safe at home: Yes ROS ROS ED Constitutional Constitutional ED: Denies chills, fever(s), subjective, sweats or weight loss Eyes Eyes: Denies blurry vision, change in vision or diplopia ENT ENT ED: Denies ear pain, rhinorrhea or sore throat Cardiovascular Cardiovascular: Reports orthopnea; Denies chest pain, palpitations, paroxysmal nocturnal dyspnea or racing heartbeat Respiratory/Chest Respiratory/Chest: Reports dyspnea, dyspnea on exertion, orthopnea and other Details: Orthopnea is chronic and stable. ; Denies cough, paroxysmal nocturnal dyspnea or sputum Gastrointestinal Gastrointestinal: Denies abdominal pain, constipation, diarrhea, melena, nausea or vomiting Genitourinary Genitourinary ED: Denies dysuria, hematuria or urinary frequency Musculoskeletal Musculoskeletal: Denies arthralgias, back pain or myalgias Integumentary Reports rash Neurologic Neurologic: Denies headache(s), paresthesias or weakness Endocrine Endocrinology: Denies cold intolerance or heat intolerance Hematologic/Lymphatic Hematologic/Lymphatic: Reports systems reviewed and no addt'l complaints, except as documented Allergic/Immunologic Allergic/Immunologic ED: Denies mouth swelling or tongue swelling EXAM Physical Exam Const Vital Signs: 02/21/24 17:15 02/21/24 17:19 Temperature 98 F Temperature Source Temporal Pulse Rate 77 Respiratory Rate 20 H Respiratory Effort Short of Breath Respiratory Pattern Tachypnea Blood Pressure 141/75 H Blood Pressure Mean 97 Pulse Ox 91 Oxygen Delivery Method Room Air Positive well nourished, well developed and obese General Appearance ED: well developed and NAD; Negative for cyanotic, diaphoreti c or pallor Nutritional Appearance: obese HEENT Reports moist mucous membranes HEENT Narrative: Head is atraumatic and normocephalic. Ears normal. Nares patent. Posterior pharynx is normal. Eyes PERRL and EOMs intact bilaterally General Eye ED: Negative for pale conjunctiva or scleral icterus Neck no lymphadenopathy, supple and no JVD Chest Wall inspection of chest normal and palpation of chest normal Resp normal respiratory effort and clear to auscultation bilaterally Cardio regular rate, regular rhythm, S1 normal heart sound, S2 normal heart sound and no murmurs GI normal to inspection, nondistended, normoactive bowel sounds, non-tender and non-distended Palpation: soft Back/Spine no CVA tenderness Extremity Negative for normal to inspection Extremity Narrative: Venous stasis dermatitis without evidence of infection. There is no tenderness on the distribution deep venous system. There is no asymmetry. There is no palpable cords. General Extremety ED: Yes edema; Negative for tenderness General Extremity: edema Neuro oriented x3, CN's II-XII intact bilaterally and no sensory deficits noted Motor Exam: strength 5/5 throughout Psych mental status grossly normal Skin no rashes or lesions noted, no wounds and skin turgor normal General Skin Exam: elasticity normal; Negative for jaundice or pallor MDM MDM MDM Narrative Medical decision making narrative: Differential diagnosis is shortness of breath of unknown etiology, started about due to COPD, shortness of breath due to CHF. With this going on months doubt pulmonary embolus. Troponin was obtained to assess for any evidence of ischemia. BMP to assess for evidence of heart failure. Unlikely patient has a DVT because clinically he does not appear to have 1 and is on apixaban. History & Record Review Additional record(s) reviewed:: Prior outpatient record (Pacemaker was placed at [facility] Prior ED visit and Prior labs Lab Data Attestation: I reviewed the patient's lab results. Lab results narrative: White count is normal. Patient's H&H is 10.8 and 34.7 with an MCV of 105.8. BMP is remarked for BUN/creatinine of 26 and 1.92 respectively. Estimated GFR is 36. Troponin is normal at 49 with weeks of symptoms. Patient had approximately 5 g drop in hemoglobin. With with an elevated MCV and a normal BUN to creatinine ratio is not consistent with anemia due to blood loss. This may represent a B12 or folate deficiency. Levels were sent. Labs: Laboratory Results - last 24 hr 02/21/24 17:20 WBC 7.4 RBC 3.28 L Hgb 10.8 L Hct 34.7 L MCV 105.8 H MCH 32.9 H MCHC 31.1 L RDW Std Deviation 61.8 H RDW Coeff of Danial 16.3 H Plt Count 239 MPV 9.4 Immature Gran % (Auto) 0.300 Neut % (Auto) 72.0 H Lymph % (Auto) 18.3 L [place] % (Auto) 7.7 Eos % (Auto) 1.4 Baso % (Auto) 0.3 Absolute Neuts (auto) 5.3 Absolute Lymphs (auto) 1.35 Nucleated RBC % 0 Sodium 140 Potassium 3.9 Chloride 113 H Carbon Dioxide 23.0 Anion Gap 4 L BUN 26 H Creatinine 1.92 H Estim Creat Clear Calc 33.92 Est GFR (MDRD) Af Amer 43 L Est GFR (MDRD) Non-Af 36 L BUN/Creatinine Ratio 13.5 Glucose 104 Calcium 7.9 L Troponin I High Sens 29 B-Natriuretic Peptide 133.2 H Radiography Chest X-Ray - ED: 2 View and Read by ED Physician ([id number]. Patient has slight blunting of the right and left costal margin. There are chronic changes noted. Sternal wires noted. Patient's had evidence of mitral valve replacement. There is no cephalization. There is no infiltrate there is no acute abnormality of the osseous structures.) EKG Initial EKG: Attestation: I personally reviewed and interpreted this EKG as follows: Interpretation: Atrial Fibrillation (Rate is 93. QRS duration 108 ms. QT duration 3 and 76 ms. [place] is normal. There is decreased anterior force. There is no obvious acute ischemic changes noted.) Treatment and Re-Evaluation :: Patient and family members were informed of results. He will follow-up with Dr. Jaime. Discharge Plan Triage Chief Complaint: Chest Pain ED Provider: Christos Durand Dx/Rx/DC Orders Clinical Impression: Dyspnea on exertion, Afib, HTN (hypertension), TUSHAR (obstructive sleep apnea), COPD (chronic obstructive pulmonary disease), Stage 3 chronic kidney disease, Anemia, macrocytic, Anticoagulant long-term use Instructions: ED Anemia, Type Not Specified (Adult) Prescriptions: No Action gabapentin [Neurontin] 300 mg capsule 300 mg PO DAILY Eliquis 5 mg tablet 5 mg PO BID coenzyme Q10 50 mg capsule 50 mg PO TID ascorbic acid (vitamin C) 500 mg tablet 500 mg PO BID furosemide 40 mg tablet 40 mg PO DAILY cetirizine [Zyrtec] 10 mg tablet 10 mg PO DAILY PRN (Reason: Allergy Symptoms) albuterol sulfate [Ventolin HFA] 90 mcg/actuation HFA aerosol inhaler 2 puff inhalation Q6H PRN (Reason: SOB) amlodipine 5 mg tablet 2.5 mg PO DAILY latanoprost 0.005 % drops 1 drp ophthalmic (eye) DAILY guaifenesin [Mucinex] 600 mg tablet extended release 12hr 600 mg PO Q12H PRN nitroglycerin 0.4 MG tablet 0.4 mg sublingual Q5M PRN (Reason: Chest Pain) Patient Comments: chest pain pravastatin 40 MG tablet 40 mg PO QHS B-complex with vitamin C 1 EACH tablet 1 ea PO BID tamsulosin 0.4 mg Capsule 0.4 mg PO QHS ropinirole 1 mg tablet 2 mg PO TID ipratropium-albuterol 0.5 mg-3 mg(2.5 mg base)/3 mL solution for nebulization 3 ml inhalation 4X/DAY Patient Comments: inhale contents of 1 vial ( 3 milliliters ) in nebulizer by mouth... (REFER TO PRESCRIPTION NOTES). budesonide 0.25 mg/2 mL suspension for nebulization 0.25 mg inhalation BID Patient Comments: inhale contents of 1 vial in nebulizer twice a day WITH PERFOROMIST ergocalciferol (vitamin D2) 1,250 mcg (50,000 unit) Capsule 1,250 mcg PO MO metoprolol tartrate 25 mg tablet 12.5 mg PO BID ferrous sulfate 324 mg (65 mg iron) tablet,delayed release (DR/EC) 324 mg PO DAILY acetaminophen 500 mg Tablet 500 mg PO BID Primary Care Provider: Silvino Jaime Referrals: Silvino Jaime MD [Primary Care Provider] - 3-5 Days Disposition Disposition: Home, Self Care
[2024-02-21 18:08] LABS: Anion Gap 4 (5-15); BUN 26 mg/dL (7-18); BUN/Creat Ratio 13.5 RATIO (10-20); Calcium,Total 7.9 mg/dL (8.5-10.1); Chloride 113 mmol/L (98-107); Creatinine, Serum 1.92 mg/dL (0.70-1.30); EST Glomerular Filtration Rate 36 mL/min (>60); Est Glom Filt Rate - Afr Amer 43 mL/min (>60); Estimated Creatinine Clearance 33.92 ml/min; Glucose 104 mg/dL (74-106); Potassium 3.9 mmol/L (3.5-5.1); Sodium Level 140 mmol/L (136-145); Troponin-I HS 29 pg/mL (3.0-78.0)
[2024-02-21 18:10] LABS: BNP,B-Type NATRIURETIC PEPTIDE 133.2 pg/mL (0-100)
[2024-02-21 18:14] VITALS: BP 125/66; PULSE 84; RESP 23; O2SAT 93
[2024-02-21 18:45] VITALS: BP 110/66; PULSE 67; RESP 16; TEMP 36.1; O2SAT 95
[2024-02-21 18:58] LABS: Vitamin B12 > 2000 pg/mL (211-911)
== END 2024-02-21 18:59 | disposition home or self-care (01) ==
PROVIDERS: Emergency Provider Emergency Medicine; PCP Family Medicine; Visit Provider Emergency Medicine
DX: R07.9 Chest pain, unspecified (principal); I13.0 Hypertensive heart and chronic kidney disease with heart failure and stage 1 through stage 4 chronic kidney disease, or unspecified chronic kidney disease; I50.9 Heart failure, unspecified; J44.9 Chronic obstructive pulmonary disease, unspecified; I48.91 Unspecified atrial fibrillation; N18.30 Chronic kidney disease, stage 3 unspecified; Z79.01 Long term (current) use of anticoagulants; D53.9 Nutritional anemia, unspecified; Z95.0 Presence of cardiac pacemaker; G47.33 Obstructive sleep apnea (adult) (pediatric); Z87.891 Personal history of nicotine dependence; R06.00 Dyspnea, unspecified; Z99.89 Dependence on other enabling machines and devices; Z79.899 Other long term (current) drug therapy; Z79.51 Long term (current) use of inhaled steroids; G25.81 Restless legs syndrome; Z95.3 Presence of xenogenic heart valve; Z90.49 Acquired absence of other specified parts of digestive tract
CPT/HCPCS: 71046; 80048; 82607; 82746; 83880; 84484; 85025; 93005; 99284; A4216

== ENCOUNTER → 2024-02-26 | Outpatient (CLI) | payer MEDICARE, SELFPAY ==
[2024-02-26 17:35] LABS: Absolute Lymphocyte Count 1.24 X10^3/uL (0.83-4.51); Absolute Neutrophil Count 5.2 X10^3/uL (2.0-7.7); Basophil# 0.04 X10^3/uL; Basophil% 0.6 % (0-1); Eosinophil# 0.09 X10^3/uL; Eosinophils% 1.3 % (0-5); Hematocrit 35.9 % (40-54); Hemoglobin 11.3 g/dL (13.0-16.5); Lymphocyte # 1.24 X10^3/ul (0.83-4.51); Lymphocyte % 17.6 % (19-41); Mean Corp Hgb Conc 31.5 g/dL (32-36); Mean Corpuscular Hgb 33.5 pg (27.0-32.0); Mean Corpuscular Volume 106.5 fL (80-94); Mean Platelet Vol. 9.9 fl (6.2-12.0); Monocyte# 0.51 X10^3/uL; Monocyte% 7.2 % (0-10); NRBC Flagged by Analyzer 0 % (0-5); Neutrophil # 5.15 X10^3/uL (2.7-7.7); Platelet Count 209 K/mm3 (150-450); RBC Distribution Width CV 16.6 % (11.6-14.6); RBC Distribution Width SD 63.8 fl (35.1-43.9); Red Blood Count 3.37 M/mm3 (4.6-6.2); White Blood Count 7.1 K/mm3 (4.4-11.0)
== END | disposition home or self-care (01) ==
LOC: MFPLAB 12:20
PROVIDERS: PCP Family Medicine; Visit Provider Family Medicine
DX: D64.9 Anemia, unspecified (principal)
CPT/HCPCS: 36415; 85025

== ENCOUNTER → 2024-03-13 | Outpatient (CLI) | payer MEDICARE, SELFPAY ==
[2024-03-13 17:44] LABS: Absolute Lymphocyte Count 1.34 X10^3/uL (0.83-4.51); Basophil# 0.04 X10^3/uL; Basophil% 0.6 % (0-1); Eosinophil# 0.09 X10^3/uL; Eosinophils% 1.3 % (0-5); Hematocrit 40.2 % (40-54); Hemoglobin 12.3 g/dL (13.0-16.5); Lymphocyte # 1.34 X10^3/ul (0.83-4.51); Lymphocyte % 19.3 % (19-41); Mean Corp Hgb Conc 30.6 g/dL (32-36); Mean Corpuscular Hgb 32.8 pg (27.0-32.0); Mean Corpuscular Volume 107.2 fL (80-94); Mean Platelet Vol. 10.1 fl (6.2-12.0); Monocyte# 0.48 X10^3/uL; Monocyte% 6.9 % (0-10); NRBC Flagged by Analyzer 0 % (0-5); Neutrophil # 4.99 X10^3/uL (2.7-7.7); Neutrophil % 71.8 % (47-70); POSITIVE MORPHOLOGY YES; Platelet Count 244 K/mm3 (150-450); RBC Distribution Width CV 16.6 % (11.6-14.6); RBC Distribution Width SD 65.5 fl (35.1-43.9); Red Blood Count 3.75 M/mm3 (4.6-6.2)
[2024-03-13 18:07] LABS: Differential Indicated SCAN CRITERIA MET
[2024-03-13 18:17] LABS: Vitamin B12 1916 pg/mL (211-911)
[2024-03-13 18:19] LABS: Hemoglobin A1c 5.8 % (3.8-5.6)
[2024-03-13 18:49] LABS: Cholesterol 79 mg/dL (200); Ferritin 56 ng/mL (26-388); High Density Lipoprotein 34 mg/dL; Iron 47 ug/dL (65-175); Iron Binding Capacity,Total 301 ug/dL (250-450); PERCENT IRON SATURATION 15.6 % (15.0-55.0); Triglycerides 145 mg/dL; Very Low Density Lipoprotein 29 mg/dL (5-40)
[2024-03-13 19:01] LABS: Differential Comment SCANNED
[2024-03-15 04:07] LABS: Haptoglobin 87 mg/dL (38-329)
== END | disposition home or self-care (01) ==
LOC: MFPLAB 15:20
PROVIDERS: PCP Family Medicine; Visit Provider Family Medicine
DX: D64.9 Anemia, unspecified (principal); E11.29 Type 2 diabetes mellitus with other diabetic kidney complication
CPT/HCPCS: 36415; 80061; 82607; 82728; 82746; 83010; 83036; 83540; 83550; 85025

== ENCOUNTER → 2024-04-08 | Outpatient (CLI) | payer MEDICARE, SELFPAY ==
[2024-04-08 09:52] LABS: Hemoglobin 14.3 g/dL (13.0-16.5); Mean Corp Hgb Conc 31.1 g/dL (32-36); Mean Corpuscular Hgb 32.9 pg (27.0-32.0); Platelet Count 202 K/mm3 (150-450); RBC Distribution Width SD 58.8 fl (35.1-43.9); Red Blood Count 4.34 M/mm3 (4.6-6.2); White Blood Count 5.9 K/mm3 (4.4-11.0)
[2024-04-08 10:16] LABS: Albumin, Serum 3.6 g/dL (3.2-5.0); BUN 26 mg/dL (7-18); BUN/Creat Ratio 16.4 RATIO (10-20); Calcium,Total 9.1 mg/dL (8.5-10.1); Chloride 109 mmol/L (98-107); Creatinine, Serum 1.59 mg/dL (0.70-1.30); EST Glomerular Filtration Rate 44 mL/min (>60); Est Glom Filt Rate - Afr Amer 54 mL/min (>60); Glucose 214 mg/dL (74-106); Phosphorus 3.1 mg/dL (2.5-4.9); Potassium 4.8 mmol/L (3.5-5.1); Sodium Level 136 mmol/L (136-145)
[2024-04-11 18:47] LABS: Microalbumin:Creatinine Ratio 278.7 mg/g CRE (<30 mg/g CRE)
== END | disposition home or self-care (01) ==
LOC: MTLAB 07:09
PROVIDERS: PCP Family Medicine; Referring Provider Internal Medicine Nephrology; Visit Provider Internal Medicine Nephrology
DX: E11.22 Type 2 diabetes mellitus with diabetic chronic kidney disease (principal); N18.32 Chronic kidney disease, stage 3b
CPT/HCPCS: 36415; 80069; 82043; 82570; 85027

== ENCOUNTER → 2024-05-28 | Outpatient (CLI) | payer MEDICARE, SELFPAY ==
[2024-05-28 10:14] LABS: Absolute Lymphocyte Count 1.29 X10^3/uL (0.83-4.51); Absolute Neutrophil Count 5.6 X10^3/uL (2.0-7.7); Basophil# 0.03 X10^3/uL; Basophil% 0.4 % (0-1); Eosinophil# 0.08 X10^3/uL; Eosinophils% 1.1 % (0-5); Hematocrit 44.2 % (40-54); Hemoglobin 14.3 g/dL (13.0-16.5); Lymphocyte # 1.29 X10^3/ul (0.83-4.51); Lymphocyte % 17.1 % (19-41); Mean Corp Hgb Conc 32.4 g/dL (32-36); Mean Corpuscular Hgb 32.9 pg (27.0-32.0); Mean Corpuscular Volume 101.6 fL (80-94); Mean Platelet Vol. 10.5 fl (6.2-12.0); Monocyte# 0.52 X10^3/uL; Monocyte% 6.9 % (0-10); NRBC Flagged by Analyzer 0 % (0-5); Neutrophil # 5.62 X10^3/uL (2.7-7.7); Neutrophil % 74.2 % (47-70); Platelet Count 182 K/mm3 (150-450); RBC Distribution Width CV 14.4 % (11.6-14.6); RBC Distribution Width SD 54.3 fl (35.1-43.9); Red Blood Count 4.35 M/mm3 (4.6-6.2); White Blood Count 7.6 K/mm3 (4.4-11.0)
[2024-05-28 10:55] LABS: Anion Gap 7 (5-15); BUN 30 mg/dL (7-18); BUN/Creat Ratio 17.5 RATIO (10-20); Calcium,Total 9.3 mg/dL (8.5-10.1); Chloride 109 mmol/L (98-107); Creatinine, Serum 1.71 mg/dL (0.70-1.30); EST Glomerular Filtration Rate 41 mL/min (>60); Est Glom Filt Rate - Afr Amer 49 mL/min (>60); Glucose 168 mg/dL (74-106); Potassium 3.7 mmol/L (3.5-5.1); Sodium Level 140 mmol/L (136-145)
== END | disposition home or self-care (01) ==
LOC: MTLAB 07:02
PROVIDERS: PCP Family Medicine; Referring Provider Internal Medicine Clinical Cardiac Electrophysiology; Visit Provider Internal Medicine Clinical Cardiac Electrophysiology
DX: I48.19 Other persistent atrial fibrillation (principal)
CPT/HCPCS: 36415; 80048; 85025

== ENCOUNTER 2024-07-15 12:47 | Inpatient (IN) | payer MEDICARE, SELFPAY ==
[2024-07-15] VITALS (19 sets, daily range): BP systolic 81–129; BP diastolic 30–104; PULSE 63–79; RESP 13–31; TEMP 36.3–36.4; O2SAT 90–97; BMI 38.9; BMI 36.2
--- NOTE | 2024-07-15 12:55 | RAD_ITS ---
INDICATION: chest pain EXAMINATION/TECHNIQUE: X-RAY - XR Chest 2 Views COMPARISON: No relevant prior comparison study available FINDINGS: LINES/DEVICES: Single chamber left-sided cardiac pacer device in place. LUNGS: Small calcification/granuloma in the right upper lobe. No focal infiltrate is seen. No evidence of pleural effusions. MEDIASTINUM AND CARDIOVASCULAR STRUCTURES: Previous median sternotomy. Normal cardiac silhouette. BONES AND SOFT TISSUES: Degenerative changes of the spine. RAD/Chest PA and Lateral IMPRESSION: No radiographic evidence of acute cardiopulmonary disease. Electronically Signed: Tadeo Iyer MD at 14:28 EDT ,
--- NOTE | 2024-07-15 12:55 | EKG12_ITS ---
Test Reason : SOB Blood Pressure : / mmHG Vent. Rate : 072 BPM Atrial Rate : 000 BPM P-R Int : 000 ms QRS Dur : 120 ms QT Int : 422 ms P-R-T Axes : 000 -24 098 degrees QTc Int : 462 ms Atrial fibrillation with premature ventricular or aberrantly conducted complexes Incomplete left bundle branch block Abnormal QRS-T angle, consider primary T wave abnormality Abnormal ECG Confirmed by SHIRIN GODFREY, KATIA ([id number]), editorial writer NEPTALI JAEGER ([id number]) on 07/16/2024 1:20:54 PM Referred By: Confirmed By:KATIA CARPIO MD
[2024-07-15] MEDS: 0.9% Normal Saline (1000mL) 1,000 ML 999 ML IV (12:59)
[2024-07-15 13:05] LABS: Absolute Lymphocyte Count 1.66 X10^3/uL (0.83-4.51); Basophil# 0.04 X10^3/uL; Basophil% 0.4 % (0-1); Eosinophil# 0.12 X10^3/uL; Eosinophils% 1.3 % (0-5); Hematocrit 43.5 % (40-54); Hemoglobin 13.6 g/dL (13.0-16.5); Lymphocyte # 1.66 X10^3/ul (0.83-4.51); Lymphocyte % 17.5 % (19-41); Mean Corp Hgb Conc 31.3 g/dL (32-36); Mean Corpuscular Hgb 32.8 pg (27.0-32.0); Mean Corpuscular Volume 104.8 fL (80-94); Mean Platelet Vol. 9.8 fl (6.2-12.0); Monocyte# 0.67 X10^3/uL; Monocyte% 7.1 % (0-10); NRBC Flagged by Analyzer 0 % (0-5); Neutrophil # 6.95 X10^3/uL (2.7-7.7); Neutrophil % 73.3 % (47-70); Platelet Count 234 K/mm3 (150-450); RBC Distribution Width CV 15.7 % (11.6-14.6); RBC Distribution Width SD 59.7 fl (35.1-43.9); Red Blood Count 4.15 M/mm3 (4.6-6.2); White Blood Count 9.5 K/mm3 (4.4-11.0)
[2024-07-15 13:25] LABS: Anion Gap 8 (5-15); BUN 44 mg/dL (7-18); BUN/Creat Ratio 19.7 RATIO (10-20); Calcium,Total 9.3 mg/dL (8.5-10.1); Chloride 106 mmol/L (98-107); Creatinine, Serum 2.23 mg/dL (0.70-1.30); EST Glomerular Filtration Rate 30 mL/min (>60); Est Glom Filt Rate - Afr Amer 36 mL/min (>60); Glucose 182 mg/dL (74-106); Potassium 3.8 mmol/L (3.5-5.1); Sodium Level 136 mmol/L (136-145); Troponin-I HS (w/2H Reflex) 58 pg/mL (3.0-78.0)
--- NOTE | 2024-07-15 13:27 | CT_ITS ---
INDICATION: fall EXAMINATION: CT BRAIN - CT Head or Brain W/O Contrast Injection TECHNIQUE: Multiple axial images were obtained of the head without intravenous contrast. The protocol utilizes one or more of the following dose reduction techniques: automated exposure control, adjustment of mA and/or kV according to patient size,and/or use of iterative reconstruction technique. IV Contrast dosage and agent: None. RADIATION DOSAGE (If Supplied By Facility): CTDIvol = ( 44.99 ) mGy, DLP = ( 837.39 ) mGycm COMPARISON: No relevant prior comparison study available FINDINGS: BRAIN PARENCHYMA: No intra- or extra-axial hemorrhage. No evidence of acute infarct. No intracranial mass or mass effect. There is preservation of the moses/white matter interface. Mild periventricular deep white matter changes likely due to microvascular disease. Atherosclerotic calcifications of the cavernous internal carotid arteries. Posterior fossa structures are unremarkable. CSF SPACES: Appropriate for age. No hydrocephalus. Basal cisterns are patent. CALVARIUM, SKULL BASE, PARANASAL SINUSES AND MASTOID AIR CELLS: Clear. No discrete lytic or blastic abnormalities. ORBITS: Previous bilateral cataract surgery. CT/Brain/Head without Contrast IMPRESSION: No acute intracranial process. Electronically Signed: Tadeo Iyer MD at 14:24 EDT ,
--- NOTE | 2024-07-15 13:27 | RAD_ITS ---
INDICATION: fall EXAMINATION/TECHNIQUE: X-RAY - RIGHT XR Shoulder Min 2 Views 2 VIEWS COMPARISON: No relevant prior comparison study available FINDINGS: SOFT TISSUES: Soft tissue calcification lateral to the humeral head consistent with calcific tendinitis. No radiopaque foreign body. BONES/JOINTS: No acute fracture or subluxation.. Mild cephalad migration of the humeral head which may impinge on the rotator cuff. Unremarkable acromioclavicular joint. No sclerotic or destructive changes observed. RAD/Shoulder min 2 Views IMPRESSION: 1. Degenerative changes and calcific tendinitis. 2. No evidence of acute fracture or dislocation. Electronically Signed: Tadeo Iyer MD at 14:26 EDT ,
--- NOTE | 2024-07-15 13:27 | CT_ITS ---
INDICATION: fall EXAMINATION: CT CERVICAL SPINE - CT Spine Cervical W/O Contrast Injection TECHNIQUE: Helically acquired images were obtained of the cervical spine. 2D reformatted images were reviewed. The protocol utilizes one or more of the following dose reduction techniques: automated exposure control, adjustment of mA and/or kV according to patient size,and/or use of iterative reconstruction technique. IV Contrast dosage and agent: None. RADIATION DOSAGE (If Supplied By Facility): CTDIvol = ( 18.42 ) mGy, DLP = ( 366.39 ) mGycm COMPARISON: No relevant prior comparison study available FINDINGS: VERTEBRAE: No fracture or traumatic subluxation. Straightening of the cervical spine. Minimal anterolisthesis of C5 over C6. Normal craniocervical junction and cervicothoracic junction. DISCS and SPINAL CANAL: Narrowing of C4-C5 and C5-C6 disc spaces. Degenerative changes at partial fusion of the facet joints at multiple levels. Posterior lateral degenerative spurs with mild narrowing of the neural foramina worse on the right side. No critical stenosis. NECK SOFT TISSUES: No prevertebral soft tissue swelling. Motion artifacts however limiting the evaluation of the prevertebral soft tissues. Atherosclerotic calcifications of the carotid arteries. LUNG APICES: No evidence of pneumothorax. CT/Spine Cervical without Contras IMPRESSION: No evidence of acute cervical spinal fracture or spondylolisthesis. Multilevel degenerative changes. Electronically Signed: Tadeo Iyer MD at 14:22 EDT ,
[2024-07-15 13:39] LABS: BNP,B-Type NATRIURETIC PEPTIDE 532.8 pg/mL (0-100)
--- NOTE | 2024-07-15 13:55 | EX.ED.DYSGE1 ---
HPI History of Present Illness Chief Complaint: Syncope Narrative Narrative: Patient is a 84-year-old male with a past medical history of DVT the, atrial fibrillation on Eliquis, recent pacemaker placement, GERD, non-Hodgkin lymphoma, anemia, hypertension, COPD on oxygen as needed who presented to the emergency department with chief complaint of passing out. Patient states that he just finished lunch and stood up and told his family member at bedside that he was going to pass out who caught him lowering him to the ground. They note that he was out for a short period of time before coming around. They noted that he has been extremely sleepy lately as well. Patient states that he does use oxygen as needed and states that he feels like he said he is oxygen more often recently. He states that he is extremely tired. Patient states that he once again had his pacemaker recently placed and states that he did not feel like he was shocked today. Patient did note that he did have a fall 2 days ago and is complaint of right shoulder pain. 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) Hearing loss, right Kidney disease Former smoker CPAP (continuous positive airway pressure) dependence Atrial fibrillation Hypertension COPD (chronic obstructive pulmonary disease) SBO (small bowel obstruction) Home Medications ?Medication ?Instructions ?Recorded ?Last Taken ?Type nitroglycerin 0.4 mg sublingual 0.4 mg sublingual Q5M PRN Chest 01/19/16 Unknown History tablet Pain B-complex with vitamin C 1 ea PO BID supplement 06/22/16 03/23/21 History pravastatin 40 mg tablet 40 mg PO QHS cholesterol 06/22/16 03/22/21 History tamsulosin 0.4 mg capsule 0.4 mg PO QHS prostate 03/14/21 03/22/21 History budesonide 0.25 mg/2 mL suspension 0.25 mg inhalation BID 03/23/21 03/23/21 History for nebulization ergocalciferol (vitamin D2) 1,250 1,250 mcg PO MO supplement 03/23/21 03/21/21 History mcg (50,000 unit) capsule ipratropium 0.5 mg-albuterol 3 mg 3 ml inhalation 4X/DAY 03/23/21 03/22/21 History (2.5 mg base)/3 mL nebulization soln ferrous sulfate 324 mg (65 mg 324 mg PO DAILY supplement 04/22/21 Unknown History iron) tablet,delayed release metoprolol tartrate 25 mg tablet 12.5 mg PO BID blood pressure 04/22/21 09/04/22 05:45 History acetaminophen 500 mg tablet 500 mg PO BID 05/13/21 Unknown History apixaban 5 mg tablet (Eliquis) 5 mg PO BID 08/18/21 Unknown History gabapentin 300 mg capsule 300 mg PO DAILY 08/18/21 Unknown History (Neurontin) ascorbic acid (vitamin C) 500 mg 500 mg PO BID 11/16/21 Unknown History tablet coenzyme Q10 50 mg capsule 50 mg PO TID 11/16/21 Unknown History furosemide 40 mg tablet 40 mg PO DAILY 11/16/21 Unknown History albuterol sulfate 90 mcg/actuation 2 puff inhalation Q6H PRN SOB 03/22/22 Unknown History aerosol inhaler (Ventolin HFA) cetirizine 10 mg tablet (Zyrtec) 10 mg PO DAILY PRN Allergy Symptoms 03/22/22 Unknown History guaifenesin 600 mg tablet, 600 mg PO Q12H PRN 11/16/22 Unknown History extended release 12 hr (Mucinex) latanoprost 0.005 % eye drops 1 drp ophthalmic (eye) DAILY 11/16/22 Unknown History amlodipine 5 mg tablet 2.5 mg PO DAILY 05/17/23 Unknown History ropinirole 1 mg tablet 2 mg PO TID restless leg 05/17/23 Unknown History formoterol fumarate 20 mcg/2 mL 1 inhalation DAILY 07/15/24 Unknown History solution for nebulization ipratropium bromide 21 mcg (0.03 1 - 2 spray intranasal Q6H PRN 07/15/24 Unknown History %) nasal spray metoprolol succinate 25 mg mg PO 07/15/24 Unknown History tablet,extended release 24 hr revefenacin 175 mcg/3 mL solution mcg inhalation 07/15/24 Unknown History for nebulization (Yupelri) vitamin B complex (Vitamins B 1 tab PO BID 07/15/24 Unknown History Complex tablet) Allergy/AdvReac Type Severity Reaction Status Date / Time iodine Allergy Severe Anaphylaxis Verified 07/15/24 12:54 morphine Allergy Severe Other Verified 07/15/24 12:54 oxycodone HCl (From Percocet) AdvReac rash Verified 07/15/24 12:54 pantoprazole AdvReac Upset Verified 07/15/24 12:54 Stomach Family History Father CVA (cerebral vascular accident) Hypertension Heart disease Surgical History History of hernia repair History of cataract surgery History of aortic valve repair History of colonoscopy (~03/2021) History of colonoscopy (~07/2020) History of colonoscopy (~04/2020) H/O aortic valve replacement with porcine valve History of appendectomy Social History Smoking Status: Former smoker Tobacco: How many years used: 25 second hand exposure: No alcohol intake: never substance use type: does not use seatbelt use: always do you feel safe at home: Yes ROS ROS ED ROS Narrative Constitutional: Denies any fevers, chills, headaches Eyes: Denies change in vision double vision blurry vision Cardiovascular: Denies chest pain or palpitations Respiratory: Denies coughing wheezing shortness of breath Abdomen: Denies abdominal pain nausea vomit diarrhea : Denies any urinary symptoms Neurological: Complains of passing out and generalized weakness as noted above as well as tiredness denies numbness or tingling Skin: States that he has bruising that is old from his pacemaker placement EXAM Physical Exam Narrative Exam Narrative: General: Patient was lying in bed rest comfortably did not appear to be in acute distress Head: Atraumatic, normocephalic Eyes: PERRL bilateral, EOMI bilateral, no conjunctival injection noted Neck: Soft, supple, trachea midline Cardiovascular: Regular rate and rhythm no murmurs gallops rubs noted Respiratory: Clear to auscultation bilaterally no rales rhonchi wheeze noted Abdomen: Soft, nondistended, no tenderness palpation, bowel sounds present x 4 Extremities: +4/5 strength noted in the bilateral upper and lower extremities, 2+ pitting edema in the bilateral lower extremities, radial pulses +2/4 in the bilateral upper extremities Neurological: Patient follow commands knew that he was at the hospital years 2023. NIH is 0 GCS 15 Musculoskeletal: Patient has pain with attempted range of motion with his right shoulder. Skin: Warm, dry, intact Const Vital Signs: 07/15/24 12:48 07/15/24 13:00 07/15/24 13:08 Temperature 97.5 F L Temperature Source Temporal Pulse Rate 69 Respiratory Rate 16 Respiratory Effort Short of Breath Short of Breath Respiratory Depth Normal Respiratory Pattern Normal Normal Blood Pressure 129/104 H Blood Pressure Mean 112 Pulse Ox 93 91 Oxygen Delivery Method Room Air Nasal Cannula Oxygen Flow Rate (L/min) 2 07/15/24 13:47 07/15/24 14:00 07/15/24 14:00 Temperature Temperature Source Pulse Rate 76 75 72 Respiratory Rate 18 25 H 25 H Respiratory Effort Respiratory Depth Respiratory Pattern Blood Pressure 105/64 102/34 L Blood Pressure Mean 77 56 Pulse Ox 91 92 Oxygen Delivery Method Nasal Cannula Nasal Cannula Oxygen Flow Rate (L/min) 2 2 07/15/24 14:15 07/15/24 14:16 07/15/24 14:30 Temperature Temperature Source Pulse Rate 65 63 64 Respiratory Rate 24 H 19 H 31 H Respiratory Effort Respiratory Depth Respiratory Pattern Blood Pressure 107/43 L 107/43 L 103/30 L Blood Pressure Mean 62 64 53 Pulse Ox 94 Oxygen Delivery Method Nasal Cannula Oxygen Flow Rate (L/min) 2 07/15/24 14:42 07/15/24 14:45 07/15/24 15:00 Temperature Temperature Source Pulse Rate 79 69 71 Respiratory Rate 19 H 23 H 13 Respiratory Effort Respiratory Depth Respiratory Pattern Blood Pressure 115/56 L 113/48 L 105/50 L Blood Pressure Mean 71 68 68 Pulse Ox 91 Oxygen Delivery Method Nasal Cannula Oxygen Flow Rate (L/min) 2 07/15/24 15:00 07/15/24 15:30 07/15/24 16:00 Temperature Temperature Source Pulse Rate 69 66 71 Respiratory Rate 18 22 H 18 Respiratory Effort Respiratory Depth Respiratory Pattern Blood Pressure 105/50 L 112/52 L 108/89 H Blood Pressure Mean 57 70 95 Pulse Ox 93 92 Oxygen Delivery Method Oxygen Flow Rate (L/min) MDM MDM MDM Narrative Medical decision making narrative: Patient is a 84-year-old male who presented to the emergency department chief complaint of syncope. Patient blood work performed here on the differential diagnose includes but not limited to ACS, vasovagal syncope, arrhythmia, ACS, hypercapnic respiratory failure. Once workup is obtained reviewed he will be reevaluated. Patient's CBC reviewed and showed no evidence leukocytosis white blood count normal at 9.5, hemoglobin 13.6, platelet count normal at 234. Patient's ABG reviewed showed a pH of 7.33 with a CO2 of 21, sodium normal 136, potassium normal 3.8, creatinine was elevated 2.23 indicating acute on chronic kidney disease, patient's total bilirubin noted to be 1.30. Patient AST and ALT were normal at 22 and 26 respectively. Patient's troponin was noted be 58 with a delta troponin obtained at 65 patient's EKG reviewed showed atrial fibrillation with a rate of 72 beats per minutes once again he does have a history atrial fibrillation. Patient's proBNP elevated 532, TSH normal at 2.12. Patient's x-ray of his chest reviewed and showed no acute cardiopulmonary processes. Patient CT head and brain without contrast showed no acute intracranial processes. Patient CT cervical spine was reviewed and showed no acute spinal fracture or spondylolisthesis there is multilevel degenerative changes noted. Patient's x-ray of his right shoulder showed degenerative changes and calcific tendinitis no fracture or dislocation. At this point time do believe the patient will warrant admission for syncope, CHF with his bilateral pitting edema and not chronically on oxygen now requiring oxygen replacement. Did discuss case with hospitalist Dr. Ambriz who will accept patient for admission. Patient and family members were notified at bedside. He will be given 40 mg IV Lasix. All question concerns answered. Lab Data Labs: Laboratory Results - last 24 hr 07/15/24 07/15/24 12:50 14:46 WBC 9.5 RBC 4.15 L Hgb 13.6 Hct 43.5 MCV 104.8 H MCH 32.8 H MCHC 31.3 L RDW Std Deviation 59.7 H RDW Coeff of Danial 15.7 H Plt Count 234 MPV 9.8 Immature Gran % (Auto) 0.400 Neut % (Auto) 73.3 H Lymph % (Auto) 17.5 L Nobles % (Auto) 7.1 Eos % (Auto) 1.3 Baso % (Auto) 0.4 Absolute Neuts (auto) 7.0 Absolute Lymphs (auto) 1.66 Nucleated RBC % 0 Sodium 136 Potassium 3.8 Chloride 106 Carbon Dioxide 22.0 Anion Gap 8 BUN 44 H Creatinine 2.23 H Estim Creat Clear Calc 29.60 Est GFR (MDRD) Af Amer 36 L Est GFR (MDRD) Non-Af 30 L BUN/Creatinine Ratio 19.7 Glucose 182 H Calcium 9.3 Total Bilirubin 1.30 H Direct Bilirubin 0.65 H AST 22 ALT 26 Alkaline Phosphatase 76 Troponin I High Sens 58 65 B-Natriuretic Peptide 532.8 H Total Protein 7.5 Albumin 3.1 L Globulin 4.4 H TSH 2.120 ABG Data ABG results: ABG 07/15/24 14:34 Specimen Type ART Sample Site L Radial pH 7.33 L Bicarbonate Actual 19.8 L Total CO2 21 Base Excess -6 L O2 Saturation 92 L O2 % 2.0 ABG pCO2 37.6 ABG pO2 67 L Jett Test Positive O2 Delivery Device Cannula Vent Mode Not entered Radiography Diagnostic Testing: Clinical Impression(s) from Imaging Studies Chest X-Ray 07/15/24 12:55 IMPRESSION: No radiographic evidence of acute cardiopulmonary disease. Electronically Signed: Tadeo Iyer MD at 14:28 EDT Reading Location ID and State: [facility] / [place] Tel , Service support , Brain CT 07/15/24 13:27 IMPRESSION: No acute intracranial process. Electronically Signed: Tadeo Iyer MD at 14:24 EDT , Cervical Spine CT 07/15/24 13:27 IMPRESSION: No evidence of acute cervical spinal fracture or spondylolisthesis. Multilevel degenerative changes. Electronically Signed: Tadeo Iyer MD at 14:22 EDT Reading Location ID and State: [facility] / [place] Tel , Service support , Shoulder X-Ray 07/15/24 13:27 IMPRESSION: 1. Degenerative changes and calcific tendinitis. 2. No evidence of acute fracture or dislocation. Electronically Signed: Tadeo Iyer MD at 14:26 EDT , Discharge Plan Triage Chief Complaint: Syncope ED Provider: Servando Nicole Dx/Rx/DC Orders Clinical Impression: Acute hypoxemic respiratory failure, Afib, COPD (chronic obstructive pulmonary disease), CHF (congestive heart failure) Primary Care Provider: Silvino Jaime
[2024-07-15 14:06] LABS: AST(SGOT) 22 U/L (15-37); Alanine Aminotransfer ALT/SGPT 26 U/L (16-61); Albumin, Serum 3.1 g/dL (3.2-5.0); Alkaline Phosphatase 76 U/L (45-117); Bilirubin, Direct 0.65 mg/dL (0.00-0.30); Globulin 4.4 g/dL (2.2-4.2); Protein, Total 7.5 g/dL (6.4-8.2)
[2024-07-15 14:37] LABS: Allen Test Positive; Base Excess -6 mmol/L (-2 to +2); Bicarbonate 19.8 mmol/L (22-26); Blood Gas Specimen Type ART; Mode Not entered; O2 Delivery Device Cannula; PO2 67 mmHG (75-100); SITE L Radial; SO2 92 % (95-99); Total Carbon Dioxide 21 mmol/L; pCO2 37.6 mmHg (35-45); pH 7.33 (7.35-7.45)
[2024-07-15 14:59] LABS: Reflex Troponin-HS? (from REC) Y
[2024-07-15 15:25] LABS: Troponin-I HS 65 pg/mL (3.0-78.0)
[2024-07-15] MEDS: Furosemide 40 MG/4 ML Vial IV (17:47)
--- NOTE | 2024-07-15 18:05 | NURSING ---
PCU SHRAVAN CHF, SYNCOPE, PAU
--- NOTE | 2024-07-15 19:36 | ECHOCS_ITS ---
Reason For Study: CHF Procedure This was a 2D Doppler, Color Flow transthoracic echocardiogram. The study was technically difficult. Contrast injection was performed. Limited views obtained d/t patient condition. Patient had a recent AICD, still wearing bandages and has other stitches/bandages in parasternal window. Attempted a low parasternal images as well as SAX in subcostal window. Exam performed portable in patient room. Left Ventricle Normal LV size. Left ventricular systolic function is normal. The left ventricular ejection fraction is 60 %. No regional wall motion abnormalities noted. Right Ventricle Normal RV size. ICD or pacer leads identified within the right ventricle. Normal systolic function. Atria The left atrium is mildly enlarged. The right atrium is moderately enlarged. Mitral Valve Normal mitral valve. Tricuspid Valve Normal tricuspid valve. Moderate (2+) tricuspid valve insufficiency. Pulmonary artery systolic pressure is 54 mmHg. Aortic Valve Peak aortic valve gradient 44 mmHg. Mean aortic valve gradient 21 mmHg. Normal prosthetic aortic valve. Pulmonic Valve The pulmonic valve is not well visualized. Great Vessels Normal aortic root. Pericardium/Pleural No pericardial effusion. Medication Diluted definity 1.5ml given slow IV push to enhance endocardial definition. MMode/2D Measurements & Calculations RVDd: 4.6 cm LAV(MOD-bp): 75.8 ml LVAd ap4: 36.4 cm2 LAV(MOD-bp) Indexed: 34.8 ml/m2 LVLd ap4: 8.7 cm LAV(MOD-sp2): 81.8 ml EDV(MOD-sp4): 125.3 ml LAV(MOD-sp4): 68.3 ml EDV(sp4-el): 129.2 ml LVAs ap4: 22.8 cm2 LVLs ap4: 8.2 cm ESV(MOD-sp4): 52.4 ml ESV(sp4-el): 53.9 ml EF(MOD-sp4): 58.1 % EF(sp4-el): 58.3 % SV(MOD-sp4): 72.8 ml SV(sp4-el): 75.3 ml LA A4 area: 24.1 cm2 RA A4 area: 27.6 cm2 Time Measurements MV dec time: 0.16 sec Doppler Measurements & Calculations MV E max kiel: 149.9 cm/sec MV V2 max: 178.6 cm/sec MV P1/2t max kiel: 184.5 cm/sec MV max P.8 mmHg MV P1/2t: 84.5 msec MV V2 mean: 86.5 cm/sec MV dec slope: 639.6 cm/sec2 MV mean P.1 mmHg MV V2 VTI: 42.5 cm MVA(P1/2t): 2.6 cm2 Ao V2 max: 330.8 cm/sec LV V1 max: 118.6 cm/sec MR max kiel: 543.5 cm/sec Ao max P.8 mmHg LV V1 max P.6 mmHg MR max P.2 mmHg Ao V2 mean: 209.1 cm/sec LV V1 mean P.6 mmHg MR mean kiel: 421.2 cm/sec Ao mean P.9 mmHg LV V1 mean: 73.3 cm/sec MR mean P.6 mmHg Ao V2 VTI: 63.1 cm LV V1 VTI: 23.4 cm MR VTI: 163.8 cm AV (velocity ratio): 0.37 TR max kiel: 355.9 cm/sec TR max P.7 mmHg ECHO/Echo Complete W/ Contrast Interpretation Summary Normal LV size. Left ventricular systolic function is normal. The left ventricular ejection fraction is 60 %. Mean aortic valve gradient 21 mmHg. Normal prosthetic aortic valve. Contrast injection was performed. Ordering Physician: Camron Ambriz Performed By: Shankar Fontanez RCS
--- NOTE | 2024-07-15 19:48 | HP.PCM.HOS_ITS ---
HPI - General General Date of Admission: 07/15/24 HPI Narrative CHARLES DODSON, is a 84 M who presents to the hospital with increasing shortness of breath as well as lower extremity edema over the last couple of days. He recently had a defibrillator/pacemaker placed at an outside hospital on the . It appears that they only held his Eliquis on the day of the procedure and he subsequently had a fairly large hematoma with ecchymosis extending down to his upper abdomen from his chest wall. Over the last couple of days he has become more short of breath and today at lunch he had just finished eating when he stood up and had a short syncopal episode. Denies any chest pain, no lightheadedness or dizziness currently. In the ER he was given a liter of fluid however with the elevated BNP, as well as chest x-ray demonstrating some volume overload though no pleural effusions, he was given a dose of Lasix. Of note his renal function is slightly elevated from 1.7 to 2.23 which could be falsely elevating his BNP. There is no leukocytosis or fever so there is no concern for infection and his pacemaker was interrogated and functioning properly. 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) Hearing loss, right Kidney disease Former smoker CPAP (continuous positive airway pressure) dependence Atrial fibrillation Hypertension COPD (chronic obstructive pulmonary disease) SBO (small bowel obstruction) Home Medications ?Medication ?Instructions ?Recorded ?Last Taken ?Type nitroglycerin 0.4 mg sublingual 0.4 mg sublingual Q5M PRN Chest 01/19/16 Unknown History tablet Pain pravastatin 40 mg tablet 40 mg PO QHS cholesterol 06/22/16 07/14/24 History tamsulosin 0.4 mg capsule 0.4 mg PO QHS prostate 03/14/21 07/14/24 History budesonide 0.25 mg/2 mL suspension 0.25 mg inhalation BID SOB 03/23/21 07/15/24 History for nebulization ergocalciferol (vitamin D2) 1,250 1,250 mcg PO MO supplement 03/23/21 07/15/24 History mcg (50,000 unit) capsule ipratropium 0.5 mg-albuterol 3 mg 3 ml inhalation 4X/DAY SOB 03/23/21 03/22/21 History (2.5 mg base)/3 mL nebulization soln acetaminophen 500 mg tablet 500 mg PO BID . 05/13/21 Unknown History gabapentin 300 mg capsule 300 mg PO DAILY . 08/18/21 07/14/24 History (Neurontin) ascorbic acid (vitamin C) 500 mg 500 mg PO BID . 11/16/21 07/15/24 History tablet furosemide 40 mg tablet 40 mg PO DAILY . 11/16/21 07/14/24 History albuterol sulfate 90 mcg/actuation 2 puff inhalation Q6H PRN SOB 03/22/22 Unknown History aerosol inhaler (Ventolin HFA) ropinirole 1 mg tablet 2 mg PO BID restless leg 05/17/23 07/15/24 History apixaban 5 mg tablet (Eliquis) 5 mg PO BID . 07/15/24 07/15/24 History ipratropium bromide 21 mcg (0.03 1 - 2 spray intranasal Q6H PRN . 07/15/24 07/14/24 History %) nasal spray metoprolol succinate 25 mg 25 mg PO DAILY . 07/15/24 07/15/24 History tablet,extended release 24 hr revefenacin 175 mcg/3 mL solution 175 mcg inhalation DAILY SOB 07/15/24 07/14/24 History for nebulization (Yuparadise) vitamin B complex (Vitamins B 1 tab PO BID SUPPLEMENT 07/15/24 07/15/24 History Complex tablet) Allergy/AdvReac Type Severity Reaction Status Date / Time iodine Allergy Severe Anaphylaxis Verified 07/15/24 12:54 morphine Allergy Severe Other Verified 07/15/24 12:54 oxycodone HCl (From Percocet) AdvReac rash Verified 07/15/24 12:54 pantoprazole AdvReac Upset Verified 07/15/24 12:54 Stomach Family History Father CVA (cerebral vascular accident) Hypertension Heart disease Surgical History History of hernia repair History of cataract surgery History of aortic valve repair History of colonoscopy (~03/2021) History of colonoscopy (~07/2020) History of colonoscopy (~04/2020) H/O aortic valve replacement with porcine valve History of appendectomy Social History Smoking Status: Former smoker Tobacco: How many years used: 25 second hand exposure: No alcohol intake: never substance use type: does not use seatbelt use: always do you feel safe at home: Yes ROS Constitutional Constitutional: Denies chills, fatigue, fever(s) or malaise Eyes Eyes: Denies blurry vision ENT HEENT: Denies headache(s) or nasal discharge Cardiovascular Cardiovascular: Reports edema and syncope; Denies chest pain or dyspnea on exertion Respiratory/Chest Respiratory/Chest: Reports shortness of breath at rest and shortness of breath with exertion; Denies cough Gastrointestinal Gastrointestinal: Denies constipation, diarrhea, nausea or vomiting Genitourinary Genitourinary: Denies dysuria Neurologic Neurologic: Denies focal weakness, numbness or tremor(s) Psychiatric Psychiatric: Denies anxiety or depression Vital Signs Vital Signs Vital Signs: 07/15/24 12:48 07/15/24 13:00 07/15/24 13:08 Temperature 97.5 F L Temperature Source Temporal Pulse Rate 69 Respiratory Rate 16 Respiratory Effort Short of Breath Short of Breath Respiratory Depth Normal Respiratory Pattern Normal Normal Blood Pressure 129/104 H Blood Pressure Mean 112 Pulse Ox 93 91 Oxygen Delivery Method Room Air Nasal Cannula Oxygen Flow Rate (L/min) 2 07/15/24 13:47 07/15/24 14:00 07/15/24 14:00 Temperature Temperature Source Pulse Rate 76 75 72 Respiratory Rate 18 25 H 25 H Respiratory Effort Respiratory Depth Respiratory Pattern Blood Pressure 105/64 102/34 L Blood Pressure Mean 77 56 Pulse Ox 91 92 Oxygen Delivery Method Nasal Cannula Nasal Cannula Oxygen Flow Rate (L/min) 2 2 07/15/24 14:15 07/15/24 14:16 07/15/24 14:30 Temperature Temperature Source Pulse Rate 65 63 64 Respiratory Rate 24 H 19 H 31 H Respiratory Effort Respiratory Depth Respiratory Pattern Blood Pressure 107/43 L 107/43 L 103/30 L Blood Pressure Mean 62 64 53 Pulse Ox 94 Oxygen Delivery Method Nasal Cannula Oxygen Flow Rate (L/min) 2 07/15/24 14:42 07/15/24 14:45 07/15/24 15:00 Temperature Temperature Source Pulse Rate 79 69 71 Respiratory Rate 19 H 23 H 13 Respiratory Effort Respiratory Depth Respiratory Pattern Blood Pressure 115/56 L 113/48 L 105/50 L Blood Pressure Mean 71 68 68 Pulse Ox 91 Oxygen Delivery Method Nasal Cannula Oxygen Flow Rate (L/min) 2 07/15/24 15:00 07/15/24 15:30 07/15/24 16:00 Temperature Temperature Source Pulse Rate 69 66 71 Respiratory Rate 18 22 H 18 Respiratory Effort Respiratory Depth Respiratory Pattern Blood Pressure 105/50 L 112/52 L 108/89 H Blood Pressure Mean 57 70 95 Pulse Ox 93 92 Oxygen Delivery Method Oxygen Flow Rate (L/min) 07/15/24 16:00 07/15/24 16:15 07/15/24 16:30 Temperature 97.6 F L Temperature Source Pulse Rate 71 68 72 Respiratory Rate 18 18 20 H Respiratory Effort Respiratory Depth Respiratory Pattern Blood Pressure 110/49 L 81/69 L 106/52 L Blood Pressure Mean 67 75 70 Pulse Ox 92 92 Oxygen Delivery Method Oxygen Flow Rate (L/min) 07/15/24 16:30 07/15/24 16:45 07/15/24 17:00 Temperature Temperature Source Pulse Rate 77 68 68 Respiratory Rate 22 H 19 H 18 Respiratory Effort Respiratory Depth Respiratory Pattern Blood Pressure 106/52 L 103/71 101/57 L Blood Pressure Mean 69 81 65 Pulse Ox 94 Oxygen Delivery Method Oxygen Flow Rate (L/min) 07/15/24 17:45 07/15/24 18:00 Temperature Temperature Source Pulse Rate 72 74 Respiratory Rate 20 H 19 H Respiratory Effort Respiratory Depth Respiratory Pattern Blood Pressure 128/57 H 113/48 L Blood Pressure Mean 80 69 Pulse Ox 90 90 Oxygen Delivery Method Nasal Cannula Nasal Cannula Oxygen Flow Rate (L/min) 2 2 Weight Weight: 249 lb 1.957 oz Body Mass Index (BMI) 38.9 Physical Exam Narrative General: Alert, Oriented x3, Cooperative, No apparent distress HEENT: Atraumatic, PERRLA, EOMI, Normocephalic Oral: Moist Mucosa Neck: Supple, No JVD Lungs: Diminished, Normal air movement, No rhonchi, No wheeze, No rales Cardiovascular: Regular rate, Regular Rhythm, Normal S1, Normal S2, No murmurs Abdomen: Soft, Non Tender, Non-Distended, No Hepato-splenomegaly Extremities: Bilateral lower extremity edema, Capillary Refill Less than 3 Seconds Skin: Hematoma over pacemaker with ecchymosis extending from his left chest down into his mid abdomen Musculoskeletal: No Tenderness to Palpation of Joints or Extremities Neurological: No focal neurological deficits, Motor Exam 5/5 strength throughout, Sensory exam intact to light touch and pain Psych/Mental Status: Normal Affect, Appropriate Results Lab / Micro Data 07/15/24 12:50 07/15/24 12:50 Labs: Laboratory Results - last 24 hr 07/15/24 12:50: WBC 9.5, RBC 4.15 L, Hgb 13.6, Hct 43.5, MCV 104.8 H, MCH 32.8 H , MCHC 31.3 L, RDW Std Deviation 59.7 H, RDW Coeff of Danial 15.7 H, Plt Count 234, MPV 9.8, Immature Gran % (Auto) 0.400, Neut % (Auto) 73.3 H, Lymph % (Auto) 17.5 L, [place] % (Auto) 7.1, Eos % (Auto) 1.3, Baso % (Auto) 0.4, Absolute Neuts (auto) 7.0, Absolute Lymphs (auto) 1.66, Nucleated RBC % 0, Sodium 136, Potassium 3.8, Chloride 106, Carbon Dioxide 22.0, Anion Gap 8, BUN 44 H, Creatinine 2.23 H, Estim Creat Clear Calc 29.60, Est GFR (MDRD) Af Amer 36 L, Est GFR (MDRD) Non-Af 30 L, BUN/Creatinine Ratio 19.7, Glucose 182 H, Calcium 9.3, Total Bilirubin 1.30 H, Direct Bilirubin 0.65 H, AST 22, ALT 26, Alkaline Phosphatase 76, Troponin I High Sens 58, B-Natriuretic Peptide 532.8 H, Total Protein 7.5, A lbumin 3.1 L, Globulin 4.4 H, TSH 2.120 07/15/24 14:46: Troponin I High Sens 65 ABG Data ABG results: ABG 07/15/24 14:34 Specimen Type ART Sample Site L Radial pH 7.33 L Bicarbonate Actual 19.8 L Total CO2 21 Base Excess -6 L O2 Saturation 92 L O2 % 2.0 ABG pCO2 37.6 ABG pO2 67 L Jett Test Positive O2 Delivery Device Cannula Vent Mode Not entered Imaging Radiology Impression Chest X-Ray 07/15/24 12:55 IMPRESSION: No radiographic evidence of acute cardiopulmonary disease. Electronically Signed: Tadeo Iyer MD at 14:28 EDT , Brain CT 07/15/24 13:27 IMPRESSION: No acute intracranial process. Electronically Signed: Tadeo Iyer MD at 14:24 EDT , Cervical Spine CT 07/15/24 13:27 IMPRESSION: No evidence of acute cervical spinal fracture or spondylolisthesis. Multilevel degenerative changes. Electronically Signed: Tadeo Iyer MD at 14:22 EDT , Shoulder X-Ray 07/15/24 13:27 IMPRESSION: 1. Degenerative changes and calcific tendinitis. 2. No evidence of acute fracture or dislocation. Electronically Signed: Tadeo Iyer MD at 14:26 EDT , Assessment & Plan Assessment/Plan (1) CHF (congestive heart failure): PLAN: Plan 1. Acute on chronic diastolic CHF with hypoxia/A-fib/essential HTN/HLD/aortic stenosis status post pig valve ? Continue with Eliquis ? Will start him on diuresis with twice daily IV Lasix ? Will recheck creatinine in the morning ? Will place him on a fluid restriction ? Resume his home blood pressure medications as well as his home cholesterol medications ? Will monitor and make adjustments as necessary ? Will obtain an echo as his last one was from 2020 with an EF of 65% and RVSP of 41 mmHg with severely dilated right and left atria and moderate aortic valve stenosis 2. COPD ? Not in exacerbation ? Continue with his home inhalers DVT: Vic 75 minutes was spent on direct patient care, including documentation as well as chart review and collaboration with colleagues Charges/Coding Visit Charges Inpatient E&M: 57673 Init Hosp L3
[2024-07-15] MEDS: APIXABAN 5 MG TABLET PO (21:42)
[2024-07-15] MEDS: Pravastatin 40 MG Tablet PO (21:43)
[2024-07-15] MEDS: Acetaminophen 500 MG Tablet PO (21:43)
[2024-07-15] MEDS: Tamsulosin HCl 0.4 MG Capsule PO (21:43)
[2024-07-15] MEDS: Pramipexole Di-HCl 1 MG Tablet PO (21:43)
[2024-07-16] VITALS (13 sets, daily range): BP systolic 91–154; BP diastolic 44–72; PULSE 52–81; RESP 16–24; TEMP 36.3–36.7; O2SAT 94–100; BMI 36.2
[2024-07-16 06:56] LABS: Absolute Lymphocyte Count 1.08 X10^3/uL (0.83-4.51); Basophil# 0.02 X10^3/uL; Basophil% 0.3 % (0-1); Eosinophil# 0.13 X10^3/uL; Eosinophils% 1.7 % (0-5); Hematocrit 40.9 % (40-54); Hemoglobin 12.7 g/dL (13.0-16.5); Lymphocyte # 1.08 X10^3/ul (0.83-4.51); Lymphocyte % 13.8 % (19-41); Mean Corp Hgb Conc 31.1 g/dL (32-36); Mean Corpuscular Hgb 32.9 pg (27.0-32.0); Monocyte# 0.51 X10^3/uL; Monocyte% 6.5 % (0-10); NRBC Flagged by Analyzer 0 % (0-5); Neutrophil # 6.03 X10^3/uL (2.7-7.7); Neutrophil % 77.3 % (47-70); Platelet Count 220 K/mm3 (150-450); RBC Distribution Width CV 15.8 % (11.6-14.6); RBC Distribution Width SD 61.4 fl (35.1-43.9); Red Blood Count 3.86 M/mm3 (4.6-6.2); White Blood Count 7.8 K/mm3 (4.4-11.0)
[2024-07-16] MEDS: Ipratropium/Albuterol Sulfate 3 ML AMPUL.NEB INHALATION ×4 (07:49→19:39)
[2024-07-16] MEDS: Budesonide Respules 0.5 MG/2 ML AMPUL.NEB. INHALATION ×2 (07:49→19:39)
[2024-07-16 07:53] LABS: Magnesium 2.1 mg/dL (1.6-2.6)
[2024-07-16 08:21] LABS: Anion Gap 7 (5-15); BUN 46 mg/dL (7-18); BUN/Creat Ratio 23.8 RATIO (10-20); Calcium,Total 8.9 mg/dL (8.5-10.1); Chloride 111 mmol/L (98-107); Creatinine, Serum 1.93 mg/dL (0.70-1.30); EST Glomerular Filtration Rate 35 mL/min (>60); Est Glom Filt Rate - Afr Amer 43 mL/min (>60); Estimated Creatinine Clearance 33.96 ml/min; Glucose 144 mg/dL (74-106); Potassium 4.5 mmol/L (3.5-5.1); Sodium Level 137 mmol/L (136-145)
[2024-07-16] MEDS: Furosemide 40 MG/4 ML Vial IV (09:15)
[2024-07-16] MEDS: Metoprolol(XL)Succ 25 MG Tablet PO (09:15)
[2024-07-16] MEDS: 0.9% Saline Lock 10 ML Syringe IV (09:16)
[2024-07-16] MEDS: APIXABAN 5 MG TABLET PO ×2 (09:16→20:51)
[2024-07-16] MEDS: Pramipexole Di-HCl 1 MG Tablet PO ×2 (09:16→20:51)
[2024-07-16] MEDS: Acetaminophen 500 MG Tablet PO ×2 (09:16→20:52)
--- NOTE | 2024-07-16 13:45 | CASEMGMT ---
RN CM Face to Face with patient for initial transition planning/care coordination assessment. RN CM introduced self and role at [facility]. Patient sitting in chair, alert and oriented. Patient willing to participate in assessment and is able to answer all questions appropriately. Care providers, pharmacy, and demographics verified. Strata: 3 PCP: [facility] Specialists: Kelsey, dehairing machine tender; Wen, oncologist; Darrius, emergency management specialist Preferred Pharmacy: [facility] Insurance: [employer] [facility] Prescription Benefit: yes Living Will/HPOA: yes, son Froylan Tolbert LNOK: sons Living Arrangements: Patient lives alone in a single story home with 3 steps and grab bars at home. Patient states he is independent at home. Transportation: son, neighbor, friend DME/HHC: Patient has walker, rollator, grab bars, cpap, nebulizer, pulse ox, and oxygen through [employer] at 2lpm with portability. Patient has been to [facility] in the past. [facility]. Patient wishes to discharge home, denies need for home health at this time, will monitor progress with therapy. Patient states he has no further needs or concerns at this time. CM to follow for discharge planning needs that may arise. Disposition Plan: Patient to discharge home with family support and follow-up plans in place. Will monitor for possible HHC pending progress with therapy. Paola SANCHEZ, RN, CM
--- NOTE | 2024-07-16 13:46 | PCM.PN.HOSP ---
Reason for Visit Reason for Visit: Diagnoses Heart failure, unspecified (07/15/24) Subjective Subjective Patient feeling 50% better but does continue to have shortness of breath and generally feeling unwell, no chest pain or increased cough, breathing is improving but not back to baseline Objective Data Objective Data Vital Signs: Vital Signs Temp Pulse Resp BP Pulse Ox O2 Del Method O2 Flow Rate 97.9 F 52 L 16 154/72 H 97 Room Air 2 07/16/24 11:00 07/16/24 11:32 07/16/24 11:32 07/16/24 11:00 07/16/24 11:00 07/16/24 11:00 07/16/24 08:00 Oxygen Flow Rate (L/min) 2 Oxygen Delivery Method Room Air Weight: 108.1 kg Body Mass Index (BMI) 36.2 Intake & Output: Intake and Output for Last 24 Hours 07/14/24 07/15/24 07/16/24 23:59 23:59 23:59 Intake Total 1440 / 1440 220 / 220 Output Total 500 / 500 0 / 0 Balance 940 / 940 220 / 220 Lab / Micro Data 07/16/24 06:36 07/16/24 06:36 Labs: Laboratory Results - last 24 hr 07/15/24 12:50: Total Bilirubin 1.30 H, Direct Bilirubin 0.65 H, AST 22, ALT 26, Alkaline Phosphatase 76, Total Protein 7.5, Albumin 3.1 L, Globulin 4.4 H 07/15/24 14:46: Troponin I High Sens 65 07/16/24 06:36: WBC 7.8, RBC 3.86 L, Hgb 12.7 L, Hct 40.9, MCV 106.0 H, MCH 32.9 H, MCHC 31.1 L, RDW Std Deviation 61.4 H, RDW Coeff of Danial 15.8 H, Plt Count 220, MPV 10.0, Immature Gran % (Auto) 0.400, Neut % (Auto) 77.3 H, Lymph % (Auto) 13.8 L, [place] % (Auto) 6.5, Eos % (Auto) 1.7, Baso % (Auto) 0.3, Absolute Neuts (auto) 6.0, Absolute Lymphs (auto) 1.08, Nucleated RBC % 0, Sodium 137, Potassium 4.5, Chloride 111 H, Carbon Dioxide 19.0 L, Anion Gap 7, BUN 46 H, Creatinine 1.93 H, Estim Creat Clear Calc 33.96, Est GFR (MDRD) Af Amer 43 L, Est GFR (MDRD) Non-Af 35 L, BUN/Creatinine Ratio 23.8 H, Glucose 144 H, Calcium 8.9, Magnesium 2.1 Micro: Microbiology 07/16/24 Unknown Mucosa - Nasopharyngeal Respiratory Panel (PCR) - Final 07/16/24 Unknown Nasal Secretion SARS-CoV-2 Antigen (Rapid) - Final ABG Data ABG results: ABG 07/15/24 14:34 Specimen Type ART Sample Site L Radial pH 7.33 L Bicarbonate Actual 19.8 L Total CO2 21 Base Excess -6 L O2 Saturation 92 L O2 % 2.0 ABG pCO2 37.6 ABG pO2 67 L Jett Test Positive O2 Delivery Device Cannula Vent Mode Not entered Radiography Diagnostic Testing: Radiology Impression Chest X-Ray 07/15/24 12:55 IMPRESSION: No radiographic evidence of acute cardiopulmonary disease. Electronically Signed: Tadeo Iyer MD at 14:28 EDT , Brain CT 07/15/24 13:27 IMPRESSION: No acute intracranial process. Electronically Signed: Tadeo Iyer MD at 14:24 EDT Reading Location ID and State: [facility] / [place] Tel , Service support , Cervical Spine CT 07/15/24 13:27 IMPRESSION: No evidence of acute cervical spinal fracture or spondylolisthesis. Multilevel degenerative changes. Electronically Signed: Tadeo Iyer MD at 14:22 EDT , Shoulder X-Ray 07/15/24 13:27 IMPRESSION: 1. Degenerative changes and calcific tendinitis. 2. No evidence of acute fracture or dislocation. Electronically Signed: Tadeo Iyer MD at 14:26 EDT , Physical Exam Narrative General: Alert, oriented HEENT: Atraumatic, normocephalic Eyes: Anicteric, normal conjunctiva, extraocular movements grossly intact Neck: Supple Respiratory: Diminished bilaterally with increased respiratory effort Cardiovascular: Regular rate GI: Soft, nontender, nondistended Extremities: 1+ bilateral lower extremity edema Musculoskeletal: Moving all extremities Neuro: No overt focal neurological deficits Skin: Bilateral lower extremity chronic changes Psych: Cooperative Assessment & Plan Assessment/Plan (1) CHF (congestive heart failure): PLAN: Plan # Acute hypoxia secondary to 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 -Continue daily weights, I's and O's -Previous echo 2020 with an EF of 65% and RVSP of 41 mmHg with severely dilated right and left atria and moderate aortic valve stenosis, repeat echo pending -Of note did check viral panels given patient's decompensation on presentation and these were negative # History of A-fib/aortic stenosis with bioprosthetic valve/recent pacemaker placement -Continue Eliquis -Continue metoprolol -Patient on telemetry -Repeat echo pending # History of chronic COPD -Does not seem to be in exacerbation, no wheezing, no increased cough or increased sputum production -On as needed oxygen at home -Continue nebs and budesonide -Continue to treat underlying CHF causing worsened hypoxia #TUSHAR -Patient reports he supposed to use CPAP at night but there has been a problem between CPAP and oxygen that is currently being addressed on an outpatient basis #Chronic BPH with obstruction -Continue home medications #DVT ppx: Vic Mclcoud MD Time spent in the patient's overall evaluation,decision-making process, review of diagnostic data, adjustment of management, discussion with other providers, nursing nursing and ancillary staff involved in patient's care documentation, 39 Minutes Charges/Coding Visit Charges Inpatient E&M: 08988 Subs Hosp L2
[2024-07-16] MEDS: Tamsulosin HCl 0.4 MG Capsule PO (20:51)
[2024-07-16] MEDS: Dorzolamide 2% 10ml Bottle 1 DRP EACH EYE (20:52)
[2024-07-16] MEDS: Pravastatin 40 MG Tablet PO (20:52)
[2024-07-17] VITALS (8 sets, daily range): BP systolic 110–121; BP diastolic 58–85; PULSE 66–84; RESP 14–18; TEMP 36.1–36.6; O2SAT 92–95; BMI 35.8
[2024-07-17] MEDS: Acetaminophen 500 MG Tablet 1000 MG PO (05:10)
[2024-07-17] MEDS: Dorzolamide 2% 10ml Bottle 1 DRP EACH EYE ×3 (05:11→20:57)
[2024-07-17 06:27] LABS: Hematocrit 39.2 % (40-54); Hemoglobin 12.5 g/dL (13.0-16.5); Mean Corp Hgb Conc 31.9 g/dL (32-36); Mean Corpuscular Hgb 33.9 pg (27.0-32.0); Mean Corpuscular Volume 106.2 fL (80-94); Mean Platelet Vol. 10.1 fl (6.2-12.0); Platelet Count 205 K/mm3 (150-450); RBC Distribution Width CV 15.8 % (11.6-14.6); RBC Distribution Width SD 60.6 fl (35.1-43.9); Red Blood Count 3.69 M/mm3 (4.6-6.2); White Blood Count 7.7 K/mm3 (4.4-11.0)
[2024-07-17 06:46] LABS: Anion Gap 6 (5-15); BUN 46 mg/dL (7-18); BUN/Creat Ratio 24.7 RATIO (10-20); Calcium,Total 8.8 mg/dL (8.5-10.1); Chloride 109 mmol/L (98-107); Creatinine, Serum 1.86 mg/dL (0.70-1.30); EST Glomerular Filtration Rate 37 mL/min (>60); Est Glom Filt Rate - Afr Amer 45 mL/min (>60); Estimated Creatinine Clearance 35.03 ml/min; Glucose 160 mg/dL (74-106); Magnesium 2.3 mg/dL (1.6-2.6); Sodium Level 136 mmol/L (136-145)
[2024-07-17 06:49] LABS: Phosphorus 3.9 mg/dL (2.5-4.9)
[2024-07-17] MEDS: Ipratropium/Albuterol Sulfate 3 ML AMPUL.NEB INHALATION ×3 (08:10→19:34)
[2024-07-17] MEDS: Budesonide Respules 0.5 MG/2 ML AMPUL.NEB. INHALATION ×2 (08:13→19:34)
--- NOTE | 2024-07-17 09:36 | CASEMGMT ---
Social Work- Pt has directives on file naming Augusto Tolbert and Elvia Tolbert as primary and secondary agents. SETH Parada
[2024-07-17] MEDS: APIXABAN 5 MG TABLET PO ×2 (11:22→20:56)
[2024-07-17] MEDS: Furosemide 40 MG/4 ML Vial IV (11:23)
[2024-07-17] MEDS: Pramipexole Di-HCl 1 MG Tablet PO ×2 (11:23→20:57)
[2024-07-17] MEDS: Metoprolol(XL)Succ 25 MG Tablet PO (11:24)
[2024-07-17] MEDS: Acetaminophen 500 MG Tablet PO ×2 (11:24→20:58)
--- NOTE | 2024-07-17 14:30 | CASEMGMT ---
Discharge Planning A list of?HH providers including quality and resource use data and consistent with the patient's preferred geographic region, medical needs, and insurance network was created in [employer] [facility].? This list was provided to the RN EHSAN. Cookie Wayne, Discharge Planning Asst.
--- NOTE | 2024-07-17 16:30 | CASEMGMT ---
RN CM reviewed progress with therapy. RN CM in to discuss needs at discharge. RN CM discussed possible HHC at discharge. Patient states that he would like to think about it. RN CM provided HHC list for patient to review. Patient had no further questions or concerns. CM will continue to follow this patient and plan for a safe discharge.
--- NOTE | 2024-07-17 19:00 | PN.HOSP_ITS ---
Reason for Visit Reason for Visit: Diagnoses Heart failure, unspecified (07/15/24) Subjective Subjective Still short of breath and feeling somewhat unwell overall but remains better than he was on presentation Objective Data Objective Data Vital Signs: Vital Signs Temp Pulse Resp BP Pulse Ox O2 Del Method O2 Flow Rate 97.8 F 71 16 110/65 92 Nasal Cannula 3 07/17/24 14:54 07/17/24 14:54 07/17/24 14:54 07/17/24 14:54 07/17/24 15:17 07/17/24 14:54 07/17/24 15:17 Oxygen Flow Rate (L/min) 3 Oxygen Delivery Method Nasal Cannula Weight: 106.8 kg Body Mass Index (BMI) 35.8 Intake & Output: Intake and Output for Last 24 Hours 07/15/24 07/16/24 07/17/24 23:59 23:59 23:59 Intake Total 1440 / 1440 870 / 870 320 / 320 Output Total 500 / 500 600 / 600 1700 / 1700 Balance 940 / 940 270 / 270 -1380 / -1380 Lab / Micro Data 07/17/24 05:47 07/17/24 05:47 Labs: Laboratory Results - last 24 hr 07/17/24 05:47: WBC 7.7, RBC 3.69 L, Hgb 12.5 L, Hct 39.2 L, MCV 106.2 H, MCH 33.9 H, MCHC 31.9 L, RDW Std Deviation 60.6 H, RDW Coeff of Danial 15.8 H, Plt Count 205, MPV 10.1, Sodium 136, Potassium 4.0, Chloride 109 H, Carbon Dioxide 21.0, Anion Gap 6, BUN 46 H, Creatinine 1.86 H, Estim Creat Clear Calc 35.03, E st GFR (MDRD) Af Amer 45 L, Est GFR (MDRD) Non-Af 37 L, BUN/Creatinine Ratio 24.7 H, Glucose 160 H, Calcium 8.8, Phosphorus 3.9, Magnesium 2.3 Micro: Microbiology 07/16/24 Unknown Mucosa - Nasopharyngeal Respiratory Panel (PCR) - Final 07/16/24 Unknown Nasal Secretion SARS-CoV-2 Antigen (Rapid) - Final Physical Exam Narrative General: Alert, oriented HEENT: Atraumatic, normocephalic Eyes: Anicteric, normal conjunctiva, extraocular movements grossly intact Neck: Supple Respiratory: Some crackles at the bases, improving respiratory effort Cardiovascular: Regular rate GI: Soft, nontender, nondistended Extremities: 1+ bilateral lower extremity edema Musculoskeletal: Moving all extremities Neuro: No overt focal neurological deficits Skin: Bilateral lower extremity chronic changes Psych: Overall cooperative Assessment & Plan Assessment/Plan (1) CHF (congestive heart failure): PLAN: Plan # Acute hypoxia secondary to 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 -Continue daily weights, I's and O's -Previous echo 2020 with an EF of 65% and RVSP of 41 mmHg with severely dilated right and left atria and moderate aortic valve stenosis, repeat echo pending -Of note did check viral panels given patient's decompensation on presentation and these were negative -07/17: Still short of breath but slowly improving, reevaluate in a.m., continue inhalers and another dose of IV Lasix in the a.m. repeat echo with no new or acute abnormalities # Sticking sensation when swallowing -Patient reports for several years he has had some difficulty with swallowing and has noticed more and more thick food seems to be getting stuck and he has to spit it back out. Did previously have non-Hodgkin's lymphoma but it did not affect that area and is in remission. Last fall he had a scope down his nose by [facility] which did not show any obstruction but they had no further workup or intervention and patient reports it was continued to worsen -Speech therapy consulted for swallow eval tomorrow # History of A-fib/aortic stenosis with bioprosthetic valve/recent pacemaker placement -Continue Eliquis -Continue metoprolol -Patient on telemetry -Repeat echo pending -07/17: Repeat echo with no new or acute abnormalities # History of chronic COPD -Does not seem to be in exacerbation, no wheezing, no increased cough or increased sputum production -On as needed oxygen at home -Continue nebs and budesonide -Continue to treat underlying CHF causing worsened hypoxia -07/17: No wheezing, continue O2 and inhalers #TUSHAR -Patient reports he supposed to use CPAP at night but there has been a problem between CPAP and oxygen that is currently being addressed on an outpatient basis -07/17: Patient reports he now has CPAP at home and will resume that on discharge Chronic medical problem: #Chronic BPH with obstruction -Continue home medications #DVT ppx: Vic Mccloud MD Time spent in the patient's overall evaluation,decision-making process, review of diagnostic data, adjustment of management, discussion with other providers, nursing nursing and ancillary staff involved in patient's care documentation, 38 Minutes Charges/Coding Visit Charges Inpatient E&M: 24754 Subs Hosp L2
[2024-07-17] MEDS: Tamsulosin HCl 0.4 MG Capsule PO (20:57)
[2024-07-17] MEDS: Pravastatin 40 MG Tablet PO (20:57)
[2024-07-18] VITALS (10 sets, daily range): BP systolic 92–134; BP diastolic 60–72; PULSE 66–85; RESP 16–20; TEMP 36.1–36.6; O2SAT 93–98; BMI 35.9
[2024-07-18] MEDS: 0.9% Saline Lock 10 ML Syringe IV ×2 (02:45→09:23)
[2024-07-18] MEDS: Dorzolamide 2% 10ml Bottle 1 DRP EACH EYE ×3 (05:30→20:22)
[2024-07-18] MEDS: Budesonide Respules 0.5 MG/2 ML AMPUL.NEB. INHALATION ×2 (07:02→20:05)
[2024-07-18] MEDS: Ipratropium/Albuterol Sulfate 3 ML AMPUL.NEB INHALATION ×3 (07:02→20:05)
--- NOTE | 2024-07-18 08:58 | SP.MBSS_ITS ---
Modified Barium Swallow Patient Information Study Date: 07/18/24 Study Time: 10:30 Direct Billable Minutes: 115 Total Minutes procedure & reportin Diagnosis: CHF I50.9 Referring Physician: Gray Calvin Reason for Referral: Objectively assess swallow function, assess risk for aspiration, and determine recommendations for least restrictive diet textures and compensatory strategies to improve safety of swallow. Medical History: Patient presented to [facility] ED 07/15/2024 w/ shortness of breath as well as lower extremity edema over the last couple of days. He recently had a defibrillator/pacemaker placed at an outside hospital on 07/01/2024. After ED work up, he was admitted for management of CHF, acute hypoxemic respiratory failure. He reported to physician on 07/17/2024 that he gets a sticking sensation when swallowing. He reports having this difficulty when swallowing for several years and that it is worse w/ thick foods. He sometimes has to spit it back up. He told the physician he had a scope w/ Dr. Pérez but no further work up or intervention and the issue has been worsening. He was referred for ST consult. [facility] recommended MBSS to assess concerns for pharyngeal vs. esophageal retention given patient's symptoms. Pt agreeable. PMH: Pacemaker, Macrocytosis, Gout, DVT, Sleep apnea, hx of DVT, Eye disease, CAD, Non-Hodgkin lymphoma, Gastric reflux, CKD, hx of GI bleed, SOB on exertion, Anemia, DLBCL, R-sided HL, FOrmer smoker, CPAP dependence, A fib, HTN, COPD, SBO. Current Diet Ordered: Regular textures / Thin liquids Dentition: Upper Dentures and Lower Dentures Mental Status: WNL Respiratory Status: Oxygenating on Room Air Penetration-Aspiration Scale Penetration-Aspiration Scale: OBJECTIVE ASSESSMENT OF SWALLOW FUNCTION (QUANTITATIVE ? PER TRIAL): PENETRATION / ASPIRATION SCALE (BUSTILLOS): 1 = does not enter airway 2 = enters airway/above vocal folds/ejected 3 = enters airway/above vocal folds/not ejected 4 = enters airway/contacts vocal folds/ejected 5 = enters airway/contacts vocal folds/not ejected 6 = enters airway/below vocal folds/ejected 7 = enters airway/below vocal folds/not ejected despite effort 8 = enters airway/below vocal folds/no effort VIDEOFLOROSCOPIC SCALE SCORE (BUSTILLOS): Grade I = aspiration of material that has penetrated into the laryngeal vestibule, intact cough reflex Grade II = aspiration < 10 % of the bolus, intact cough reflex Grade III = aspiration of < 10 % of the bolus, reduced cough reflex or aspiration of > 10 % of the bolus, intact cough reflex Grade IV = aspiration of > 10 % of the bolus, reduced cough reflex Penetration-Aspiration Scale Score Thin Liquid via teaspoon: Result: 1= does not enter airway Thin Liquid via teaspoon Trial 2: Result: 1= does not enter airway Thin Liquid via large single sip: cup: Result: 3= enters airways/above vocal folds/not ejected Osmond Thick Liquid via large single sip: cup: Result: 2= enter airway/above vocal folds/ejected Pudding via teaspoon: Result: 1= does not enter airway 1/2 Cookie: Result: 1= does not enter airway Comment: Esophageal screen - Mild retention in mid and lower esophagus. Thin Liquid via single sip: straw: Result: 1= does not enter airway Comment: Esophageal screen - continued mild retention of barium in mid esophagus, likely still cookie trial. Cued cough and re-swallow, which somewhat cleared residuals in laryngeal vestibule from earlier in the study. Thin Liquid via small single sip: cup: Result: 2= enter airway/above vocal folds/ejected Comment: Laryngeal penetration after the swallow from residues in the pyriforms - patient had reflexive cough and re-swallowed to mostly clear residue. Thin Liquid via small single sip: cup Trial 2: Result: 1= does not enter airway Barium Tablet w/ water: Result: 1= does not enter airway Comment: Esophageal screen - complete clearance. Oral Phase Labial Seal: Escape beyond interlabial space; no extension beyond polly border Tongue Control During Bolus Hold: Posterior escape of less than half of bolus Bolus Preparation/Mastication: Slow prolonged chewing/mashing with complete recollection Bolus Transport/Lingual Motion: Repetitive/disorganized tongue motion Oral Residue: Residue collection on oral structures Pharyngeal Phase Initiation of Pharyngeal Swallow: Bolus head in pyriforms Soft Palate Elevation: Trace column of contrast/air between soft palate and pharyngeal wall Laryngeal Elevation: Partial superior movement thyroid cart/partial apprx aryt- epig petiole Anterior Hyoid Excursion: Partial anterior movement Epiglottic Movement: Partial inversion Laryngeal Vestibule Closure at Height of Swallow: Incomplete; narrow column of air/contrast in laryngeal vestibule Pharyngeal Stripping Wave: Present - diminished Pharyngoesophageal Segment Opening: Parital distension and partial duration; parital obstruction of flow Tongue Base Retraction: Narrow column of contrast between tongue base & post. pharyngeal wall Pharyngeal Residue: Collection of residue within or on pharyngeal structures Esophageal Phase Esophageal Clearance: Esophageal retention Diagnosis/Impression Diagnosis: Mild oropharyngeal dysphagia R13.12 Impression: Tongue, jaw, and velum appeared tremulous during the study. The oral phase is primarily marked by... -Disorganized, tremulous tongue motion for A-P transport. -Decreased bolus control most notable w/ large sips of liquids partially spilling to the pharynx prior to swallow onset. -Prolonged, but complete mastication of cookie. The pharyngeal phase is primarily marked by... -Mild-moderate pharyngeal residues due to decreased tongue base retraction, pharyngeal stripping wave, and UES opening/duration. Patient had residue spill from pyriforms to the laryngeal vestibule with reflexive cough. Pharyngeal residues may increase patient's risk for post prandial aspiration. -Laryngeal penetration of large sip of liquids by cup, which didn't fully eject. No aspiration observed. The esophageal phase is primarily marked by... -Mild retention of cookie in mid and lower esophagus, which somewhat improved w/ liquid wash. -Complete clearance of barium tablet through LES, although he felt the pill was in his throat. Recommendations Diet: Regular Textures and Thin Liquids Compensatory Strategies: Small Bites, Small Sips, Slow Rate, Multiple Swallows, Alternate bites/solids and sips/liquids, Sitting upright and Remain sitting upright for 30 minutes after PO intake Supervision: Distant Supervision Recommend Repeat Modified Barium Swallow: TBD Need for Skilled Speech Therapy Services: Yes Comment: -Train the patient in use of strategies to decrease risk for aspiration and reflux aspiration. -Ongoing assessment of diet tolerance of recommended textures. -Train the patient in oropharyngeal exercise program to improve bolus control, airway closure, tongue base retraction, UES opening/duration (lingual res istance/coordination, Jess, Effortful, Chayo, Yawn stretch). Recommended Referrals: GI Consult (Outpatient) Education Completed: 1. Described result of evaluation., 2. Pt understands evaluation & agrees with goals and treatment plan. and 7. Pt requires further education on strategies & risks. Status Active ST Patient: Active Contact Information [facility] Speech Therapy:: Rain Mueller M.A. [facility]? Speech-Language Pathologist?? [facility] [address] [place], [place] [address] [address]? [email or web address]?? [phone]
[2024-07-18] MEDS: Pramipexole Di-HCl 1 MG Tablet PO ×2 (09:22→20:22)
[2024-07-18] MEDS: Furosemide 40 MG/4 ML Vial IV ×2 (09:23→18:29)
[2024-07-18] MEDS: Acetaminophen 500 MG Tablet PO ×2 (09:23→20:21)
[2024-07-18] MEDS: Metoprolol(XL)Succ 25 MG Tablet PO (09:23)
[2024-07-18] MEDS: APIXABAN 5 MG TABLET PO ×2 (09:23→20:22)
[2024-07-18] MEDS: Nystatin Powder 15gm Bottle 1 APPLIC TOPICAL (09:37)
--- NOTE | 2024-07-18 12:29 | CASEMGMT ---
Addendum entered by Melba Brian 07/18/24 14:50: Pt made aware that [facility] accepted him for services. Pt states he has a portable oxygen tank in room to go home with. Addendum entered by Melba Brian 07/18/24 13:35: Confirmed with [employer], pt oxygen order is 2 with exertion and 2 bled into pap. Addendum entered by Melba Brian 07/18/24 13:27: Pt accepted for services by [facility]. Original Note: ANGELA MOSER into pt room, pt sitting up in chair eating lunch. Pt states he has not reviewed his [facility] list because he cannot see it d/t his glasses breaking. Asked if ANGELA MOSER could read them to him. Pt agreeable to this. Read the location, star rating and name of agencies. Pt states he chooses [facility] as he thinks he has had them in the past. Discussed having SN, PT and OT. Pt feels this is appropriate. DC funeral director's assistant requested to send referral.
--- NOTE | 2024-07-18 13:34 | CASEMGMT ---
Discharge Planning HH referral sent to [facility] and was accepted. Cookie Wayne DC Planning Asst.
--- NOTE | 2024-07-18 15:47 | PCM.PN.HOSP ---
Reason for Visit Reason for Visit: Diagnoses Heart failure, unspecified (07/15/24) Objective Data Objective Data Vital Signs: Vital Signs Temp Pulse Resp BP Pulse Ox O2 Del Method O2 Flow Rate 96.9 F L 76 16 134/72 H 94 Nasal Cannula 3 07/18/24 15:30 07/18/24 15:30 07/18/24 15:30 07/18/24 15:30 07/18/24 15:30 07/18/24 15:30 07/18/24 15:30 Oxygen Flow Rate (L/min) 3 Oxygen Delivery Method Nasal Cannula Weight: 235 lb 14.314 oz Body Mass Index (BMI) 35.9 Intake & Output: Intake and Output for Last 24 Hours 07/16/24 07/17/24 07/18/24 23:59 23:59 23:59 Intake Total 870 / 870 620 / 620 150 / 150 Output Total 600 / 600 1900 / 1900 200 / 200 Balance 270 / 270 -1280 / -1280 -50 / -50 Lab / Micro Data 07/17/24 05:47 07/17/24 05:47 Micro: Microbiology 07/16/24 Unknown Mucosa - Nasopharyngeal Respiratory Panel (PCR) - Final 07/16/24 Unknown Nasal Secretion SARS-CoV-2 Antigen (Rapid) - Final Physical Exam Narrative Seen and examined. Patient had large bowel movement after 2 or 3 days of constipation. Short of breath after bowel movement. Dyspnea on exertion. Bilateral leg swelling Physical exam General: Alert, Oriented x3, Cooperative. BMI 35.9 kg/m?. Fatigue HEENT: Atraumatic, PERRLA, EOMI, Normocephalic Oral: No Gingival or Mucosal Lesions/ Ulcerations Neck: Supple, No JVD, Negative Carotid Bruits Chest wall/Lungs: Air entry diminished in bilateral lung bases. Dyspnea on exertion. Bilateral coarse crepitations/wheezing. Cardiovascular: Regular rate, Regular Rhythm, Normal S1, Normal S2, No M/G/R Abdomen: Bowel Sounds Present, Soft, Non Tender, Non-Distended : No dysuria. No renal angle tenderness. No suprapubic tenderness. Extremities: Bilateral below-knee pitting edema, Capillary Refill Less than 3 Seconds Skin: No rashes, No breakdown Musculoskeletal: No Tenderness to Palpation of Joints or Extremities Neurological: Cranial nerves II-XII grossly intact, DTR 2+/4. No acute focal neurological deficit. Psych/Mental Status: Normal Affect, Appropriate. Assessment & Plan Assessment/Plan (1) CHF (congestive heart failure): PLAN: Plan # Acute hypoxia secondary to acute on chronic heart failure preserved ejection fraction: Patient is being admitted in PCU. Patient was on as needed oxygen at home. Currently on 3 L of oxygen. Lasix dose increased to 40 mg twice daily. Heart failure core measures including intake and output, fluid restriction less than 1500 mL, daily weight monitoring, kidney and electrolytes monitoring. -Previous echo 2020 with an EF of 65% and RVSP of 41 mmHg with severely dilated right and left atria and moderate aortic valve stenosis, repeat echo pending Repeat repeat echo with no new or acute abnormalities. Normal prosthetic aortic valve. # possible oropharyngeal dysphagia: Patient has sensation of food getting stuck with some difficulty in swallowing. Patient also has history of non-Hodgkin's lymphoma but did not involve esophagus. It is in remission. Speech therapy consulted. # History of A-fib/aortic stenosis with bioprosthetic valve/recent pacemaker placement -Continue Eliquis -Continue metoprolol # History of chronic COPD -Does not seem to be in exacerbation, no wheezing, no increased cough or increased sputum production. On as needed oxygen. #TUSHAR -Patient reports he supposed to use CPAP at night but there has been a problem between CPAP and oxygen that is currently being addressed on an outpatient basis. Continue CPAP at home Chronic medical problem: #Chronic BPH with obstruction -Continue home medications #DVT ppx: Eliquis Clinical Impression(s) from Imaging Studies Chest X-Ray 07/15/24 12:55 IMPRESSION: No radiographic evidence of acute cardiopulmonary disease. . Normal prosthetic aortic valve Brain CT 07/15/24 13:27 IMPRESSION: No acute intracranial process. Cervical Spine CT 07/15/24 13:27 IMPRESSION: No evidence of acute cervical spinal fracture or spondylolisthesis. Multilevel degenerative changes. Shoulder X-Ray 07/15/24 13:27 IMPRESSION: 1. Degenerative changes and calcific tendinitis. 2. No evidence of acute fracture or dislocation. Echocardiogram 07/15/24 19:36 Interpretation Summary Normal LV size. Left ventricular systolic function is normal. The left ventricular ejection fraction is 60 %. Mean aortic valve gradient 21 mmHg. Normal prosthetic aortic valve. Contrast injection was performed. Charges/Coding Visit Charges Inpatient E&M: 96384 Subs Hosp L2
[2024-07-18] MEDS: Pravastatin 40 MG Tablet PO (20:22)
[2024-07-18] MEDS: Tamsulosin HCl 0.4 MG Capsule PO (20:22)
[2024-07-19] MEDS: Acetaminophen 325 MG Tablet 650 MG PO (02:30)
[2024-07-19 03:28] VITALS: BMI 35.9
[2024-07-19] MEDS: Dorzolamide 2% 10ml Bottle 1 DRP EACH EYE (04:58)
[2024-07-19 06:09] LABS: Absolute Lymphocyte Count 0.89 X10^3/uL (0.83-4.51); Absolute Neutrophil Count 4.8 X10^3/uL (2.0-7.7); Basophil# 0.04 X10^3/uL; Basophil% 0.6 % (0-1); Eosinophil# 0.15 X10^3/uL; Eosinophils% 2.4 % (0-5); Hematocrit 38.7 % (40-54); Hemoglobin 12.1 g/dL (13.0-16.5); Lymphocyte # 0.89 X10^3/ul (0.83-4.51); Mean Corp Hgb Conc 31.3 g/dL (32-36); Mean Corpuscular Hgb 33.2 pg (27.0-32.0); Mean Platelet Vol. 9.8 fl (6.2-12.0); Monocyte# 0.47 X10^3/uL; Monocyte% 7.4 % (0-10); NRBC Flagged by Analyzer 0 % (0-5); Neutrophil # 4.79 X10^3/uL (2.7-7.7); Neutrophil % 75.3 % (47-70); Platelet Count 192 K/mm3 (150-450); RBC Distribution Width CV 15.6 % (11.6-14.6); RBC Distribution Width SD 60.5 fl (35.1-43.9); Red Blood Count 3.65 M/mm3 (4.6-6.2); White Blood Count 6.4 K/mm3 (4.4-11.0)
[2024-07-19 06:30] LABS: Anion Gap 5 (5-15); BUN 43 mg/dL (7-18); BUN/Creat Ratio 23.5 RATIO (10-20); Calcium,Total 8.8 mg/dL (8.5-10.1); Chloride 109 mmol/L (98-107); Creatinine, Serum 1.83 mg/dL (0.70-1.30); EST Glomerular Filtration Rate 38 mL/min (>60); Est Glom Filt Rate - Afr Amer 46 mL/min (>60); Estimated Creatinine Clearance 35.67 ml/min; Glucose 168 mg/dL (74-106); Potassium 4.1 mmol/L (3.5-5.1); Sodium Level 138 mmol/L (136-145)
[2024-07-19] MEDS: Ipratropium/Albuterol Sulfate 3 ML AMPUL.NEB INHALATION ×2 (07:01→10:39)
[2024-07-19 07:02] VITALS: PULSE 78; RESP 18; O2SAT 94
[2024-07-19] MEDS: Budesonide Respules 0.5 MG/2 ML AMPUL.NEB. INHALATION (07:02)
[2024-07-19 08:14] VITALS: BP 126/47; PULSE 81; RESP 18; TEMP 36.6; O2SAT 93
[2024-07-19 08:20] VITALS: BP 126/47; PULSE 81
[2024-07-19] MEDS: Acetaminophen 500 MG Tablet PO (08:20)
[2024-07-19] MEDS: Metoprolol(XL)Succ 25 MG Tablet PO (08:20)
[2024-07-19] MEDS: APIXABAN 5 MG TABLET PO (08:20)
[2024-07-19] MEDS: Pramipexole Di-HCl 1 MG Tablet PO (08:20)
[2024-07-19] MEDS: 0.9% Saline Lock 10 ML Syringe IV (08:35)
[2024-07-19] MEDS: Furosemide 40 MG/4 ML Vial IV (08:35)
[2024-07-19] MEDS: Nystatin Powder 15gm Bottle 1 APPLIC TOPICAL (08:39)
--- NOTE | 2024-07-19 08:57 | DCINST_ITS ---
Discharge Instructions Diet Discharge Diet: 6 Cup Fluid Restriction, 8 Cup Fluid Restriction and 2000 mg Sodium Diet Activity Discharge Activity: Return to Normal Activity Weight Bearing Status: Weight bearing as tolerated Dressing / Incision Call your doctor if you observe: Fever of 101 or Higher, Coldness, Increased Pain, Numbness or Tingling, Change in Color, Inability to urinate, Inability to have a bowel movement, Shortness of breath, Dizziness, Fainting spells, Swelling in the ankles, Chest pain, Prolonged hiccupping, Increased palpitations (irregular heartbeat) and Calf discomfort Follow Up Care When: IN 2 WEEKS Test Results: Test results from this visit will be discussed in further detail at your follow- up appointment, if applicable. Discharge Plan Admission Admit Date/Time: 07/15/24 17:42 Primary Reason for Your Visit: Attending Provider: Gray Calvin Primary Care Provider: Silvino Jaime Consulting Providers: Camron Ambriz; Tata Mccloud Instructions Additional Instructions / Restrictions: 1. Advised follow-up the patient's food and beverage checker in [place] in 1 to 2 weeks. 2. Advised furosemide 40 mg twice daily for 1 week and then 40 mg in the morning and 20 mg about 6 PM to continue. Diuretic dose might need to be changed. Follow-up BMP, magnesium in 1 week with PCP Discharge Orders/Prescriptions Prescriptions: Continued gabapentin [Neurontin] 300 mg capsule 300 mg PO DAILY ascorbic acid (vitamin C) 500 mg tablet 500 mg PO BID albuterol sulfate [Ventolin HFA] 90 mcg/actuation HFA aerosol inhaler 2 puff inhalation Q6H PRN (Reason: SOB) nitroglycerin 0.4 MG tablet 0.4 mg sublingual Q5M PRN (Reason: Chest Pain) Patient Comments: chest pain pravastatin 40 MG tablet 40 mg PO QHS tamsulosin 0.4 mg Capsule 0.4 mg PO QHS ropinirole 1 mg tablet 2 mg PO BID ipratropium-albuterol 0.5 mg-3 mg(2.5 mg base)/3 mL solution for nebulization 3 ml inhalation 4X/DAY Patient Comments: inhale contents of 1 vial ( 3 milliliters ) in nebulizer by mouth... (REFER TO PRESCRIPTION NOTES). budesonide 0.25 mg/2 mL suspension for nebulization 0.25 mg inhalation BID Patient Comments: inhale contents of 1 vial in nebulizer twice a day WITH PERFOROMIST ergocalciferol (vitamin D2) 1,250 mcg (50,000 unit) Capsule 1,250 mcg PO MO acetaminophen 500 mg Tablet 500 mg PO BID ipratropium bromide 21 mcg (0.03 %) spray,non-aerosol 1 - 2 spray INTRANASAL Q6H PRN vitamin B complex [Vitamins B Complex] Tablet 1 tab PO BID metoprolol succinate 25 mg tablet extended release 24 hr 25 mg PO DAILY Yupelri 175 mcg/3 mL solution for nebulization 175 mcg inhalation DAILY Eliquis 5 mg tablet 5 mg PO BID dorzolamide 2 % drops 1 drp ophthalmic (eye) TID Changed furosemide 40 mg tablet 40 mg PO BID 30 Days Qty: 60 1RF Rx Instructions: Advised furosemide 40 mg twice daily for 1 week and then 40 mg in the morning and 20 mg in evening. Referrals / Follow Up: Silvino Jaime MD [Primary Care Provider] - Within 2 Weeks Disposition Disposition (needs filled in before D/C Order can be placed): Home Health Service
--- NOTE | 2024-07-19 09:22 | PCM.DC.SUM ---
Providers Date of Admission: 07/15/24 Date of Discharge: 07/19/24 Primary Care Physician: Dr. Silvino Jaime MD Reason For Visit: CHF Diagnosis Discharge Diagnosis (1) CHF (congestive heart failure): Status: Acute Code(s): I50.9 - Heart failure, unspecified Plan This is a 84-year-old gentleman was admitted with chief complaint of passing out. He finished his lunch, stood up and told his family member that is going to pass out who caught him and lowered him to the ground. Patient had passed out for short period of time. Patient on oxygen as needed. Patient also had fall 2 days ago and complained of right shoulder pain. # Acute hypoxia secondary to acute on chronic heart failure preserved ejection fraction: Patient is being admitted in PCU. Patient was on as needed oxygen at home. Currently on 3 L of oxygen. Lasix dose increased to 40 mg twice daily. Heart failure core measures including intake and output, fluid restriction less than 1500 mL, daily weight monitoring, kidney and electrolytes monitoring. -Previous echo 2020 with an EF of 65% and RVSP of 41 mmHg with severely dilated right and left atria and moderate aortic valve stenosis, repeat echo pending Repeat repeat echo with no new or acute abnormalities. Normal prosthetic aortic valve. 07/19: Patient follows deputy felony clerk in [place]. Advised to take furosemide 40 mg twice daily for 1 week and then 40 mg a.m. and 20 g p.m. Follow-up BMP and magnesium in 1 week with PCP and deputy felony clerk. # Mild oropharyngeal dysphagia: Patient has sensation of food getting stuck with some difficulty in swallowing. Patient also has history of non-Hodgkin's lymphoma but did not involve esophagus. It is in remission. Speech therapy consulted. 07/19: Patient had modified barium swallow. There was mild to moderate pharyngeal residue use with esophageal phase showing mild retention of cookie in mid and lower esophagus. Regular texture with thin liquid and compensatory strategies recommended # History of A-fib/aortic stenosis with bioprosthetic valve/recent pacemaker placement -Continue Eliquis -Continue metoprolol # History of chronic COPD -Does not seem to be in exacerbation, no wheezing, no increased cough or increased sputum production. On as needed oxygen. #TUSHAR -Patient reports he supposed to use CPAP at night but there has been a problem between CPAP and oxygen that is currently being addressed on an outpatient basis. Continue CPAP at home Chronic medical problem: #Chronic BPH with obstruction -Continue home medications #DVT ppx: Eliquis Discharge medication reconciliation done. Discharge follow-up instructions completed. Discharge process discussed with the patient and all questions were answered to patient's satisfaction. Follow with PCP in 1 to 2 weeks Total time spent, exact 35 minutes on discharge meds reconciliation, examination, coordination of care with nurses and ancillary staff, review of imaging and blood test and discussion with the patient on follow-up instructions. Clinical Impression(s) from Imaging Studies Chest X-Ray 07/15/24 12:55 IMPRESSION: No radiographic evidence of acute cardiopulmonary disease. . Normal prosthetic aortic valve Brain CT 07/15/24 13:27 IMPRESSION: No acute intracranial process. Cervical Spine CT 07/15/24 13:27 IMPRESSION: No evidence of acute cervical spinal fracture or spondylolisthesis. Multilevel degenerative changes. Shoulder X-Ray 07/15/24 13:27 IMPRESSION: 1. Degenerative changes and calcific tendinitis. 2. No evidence of acute fracture or dislocation. Echocardiogram 07/15/24 19:36 Interpretation Summary Normal LV size. Left ventricular systolic function is normal. The left ventricular ejection fraction is 60 %. Mean aortic valve gradient 21 mmHg. Normal prosthetic aortic valve. Contrast injection was performed. Medications at Discharge Home Medications nitroglycerin 0.4 mg sublingual tablet 0.4 mg sublingual Q5M PRN Chest Pain 01/19/16 pravastatin 40 mg tablet 40 mg PO QHS cholesterol 06/22/16 tamsulosin 0.4 mg capsule 0.4 mg PO QHS prostate 03/14/21 budesonide 0.25 mg/2 mL suspension for nebulization 0.25 mg inhalation BID SOB 03/23/21 ergocalciferol (vitamin D2) 1,250 mcg (50,000 unit) capsule 1,250 mcg PO MO supplement 03/23/21 ipratropium 0.5 mg-albuterol 3 mg (2.5 mg base)/3 mL nebulization soln 3 ml inhalation 4X/DAY SOB 03/23/21 acetaminophen 500 mg tablet 500 mg PO BID . 05/13/21 gabapentin 300 mg capsule (Neurontin) 300 mg PO DAILY . 08/18/21 ascorbic acid (vitamin C) 500 mg tablet 500 mg PO BID . 11/16/21 albuterol sulfate 90 mcg/actuation aerosol inhaler (Ventolin HFA) 2 puff inhalation Q6H PRN SOB 03/22/22 ropinirole 1 mg tablet 2 mg PO BID restless leg 05/17/23 apixaban 5 mg tablet (Eliquis) 5 mg PO BID . 07/15/24 ipratropium bromide 21 mcg (0.03 %) nasal spray 1 - 2 spray intranasal Q6H PRN . 07/15/24 metoprolol succinate 25 mg tablet,extended release 24 hr 25 mg PO DAILY . 07/15/24 revefenacin 175 mcg/3 mL solution for nebulization (Yupelri) 175 mcg inhalation DAILY SOB 07/15/24 vitamin B complex (Vitamins B Complex tablet) 1 tab PO BID SUPPLEMENT 07/15/24 dorzolamide 2 % eye drops 1 drp ophthalmic (eye) TID eye 07/16/24 furosemide 40 mg tablet 40 mg PO BID . 30 days #60 tabs 07/19/24 Physical Exam Narrative Seen and examined. Leg swelling shortness of breath and millimeter. quality assurance monitor chassis shows A-fib with PVCs. No discernible P waves. Physical exam General: Alert, Oriented x3, Cooperative. BMI 35.9 kg/m?. Fatigue HEENT: Atraumatic, PERRLA, EOMI, Normocephalic Oral: No Gingival or Mucosal Lesions/ Ulcerations Neck: Supple, No JVD, Negative Carotid Bruits Chest wall/Lungs: Air entry diminished in bilateral lung bases. No dyspnea at rest. Dyspnea on moderate exertion. Bilateral coarse crepitations have improved. Cardiovascular: Left AICD recent surgical dressing dry and intact. Irregular rhythm normal S1, Normal S2, No M/G/R Abdomen: Bowel Sounds Present, Soft, Non Tender, Non-Distended : No dysuria. No renal angle tenderness. No suprapubic tenderness. Extremities: Bilateral 1-2+ pitting edema, improved. Capillary Refill Less than 3 Seconds Skin: No rashes, No breakdown Musculoskeletal: No Tenderness to Palpation of Joints or Extremities Neurological: Cranial nerves II-XII grossly intact, DTR 2+/4. No acute focal neurological deficit. Psych/Mental Status: Normal Affect, Appropriate. Weight / BMI Weight Weight: 236 lb 5.369 oz Body Mass Index (BMI) 35.9 ABG / Lab / Microbiology Data 07/19/24 05:25 07/19/24 05:25 Laboratory: Laboratory Results - last 24 hr 07/19/24 05:25: WBC 6.4, RBC 3.65 L, Hgb 12.1 L, Hct 38.7 L, MCV 106.0 H, MCH 33.2 H, MCHC 31.3 L, RDW Std Deviation 60.5 H, RDW Coeff of Danial 15.6 H, Plt Count 192, MPV 9.8, Immature Gran % (Auto) 0.300, Neut % (Auto) 75.3 H, Lymph % (Auto) 14.0 L, [place] % (Auto) 7.4, Eos % (Auto) 2.4, Baso % (Auto) 0.6, Absolute Neuts (auto) 4.8, Absolute Lymphs (auto) 0.89, Nucleated RBC % 0, Sodium 138, Potassium 4.1, Chloride 109 H, Carbon Dioxide 24.0, Anion Gap 5, BUN 43 H, Creatinine 1.83 H, Estim Creat Clear Calc 35.67, Est GFR (MDRD) Af Amer 46 L, Est GFR (MDRD) Non-Af 38 L, BUN/Creatinine Ratio 23.5 H, Glucose 168 H, Calcium 8.8 Microbiology: Microbiology 07/16/24 Unknown Mucosa - Nasopharyngeal Respiratory Panel (PCR) - Final 07/16/24 Unknown Nasal Secretion SARS-CoV-2 Antigen (Rapid) - Final D/C Instructions Discharge Diet: 6 Cup Fluid Restriction, 8 Cup Fluid Restriction and 2000 mg Sodium Diet Weight Bearing Status: Weight bearing as tolerated Call your doctor if you observe: Fever of 101 or Higher, Coldness, Increased Pain, Numbness or Tingling, Change in Color, Inability to urinate, Inability to have a bowel movement, Shortness of breath, Dizziness, Fainting spells, Swelling in the ankles, Chest pain, Prolonged hiccupping, Increased palpitations (irregular heartbeat) and Calf discomfort When: IN 2 WEEKS Meaningful Use Info Meaningful Use Meaningful Use Diagnoses (Choose all that apply): None applicable Ischemic Stroke Statin Dosing Therapy Reference: STATIN DOSE THERAPY REFERENCE: * Patients > 75 years receive moderate or high dose statin therapy. * Patients 75 years or YOUNGER should receive HIGH intensity statin dose unless contraindicated. You will be required to document reason for non-treatment if statin daily dose does not meet guidelines. HIGH DOSE STATIN THERAPY DAILY Atorvastatin > than or = to 40 mg Rosuvastatin > than or = to 20 mg Amlodipine + Atorvastatin > than or = to 2.5/40 mg Ezetimibe + Simvastatin 10/80 mg Simvastatin 80mg Discharge Plan Admission Admit Date/Time: 07/15/24 17:42 Primary Reason for Your Visit: Attending Provider: Gray Calvin Primary Care Provider: Silvino Jaime Consulting Providers: Camron Ambriz; Tata Mccloud Instructions Additional Instructions / Restrictions: 1. Advised follow-up the patient's deputy felony clerk in [place] in 1 to 2 weeks. 2. Advised furosemide 40 mg twice daily for 1 week and then 40 mg in the morning and 20 mg about 6 PM to continue. Diuretic dose might need to be changed. Follow-up [facility] in 1 week with PCP Discharge Orders/Prescriptions Prescriptions: Continued gabapentin [Neurontin] 300 mg capsule 300 mg PO DAILY ascorbic acid (vitamin C) 500 mg tablet 500 mg PO BID albuterol sulfate [Ventolin HFA] 90 mcg/actuation HFA aerosol inhaler 2 puff inhalation Q6H PRN (Reason: SOB) nitroglycerin 0.4 MG tablet 0.4 mg sublingual Q5M PRN (Reason: Chest Pain) Patient Comments: chest pain pravastatin 40 MG tablet 40 mg PO QHS tamsulosin 0.4 mg Capsule 0.4 mg PO QHS ropinirole 1 mg tablet 2 mg PO BID ipratropium-albuterol 0.5 mg-3 mg(2.5 mg base)/3 mL solution for nebulization 3 ml inhalation 4X/DAY Patient Comments: inhale contents of 1 vial ( 3 milliliters ) in nebulizer by mouth... (REFER TO PRESCRIPTION NOTES). budesonide 0.25 mg/2 mL suspension for nebulization 0.25 mg inhalation BID Patient Comments: inhale contents of 1 vial in nebulizer twice a day WITH PERFOROMIST ergocalciferol (vitamin D2) 1,250 mcg (50,000 unit) Capsule 1,250 mcg PO MO acetaminophen 500 mg Tablet 500 mg PO BID ipratropium bromide 21 mcg (0.03 %) spray,non-aerosol 1 - 2 spray INTRANASAL Q6H PRN vitamin B complex [Vitamins B Complex] Tablet 1 tab PO BID metoprolol succinate 25 mg tablet extended release 24 hr 25 mg PO DAILY Yupelri 175 mcg/3 mL solution for nebulization 175 mcg inhalation DAILY Eliquis 5 mg tablet 5 mg PO BID dorzolamide 2 % drops 1 drp ophthalmic (eye) TID Changed furosemide 40 mg tablet 40 mg PO BID 30 Days Qty: 60 1RF Rx Instructions: Advised furosemide 40 mg twice daily for 1 week and then 40 mg in the morning and 20 mg in evening. Referrals / Follow Up: Silvino Jaime MD [Primary Care Provider] - Within 2 Weeks Disposition Disposition (needs filled in before D/C Order can be placed): Home Health Service Charges/Coding Visit Charges Inpatient E&M: 75276 Disch Hosp >30min
[2024-07-19 10:40] VITALS: PULSE 80; RESP 18
== END 2024-07-19 13:05 | disposition home health service (06) | DRG 291 ==
LOC: ED 13:54 → PCU 16:43
PROVIDERS: Internal Medicine; Admitting Provider Family Medicine; Emergency Provider Emergency Medicine; PCP Family Medicine; Visit Provider Internal Medicine
DX: I13.0 Hypertensive heart and chronic kidney disease with heart failure and stage 1 through stage 4 chronic kidney disease, or unspecified chronic kidney disease (principal); I50.33 Acute on chronic diastolic (congestive) heart failure; N13.8 Other obstructive and reflux uropathy; Z79.01 Long term (current) use of anticoagulants; J44.9 Chronic obstructive pulmonary disease, unspecified; D64.9 Anemia, unspecified; I35.0 Nonrheumatic aortic (valve) stenosis; N18.9 Chronic kidney disease, unspecified; I48.91 Unspecified atrial fibrillation; M75.31 Calcific tendinitis of right shoulder; E78.5 Hyperlipidemia, unspecified; G47.33 Obstructive sleep apnea (adult) (pediatric); M77.9 Enthesopathy, unspecified; Z87.891 Personal history of nicotine dependence; Z86.718 Personal history of other venous thrombosis and embolism; Z79.891 Long term (current) use of opiate analgesic; R09.02 Hypoxemia; N40.1 Benign prostatic hyperplasia with lower urinary tract symptoms; R13.12 Dysphagia, oropharyngeal phase; Z45.02 Encounter for adjustment and management of automatic implantable cardiac defibrillator
CPT/HCPCS: 36415; 36600; 70450; 71046; 72125; 73030; 74230; 80048; 80076; 82803; 83735; 83880; 84100; 84443; 84484; 85025; 85027; 87426; 87633; 92526; 92611; 93005; 93306; 94640; 97162; 97166; 97530; 97535; 99285; J7030; Q9957; A4216; C8929; J1940

== ENCOUNTER 2024-07-25 13:03 | Emergency (ER) | payer MEDICARE, SELFPAY ==
[2024-07-25 13:03] VITALS: PULSE 38; RESP 27
--- NOTE | 2024-07-25 13:21 | EX.ED.CRITCA ---
HPI History of Present Illness Chief Complaint: CPR Informant: EMS Onset/Context/Timing Onset: Today Context: Sudden Onset Timing: Continuous Narrative Narrative: 84-year-old male history of pacemaker defibrillator recently placed, DVT, COPD, A-fib on Eliquis. Neighbors called the squad due to they found him down in his home. Patient is unable to give any history. Currently is a full arrest. Squad was called out at 12:28 PM.. They began CPR around 12:40 p.m. Patient was an unwitnessed found down arrest. PEA per squad. No other history available at this time. Prior similar symptoms: No Recent Illness/Hospitalization: Yes [facility] Medical History Pacemaker Macrocytosis Gout DVT (deep venous thrombosis) Restless legs Sleep apnea Leg cramps History of echocardiogram History of stress test Deep vein thrombosis, lower left extremity Eye disease Wears glasses Wears dentures Carotid arterial disease Non-Hodgkin lymphoma Gastric reflux Ambulates with cane Chronic kidney disease Excessive bleeding History of GI bleed Shortness of breath on exertion Cardiology follow-up encounter Acute blood loss anemia Iron deficiency anemia due to chronic blood loss DLBCL (diffuse large B cell lymphoma) Hearing loss, right Kidney disease Former smoker CPAP (continuous positive airway pressure) dependence Atrial fibrillation Hypertension COPD (chronic obstructive pulmonary disease) SBO (small bowel obstruction) Home Medications ?Medication ?Instructions ?Recorded ?Last Taken ?Type nitroglycerin 0.4 mg sublingual 0.4 mg sublingual Q5M PRN Chest 01/19/16 Unknown History tablet Pain pravastatin 40 mg tablet 40 mg PO QHS cholesterol 06/22/16 07/14/24 History tamsulosin 0.4 mg capsule 0.4 mg PO QHS prostate 03/14/21 07/14/24 History budesonide 0.25 mg/2 mL suspension 0.25 mg inhalation BID SOB 03/23/21 07/15/24 History for nebulization ergocalciferol (vitamin D2) 1,250 1,250 mcg PO MO supplement 03/23/21 07/15/24 History mcg (50,000 unit) capsule ipratropium 0.5 mg-albuterol 3 mg 3 ml inhalation 4X/DAY SOB 03/23/21 03/22/21 History (2.5 mg base)/3 mL nebulization soln acetaminophen 500 mg tablet 500 mg PO BID pain 05/13/21 Unknown History gabapentin 300 mg capsule 300 mg PO DAILY pain/neuropathy 08/18/21 07/14/24 History (Neurontin) ascorbic acid (vitamin C) 500 mg 500 mg PO BID supplement 11/16/21 07/15/24 History tablet albuterol sulfate 90 mcg/actuation 2 puff inhalation Q6H PRN SOB 03/22/22 Unknown History aerosol inhaler (Ventolin HFA) ropinirole 1 mg tablet 2 mg PO BID restless leg 05/17/23 07/15/24 History apixaban 5 mg tablet (Eliquis) 5 mg PO BID blood thinner 07/15/24 07/15/24 History ipratropium bromide 21 mcg (0.03 1 - 2 spray intranasal Q6H PRN nose 07/15/24 07/14/24 History %) nasal spray metoprolol succinate 25 mg 25 mg PO DAILY heart/BP 07/15/24 07/15/24 History tablet,extended release 24 hr revefenacin 175 mcg/3 mL solution 175 mcg inhalation DAILY SOB 07/15/24 07/14/24 History for nebulization (Ellai) vitamin B complex (Vitamins B 1 tab PO BID SUPPLEMENT 07/15/24 07/15/24 History Complex tablet) dorzolamide 2 % eye drops 1 drp ophthalmic (eye) TID eye 07/16/24 Unknown History furosemide 40 mg tablet 40 mg PO BID . 30 days #60 tabs 07/19/24 Unknown Rx Allergy/AdvReac Type Severity Reaction Status Date / Time iodine Allergy Severe Anaphylaxis Verified 07/15/24 12:54 morphine Allergy Severe Other Verified 07/15/24 12:54 oxycodone HCl (From Percocet) AdvReac rash Verified 07/15/24 12:54 pantoprazole AdvReac Upset Verified 07/15/24 12:54 Stomach Family History Father CVA (cerebral vascular accident) Hypertension Heart disease Surgical History History of hernia repair History of cataract surgery History of aortic valve repair History of colonoscopy (~03/2021) History of colonoscopy (~07/2020) History of colonoscopy (~04/2020) H/O aortic valve replacement with porcine valve History of appendectomy Social History Smoking Status: Former smoker Tobacco: How many years used: 25 second hand exposure: No alcohol intake: never substance use type: does not use seatbelt use: always do you feel safe at home: Yes ROS ROS ED ROS Narrative Unable to obtain any history due to full arrest. Patient unresponsive. Review of Systems ROS Unobtainable: due to endotracheal tube EXAM Physical Exam Narrative Exam Narrative: 84-year-old male brought in by squad undergoing CPR. He has no palpable pulse without CPR. They placed an IO in his left tibia. He had a Igel in. HEENT exam pupils are 3 mm and 6. Nonreactive. Prior cataract surgery. No facial trauma. Tongue midline. I-gel was removed and he was intubated with a 7F ET tube at 22 at the lips. Bilateral breath sounds were heard. Good color change and vapor in the tube. Const Positive well nourished and well developed; Negative for cachectic or contractures General Appearance ED: well developed; Negative for cachectic, contractures or NAD Nutritional Appearance: Negative for cachectic HEENT HEENT Narrative: Pupils 3 mm bilaterally. Unreactive. normocephalic and atraumatic; Negative for trauma or cyanosis of lips/distal nose Eyes Negative for PERRL or EOMs intact bilaterally Neck No full ROM, no lymphadenopathy, supple and no JVD Cardio Cardio Narrative: Paced rhythm. No pulse. At times asystole. GI non-tender, non-distended and no masses Neuro No oriented x3 and No CN's II-XII intact bilaterally Neuro Narrative: Unconscious. Unresponsive to verbal or noxious stimuli. Not moving any extremities. Psych Psych Narrative: Unresponsive. Skin Skin Narrative: Bruising over his chest wall and abdomen. Recently placed left-sided pacemaker defibrillator. General Skin Exam: Negative for jaundice Lesions: no lesions Rashes: no rashes MDM MDM MDM Narrative Medical decision making narrative: 84-year-old male extensive past medical history neighbors found him down at home. Full arrest. Squad started CPR gave him 2 epinephrines I believe they shocked him twice. And a very brief episode of possible spontaneous pulse that then resolved. He has now been down over 30 minutes. We continued CPR. He got 2 rounds of epinephrine. He never regained a spontaneous pulse here. Both carotid and femoral were nonexistent. Pupils were unresponsive to light. He was intubated with good breath sounds. He was shocked once due to a brief episode of V. tach but again was pulseless. Patient's downtime was at least 40 minutes from known downtime. But it was unwitnessed arrest. We ended heroic measures at 1:11 PM. Patient was pronounced. History & Record Review Discussion w/independent historian: EMS personnel Additional record(s) reviewed:: Prior inpatient record, Prior outpatient record, Prior ED visit and Prior labs Discharge Plan Triage Chief Complaint: CPR ED Provider: Oscar Allen Dx/Rx/DC Orders Clinical Impression: Cardiopulmonary arrest, History of cardiac defibrillator placement, History of atrial fibrillation, Chronic anticoagulation, Patient pronounced Prescriptions: No Action gabapentin [Neurontin] 300 mg capsule 300 mg PO DAILY ascorbic acid (vitamin C) 500 mg tablet 500 mg PO BID albuterol sulfate [Ventolin HFA] 90 mcg/actuation HFA aerosol inhaler 2 puff inhalation Q6H PRN (Reason: SOB) nitroglycerin 0.4 MG tablet 0.4 mg sublingual Q5M PRN (Reason: Chest Pain) Patient Comments: chest pain pravastatin 40 MG tablet 40 mg PO QHS tamsulosin 0.4 mg Capsule 0.4 mg PO QHS ropinirole 1 mg tablet 2 mg PO BID ipratropium-albuterol 0.5 mg-3 mg(2.5 mg base)/3 mL solution for nebulization 3 ml inhalation 4X/DAY Patient Comments: inhale contents of 1 vial ( 3 milliliters ) in nebulizer by mouth... (REFER TO PRESCRIPTION NOTES). budesonide 0.25 mg/2 mL suspension for nebulization 0.25 mg inhalation BID Patient Comments: inhale contents of 1 vial in nebulizer twice a day WITH PERFOROMIST ergocalciferol (vitamin D2) 1,250 mcg (50,000 unit) Capsule 1,250 mcg PO MO acetaminophen 500 mg Tablet 500 mg PO BID ipratropium bromide 21 mcg (0.03 %) spray,non-aerosol 1 - 2 spray INTRANASAL Q6H PRN vitamin B complex [Vitamins B Complex] Tablet 1 tab PO BID metoprolol succinate 25 mg tablet extended release 24 hr 25 mg PO DAILY Yupelri 175 mcg/3 mL solution for nebulization 175 mcg inhalation DAILY Eliquis 5 mg tablet 5 mg PO BID dorzolamide 2 % drops 1 drp ophthalmic (eye) TID furosemide 40 mg tablet 40 mg PO BID 30 Days Qty: 60 1RF Rx Instructions: Advised furosemide 40 mg twice daily for 1 week and then 40 mg in the morning and 20 mg in evening. Primary Care Provider: Silvino Jaime Referrals: Silvino Jaime MD [Primary Care Provider] - Print Language: Irish Disposition Disposition:
[2024-07-25 13:53] VITALS: TEMP 36.1; BMI 38.2
[2024-07-25 13:56] VITALS: BP 0/0; PULSE 0; RESP 0; TEMP -17.7; TEMP 0; O2SAT 0
--- NOTE | 2024-07-25 14:41 | ED.RN ---
FAMILY WHITING ARE AT BEDSIDE
--- NOTE | 2024-07-25 15:01 | ED.RN ---
Called [facility]. They will come get patient when family is ready.
--- NOTE | 2024-07-25 17:44 | ED.RN ---
PT PICKED UP FROM HOME AT [id number]
== END 2024-07-25 17:44 ==
PROVIDERS: Emergency Provider Emergency Medicine; PCP Family Medicine; Visit Provider Emergency Medicine
DX: I46.9 Cardiac arrest, cause unspecified (principal); J44.9 Chronic obstructive pulmonary disease, unspecified; I48.91 Unspecified atrial fibrillation; N18.9 Chronic kidney disease, unspecified; I12.9 Hypertensive chronic kidney disease with stage 1 through stage 4 chronic kidney disease, or unspecified chronic kidney disease; Z87.891 Personal history of nicotine dependence; Z79.01 Long term (current) use of anticoagulants; Z95.810 Presence of automatic (implantable) cardiac defibrillator; Z86.718 Personal history of other venous thrombosis and embolism; Z95.2 Presence of prosthetic heart valve
CPT/HCPCS: 31500; 92950; J7030; A4216